=== PATIENT | male | born 1960 | race Caucasian/White ===

== ENCOUNTER 2017-02-10 18:23 | Emergency (ER) | payer MEDICAID ==
[~2017-02-10] VITALS: Ht 180.3 cm; Wt 56.8 kg
[~2017-02-10 18:23] MED LIST: ALBU0.08 NEB; ALBU6.7H INH; ALEV220C PO; BACL10TA PO; LOVA40TA PO; NEBUKIT5; TAMS5CAP PO; ULTR50TA5 PO
[2017-02-10 18:26] VITALS: BP 113/76; PULSE 89; RESP 18; TEMP 97.9; O2SAT 96
[2017-02-10 19:09] VITALS: BP 117/70; PULSE 102; RESP 20; TEMP 98; O2SAT 96
[2017-02-10] MEDS ORDERED: SODIUM CHLOR 0.9% 1000 ML INJ 1,000 ML IV SCH (19:34)
[2017-02-10] MEDS ORDERED: ONDANSETRON HCL 4 MG/2 ML VIAL IVP ONE (19:45)
[2017-02-10] MEDS ORDERED: PANTOPRAZOLE SODIUM 40 MG VIAL IVP ONE (19:45)
[2017-02-10 20:18] VITALS: BP 117/70; PULSE 78; RESP 20; O2SAT 96
[2017-02-10 20:20] LABS: AUTOMATED NEUTROPHIL # 8.3 TH/MM3 (1.8-7.7); BASOPHIL # 0.1 TH/MM3 (0-0.2); BASOPHIL % 0.7 % (0.0-2.0); EOSINOPHIL # 0.3 TH/MM3 (0-0.4); EOSINOPHIL % 2.5 % (0.0-4.0); HEMATOCRIT 49.6 % (39.0-51.0); HEMO FLAGS DIFF FINAL; LYMPH % 15.9 % (9.0-44.0); LYMPHOCYTE # 1.9 TH/MM3 (1.0-4.8); MEAN CORPUSCULAR HEMOGLOBIN 30.3 PG (27.0-34.0); MONO % 9.1 % (0.0-8.0); NEUT % 71.8 % (16.0-70.0); PLATELET COUNT 201 TH/MM3 (150-450); RED BLOOD COUNT 5.39 MIL/MM3 (4.50-5.90); RED CELL DISTRIBUTION WIDTH 14.5 % (11.6-17.2); WHITE BLOOD COUNT 11.7 TH/MM3 (4.0-11.0)
--- NOTE | 2017-02-10 20:26 | RADHPO ---
EXAM DATE/TIME: 02/10/2017 20:05 [facility] COMPARISON: CHEST PA & LAT, April 07, 2013, 19:52. INDICATIONS : Shortness of breath, nausea, and abdominal pain. MEDICAL HISTORY : Chronic obstructive pulmonary disease. Lymphoma. Colitis. SURGICAL HISTORY : None. ENCOUNTER: Initial ACUITY: 1 day PAIN SCORE: 6/10 LOCATION: Bilateral chest FINDINGS: 2 AP erect views of the chest were obtained and demonstrates the lungs to be symmetrically hyperinfla conrad without evidence of mass, infiltrate or effusion. The cardiomediastinal contours are unremarkabl e. Osseous structures are intact. There are multiple overlying electrocardiogram leads. CONCLUSION: 1. Hyperinflation consistent with underlying emphysema. 2. No acute cardiopulmonary disease. Jose Bae MD on February 10, 2017 at 20:24 Board Certified Radiologist. This report was verified electronically.
[2017-02-10 20:31] LABS: CHLORIDE 102 MEQ/L (98-107); POTASSIUM 4.2 MEQ/L (3.5-5.1); SODIUM (NA) 137 MEQ/L (136-145)
[2017-02-10 20:34] LABS: APTT (PATIENT) 28.2 SEC (24.3-30.1); PROTHROMBIN TIME - PATIENT 10.5 SEC (9.8-11.6)
[2017-02-10 20:35] LABS: ANION GAP 8 MEQ/L (5-15); BICARBONATE 27.1 MEQ/L (21.0-32.0); BLOOD UREA NITROGEN 24 MG/DL (7-18); MAGNESIUM 1.9 MG/DL (1.5-2.5)
[2017-02-10 20:38] LABS: ALT (GPT) 26 U/L (12-78); AST (GOT) 19 U/L (15-37); GLOMERULAR FILTRATION RATE 80 ML/MIN (>89)
[2017-02-10 20:40] LABS: TOTAL BILIRUBIN ADULT 0.3 MG/DL (0.2-1.0)
[2017-02-10 20:41] LABS: ALKALINE PHOSPHATASE 88 U/L (45-117)
[2017-02-10 21:00] VITALS: BP 106/65; PULSE 84; RESP 20; O2SAT 97
[2017-02-10] MEDS ORDERED: IOHEXOL 350 MG/ML 10 ML VIAL (for RAD DIAG) IV ONE (21:31)
--- NOTE | 2017-02-10 21:36 | RADHPO ---
EXAM DATE/TIME: 02/10/2017 20:56 [facility] COMPARISON: CT ABDOMEN & PELVIS W CONTRAST, August 06, 2016, 14:22. INDICATIONS : Diffuse abdominal pain with nausea. IV CONTRAST: 96 cc Omnipaque 350 (iohexol) IV ORAL CONTRAST: No oral contrast ingested. RADIATION DOSE: 4.85 CTDIvol (mGy) MEDICAL HISTORY : Gastroesophageal reflux disease. Lymphoma. Hepatitis C.Colitis. SURGICAL HISTORY : None. ENCOUNTER: Initial ACUITY: 2 days PAIN SCALE: 7/10 LOCATION: Abdomen. TECHNIQUE: Volumetric scanning of the abdomen and pelvis was performed. Using automated exposure control and ad justment of the mA and/or kV according to patient size, radiation dose was kept as low as reasonably achievable to obtain optimal diagnostic quality images. FINDINGS: LOWER LUNGS: The visualized lower lungs are clear. LIVER: Homogeneous density without lesion. There is no dilation of the biliary tree. No calcified gallston es. The gallbladder is unremarkable. SPLEEN: Normal size without lesion. PANCREAS: Within normal limits. KIDNEYS: Normal in size and shape. There is no solid mass, stone or hydronephrosis. There is a simple cyst in the left kidney. ADRENAL GLANDS: Within normal limits. VASCULAR: There is no aortic aneurysm. BOWEL/MESENTERY: The stomach, small bowel, and colon demonstrate no acute abnormality. There is no free intraperitone al air or fluid. ABDOMINAL WALL: Within normal limits. RETROPERITONEUM: There is no lymphadenopathy. BLADDER: No wall thickening or mass. REPRODUCTIVE: Within normal limits. INGUINAL: There is no lymphadenopathy or hernia. MUSCULOSKELETAL: Within normal limits for patient age. CONCLUSION: 1. Unremarkable bowel gas pattern. 2. The gallbladder is unremarkable in appearance. Jose Bae MD on February 10, 2017 at 21:31 Board Certified Radiologist. This report was verified electronically.
--- NOTE | 2017-02-10 21:48 | EKG ---
Date Performed: 02/10/2017 Time Performed: 19:37:46 PTAGE: 56 years EKG: Sinus rhythm rSr'(V1) - probable normal variant Poor R wave progression - probable normal variant Septal T wave c hanges are nonspecific Borderline ECG NO SIGNIFICANT CHANGE FROM PRIOR ELECTROCARDIOGRAM. PREVIOUS TRACING : 11/08/2010 11.07 DOCTOR: Junaid Christie Interpretating Date/Time 02/10/2017 21:47:14
--- NOTE | 2017-02-10 21:57 | PD ---
HPI Chief Complaint: GI Complaint Time Seen by Provider: 19:33 Travel History International Travel<30 days: No Contact w/Intl Traveler<30days: No Traveled to known affect area: No History of Present Illness HPI 56-year-old male presents to the emergency department by private transportation for evaluation of nausea. Patient reports symptoms 2 days. Patient also reports that he said black stool. Patient does take Aleve approximately once a week. Patient has had some epigastric discomfort. No prior history of gastritis peptic ulcer disease or GI bleed. Patient denies tobacco use or alcohol use. Patient with history of COPD. Patient's had no recent febrile illness or respiratory illness. Patient's had loose stool. No other family members with similar symptoms. No report of dietary indiscretion well water ingestion or foreign travel. No dizziness or near syncope or syncope or shortness of breath. Patient is unable to identify exacerbating or alleviating factors. Patient denies chest pain or shortness of breath. Patient denies referred neck jaw back shoulder arm pain. PFSH Past Medical History Narrative Medical Hodgkin's lymphoma 8 years ago status post chemotherapy colitis GERD and BPH eye surgery tobacco use [id number] status post removal; nursing notes reviewed Hx Anticoagulant Therapy: No Blood Disorders: No Cancer: Yes (HODGKIN'S LYMPHOMA) Cardiovascular Problems: No Chemotherapy: Yes (2007) COPD: Yes Diabetes: No Diminished Hearing: Yes Endocrine: No Gastrointestinal Disorders: Yes (COLITIS) Genitourinary: Yes (BPH) Immune Disorder: No Implanted Vascular Access Dvce: No Musculoskeletal: Yes (DJD) Neurologic: No Psychiatric: No Reproductive: No Respiratory: Yes (COPD) Immunizations Current: No Pneumonia: Yes Radiation Therapy: No Tetanus Vaccination: Unknown Influenza Vaccination: Yes Past Surgical History Eye Surgery: Yes (LT EYE [id number] IN [facility].) Other Surgery: Yes (HAD PORT FOR CHEM PUT IN ,NOW REMOVED) Social History Alcohol Use: No Tobacco Use: Yes (1/2 PPD) Substance Use: No Allergies-Medications (Allergen,Severity, Reaction): Coded Allergies: Vancomycin (Verified Allergy, Intermediate, RASH, 02/10/17) Reported Meds & Prescriptions Reported Meds & Active Scripts Active Zofran Odt (Ondansetron Odt) 4 Mg Tab 4 Mg SL Q6HR PRN Nebulizer Kit/Tubing/Mout (N/A) 1 Kit Kit 1 Kit .ROUTE DIRECTED Albuterol Neb (Albuterol Sulfate) 2.5 Mg/3 Ml Neb 2.5 Mg NEB Q4HR NEB PRN Baclofen 10 Mg Tab 10 Mg PO TID Reported Aleve (Naproxen Sodium) 220 Mg Cap 220 Mg PO DAILY PRN Ultram (Tramadol HCl) 50 Mg Tab 50 Mg PO BID PRN Lovastatin 40 Mg Tab 2 Tab PO HS Review of Systems Except as stated in HPI: all other systems reviewed are Neg General / Constitutional: No: Fever, Chills HENT: No: Congestion Cardiovascular: No: Chest Pain or Discomfort Respiratory: No: Shortness of Breath Gastrointestinal: Positive: Nausea, Diarrhea, No: Vomiting, Abdominal Pain, Hematemesis, Hematochezia, Loss of Appetite Genitourinary: No: Dysuria, Flank Pain Musculoskeletal: No: Myalgias, Arthralgias Skin: No Rash Neurologic: No: Weakness, Dizziness, Syncope Psychiatric: No: Anxiety Endocrine: No: Heat Intolerance Hematologic/Lymphatic: No: Easy Bruising Physical Exam Narrative GENERAL: Well-developed well-nourished male in no acute distress no respiratory distress SKIN: Warm and dry. HEAD: Atraumatic. Normocephalic. EYES: Pupils equal and round. Blindness left eye. No scleral icterus. No injection or drainage. ENT: No nasal bleeding or discharge. Mucous membranes pink and moist. NECK: Trachea midline. No JVD. CARDIOVASCULAR: Regular rate and rhythm. RESPIRATORY: No accessory muscle use. Clear to auscultation. Breath sounds equal bilaterally. GASTROINTESTINAL: Abdomen soft, non-tender, nondistended. Hepatic and splenic margins not palpable. Rectal exam: Normal sphincter tone liquid a brown stool on exam glove. MUSCULOSKELETAL: Extremities without clubbing, cyanosis, or edema. No obvious deformities. NEUROLOGICAL: Awake and alert. No obvious cranial nerve deficits. Motor grossly within normal limits. Five out of 5 muscle strength in the arms and legs. Normal speech. PSYCHIATRIC: Appropriate mood and affect; insight and judgment normal. Data Data Last Documented VS Vital Signs Date Time Temp Pulse Resp B/P Pulse Ox O2 Delivery O2 Flow Rate FiO2 02/10/17 23:19 79 18 107/67 97 Room Air 02/10/17 19:09 98.0 Orders Complete Blood Count With Diff (02/10/17 19:34) Comprehensive Metabolic Panel (02/10/17 19:34) Lipase (02/10/17 19:34) Prothrombin Time / Inr (Pt) (02/10/17 19:34) Act Partial Throm Time (Ptt) (02/10/17 19:34) Urinalysis - C+S If Indicated (02/10/17 19:34) Ct Abd/Pel W Iv Contrast(Rout) (02/10/17 19:34) Iv Access Insert/Monitor (02/10/17 19:34) Ecg Monitoring (02/10/17 19:34) Oximetry (02/10/17 19:34) Ondansetron Inj (Zofran Inj) (02/10/17 19:45) Pantoprazole Inj (Protonix Inj) (02/10/17 19:45) Sodium Chlor 0.9% 1000 Ml Inj (Ns 1000 M (02/10/17 19:34) Electrocardiogram (02/10/17 19:34) Chest, Single Ap (02/10/17 19:34) Troponin I (02/10/17 19:34) Magnesium (Mg) (02/10/17 19:34) Iohexol 350 Inj (Omnipaque 350 Inj) (02/10/17 21:31) Sodium Chlor 0.9% 1000 Ml Inj (Ns 1000 M (02/10/17 22:30) Labs Laboratory Tests Test 02/10/17 02/10/17 19:40 22:01 White Blood Count 11.7 TH/MM3 Red Blood Count 5.39 MIL/MM3 Hemoglobin 16.3 GM/DL Hematocrit 49.6 % Mean Corpuscular Volume 92.0 FL Mean Corpuscular Hemoglobin 30.3 PG Mean Corpuscular Hemoglobin 33.0 % Concent Red Cell Distribution Width 14.5 % Platelet Count 201 TH/MM3 Mean Platelet Volume 9.5 FL Neutrophils (%) (Auto) 71.8 % Lymphocytes (%) (Auto) 15.9 % Monocytes (%) (Auto) 9.1 % Eosinophils (%) (Auto) 2.5 % Basophils (%) (Auto) 0.7 % Neutrophils # (Auto) 8.3 TH/MM3 Lymphocytes # (Auto) 1.9 TH/MM3 Monocytes # (Auto) 1.1 TH/MM3 Eosinophils # (Auto) 0.3 TH/MM3 Basophils # (Auto) 0.1 TH/MM3 CBC Comment DIFF FINAL Differential Comment Prothrombin Time 10.5 SEC Prothromb Time International 1.0 RATIO Ratio Activated Partial 28.2 SEC Thromboplast Time Sodium Level 137 MEQ/L Potassium Level 4.2 MEQ/L Chloride Level 102 MEQ/L Carbon Dioxide Level 27.1 MEQ/L Anion Gap 8 MEQ/L Blood Urea Nitrogen 24 MG/DL Creatinine 0.96 MG/DL Estimat Glomerular Filtration 80 ML/MIN Rate Random Glucose 86 MG/DL Calcium Level 8.8 MG/DL Magnesium Level 1.9 MG/DL Total Bilirubin 0.3 MG/DL Aspartate Amino Transf 19 U/L (AST/SGOT) Alanine Aminotransferase 26 U/L (ALT/SGPT) Alkaline Phosphatase 88 U/L Troponin I LESS THAN 0.02 NG/ML Total Protein 7.9 GM/DL Albumin 3.8 GM/DL Lipase 196 U/L Urine Color YELLOW Urine Turbidity CLEAR Urine pH 5.5 Urine Specific [place] GREATER THAN 1.035 Urine Protein TRACE mg/dL Urine Glucose (UA) NEG mg/dL Urine Ketones 15 mg/dL Urine Occult Blood MOD Urine Nitrite NEG Urine Bilirubin NEG Urine Leukocyte Esterase NEG Urine RBC 0-3 /hpf Urine WBC 0-2 /hpf Urine Squamous Epithelial 0-5 /hpf Cells Urine Hyaline Casts 0-2 /lpf Microscopic Urinalysis Comment CULT NOT INDICATED MDM Medical Decision Making Medical Screen Exam Complete: Yes Emergency Medical Condition: Yes Medical Record Reviewed: Yes Interpretation(s) EKG: Normal sinus rhythm rate [address] elevation or injury pattern change noted Last Impressions Chest X-Ray 02/10/171933 Signed Impressions: Service Date/Time: Friday, February 10, 2017 20:05 - CONCLUSION: 1. Hyperinflation consistent with underlying emphysema. 2. No acute cardiopulmonary disease. Jose Bae MD Abdomen/Pelvis CT 02/10/171933 Signed Impressions: Service Date/Time: Friday, February 10, 2017 20:56 - CONCLUSION: 1. Unremarkable bowel gas pattern. 2. The gallbladder is unremarkable in appearance. Jose Bae MD CBC & BMP Diagram 02/10/17 19:40 Vital Signs Date Time Temp Pulse Resp B/P Pulse Ox O2 Delivery O2 Flow Rate FiO2 02/10/17 20:18 78 20 117/70 96 02/10/17 19:09 20 02/10/17 19:09 98.0 102 20 117/70 96 Room Air 02/10/17 18:45 16 02/10/17 18:26 97.9 89 18 113/76 96 Troponin I: Less than 0.02, not elevated Urinalysis: noted for elevated specific gravity greater than 1.035 LFTs as part of metabolic panel: Values in normal range Differential Diagnosis Nausea, gastroenteritis, gastritis, peptic ulcer disease, pancreatitis, cholecystitis, colitis, atypical chest pain, ACS, gi bleed, viral syndrome Narrative Course IV access obtained specimens collected and sent for resulting; rectal exam performed and is negative for gross or occult blood; patient administered Zofran 4 mg IV along with Protonix 40 mg IV Imaging studies ordered CBC is automated differential found to be grossly within normal range; EKG shows no acute injury pattern change or ectopy Cardiac enzymes are found to be in normal range Toradol less than 0.02 No further nausea or dry heaving no vomiting noted; no episodes of vomiting while being evaluated in the emergency department or while in triage and she denies any vomiting at home @ 9: 45 PM patient reports feels clinically improved after episode of diarrhea; no further nausea no upper abdominal discomfort and no urge to have a bowel movement. Patient has had no further episodes of dry heaves no episodes of vomiting; and over further complaint of nausea. [facility] Point of Care Internal Pos. & Neg. Controls: Passed Fecal Specimen Occult Blood: Negative Diagnosis Primary Impression: Gastroenteritis Referrals: Primary Care Physician call for appointment Patient Instructions: General Instructions Additional Instructions: Follow clear liquid diet for next 12-24 hours advance as tolerated to bland/ Jeff diet and regular diet avoiding fried and fatty foods Monitor temperature every 4 hours with thermometer May use acetaminophen/Tylenol as often as every 4 hours as needed for fever 100.4F or greater Take medication as prescribed as needed for nausea and/or vomiting Take Prilosec OTC per package directions daily 2 weeks Follow-up with primary care provider call office on Monday to schedule follow- up appointment Return to the emergency department for pain fever vomiting or any concerns Do not use Aleve/Naprosyn and/or ibuprofen/Motrin/Advil for the next 7 days Med/Other Pt SpecificInfo: Prescription(s) given Scripts Ondansetron Odt (Zofran Odt)4 Mg Tab4 Mg SL Q6HR PRN (Nausea/Vomiting) #10 TAB Ref 0 Prov:Viviana Lynn MD 02/10/17 Disposition: 01 DISCHARGE HOME Condition: Stable Viviana Lynn MD Feb 10, 2017 21:57
[2017-02-10 22:09] LABS: GLUCOSE,URINE NEG (NEG); KETONE, URINE 15 mg/dL (NEG); NITRITE,URINE NEG (NEG); PH, URINE 5.5 (5.0-8.5)
[2017-02-10 22:15] LABS: BLOOD, URINE MOD (NEG)
[2017-02-10 22:22] LABS: URINE COLOR YELLOW (YELLW/STRAW)
[2017-02-10 22:23] LABS: HYALINE CAST, URINE 0-2 /lpf (RARE)
[2017-02-10 22:24] LABS: RBC, URINE 0-3 /hpf (0-3); SQUAMOUS EPITHELIAL CELL URINE 0-5 /hpf (0-5); WBC, URINE 0-2 /hpf (0-5)
[2017-02-10 22:25] LABS: COMMENT (UR) CULT NOT INDICATED; CULTURE IF INDICATED CULT NOT INDICATED
[2017-02-10] MEDS ORDERED: SODIUM CHLOR 0.9% 1000 ML INJ 1,000 ML IV ONE (22:30)
[2017-02-10] MEDS ORDERED: ZOFR4TAB3 SL (22:31)
[2017-02-10 23:19] VITALS: BP 107/67; PULSE 79; RESP 18; O2SAT 97
[2017-05-03] MEDS ORDERED: TEMA15CA PO (14:26)
[2017-05-03] MEDS ORDERED: CETI10 PO (14:32)
[2017-05-03] MEDS ORDERED: LOVA40TA PO (14:35)
== END 2017-02-10 23:45 | disposition home or self-care (01) ==
LOC: PHED 18:23
DX: K52.9 Noninfective gastroenteritis and colitis, unspecified (principal); J44.9 Chronic obstructive pulmonary disease, unspecified; R94.31 Abnormal electrocardiogram [ECG] [EKG]
CPT/HCPCS: 71010; 74177; 80053; 81001; 83690; 83735; 84484; 85025; 85610; 85730; 93005; 96361; 96374; 96375; 99284; C9113; J2405; J7030; Q9967

== ENCOUNTER 2017-06-20 22:59 | Emergency (ER) | payer MEDICAID ==
[~2017-06-20 22:59] MED LIST changes: -ALBU6.7H INH; -ALEV220C PO; +CETI10 PO; -TAMS5CAP PO; +TEMA15CA PO; +ZOFR4TAB3 SL
[2017-06-20 23:06] VITALS: BP 113/65; PULSE 106; RESP 16; TEMP 98.6; O2SAT 95
[2017-06-21] MEDS ORDERED: ULTR50TA5 PO (00:19)
--- NOTE | 2017-06-21 00:20 | PD ---
HPI Chief Complaint: Back/ Neck Pain or Injury Time Seen by Provider: 00:02 Travel History International Travel<30 days: No Contact w/Intl Traveler<30days: No Traveled to known affect area: No History of Present Illness HPI 56-year-old male complains of low back pain. Patient has history of chronic low back pain and has been taking baclofen and tramadol for pain. Patient states that he ran out of pain medication. Patient is awaiting referral to pain management for his chronic back pain. Patient denies any new problem. Patient denies any focal weakness or numbness of extremity. PFSH Past Medical History Hx Anticoagulant Therapy: No Blood Disorders: No Cancer: Yes (HODGKIN'S LYMPHOMA) Cardiovascular Problems: No Chemotherapy: Yes (2007) COPD: Yes Diabetes: No Diminished Hearing: Yes ([place]ATAK BOTH EARS) Endocrine: No Gastrointestinal Disorders: Yes (COLITIS) Genitourinary: Yes (BPH) Immune Disorder: No Implanted Vascular Access Dvce: No Musculoskeletal: Yes (DJD) Neurologic: No Psychiatric: No Reproductive: No Respiratory: Yes (COPD) Immunizations Current: No Pneumonia: Yes Radiation Therapy: No Tetanus Vaccination: Unknown Past Surgical History Eye Surgery: Yes (LT EYE [id number] IN [facility].) Other Surgery: Yes (HAD PORT FOR CHEM PUT IN ,NOW REMOVED) Social History Alcohol Use: No Tobacco Use: Yes (1 PPD) Substance Use: No Allergies-Medications (Allergen,Severity, Reaction): Coded Allergies: Vancomycin (Verified Allergy, Intermediate, RASH, 05/03/17) Reported Meds & Prescriptions Reported Meds & Active Scripts Active Ultram (Tramadol HCl) 50 Mg Tab 50 Mg PO Q6H PRN Lovastatin 40 Mg Tab 2 Tab PO HS Cetirizine (Cetirizine HCl) 10 Mg Tab 10 Mg PO DAILY Zofran Odt (Ondansetron Odt) 4 Mg Tab 4 Mg SL Q6HR PRN Nebulizer Kit/Tubing/Mout (N/A) 1 Kit Kit 1 Kit .ROUTE DIRECTED Albuterol Neb (Albuterol Sulfate) 2.5 Mg/3 Ml Neb 2.5 Mg NEB Q4HR NEB PRN Baclofen 10 Mg Tab 10 Mg PO TID Reported Temazepam 15 Mg Cap 15 Mg PO HS PRN Ultram (Tramadol HCl) 50 Mg Tab 50 Mg PO BID PRN Review of Systems General / Constitutional: No: Fever Eyes: No: Visual changes HENT: No: Headaches Cardiovascular: No: Chest Pain or Discomfort Respiratory: No: Shortness of Breath Gastrointestinal: No: Abdominal Pain Genitourinary: No: Dysuria Musculoskeletal: No: Pain Skin: No Rash Neurologic: No: Weakness Psychiatric: No: Depression Endocrine: No: Polydipsia Hematologic/Lymphatic: No: Easy Bruising Physical Exam Narrative GENERAL: Well-nourished, well-developed patient. SKIN: Focused skin assessment warm/dry. HEAD: Normocephalic. EYES: No scleral icterus. No injection or drainage. NECK: Supple, trachea midline. No JVD or lymphadenopathy. CARDIOVASCULAR: Regular rate and rhythm without murmurs, gallops, or rubs. RESPIRATORY: Breath sounds equal bilaterally. No accessory muscle use. GASTROINTESTINAL: Abdomen soft, non-tender, nondistended. MUSCULOSKELETAL: No cyanosis, or edema. BACK: Mild tenderness on palpation on palpation left low lumbar area. Negative straight leg raising. Neurologic exam normal. Data Data Last Documented VS Vital Signs Date Time Temp Pulse Resp B/P Pulse Ox O2 Delivery O2 Flow Rate FiO2 06/21/17 00:45 78 16 97/72 97 06/20/17 23:06 98.6 MDM Medical Decision Making Medical Screen Exam Complete: Yes Emergency Medical Condition: Yes Differential Diagnosis Differential diagnosis including acute exacerbation chronic low back pain, fracture, HNP Narrative Course 56-year-old male with acute exacerbation of chronic low back pain. Diagnosis Primary Impression: Acute exacerbation of chronic low back pain Patient Instructions: General Instructions Additional Instructions: I advised patient that night will give him a prescription for small amount of tramadol. Advised patient to follow-up local physician for further pain management of his back pain. Med/Other Pt SpecificInfo: Prescription(s) given Scripts Tramadol (Ultram)50 Mg Tab50 Mg PO Q6H PRN (PAIN) #10 TAB Prov:Jean Pierre Redmond MD 06/21/17 Disposition: 01 DISCHARGE HOME Condition: Stable Jean Pierre Redmond MD Jun 21, 2017 00:19
[2017-06-21 00:45] VITALS: BP 97/72
== END 2017-06-21 00:45 | disposition home or self-care (01) ==
LOC: PHED 22:59
DX: M54.5 Low back pain (principal); G89.29 Other chronic pain; H91.93 Unspecified hearing loss, bilateral; F17.200 Nicotine dependence, unspecified, uncomplicated; Z85.71 Personal history of Hodgkin lymphoma; Z87.19 Personal history of other diseases of the digestive system; Z87.09 Personal history of other diseases of the respiratory system; Z87.438 Personal history of other diseases of male genital organs; Z87.39 Personal history of other diseases of the musculoskeletal system and connective tissue
CPT/HCPCS: 99283

== ENCOUNTER 2017-07-31 22:55 | Observation (INO) | payer MEDICAID ==
[~2017-07-31] VITALS: Ht 182.9 cm; Wt 56.0 kg
[~2017-07-31 22:55] MED LIST changes: -ZOFR4TAB3 SL
[2017-07-31 23:07] VITALS: BP 113/61; PULSE 68; RESP 20; TEMP 97.4
[2017-07-31] MEDS ORDERED: LEVA750T9 PO (23:26)
[2017-07-31] MEDS ORDERED: VENTAER INH (23:26)
[2017-07-31] MEDS ORDERED: MEDR4PAK PO (23:27)
--- NOTE | 2017-07-31 23:43 | PD ---
HPI Chief Complaint: GI Complaint Time Seen by Provider: 23:27 Travel History International Travel<30 days: No Contact w/Intl Traveler<30days: No Traveled to known affect area: No History of Present Illness HPI 56-year-old male complains of chest pain and abdominal pain and nausea vomiting. Patient states that he started having substernal chest pressure since 4:00 in the morning. Patient states that the chest pain persistent stent. Patient denies any pain radiation. Patient denies palpitation nausea diaphoresis. Patient states that he also has epigastric abdominal pain since last night also. Patient states that he was seen at local urgent care this evening and was diagnosis with bronchopneumonia and given prescription for Medrol Dosepak, Levaquin. Patient states that he is not having nausea vomiting after taking the Levaquin. Patient has history of COPD, hyperlipidemia. Patient has history of borderline diabetes. Patient denies history hypertension. Patient is a smoker. Patient has family history of heart disease. On a scale of 1-10 the pain is a 2 now. PFSH Past Medical History Hx Anticoagulant Therapy: No Blood Disorders: No Cancer: Yes (HODGKIN'S LYMPHOMA) Cardiovascular Problems: Yes (COPD) Chemotherapy: Yes (2006) COPD: Yes Diabetes: Yes Patient Takes Glucophage: No Diminished Hearing: Yes ([place] BOTH EARS) Endocrine: No Gastrointestinal Disorders: Yes (COLITIS) Genitourinary: Yes (BPH) Immune Disorder: No Implanted Vascular Access Dvce: No Musculoskeletal: Yes (DJD) Neurologic: No Psychiatric: No Reproductive: No Respiratory: Yes (COPD) Immunizations Current: No Pneumonia: Yes Radiation Therapy: No Tetanus Vaccination: Unknown Influenza Vaccination: Yes Past Surgical History Eye Surgery: Yes (LT EYE [id number] IN LT EYE.) Other Surgery: Yes (HAD PORT FOR CHEM PUT IN ,NOW REMOVED) Social History Alcohol Use: No Tobacco Use: No (1 PPD UNTIL 07/29/17) Substance Use: No Allergies-Medications (Allergen,Severity, Reaction): Coded Allergies: vancomycin (Unverified Allergy, Intermediate, RASH, 08/01/17) Reported Meds & Prescriptions Reported Meds & Active Scripts Active Ultram (Tramadol HCl) 50 Mg Tab 50 Mg PO Q6H PRN Lovastatin 40 Mg Tab 2 Tab PO HS Cetirizine (Cetirizine HCl) 10 Mg Tab 10 Mg PO DAILY Nebulizer Kit/Tubing/Mout (N/A) 1 Kit Kit 1 Kit .ROUTE DIRECTED Albuterol Neb (Albuterol Sulfate) 2.5 Mg/3 Ml Neb 2.5 Mg NEB Q4HR NEB PRN Baclofen 10 Mg Tab 10 Mg PO TID Reported Medrol Dosepak (Methylprednisolone) 4 Mg Dspk 4 Mg PO DIRECTED Per Pharmacist direction Levaquin (Levofloxacin) 750 Mg Tablet 750 Mg PO DAILY Ventolin Hfa 18 GM Inh (Albuterol Sulfate) 90 Mcg/Act Aer 2 Puff INH Q4-6H PRN Temazepam 15 Mg Cap 15 Mg PO HS PRN Review of Systems General / Constitutional: No: Fever Eyes: No: Visual changes HENT: No: Headaches Cardiovascular: Positive: Chest Pain or Discomfort Respiratory: No: Shortness of Breath Gastrointestinal: Positive: Nausea, Vomiting, Abdominal Pain Genitourinary: No: Dysuria Musculoskeletal: No: Pain Skin: No Rash Neurologic: No: Weakness Psychiatric: No: Depression Endocrine: No: Polydipsia Hematologic/Lymphatic: No: Easy Bruising Physical Exam Narrative GENERAL: Well-nourished, well-developed patient. SKIN: Focused skin assessment warm/dry. HEAD: Normocephalic. EYES: No scleral icterus. No injection or drainage. NECK: Supple, trachea midline. No JVD or lymphadenopathy. CARDIOVASCULAR: Regular rate and rhythm without murmurs, gallops, or rubs. RESPIRATORY: Breath sounds equal bilaterally. No accessory muscle use. GASTROINTESTINAL: Abdomen soft, nondistended. Patient has moderate tenderness on palpation epigastric area. No rebound tenderness. No mass. MUSCULOSKELETAL: No cyanosis, or edema. BACK: Nontender without obvious deformity. No CVA tenderness. Neurologic exam normal. Data Data Last Documented VS Vital Signs Date Time Temp Pulse Resp B/P (MAP) Pulse Ox O2 Delivery O2 Flow Rate FiO2 08/01/17 01:00 72 18 111/68 (82) 93 Room Air 07/31/17 23:07 97.4 Orders Orders Electrocardiogram (07/31/17 23:35) Complete Blood Count With Diff (07/31/17 23:35) Comprehensive Metabolic Panel (07/31/17 23:35) Creatine Kinase (Cpk) (07/31/17 23:35) Troponin I (07/31/17 23:35) Prothrombin Time / Inr (Pt) (07/31/17 23:35) Act Partial Throm Time (Ptt) (07/31/17 23:35) Lipase (07/31/17 23:35) Urinalysis - C+S If Indicated (07/31/17 23:35) Chest, Single Ap (07/31/17 23:35) Ct Abd/Pel W Iv Contrast(Rout) (07/31/17 23:35) Iv Access Insert/Monitor (07/31/17 23:35) Ecg Monitoring (07/31/17 23:35) Oximetry (07/31/17 23:35) Al-Mag Hy-Si 40-40-4 Mg/Ml Liq (Mag-Al P (07/31/17 23:45) Wnmnn-Qdvimi-Wvemnj-Pb Liq ( Liq (07/31/17 23:45) Pantoprazole (Protonix) (07/31/17 23:45) Ondansetron Inj (Zofran Inj) (07/31/17 23:45) Aspirin (Aspirin) (08/01/17 00:15) Nitroglycerin 2% Oint (Nitroglycerin 2% (08/01/17 00:45) Sodium Chlor 0.9% 1000 Ml Inj (Ns 1000 M (08/01/17 00:45) Admit Order (Ed Use Only) (08/01/17 01:06) Labs Laboratory Tests Test 07/31/17 23:40 White Blood Count 14.9 TH/MM3 Red Blood Count 4.73 MIL/MM3 Hemoglobin 14.2 GM/DL Hematocrit 43.0 % Mean Corpuscular Volume 91.0 FL Mean Corpuscular Hemoglobin 30.0 PG Mean Corpuscular Hemoglobin Concent 33.0 % Red Cell Distribution Width 14.5 % Platelet Count 236 TH/MM3 Mean Platelet Volume 9.2 FL Neutrophils (%) (Auto) 75.8 % Lymphocytes (%) (Auto) 13.6 % Monocytes (%) (Auto) 8.7 % Eosinophils (%) (Auto) 1.4 % Basophils (%) (Auto) 0.5 % Neutrophils # (Auto) 11.3 TH/MM3 Lymphocytes # (Auto) 2.0 TH/MM3 Monocytes # (Auto) 1.3 TH/MM3 Eosinophils # (Auto) 0.2 TH/MM3 Basophils # (Auto) 0.1 TH/MM3 CBC Comment DIFF FINAL Differential Comment Prothrombin Time 11.4 SEC Prothromb Time International Ratio 1.0 RATIO Activated Partial Thromboplast Time 28.0 SEC Blood Urea Nitrogen 12 MG/DL Creatinine 0.86 MG/DL Random Glucose 119 MG/DL Total Protein 7.6 GM/DL Albumin 3.7 GM/DL Calcium Level 9.1 MG/DL Alkaline Phosphatase 105 U/L Aspartate Amino Transf (AST/SGOT) 18 U/L Alanine Aminotransferase (ALT/SGPT) 21 U/L Total Bilirubin 0.7 MG/DL Sodium Level 136 MEQ/L Potassium Level 3.8 MEQ/L Chloride Level 98 MEQ/L Carbon Dioxide Level 28.9 MEQ/L Anion Gap 9 MEQ/L Estimat Glomerular Filtration Rate 91 ML/MIN Total Creatine Kinase 82 U/L Troponin I LESS THAN 0.02 NG/ML Lipase 114 U/L MDM Medical Decision Making Medical Screen Exam Complete: Yes Emergency Medical Condition: Yes Interpretation(s) 12 41 AM. Last Impressions Chest X-Ray 07/31/17 0855 Signed Impressions: Service Date/Time: Monday, July 31, 2017 23:40 - CONCLUSION: 1. Changes suggestive of obstructive primary disease. 2. No acute abnormality or significant interval change. Lucien Sweet MD 12:41 AM. CBC WBC 14.9. 75 neutrophil. CMP within normal limit. Cardiac enzymes are normal. Differential Diagnosis Differential diagnosis including musculoskeletal, angina, UT, PE, pneumothorax, gastritis, PUD, pancreatitis, cholecystitis, colitis, UTI, pyelonephritis, nephrolithiasis. Narrative Course 56-year-old male with chest pain and epigastric pain abdominal pain, nausea vomiting. Aspirin 325 mg by mouth given. Nitro paste 1 inch on chest wall. Protonix 40 mg by mouth given. Maalox 30 cc by mouth. 10 cc by mouth given. Patient vomited the . Normal saline solution 1 L IV bolus. Normal saline solution 1 25 cc an hour. Spoke with Dr. Morris, prize jacker on-call. Advised [facility] admission, serial EKG and cardiac enzymes. Diagnosis Primary Impression: Chest pain Qualified Codes: R07.9 - Chest pain, unspecified Admitting Information Admitting Physician Requests: Admit Jean Pierre Redmond MD Jul 31, 2017 23:43
[2017-07-31] MEDS ORDERED: ONDANSETRON HCL 4 MG/2 ML VIAL IV PUSH ONE (23:45)
[2017-07-31] MEDS ORDERED: ATROPINE/SCOPOLAM/HYOSCYAM/PB ELIXIR 10 ML CUP PO ONE (23:45)
[2017-07-31] MEDS ORDERED: PANTOPRAZOLE SOD 40 MG DELAYED RELEASE TAB PO ONE (23:45)
[2017-07-31] MEDS ORDERED: ALUMINUM/MAGNESIUM/SIMETH 30 ML CUP PO ONE (23:45)
[2017-07-31 23:47] VITALS: RESP 16; O2SAT 98
[2017-08-01] VITALS (19 sets, daily range): BP systolic 90–119; BP diastolic 53–69; PULSE 46–80; RESP 16–24; TEMP 97.6; O2SAT 93–97
[2017-08-01 00:13] LABS: CHLORIDE 98 MEQ/L (98-107); POTASSIUM 3.8 MEQ/L (3.5-5.1); SODIUM (NA) 136 MEQ/L (136-145)
[2017-08-01 00:14] LABS: AUTOMATED NEUTROPHIL # 11.3 TH/MM3 (1.8-7.7); BASOPHIL # 0.1 TH/MM3 (0-0.2); BASOPHIL % 0.5 % (0.0-2.0); EOSINOPHIL # 0.2 TH/MM3 (0-0.4); EOSINOPHIL % 1.4 % (0.0-4.0); HEMO FLAGS DIFF FINAL; LYMPH % 13.6 % (9.0-44.0); MONO % 8.7 % (0.0-8.0); NEUT % 75.8 % (16.0-70.0); PLATELET COUNT 236 TH/MM3 (150-450); RED BLOOD COUNT 4.73 MIL/MM3 (4.50-5.90); RED CELL DISTRIBUTION WIDTH 14.5 % (11.6-17.2); WHITE BLOOD COUNT 14.9 TH/MM3 (4.0-11.0)
[2017-08-01] MEDS ORDERED: ASPIRIN 325 MG TAB PO ONE (00:15)
[2017-08-01 00:17] LABS: ANION GAP 9 MEQ/L (5-15); BICARBONATE 28.9 MEQ/L (21.0-32.0); PROTHROMBIN TIME - PATIENT 11.4 SEC (9.8-11.6)
[2017-08-01 00:18] LABS: BLOOD UREA NITROGEN 12 MG/DL (7-18)
[2017-08-01 00:20] LABS: ALT (GPT) 21 U/L (12-78); AST (GOT) 18 U/L (15-37); GLOMERULAR FILTRATION RATE 91 ML/MIN (>89)
--- NOTE | 2017-08-01 00:20 | RADRPT ---
EXAM DATE/TIME: 07/31/2017 23:40 [facility] COMPARISON: CHEST SINGLE AP, February 10, 2017, 20:05. INDICATIONS : Chest pain. MEDICAL HISTORY : Chronic obstructive pulmonary disease. Lymphoma. SURGICAL HISTORY : None. ENCOUNTER: Initial ACUITY: 1 day PAIN SCORE: 3/10 LOCATION: Bilateral chest FINDINGS: Redemonstration of increased lung volumes with linear vertical opacities in the left upper lobe centr ally consistent with scarring. No new focal pleural or clinical opacities. Cardiomediastinal contours are within normal limits. Bony thorax is intact. CONCLUSION: 1. Changes suggestive of obstructive primary disease. 2. No acute abnormality or significant interval change. Lucien Sweet MD on August 01, 2017 at 0:18 Board Certified Radiologist. This report was verified electronically.
[2017-08-01 00:22] LABS: TOTAL BILIRUBIN ADULT 0.7 MG/DL (0.2-1.0)
[2017-08-01 00:23] LABS: ALKALINE PHOSPHATASE 105 U/L (45-117)
[2017-08-01 00:36] LABS: CREATINE KINASE 82 U/L (39-308)
[2017-08-01] MEDS ORDERED: SODIUM CHLOR 0.9% 1000 ML INJ 1,000 ML IV ONE (00:45)
[2017-08-01] MEDS ORDERED: NITROGLYCERIN 2% OINT 1 GM PACKET TOPICAL ONE (00:45)
[2017-08-01] MEDS ORDERED: ACETAMINOPHEN 325 MG TAB PO PRN (01:15)
[2017-08-01] MEDS ORDERED: ONDANSETRON HCL 4 MG/2 ML VIAL IV PRN (01:15)
[2017-08-01] MEDS ORDERED: SODIUM CHLORIDE 0.9% FLUSH 10 ML FLUSH IVF PRN (01:15)
[2017-08-01] MEDS ORDERED: IOHEXOL 350 MG/ML 10 ML VIAL (for RAD DIAG) IVCONTRAST ONE (01:20)
[2017-08-01] MEDS ORDERED: NALOXONE HCL 0.4 MG/ML AMP IV PRN (01:30)
[2017-08-01] MEDS ORDERED: BISACODYL 10 MG SUPP RECTAL PRN (01:30)
[2017-08-01] MEDS ORDERED: SODIUM CHLORIDE 0.9% FLUSH 10 ML FLUSH IV FLUSH PRN (01:30)
--- NOTE | 2017-08-01 01:38 | RADRPT ---
EXAM DATE/TIME: 08/01/2017 01:05 [facility] COMPARISON: CT ABDOMEN & PELVIS W CONTRAST, February 10, 2017, 20:56. INDICATIONS : Epigastric pain for 1 day. IV CONTRAST: 96 cc Omnipaque 350 (iohexol) IV ORAL CONTRAST: No oral contrast ingested. RADIATION DOSE: 5.16 CTDIvol (mGy) MEDICAL HISTORY : None SURGICAL HISTORY : None. ENCOUNTER: Initial ACUITY: 1 day PAIN SCALE: 8/10 LOCATION: upper quadrant abdomen TECHNIQUE: Volumetric scanning of the abdomen and pelvis was performed. Using automated exposure control and ad justment of the mA and/or kV according to patient size, radiation dose was kept as low as reasonably achievable to obtain optimal diagnostic quality images. DICOM format image data is available electro nically for review and comparison. FINDINGS: LOWER LUNGS: The visualized lower lungs are clear. LIVER: Homogeneous density without lesion. There is no dilation of the biliary tree. No calcified gallston es. SPLEEN: Normal size without lesion. PANCREAS: Within normal limits. KIDNEYS: There is a subcentimeter hypoechoic cystic lesion in the mid anterior left kidney which is stable fro m prior exam but is too small to fully characterize. Kidneys otherwise demonstrate symmetrical enhanc ement without evidence for hydronephrosis or radiopaque renal calculi. ADRENAL GLANDS: Within normal limits. VASCULAR: There is no aortic aneurysm. BOWEL/MESENTERY: Appendix is not directly visualized. There is no significant stranding in the pericecal region. Howev er, there are several subcentimeter pericecal mesenteric nodes. Mild sigmoid diverticulosis without s ignificant inflammatory change in comparison to prior exam in the shantell-sigmoid region. Bowel otherwis e appears grossly unremarkable without evidence for obstruction. Dense material within the stomach li ke reflects ingested material. ABDOMINAL WALL: Within normal limits. RETROPERITONEUM: There is no lymphadenopathy. BLADDER: No wall thickening or mass. REPRODUCTIVE: Nonspecific prostate enlargement with course calcifications. INGUINAL: There is no lymphadenopathy or hernia. MUSCULOSKELETAL: Within normal limits for patient age. CONCLUSION: 1. Appendix is not directly visualized although there is no significant pericecal inflammatory change . Subcentimeter pericecal mesenteric nodes are noted and a nonspecific finding. 2. Stable subcentimeter cystic lesion in the anterior mid left kidney which is too small to fully pavan racterize. 3. Otherwise, no acute abnormality or significant interval change. Lucien Sweet MD on August 01, 2017 at 1:30 Board Certified Radiologist. This report was verified electronically.
[2017-08-01 02:30] LABS: BLOOD, URINE TRACE (NEG); GLUCOSE,URINE NEG (NEG); KETONE, URINE TRACE mg/dL (NEG); NITRITE,URINE NEG (NEG); PH, URINE 8.5 (5.0-8.5)
[2017-08-01 02:35] LABS: URINE COLOR YELLOW (YELLW/STRAW)
[2017-08-01 02:36] LABS: MUCUS URINE RARE /lpf (OCC); RBC, URINE 0-3 /hpf (0-3); SQUAMOUS EPITHELIAL CELL URINE 0-5 /hpf (0-5)
[2017-08-01 02:37] LABS: COMMENT (UR) CULT NOT INDICATED; CULTURE IF INDICATED CULT NOT INDICATED
[2017-08-01 07:32] LABS: CREATINE KINASE 68 U/L (39-308)
[2017-08-01] MEDS ORDERED: SODIUM CHLORIDE 0.9% FLUSH 10 ML FLUSH IV FLUSH SCH ×2 (09:00)
--- NOTE | 2017-08-01 09:11 | HHI.HP ---
[facility]Staff Admission Diagnosis chest pain Diagnoses: Chief Complaint: Nausea, vomiting, chest discomfort Travel History International Travel<30 Days: No Contact w/Intl Traveler <30 Da: No Traveled to Known Affected Are: No History of Present Illness Mr. Garcia is a pleasant 56-year-old male with a history of Hodgkin's lymphoma, COPD who presented to the emergency department on 07/31/2017 due to nausea and vomiting as well as some chest discomfort. He recently went to a local urgent care and was diagnosed with bronchopneumonia and was sent home on Medrol Dosepak as well as Levaquin 750 mg by mouth daily. Patient took his first dose of Levaquin 750 mg at around 6 PM on 07/31/2017 and subsequently developed nausea vomiting as well as chest discomfort. Patient denies having any radiation of the chest discomfort. No diaphoresis. At the time of this interview, patient reports no chest pain. He feels that his back to his baseline. On arrival temperature 97.6F, pulse 65, respiratory rate 16, blood pressure 93/53, O2 sat 94% on room air. Patient had slight bump in WBC count 14.9 K. Chemistry panel unremarkable. Troponin 0.022. Chest x-ray showed COPD but no acute findings. EKG showed sinus rhythm with a heart rate about 61. Review of Systems Except as stated in HPI: all other systems reviewed are Neg Past Family Social History Past Medical History Hodgkin's lymphoma, COPD, colitis, BPH Past Surgical History Port placement for chemotherapy. Reported Medications Ultram (Tramadol HCl) 50 Mg Tab 50 Mg PO Q6H PRN Lovastatin 40 Mg Tab 2 Tab PO HS Cetirizine (Cetirizine HCl) 10 Mg Tab 10 Mg PO DAILY Nebulizer Kit/Tubing/Mout (N/A) 1 Kit Kit 1 Kit .ROUTE DIRECTED Albuterol Neb (Albuterol Sulfate) 2.5 Mg/3 Ml Neb 2.5 Mg NEB Q4HR NEB PRN Baclofen 10 Mg Tab 10 Mg PO TID Reported Medrol Dosepak (Methylprednisolone) 4 Mg Dspk 4 Mg PO DIRECTED Per Pharmacist direction Levaquin (Levofloxacin) 750 Mg Tablet 750 Mg PO DAILY Ventolin Hfa 18 GM Inh (Albuterol Sulfate) 90 Mcg/Act Aer 2 Puff INH Q4-6H PRN Temazepam 15 Mg Cap 15 Mg PO HS PRN Allergies: Coded Allergies: vancomycin (Unverified Allergy, Intermediate, RASH, 08/01/17) Family History Father from heart attack Social History Quit smoking 3 days ago, does not drink alcohol or use illicit drugs. Physical Exam Vital Signs Vital Signs Date Time Temp Pulse Resp B/P (MAP) Pulse Ox O2 Delivery O2 Flow Rate FiO2 08/01/17 07:30 97.6 56 16 90/60 (70) 93 08/01/17 06:00 56 08/01/17 05:00 56 08/01/17 03:00 97.6 80 24 106/62 (77) 93 08/01/17 02:10 08/01/17 01:30 65 16 93/53 (66) 94 Room Air 08/01/17 01:00 72 18 111/68 (82) 93 Room Air 08/01/17 00:30 64 18 119/69 (86) 97 Room Air 08/01/17 00:00 70 18 103/68 (80) 95 Room Air 07/31/17 23:47 16 98 Nasal Cannula 07/31/17 23:28 18 07/31/17 23:07 97.4 68 20 113/61 (78) Physical Exam GENERAL: This is a well-nourished, well-developed patient, in no apparent distress. SKIN: No rashes, ecchymoses or lesions. Warm and dry. HEAD: Atraumatic. Normocephalic. No temporal or scalp tenderness. EYES: Pupils equal round and reactive. No injection or drainage. ENT: Nose without bleeding, purulent drainage or septal hematoma. Airway patent. NECK: Trachea midline. No lymphadenopathy. Supple, nontender, no meningeal signs. CARDIOVASCULAR: Regular rate and rhythm without murmurs, gallops, or rubs. No JVD. RESPIRATORY: Moderate air entry, no wheezing or crackles appreciated. GASTROINTESTINAL: Abdomen soft, non-tender, nondistended. No guarding. MUSCULOSKELETAL: Extremities without clubbing, cyanosis, or edema. NEUROLOGICAL: Awake and alert. Cranial nerves II through XII intact. No focal neurological deficits. Normal speech. Laboratory Laboratory Tests Test 07/31/17 23:40 08/01/17 02:00 08/01/17 04:50 White Blood Count 14.9 Red Blood Count 4.73 Hemoglobin 14.2 Hematocrit 43.0 Mean Corpuscular Volume 91.0 Mean Corpuscular Hemoglobin 30.0 Mean Corpuscular Hemoglobin Concent 33.0 Red Cell Distribution Width 14.5 Platelet Count 236 Mean Platelet Volume 9.2 Neutrophils (%) (Auto) 75.8 Lymphocytes (%) (Auto) 13.6 Monocytes (%) (Auto) 8.7 Eosinophils (%) (Auto) 1.4 Basophils (%) (Auto) 0.5 Neutrophils # (Auto) 11.3 Lymphocytes # (Auto) 2.0 Monocytes # (Auto) 1.3 Eosinophils # (Auto) 0.2 Basophils # (Auto) 0.1 CBC Comment DIFF FINAL Differential Comment Prothrombin Time 11.4 Prothromb Time International Ratio 1.0 Activated Partial Thromboplast Time 28.0 Blood Urea Nitrogen 12 Creatinine 0.86 Random Glucose 119 Total Protein 7.6 Albumin 3.7 Calcium Level 9.1 Alkaline Phosphatase 105 Aspartate Amino Transf (AST/SGOT) 18 Alanine Aminotransferase (ALT/SGPT) 21 Total Bilirubin 0.7 Sodium Level 136 Potassium Level 3.8 Chloride Level 98 Carbon Dioxide Level 28.9 Anion Gap 9 Estimat Glomerular Filtration Rate 91 Total Creatine Kinase 82 68 Troponin I LESS THAN 0.02 LESS THAN 0.02 Lipase 114 Urine Color YELLOW Urine Turbidity CLEAR Urine pH 8.5 Urine Specific [place] GREATER THAN 1.035 Urine Protein NEG Urine Glucose (UA) NEG Urine Ketones TRACE Urine Occult Blood TRACE Urine Nitrite NEG Urine Bilirubin NEG Urine Leukocyte Esterase NEG Urine RBC 0-3 Urine Squamous Epithelial Cells 0-5 Urine Mucus RARE Microscopic Urinalysis Comment CULT NOT INDICATED Result Diagram: 07/31/17233907/31/172339 Imaging Last Impressions Chest X-Ray 07/31/172334 Signed Impressions: Service Date/Time: Monday, July 31, 2017 23:40 - CONCLUSION: 1. Changes suggestive of obstructive primary disease. 2. No acute abnormality or significant interval change. Lucien Sweet MD Abdomen/Pelvis CT 07/31/172334 Signed Impressions: Service Date/Time: Tuesday, August 01, 2017 01:05 - CONCLUSION: 1. Appendix is not directly visualized although there is no significant pericecal inflammatory change. Subcentimeter pericecal mesenteric nodes are noted and a nonspecific finding. 2. Stable subcentimeter cystic lesion in the anterior mid left kidney which is too small to fully characterize. 3. Otherwise, no acute abnormality or significant interval change. MD Oleg Abdi VTE Risk Assessment Caprini VTE Risk Assessment: No/Low Risk (score <= 1) Caprini Risk Assessment Model Point Value = 1 Point Value = 2 Point Value = 3 Point Value = 5 Age 41-60 Minor surgery BMI > 25 kg/m2 Swollen legs Varicose veins or History of unexplained or recurrent spontaneous Oral contraceptives or hormone replacement Sepsis (< 1 month) Serious lung disease, including pneumonia (< 1 month) Abnormal pulmonary function Acute myocardial infarction Congestive heart failure (< 1 month) History of inflammatory bowel disease Medical patient at bed rest Age 61-74 Arthroscopic surgery Major open surgery (> 45 min) Laparoscopic surgery (> 45 min) Malignancy Confined to bed (> 72 hours) Immobilizing plaster cast Central venous access Age >= 75 History of VTE Family history of VTE Factor V Leiden Prothrombin [id number] Lupus anticoagulant Anticardiolipin antibodies Elevated serum homocysteine Heparin-induced thrombocytopenia Other congenital or acquired thrombophilia Stroke (< 1 month) Elective arthroplasty Hip, pelvis, or leg fracture Acute spinal cord injury (< 1 month) Prophylaxis Regimen Total Risk Factor Score Risk Level Prophylaxis Regimen 0-1 Low Early ambulation 2 Moderate Order ONE of the following: *Sequential Compression Device (SCD) *Heparin 5000 units SQ BID 3-4 Higher Order ONE of the following medications: *Heparin 5000 units SQ TID *Enoxaparin/Lovenox 40 mg SQ daily (WT < 150 kg, CrCl > 30 mL/min) *Enoxaparin/Lovenox 30 mg SQ daily (WT < 150 kg, CrCl > 10-29 mL/min) *Enoxaparin/Lovenox 30 mg SQ BID (WT < 150 kg, CrCl > 30 mL/min) AND/OR *Sequential Compression Device (SCD) 5 or more Highest Order ONE of the following medications: *Heparin 5000 units SQ TID (Preferred with Epidurals) *Enoxaparin/Lovenox 40 mg SQ daily (WT < 150 kg, CrCl > 30 mL/min) *Enoxaparin/Lovenox 30 mg SQ daily (WT < 150 kg, CrCl > 10-29 mL/min) *Enoxaparin/Lovenox 30 mg SQ BID (WT < 150 kg, CrCl > 30 mL/min) AND *Sequential Compression Device (SCD) Assessment and Plan Problem List: (1) COPD (chronic obstructive pulmonary disease) ICD Code: J44.9 - Chronic obstructive pulmonary disease, unspecified (2) Chest pain ICD Code: R07.9 - Chest pain, unspecified Status: Acute Assessment and Plan Mr. Garcia is a pleasant 56-year-old male with a history of Hodgkin's lymphoma, COPD who presented to the emergency department on 07/31/2017 due to chest discomfort as well as nausea and vomiting. Patient started having these symptoms after he took his first dose of Levaquin prescribed by a local urgent care clinic for bronchopneumonia. This morning patient feels completely at baseline. No chest pain, nausea or vomiting. - Chest discomfort - Likely due to COPD. No typical features. EKG unremarkable and troponins 3 negative - Patient reports no further chest pain. - Continue lovastatin at home. - No history of major bleeding. Patient would benefit from aspirin 81 mg daily for primary prevention of coronary artery disease. - Patient reports no such chest discomfort prior to the episode that led to this admission. - No clinical evidence of stable or unstable angina. - COPD - Patient is encouraged to continue to abstain from smoking. He quit smoking 3 days ago. - He has nebulizer as well as albuterol at home. - Will give a course of Azithromycin. Full code. Ambulation. Discharge patient to home Condition on discharge: Improved Regular Diet as tolerated Ad Preeti activity Rx written: - Azithromycin - Discussed with patient regarding taking an aspirin 81mg Qday. Follow-up with primary care physician within one week. Problem Qualifiers (1) Chest pain: Qualified Codes: R07.9 - Chest pain, unspecified Khai Martinez DO Aug 01, 2017 09:11
[2017-08-01] MEDS ORDERED: FLUTICASONE PROPIONATE 50 MCG/ACT 16 GM NASAL SPRAY NASAL PRN (09:15)
--- NOTE | 2017-08-01 13:56 | EKG ---
Date Performed: 07/31/2017 Time Performed: 23:46:35 PTAGE: 56 years EKG: Sinus rhythm EARLY REPOLARIZATION ABNORMAL ECG PREVIOUS TRACING : 02/10/2017 19.37 No significant change since prior tracing. DOCTOR: Aadn Sosa Interpretating Date/Time 08/01/2017 13:55:21
[2017-08-01] MEDS ORDERED: AZIT250T3 PO (15:00)
--- NOTE | 2017-08-01 17:33 | MB ---
cc: ALISHA OCRTEZ M.D. DATE OF CONSULTATION: 08/01/2017 REASON FOR CONSULTATION: At a consult on 68 grams in the is very pleasant 48-year-old gentleman history of COPD presents to the emergency room with chief complaint of chest pain, abdominal pain, nausea, vomiting. Chest pain began for a currently he denies chest pain. States he is walking in the hallway with no symptoms is otherwise denies any fevers, chills, cough bleeding, orthopnea super dizziness. Past medical history includes COPD, hyperlipidemia, borderline diabetes and Hodgkin's lymphoma status post chemotherapy history of colitis BPH. Left eye surgery. SOCIAL HISTORY He has smokes a pack of cigarettes a day. Quit on July 29, 2007. The denies alcohol use. ALLERGIES Vancomycin. MEDICATIONS PRIOR TO ADMISSION 1. Ultram. 2. Lovastatin. 3. Cetirizine nebulizer. 4. Albuterol. 5. Baclofen. 6. Medrol. 7. Levaquin. 8. Ventolin. 9. Temazepam medications in the hospital 52 stone. PHYSICAL EXAMINATION VITAL SIGNS: Blood pressure 96/63, pulse 52 to temperature 97.6. IN GENERAL: He is alert and three in no distress NECK: Supple. No JVD or bruit CARDIOVASCULAR SYSTEM: S1, S2, no murmurs rubs or gallops. LUNGS: Decreased air movement bilaterally but clear to auscultation bilaterally ABDOMEN: Soft, nontender, positive bowel sounds. EXTREMITIES: No lower extremity edema. RADIOLOGIC: Chest x-ray Shows changes suggestive of obstructive pulmonary disease. Abdominal pelvis CT Sub centimeter pericecal, nonspecific nodes are noted in nonspecific findings. Stable subcentimeter cystic lesion in the anterior mid left kidney which is too small to fully characterize. EKG shows normal sinus rhythm, at 61 beats per minute with repolarization abnormality. LABORATORY DATA White count 14.9, hemoglobin 14.2, hematocrit 43.0, platelet count 236, troponin less 0.2 x3. Sodium 136, potassium 0.8598 BUN 12 and creatinine 0.86, glucose 119, INR is 1.0. FINAL DIAGNOSIS 1. Unstable angina 2. COPD. 3. Tobacco abuse 4. Diabetes. DISCUSSION 1. Due to the patient's multiple risk factors and new onset cardiac symptom of chest pain occurring at rest. 2. [place] [employer] Class IV angina, unstable angina due to exercise treadmill test is medically necessary. MD HARRISON East/marnie /3:04 PM /4:21 PM
[2017-08-02] MEDS ORDERED: PNEUMOCOCCAL POLYVALENT INJ 25 MCG/0.5 ML SYR IM ONE (09:00)
[2017-08-15] MEDS ORDERED: TRAM50TA PO (14:16)
== END 2017-08-01 16:00 | disposition home or self-care (01) ==
LOC: PHED 22:55 → PHEDA 08-01 01:07 → INTOOBSV 08-01 01:07 → HCIN 08-01 02:39
PROVIDERS: ADMIT Hospitalist; ATTEND Hospitalist
DX: R07.89 Other chest pain (principal); J44.9 Chronic obstructive pulmonary disease, unspecified; R94.31 Abnormal electrocardiogram [ECG] [EKG]; Z23 Encounter for immunization
CPT/HCPCS: 71010; 74177; 80053; 81001; 82550; 82948; 83690; 84484; 85025; 85610; 85730; 90732; 93005; 96360; 96374; 99285; G0378; J2405; J7030; Q9967; 96361; 96372

== ENCOUNTER 2017-11-19 10:31 | Inpatient (IN) | payer MEDICAID ==
[~2017-11-19] VITALS: Ht 180.3 cm; Wt 64.8 kg
[2017-11-19] VITALS (17 sets, daily range): BP systolic 104–154; BP diastolic 68–81; PULSE 45–102; RESP 16–17; TEMP 98.3–99; O2SAT 99–100
[~2017-11-19 10:31] MED LIST changes: +AZIT250T3 PO; +TRAM50TA PO; -ULTR50TA5 PO; +VENTAER INH
[2017-11-19] MEDS ORDERED: SUCCINYLCHOLINE CHLORIDE 200 MG/10 ML VIAL ONE (10:34)
[2017-11-19] MEDS ORDERED: ETOMIDATE 40 MG/20 ML VIAL ONE (10:35)
[2017-11-19] MEDS ORDERED: SODIUM CHLOR 0.9% 1000 ML INJ 1,000 ML IV ONE (10:42)
[2017-11-19] MEDS ORDERED: ETOMIDATE 20 MG/10 ML VIAL IVP ONE (10:45)
[2017-11-19] MEDS ORDERED: VECURONIUM BROMIDE 10 MG VIAL IV PUSH ONE (10:45)
--- NOTE | 2017-11-19 10:50 | PD ---
HPI Chief Complaint: Respiratory Distress Time Seen by Provider: 10:42 Travel History International Travel<30 days: No Contact w/Intl Traveler<30days: No Traveled to known affect area: No History of Present Illness HPI 57-year-old male patient with history of bronchitis, presents to the ER today brought in by EMS after he was found by mother on the ground of his apartment, apparently was unresponsive, was given 4 doses of Narcan by EMS without significant improvement. Patient had 100% oxygen plus was noted to be in some respiratory distress with abdominal breathing. He had coarse wheezing bilaterally and EMS had tried nebulizers without success either. He is bag- valve-masked by them and brought in. He apparently had not been seen for a day. Modifying Factors: None Associated Signs & Symptoms: Unresponsive, respiratory distress Risk Factors: Bronchitis PFSH Past Medical History Hx Anticoagulant Therapy: No Blood Disorders: No Cancer: Yes (HODGEKINS LYMPHOMA 2005) Cardiovascular Problems: Yes (COPD) High Cholesterol: Yes Chemotherapy: Yes COPD: Yes Diabetes: Yes Diminished Hearing: Yes (JAMUL BOTH EARS) Endocrine: No Gastrointestinal Disorders: Yes (COLITIS) Genitourinary: Yes (BPH) Immune Disorder: Yes (HODGEKINS LYMPHOMA 2005) Implanted Vascular Access Dvce: No Musculoskeletal: Yes (DJD) Neurologic: No Psychiatric: No Reproductive: No Respiratory: Yes Immunizations Current: No Pneumonia: Yes Radiation Therapy: No Past Surgical History Eye Surgery: Yes (LT EYE [id number] IN LT EYE.) Other Surgery: Yes (HAD PORT FOR CHEM PUT IN ,NOW REMOVED) Social History Alcohol Use: No Tobacco Use: No (1 PPD UNTIL 07/29/17) Substance Use: Yes (LAST TIME 2004) Allergies-Medications (Allergen,Severity, Reaction): Coded Allergies: vancomycin (Unverified Allergy, Intermediate, RASH, 08/01/17) Reported Meds & Prescriptions Reported Meds & Active Scripts Active Tramadol (Tramadol HCl) 50 Mg Tab 50 Mg PO BID PRN Azithromycin 250 Mg Tab 250 Mg PO DIRECTED Take 2 tabs (500 mg) on day 1 then 1 tab daily x 4 days. Lovastatin 40 Mg Tab 2 Tab PO HS Cetirizine (Cetirizine HCl) 10 Mg Tab 10 Mg PO DAILY Nebulizer Kit/Tubing/Mout (N/A) 1 Kit Kit 1 Kit .ROUTE DIRECTED Albuterol Neb (Albuterol Sulfate) 2.5 Mg/3 Ml Neb 2.5 Mg NEB Q4HR NEB PRN Baclofen 10 Mg Tab 10 Mg PO TID Reported Ventolin Hfa 18 GM Inh (Albuterol Sulfate) 90 Mcg/Act Aer 2 Puff INH Q4-6H PRN Temazepam 15 Mg Cap 15 Mg PO HS PRN Review of Systems ROS Limitations: Clinical Condition, Unresponsive Physical Exam Narrative GENERAL: Thin middle age white male patient currently is obtunded, unresponsive to painful stimuli. [id number] in progress by EMS. SKIN: Focused skin assessment warm/dry. HEAD: Atraumatic. Normocephalic. EYES: Left eye blind. Right pupil is round, poorly responsive to light, no significant icterus or discharge. ENT: No nasal bleeding or discharge. Mucous membranes pink and moist. NECK: Trachea midline. No JVD. CARDIOVASCULAR: Regular rate and rhythm. No murmur appreciated. RESPIRATORY: Moderate accessory muscle use, abdominal breathing. Coarse wheezing throughout. Breath sounds equal bilaterally. GASTROINTESTINAL: Abdomen soft, non-tender, nondistended. Hepatic and splenic margins not palpable. MUSCULOSKELETAL: No obvious deformities. No clubbing. No cyanosis. No edema. NEUROLOGICAL: Obtunded. Unresponsive to painful stimuli. PSYCHIATRIC: Unresponsive Data Data Last Documented VS Vital Signs Date Time Temp Pulse Resp B/P (MAP) Pulse Ox O2 Delivery O2 Flow Rate FiO2 11/19/17 12:14 52 16 117/74 (88) 100 Ventilator 100 11/19/17 10:34 99.0 Orders Orders Succinylcholine Inj (Quelicin Inj) (11/19/17 10:34) Etomidate Inj (Amidate Inj) (11/19/17 10:35) Sepsis Workup Initiated (11/19/17 ) Complete Blood Count With Diff (11/19/17 10:42) Comprehensive Metabolic Panel (11/19/17 10:42) Prothrombin Time / Inr (Pt) (11/19/17 10:42) Act Partial Throm Time (Ptt) (11/19/17 10:42) Lactic Acid Sepsis Protocol (11/19/17 10:42) Magnesium (Mg) (11/19/17 10:42) Ckmb (Isoenzyme) Profile (11/19/17 10:42) Troponin I (11/19/17 10:42) Urinalysis - C+S If Indicated (11/19/17 10:42) Influenzae A/B Antigen (11/19/17 10:42) Blood Culture (11/19/17 10:42) Chest, Single Ap (11/19/17 10:42) Arterial Blood Gas (Abg) (11/19/17 10:42) Blood Glucose (11/19/17 10:42) Ecg Monitoring (11/19/17 10:42) Iv Access Insert/Monitor (11/19/17 10:42) Oximetry (11/19/17 10:42) Oxygen Administration (11/19/17 10:42) Urinary Catheter Insert/Apply (11/19/17 10:42) Ct Brain W/O Iv Contrast(Rout) (11/19/17 10:42) Sodium Chlor 0.9% 1000 Ml Inj (Ns 1000 M (11/19/17 10:42) Etomidate Inj (Amidate Inj) (11/19/17 10:45) Vecuronium 10 Mg Inj (Norcuron 10 Mg Inj (11/19/17 10:45) Propofol 1000 Mg/100 Ml Inj (Diprivan 10 (11/19/17 11:00) Neurological Rass Scale Q30MX2,Q2HX4,Q4H (11/19/17 10:46) Propofol 200 Mg/20 Ml Inj (Diprivan 200 (11/19/17 11:00) Resp Ventilation- Volume (11/19/17 11:14) CKMB (11/19/17 10:50) CKMB% (11/19/17 10:50) Piperacil-Tazo 4.5 Gm Premix (Zosyn 4.5 (11/19/17 12:00) Electrocardiogram (11/19/17 10:39) Admit Order (Ed Use Only) (11/19/17 12:33) Drug Screen, Random Urine (11/19/17 12:33) Alcohol (Ethanol) (11/19/17 12:33) Salicylates (Aspirin) (11/19/17 12:33) Tylenol (Acetaminophen) (11/19/17 12:33) Ct Pulmonary Angiogram (11/19/17 12:33) Labs Laboratory Tests Test 11/19/17 10:50 11/19/17 11:04 White Blood Count 19.0 TH/MM3 Red Blood Count 6.00 MIL/MM3 Hemoglobin 18.5 GM/DL Hematocrit 55.8 % Mean Corpuscular Volume 93.0 FL Mean Corpuscular Hemoglobin 30.9 PG Mean Corpuscular Hemoglobin Concent 33.2 % Red Cell Distribution Width 15.1 % Platelet Count 227 TH/MM3 Mean Platelet Volume 9.0 FL Neutrophils (%) (Auto) 81.6 % Lymphocytes (%) (Auto) 9.7 % Monocytes (%) (Auto) 8.4 % Eosinophils (%) (Auto) 0.1 % Basophils (%) (Auto) 0.2 % Neutrophils # (Auto) 15.5 TH/MM3 Lymphocytes # (Auto) 1.8 TH/MM3 Monocytes # (Auto) 1.6 TH/MM3 Eosinophils # (Auto) 0.0 TH/MM3 Basophils # (Auto) 0.0 TH/MM3 CBC Comment AUTO DIFF Differential Comment AUTO DIFF CONFIRMED Prothrombin Time 9.9 SEC Prothromb Time International Ratio 1.0 RATIO Activated Partial Thromboplast Time 25.1 SEC Urine Color LIGHT-YELLOW Urine Turbidity CLEAR Urine pH 5.0 Urine Specific [employer] 1.009 Urine Protein NEG mg/dL Urine Glucose (UA) NEG mg/dL Urine Ketones NEG mg/dL Urine Occult Blood MOD Urine Nitrite NEG Urine Bilirubin NEG Urine Urobilinogen LESS THAN 2.0 MG/DL Urine Leukocyte Esterase NEG Urine RBC 2 /hpf Urine WBC LESS THAN 1 /hpf Urine Squamous Epithelial Cells <1 /hpf Urine Hyaline Casts 1 /lpf Urine Mucus FEW /lpf Microscopic Urinalysis Comment CATH-CULT NOT IND Blood Urea Nitrogen 15 MG/DL Creatinine 1.26 MG/DL Random Glucose 118 MG/DL Total Protein 8.2 GM/DL Albumin 3.7 GM/DL Calcium Level 9.2 MG/DL Magnesium Level 2.0 MG/DL Alkaline Phosphatase 118 U/L Aspartate Amino Transf (AST/SGOT) 43 U/L Alanine Aminotransferase (ALT/SGPT) 39 U/L Total Bilirubin 1.0 MG/DL Sodium Level 139 MEQ/L Potassium Level 4.7 MEQ/L Chloride Level 101 MEQ/L Carbon Dioxide Level 30.5 MEQ/L Anion Gap 8 MEQ/L Estimat Glomerular Filtration Rate 59 ML/MIN Lactic Acid Level 1.9 mmol/L Total Creatine Kinase 933 U/L Creatine Kinase MB 10.3 NG/ML Creatine Kinase MB % 1.1 % Troponin I 0.04 NG/ML Blood Gas Puncture Site LT BRACHIAL Blood Gas Patient Temperature 99.0 Blood Gas HCO3 25 mmol/L Blood Gas Base Excess 0.6 mmol/L Blood Gas Oxygen Saturation 98 % Arterial Blood pH 7.39 Arterial Blood Partial Pressure CO2 43 mmHg Arterial Blood Partial Pressure O2 465 mmHG Arterial Blood Oxygen Content 20.4 Vol % Arterial Blood Carboxyhemoglobin 1.3 % Arterial Blood Methemoglobin 0.8 % Blood Gas Hemoglobin 14.0 G/DL Oxygen Delivery Device VENT Blood Gas Ventilator Setting AC500/16/PEEP5 Blood Gas Inspired Oxygen 100 % MDM Medical Decision Making Medical Screen Exam Complete: Yes Emergency Medical Condition: Yes Medical Record Reviewed: Yes Interpretation(s) EKG shows sinus bradycardia rate of 40 bpm. No signs of acute ST-T changes. Laboratory Tests Test 11/19/17 10:50 11/19/17 11:04 White Blood Count 19.0 TH/MM3 (4.0-11.0) Red Blood Count 6.00 MIL/MM3 (4.50-5.90) Hemoglobin 18.5 GM/DL (13.0-17.0) Hematocrit 55.8 % (39.0-51.0) Neutrophils (%) (Auto) 81.6 % (16.0-70.0) Monocytes (%) (Auto) 8.4 % (0.0-8.0) Neutrophils # (Auto) 15.5 TH/MM3 (1.8-7.7) Monocytes # (Auto) 1.6 TH/MM3 (0-0.9) Urine Occult Blood MOD (NEG) Urine Mucus FEW /lpf (OCC) Random Glucose 118 MG/DL (74-106) Alkaline Phosphatase 118 U/L (45-117) Aspartate Amino Transf (AST/SGOT) 43 U/L (15-37) Estimat Glomerular Filtration Rate 59 ML/MIN (>89) Total Creatine Kinase 933 U/L (39-308) Creatine Kinase MB 10.3 NG/ML (0.5-3.6) Arterial Blood Partial Pressure CO2 43 mmHg (38-42) Arterial Blood Partial Pressure O2 465 mmHG (61-120) Arterial Blood Oxygen Content 20.4 Vol % (12.0-20.0) Last [address] 11/19/17 1042 Signed Impressions: Service Date/Time: Sunday, November 19, 2017 11:53 - CONCLUSION: Negative for acute process. Fidel Butler MD FACR Chest X-Ray 11/19/17 1042 Signed Impressions: Service Date/Time: Sunday, November 19, 2017 10:52 - CONCLUSION: Support apparatus in good position. Fidel Butler MD FACR Differential Diagnosis Unresponsive, respiratory distress: Bilateral pneumonia versus worsening COPD versus sepsis versus dehydration versus metabolic issues versus ICH Narrative Course Chest x-ray did not show any signs of acute pneumonia. His saturations were normal but he did have an increased work of breathing and is not protecting his airway on evaluation. He is intubated for airway protection at this point. He had been given multiple doses of Narcan by EMS without significant improvement. Lab work shows signs that he is having rhabdomyolysis, CPK is fairly elevated. His liver enzymes are mildly elevated of uncertain etiology. I have discussed the findings with mother who states that she last spoke to him at 3 PM. He apparently has history of chronic back pain and has been taking lots of pain medications as well. CT of the brain did not show any signs of acute intracranial processes. At this point, case is discussed with railway traction line worker, Dr. Frost who accepts the case. He would also like me to do a PE study and urine toxicology screen as well as Tylenol salicylates for further evaluation. Patient has significant leukocytosis and IV antibiotics were initiated after cultures were drawn as precaution. His lactate is elevated as well. Aggregate critical care time was 45 minutes. Time to perform other separately billable procedures was not included in the critical care time. My time did not include minutes spent treating any other patients simultaneously or on activities that did not directly contribute to the patient's treatment. The services I provided to this patient were to treat and/or prevent clinically significant deterioration that could result in: Aspiration, worsening respiratory distress, I provided critical care services requiring my management, as noted below: Chart data review, documentation time, medication orders and management, vital sign assessments/reviewing monitor data, ordering and reviewing lab tests, ordering and interpreting/reviewing x-rays and diagnostic studies, care of the patient and discussion of the patient with the admitting physicians. Diagnosis Primary Impression: Endotracheally intubated Additional Impressions: Respiratory distress Altered mental status Admitting Information Admitting Physician Requests: Admit Ronak Morris MD Nov 19, 2017 10:50
[2017-11-19] MEDS ORDERED: PROPOFOL 200 MG/20 ML AMP IV ONE (11:00)
[2017-11-19 11:17] LABS: BILIRUBIN, URINE NEG (NEG); BLOOD, URINE MOD (NEG); GLUCOSE,URINE NEG (NEG); HYALINE CAST, URINE 1 /lpf (RARE); KETONE, URINE NEG (NEG); MUCUS URINE FEW /lpf (OCC); NITRITE,URINE NEG (NEG); SQUAMOUS EPITHELIAL CELL URINE <1 /hpf (0-5); URINE COLOR LIGHT-YELLOW (YELLW/STRAW); URINE LEUKOCYTE ESTERASE NEG (NEG)
[2017-11-19 11:22] LABS: PROTHROMBIN TIME - PATIENT 9.9 SEC (9.8-11.6)
[2017-11-19] MEDS: PROPOFOL 1000 MG/100 ML INJ 100 ML IV PRN (11:22)
[2017-11-19 11:25] LABS: AUTOMATED NEUTROPHIL # 15.5 TH/MM3 (1.8-7.7); BASOPHIL % 0.2 % (0.0-2.0); EOSINOPHIL % 0.1 % (0.0-4.0); HEMATOCRIT 55.8 % (39.0-51.0); HEMOGLOBIN 18.5 GM/DL (13.0-17.0); LYMPH % 9.7 % (9.0-44.0); LYMPHOCYTE # 1.8 TH/MM3 (1.0-4.8); MEAN CORPUSCULAR HEMOGLOBIN 30.9 PG (27.0-34.0); MEAN CORPUSCULAR HGB CONC 33.2 % (32.0-36.0); MONO % 8.4 % (0.0-8.0); MONOCYTE # 1.6 TH/MM3 (0-0.9); NEUT % 81.6 % (16.0-70.0); PLATELET COUNT 227 TH/MM3 (150-450); RED CELL DISTRIBUTION WIDTH 15.1 % (11.6-17.2)
--- NOTE | 2017-11-19 11:28 | RADRPT ---
EXAM DATE/TIME: 11/19/2017 10:52 [facility] COMPARISON: CHEST SINGLE AP, July 31, 2017, 23:40. INDICATIONS : Post procedure-Intubation and NG tube. MEDICAL HISTORY : Hypercholesterolemia. Pneumonia, Hodgekins lymphoma, Hep C, COPD, GERD, Colitis. SURGICAL HISTORY : Port for chemo. ENCOUNTER: Initial ACUITY: 1 day PAIN SCORE: Non-responsive. LOCATION: Bilateral chest FINDINGS: A single view of the chest demonstrates the lungs to be symmetrically aerated without evidence of mas s, infiltrate or effusion. ET tube and nasogastric tube in good position. The cardiomediastinal con tours are unremarkable. Osseous structures are intact. CONCLUSION: Support apparatus in good position. Fidel Butler MD FACR on November 19, 2017 at 11:20 Board Certified Radiologist. This report was verified electronically.
[2017-11-19 11:30] LABS: ALBUMIN 3.7 GM/DL (3.4-5.0); AST (GOT) 43 U/L (15-37); BICARBONATE 30.5 MEQ/L (21.0-32.0); BLOOD UREA NITROGEN 15 MG/DL (7-18); CALCIUM 9.2 MG/DL (8.5-10.1); CHLORIDE 101 MEQ/L (98-107); CREATININE 1.26 MG/DL (0.60-1.30); GLOMERULAR FILTRATION RATE 59 ML/MIN (>89); GLUCOSE,RANDOM 118 MG/DL (74-106); SODIUM (NA) 139 MEQ/L (136-145)
[2017-11-19 11:31] LABS: ALT (GPT) 39 U/L (12-78)
[2017-11-19 11:34] LABS: ALKALINE PHOSPHATASE 118 U/L (45-117); TOTAL PROTEIN 8.2 GM/DL (6.4-8.2); TROPONIN I 0.04 NG/ML (0.02-0.05)
[2017-11-19] MEDS ORDERED: PIPERACIL-TAZO 4.5 GM PREMIX 100 ML IV STA (12:00)
--- NOTE | 2017-11-19 12:34 | RADRPT ---
EXAM DATE/TIME: 11/19/2017 11:53 [facility] COMPARISON: No previous studies available for comparison. INDICATIONS : Altered mental status. RADIATION DOSE: 56.35 CTDIvol (mGy) MEDICAL HISTORY : Cardiovascular disease. Diabetes mellitus type 2. Lymphoma. SURGICAL HISTORY : None. ENCOUNTER: Initial ACUITY: 1 day PAIN SCALE: Non-responsive LOCATION: cranial TECHNIQUE: Multiple contiguous axial images were obtained of the head. Using automated exposure control and adj ustment of the mA and/or kV according to patient size, radiation dose was kept as low as reasonably a chievable to obtain optimal diagnostic quality images. DICOM format image data is available electro nically for review and comparison. FINDINGS: CEREBRUM: The ventricles are normal for age. No evidence of midline shift, mass lesion, hemorrhage or acute in farction. No extra-axial fluid collections are seen. POSTERIOR FOSSA: The cerebellum and brainstem are intact. The 4th ventricle is midline. The cerebellopontine angle i s unremarkable. EXTRACRANIAL: The visualized portion of the orbits is intact. SKULL: The calvaria is intact. No evidence of skull fracture. CONCLUSION: Negative for acute process. Fidel Butler MD FACR on November 19, 2017 at 12:32 Board Certified Radiologist. This report was verified electronically.
[2017-11-19] MEDS ORDERED: LACTULOSE SYRUP 20 GM/30 ML CUP PO PRN (12:45)
[2017-11-19] MEDS ORDERED: MISCELLANEOUS NURSING INFORMATION XX SCH (12:45)
[2017-11-19] MEDS ORDERED: MAGNESIUM HYDROXIDE SUSP 30 ML CUP PO PRN (12:45)
[2017-11-19] MEDS ORDERED: DEXTROSE 50% IN WATER 50 ML VIAL(D50) IV PUSH PRN (12:45)
[2017-11-19] MEDS ORDERED: CHLORHEXIDINE GLUCONATE 2 % 1 PACK (2 CLOTHS) TOP PRN (12:45)
[2017-11-19] MEDS ORDERED: SENNOSIDES 8.6 MG TAB PO PRN (12:45)
[2017-11-19] MEDS ORDERED: GLUCAGON 1 MG/ML VIAL OTHER PRN (12:45)
[2017-11-19] MEDS ORDERED: BISACODYL 10 MG SUPP RECTAL PRN (12:45)
[2017-11-19] MEDS: INSULIN NovoLIN REGULAR SUPPLEMENTAL SCALE SQ SCH ×3 (13:00→21:00)
[2017-11-19] MEDS: DOCUSATE SODIUM 50 MG/SENNA 8.6 MG TAB PO SCH ×2 (13:00→21:42)
[2017-11-19] MEDS: RESP: ALBUTEROL 2.5 MG/IPRATROPIUM 0.5 MG NEB (SCH) INH ×3 (13:07→22:00)
[2017-11-19 13:13] LABS: ACETAMINOPHEN LESS THAN 2.0 MCG/ML (10.0-30.0)
[2017-11-19] MEDS: SODIUM CHLOR 0.9% 1000 ML INJ 1,000 ML IV SCH ×2 (14:08→21:44)
[2017-11-19] MEDS: methylPREDNISolone SOD SUCC 125 MG/2 ML VIAL IV SCH ×2 (14:09→21:44)
[2017-11-19] MEDS: FAMOTIDINE 20 MG/2 ML VIAL IV PUSH SCH (14:09)
[2017-11-19] MEDS: HEPARIN SODIUM - SQ 10,000 UNITS/ML VIAL SQ SCH (14:09)
--- NOTE | 2017-11-19 14:24 | MH ---
cc: TIERRA LAW M.D. DATE OF ADMISSION: 11/19/2017 HISTORY OF PRESENT ILLNESS: The patient is a 57-year-old male with past medical history of Hodgkin's lymphoma, benign prostate hypertrophy, COPD who presented to the [facility] Emergency Department via EMS after he was found by his mother on the ground at his apartment unresponsive. He given Narcan times four doses by EMS without any significant improvement. On arrival to the emergency department, the patient noted to be in some respiratory distress associated with coarse wheezing. The patient apparently had not been seen for a day. In the emergency department, he was intubated with a etomidate and vecuronium and placed on full mechanical ventilation. ABG post-intubation showed a pH of 7.39, CO2 43, pAO2 465, bicarb 25, sats 98% on assist control ventilation with respiratory rate 16, tidal volume 500, PEEP of 5 and FIO2 of 100%. There is no evidence of any fever; however, the patient was noted to have leukocytosis with WBC of 19.0. Lactic acid measured at 1.9. A CT scan of the brain in the emergency department was negative for acute process and chest x-ray post-intubation showed no obvious infiltrates or effusions. He was placed on Diprivan for sedation and given one dose of Zosyn along with one liter of normal saline. His current blood pressure is 109/73 with a pulse of 59, saturation 99%. Most of the history was obtained from reviewing medical records as there are no family members present at the bedside. PAST MEDICAL HISTORY: The past medical history is significant for: 1. Hodgkin's lymphoma. 2. COPD. 3. Diabetes mellitus. 4. Degenerative joint disease. 5. Benign prostate hypertrophy. PAST SURGICAL HISTORY: 1. Previous surgery on the let eye secondary to trauma. 2. Previous port placement for chemotherapy/ removed. ALLERGIES: 1. Vancomycin. SOCIAL HISTORY: The patient quit smoking in July. No history of alcohol use. MEDICATIONS: His reported medications include: 1. Tramadol. 2. Azithromycin. 3. Lovastatin. 4. Albuterol. 5. Baclofen. REVIEW OF SYSTEMS: The review of systems is as per the history of present illness, and the rest of the review of systems is limited as the patient is intubated. PHYSICAL EXAMINATION: GENERAL: A 57-year-old male intubated and placed on full mechanical ventilation. VITAL SIGNS: Afebrile with temperature of 99.0, pulse of 59, blood pressure 109/73,sats 99%. VENT SETTINGS: Assist control rate of 16, tidal volume 500, PEEP of 5, FIO2 of 100%. HEAD, EYES, EARS, NOSE, THROAT: Normocephalic and atraumatic. Pupils equal, round and reactive to light and accommodation. Extraocular muscles intact. Conjunctivae are pink. Nonicteric sclerae. Oral mucosa within normal limits. NECK: The neck is supple. No jugular venous distention, adenopathy or thyromegaly. Trachea in the midline. Orally intubated. CARDIOVASCULAR: Regular rate and rhythm. Normal S1-S2. No murmurs, rubs or gallops noted. PULMONARY: Bilateral equal air entry with a few occasional wheezing. ABDOMEN: The abdomen is soft, nontender and no distention. Positive bowel sounds. EXTREMITIES: No cyanosis, clubbing or edema. NEUROLOGIC: Intubated and sedated with Diprivan. LABORATORY DATA: Sodium 139, potassium 4.7, chloride 101, carbon dioxide 30, BUN 15, creatinine 1.26, glucose of 118, lactic acid 1.9, AST 43, ALT 39, total bilirubin 1.0, alkaline phosphatase 118. Total CK 933. CK-MB 10.3. Troponin 0.04. Urine drug screen positive for benzodiazepines. Aspirin level less than 1.7. Tylenol less than 2.0. RADIOGRAPHIC STUDIES: CT scan of the brain negative for acute process. Chest x-ray showed no obvious infiltrates or effusions. EKGS: EKG showed sinus bradycardia with heart rate of 48 beats per minute. IMPRESSION: 1. Vent dependent respiratory failure. 2. Encephalopathy. 3. Sinus bradycardia. 4. Elevated CKs. 5. COPD. 6. History of Hodgkin's lymphoma. 7. History of benign prostate hypertrophy. 8. Leukocytosis. RECOMMENDATIONS: 1. The patient is on Diprivan infusion for sedation. Daily sedation vacation. 2. CT scan of the brain in the emergency department negative for acute process and his urine drug screen is positive for benzodiazepines. 3. Will check ammonia level. 4. Check EEG r/o subclinical seizures. 5. Continue with oxygen and maintain saturations above 92%. 6. Bronchodilators in the form of DuoNeb q.6 and will initiate intensive care unit vent bundle. 7. Place on Solu-Medrol 60 milligrams IV q.8. 8. The patient is scheduled to undergo CT angiogram of the chest to rule out PE per the emergency department physician. 9. Monitor heart rate and blood pressure closely and maintain MAP greater than 65 mmHg. Lactic acid level measured 1.9 in the emergency department. Monitor cardiac enzymes with troponins and we will check a 2-D echocardiogram to evaluate left ventricular function and check baseline TSH level. 10. Monitor renal function, intakes and outputs and electrolyte replacement as needed. Place on IV fluids normal saline at 100 mL/hour. 11. Monitor CKs. 12. Continue with empiric antibiotics for now. The patient was given Zosyn in the emergency department. Monitor for signs of infection which include fever and WBCs. 13. Follow up on blood cultures which were performed in the emergency department. Nasal washing is negative for influenza. 14. Keep NPO. 15. Continue with Pepcid 30 milligrams q. 12h for GI prophylaxis. 16. Start tube feeds within 24 hours if he remains intubated. 17. Monitor CBC. 18. Place on sliding scale insulin with Accu-Chek for glycemic control. 19. GI prophylaxis with Pepcid and DVT prophylaxis with SCDs and heparin subcutaneous. Further recommendations will be based on the hospital course. MD CARLOS Briscoe/DREW /1:20 PM /1:53 PM KYLEE
[2017-11-19] MEDS: MIDAZOLAM 100 MG/100 ML INJ 100 ML IV PRN (16:09)
[2017-11-19] MEDS: LORazepam 2 MG/ML VIAL IV PUSH PRN (16:09)
[2017-11-19] MEDS: PIPERACIL-TAZO 4.5 GM PREMIX 100 ML IV SCH ×2 (18:01→23:50)
--- NOTE | 2017-11-19 18:11 | EKG ---
Date Performed: 11/19/2017 Time Performed: 10:39:17 PTAGE: 57 years EKG: SINUS BRADYCARDIA BORDERLINE ECG PREVIOUS TRACING : 07/31/2017 23.46 Compared to the previous tracing rate slower DOCTOR: Yokasta Collins Interpretating Date/Time 11/19/2017 18:11:18
[2017-11-19 20:57] LABS: TROPONIN I LESS THAN 0.02 NG/ML (0.02-0.05)
[2017-11-19] MEDS: levETIRAcetam INJ 500 MG in SODIUM CHLORIDE 0.9% INJ 100 ML IV SCH (21:43)
--- NOTE | 2017-11-19 22:08 | MG ---
cc: JACKY MARTIN MD Lab No: Date: 11/19/2017 Age: Sex: M Race: ELECTROENCEPHALOGRAM RECORD NUMBER [id number] DATE OF 1960 HISTORY A 57-year-old with mental status changes. Intubated. On Diprivan turned off 30 minutes prior to EEG. 2 milligrams of versed started during EEG and 1 milligram of Ativan apparently given thereafter. DESCRIPTION BIPLEDs type of appearance occurring at about 1 Hz. Very sharp wave noted on epoch 96 occurring in a generalized fashion. Reduction in voltage and frequency of discharges after initiation of versed drip. Strong sharp wave right frontotemporal epoch 137. No driving with photic stimulation. Single lead EKG showing sinus rhythm. INTERPRETATION BIPLEDs type of appearance which can also been seen with nonconvulsive seizure activity. Some improvement with Versed drip. Clinical correlation. MD DESMOND Lee/KK /9:36 PM /9:46 PM
[2017-11-19] MEDS ORDERED: PHENobarbital INJ 90 MG in SODIUM CHLORIDE 0.9% INJ 50 ML IV SCH (22:15)
[2017-11-19] MEDS ORDERED: FOSPHENYTOIN INJ 1,000 MGPE in SODIUM CHLORIDE 0.9% INJ 50 ML IV ONE (22:15)
[2017-11-19 22:33] LABS: PHENYTOIN (DILANTIN) 0.7 MCG/ML (10.0-20.0)
[2017-11-19] MEDS ORDERED: IOHEXOL 350 MG/ML 10 ML VIAL (for RAD DIAG) IVCONTRAST ONE (22:47)
--- NOTE | 2017-11-19 23:01 | RADRPT ---
EXAM DATE/TIME: 11/19/2017 22:45 [facility] COMPARISON: No previous studies available for comparison. INDICATIONS : Found unresponsive; rule out pulmonary embolus. IV CONTRAST: 76 cc Omnipaque 350 (iohexol) IV RADIATION DOSE: CTDIvol (mGy) MEDICAL HISTORY : Gastroesophageal reflux disease. Diabetes mellitus type 2. Hepatitis C.Hodgkins lymphoma SURGICAL HISTORY : None. ENCOUNTER: Initial ACUITY: 1 day PAIN SCALE: Non-responsive LOCATION: chest TECHNIQUE: Volumetric scanning of the chest was performed using a pulmonary embolism protocol MIP images were re constructed. Using automated exposure control and adjustment of the mA and/or kV according to patien t size, radiation dose was kept as low as reasonably achievable to obtain optimal diagnostic quality images. DICOM format image data is available electronically for review and comparison. Follow-up recommendations for detected pulmonary nodules are based at a minimum on nodule size and pa tient risk factors according to Fleischner Society Guidelines. FINDINGS: PULMONARY ARTERIES: Multiple filling defects are seen within the proximal segmental and subsegmental branches. As involve the posterior lower lobe branch on the right and multiple lower lobe branches on the left. LUNGS: Mild bilateral pulmonary parenchymal emphysema. Scarring along apices. Linear atelectasis or scarring in the left upper lung and midlung. PLEURAE: There is no pleural thickening or pleural effusion. MEDIASTINUM: There is good visualization of the great vessels of the middle mediastinum. No evidence of mediastin al or hilar adenopathy/mass. Endotracheal tube is in place. Nasogastric tube in place. MUSCULOSKELETAL: Within normal limits for patient age. MISCELLANEOUS: The visualized upper abdominal organs demonstrate no acute abnormality. CONCLUSION: 1. Pulmonary emboli identified bilaterally in segmental and subsegmental branches. 2. Mild pulmonary parenchymal emphysema. Benjamin Doyle MD on November 19, 2017 at 22:53 Board Certified Radiologist. This report was verified electronically.
[2017-11-20] VITALS (20 sets, daily range): BP systolic 104–137; BP diastolic 60–80; PULSE 64–119; RESP 16–27; TEMP 96.7–99.2; O2SAT 100
[2017-11-20] MEDS: HEPARIN SODIUM - SQ 10,000 UNITS/ML VIAL SQ SCH (01:00)
[2017-11-20] MEDS: FAMOTIDINE 20 MG/2 ML VIAL IV PUSH SCH ×2 (01:00→13:53)
[2017-11-20] MEDS: INSULIN NovoLIN REGULAR SUPPLEMENTAL SCALE SQ SCH ×6 (01:00→20:21)
[2017-11-20 03:58] LABS: AUTOMATED NEUTROPHIL # 17.1 TH/MM3 (1.8-7.7); BASOPHIL % 0.1 % (0.0-2.0); HEMATOCRIT 46.1 % (39.0-51.0); HEMOGLOBIN 15.2 GM/DL (13.0-17.0); LYMPH % 6.4 % (9.0-44.0); LYMPHOCYTE # 1.2 TH/MM3 (1.0-4.8); MEAN CELL VOLUME 93.2 FL (80.0-100.0); MEAN CORPUSCULAR HEMOGLOBIN 30.6 PG (27.0-34.0); MEAN CORPUSCULAR HGB CONC 32.9 % (32.0-36.0); MONO % 2.9 % (0.0-8.0); MONOCYTE # 0.5 TH/MM3 (0-0.9); NEUT % 90.6 % (16.0-70.0); PLATELET COUNT 166 TH/MM3 (150-450); RED BLOOD COUNT 4.95 MIL/MM3 (4.50-5.90); RED CELL DISTRIBUTION WIDTH 14.8 % (11.6-17.2); WHITE BLOOD COUNT 18.9 TH/MM3 (4.0-11.0)
[2017-11-20] MEDS: RESP: ALBUTEROL 2.5 MG/IPRATROPIUM 0.5 MG NEB (SCH) INH ×4 (04:00→20:35)
[2017-11-20] MEDS: CHLORHEXIDINE GLUCONATE 2 % 1 PACK (2 CLOTHS) TOP SCH (04:00)
[2017-11-20 04:34] LABS: ALKALINE PHOSPHATASE 87 U/L (45-117); ALT (GPT) 28 U/L (12-78); AST (GOT) 38 U/L (15-37); BICARBONATE 28.6 MEQ/L (21.0-32.0); BLOOD UREA NITROGEN 17 MG/DL (7-18); CALCIUM 8.5 MG/DL (8.5-10.1); CHLORIDE 107 MEQ/L (98-107); CREATININE 1.01 MG/DL (0.60-1.30); GLOMERULAR FILTRATION RATE 76 ML/MIN (>89); GLUCOSE,RANDOM 173 MG/DL (74-106); PHENYTOIN (DILANTIN) 16.7 MCG/ML (10.0-20.0); PHOSPHORUS 2.9 MG/DL (2.5-4.9); SODIUM (NA) 143 MEQ/L (136-145); TOTAL PROTEIN 6.6 GM/DL (6.4-8.2)
[2017-11-20] MEDS: SODIUM CHLOR 0.9% 1000 ML INJ 1,000 ML IV SCH ×2 (05:57→13:02)
[2017-11-20] MEDS: RESP: ALBUTEROL 2.5 MG/IPRATROPIUM 0.5 MG NEB (PRN) INH (06:03)
[2017-11-20] MEDS: PIPERACIL-TAZO 4.5 GM PREMIX 100 ML IV SCH ×3 (06:48→18:07)
[2017-11-20] MEDS: methylPREDNISolone SOD SUCC 125 MG/2 ML VIAL IV SCH ×3 (06:48→20:22)
[2017-11-20] MEDS ORDERED: PHENobarbital SOD 130 MG/ML VIAL IV SCH (09:00)
[2017-11-20] MEDS: FOSPHENYTOIN SODIUM 100 MG PE/2 ML VIAL IV SCH ×2 (09:07→20:21)
[2017-11-20] MEDS: levETIRAcetam INJ 500 MG in SODIUM CHLORIDE 0.9% INJ 100 ML IV SCH ×2 (09:07→20:22)
[2017-11-20] MEDS: DOCUSATE SODIUM 50 MG/SENNA 8.6 MG TAB PO SCH ×2 (09:15→20:21)
--- NOTE | 2017-11-20 10:24 | HHI.CCPN ---
Subjective Remarks/Hospital Course 11/19: The patient is a 57-year-old male with past medical history of Hodgkin's lymphoma, benign prostate hypertrophy, COPD who presented to the [facility] Emergency Department via EMS after he was found by his mother on the ground at his apartment unresponsive. He given Narcan times four doses by EMS without any significant improvement. On arrival to the emergency department, the patient noted to be in some respiratory distress associated with coarse wheezing. The patient apparently had not been seen for a day. In the emergency department, he was intubated with a etomidate and vecuronium and placed on full mechanical ventilation. ABG post-intubation showed a pH of 7.39, CO2 43, pAO2 465, bicarb 25, sats 98% on assist control ventilation with respiratory rate 16, tidal volume 500, PEEP of 5 and FIO2 of 100%. There is no evidence of any fever; however, the patient was noted to have leukocytosis with WBC of 19.0. Lactic acid measured at 1.9. A CT scan of the brain in the emergency department was negative for acute process and chest x-ray post-intubation showed no obvious infiltrates or effusions. He was placed on Diprivan for sedation and given one dose of Zosyn along with one liter of normal saline. His current blood pressure is 109/73 with a pulse of 59, saturation 99%. Most of the history was obtained from reviewing medical records. 11/20: Sedated with Versed, orally intubated on mechanical ventilation. CTA chest done last night revealed bilateral pulmonary emboli. Being started on Lovenox for full anticoagulation. Objective Vital Signs Date Time Temp Pulse Resp B/P (MAP) Pulse Ox O2 Delivery O2 Flow Rate FiO2 11/20/17 08:23 100 35 11/20/17 06:00 73 11/20/17 04:00 98.2 20 137/60 (85) 11/19/17 14:27 Ventilator Intake and Output 11/20/17 11/20/17 11/21/17 08:00 16:00 00:00 Intake Total 1356 ml Output Total 150 ml Balance 1206 ml Result Diagram: 11/20/17 0348 11/20/17 0348 Other Results Microbiology Date/Time Source Procedure Growth Status 11/19/17 11:05 Nasal Washing Influenza Types A,B Antigen (TANESHA) - Final NEGATIVE FOR FLU A AND B ANTIGEN.... Complete Laboratory Tests Test 11/19/17 11:04 Blood Gas Puncture Site LT BRACHIAL Blood Gas Patient Temperature 99.0 Blood Gas HCO3 25 mmol/L (22-26) Blood Gas Base Excess 0.6 mmol/L (-2-2) Blood Gas Oxygen Saturation 98 % (90-100) Arterial Blood pH 7.39 (7.380-7.420) Arterial Blood Partial Pressure CO2 43 mmHg (38-42) Arterial Blood Partial Pressure O2 465 mmHG (61-120) Arterial Blood Oxygen Content 20.4 Vol % (12.0-20.0) Arterial Blood Carboxyhemoglobin 1.3 % (0-4) Arterial Blood Methemoglobin 0.8 % (0-2) Blood Gas Hemoglobin 14.0 G/DL (12.0-16.0) Oxygen Delivery Device VENT Blood Gas Ventilator Setting AC500/16/PEEP5 Blood Gas Inspired Oxygen 100 % Imaging Last Impressions CT Angiography 11/19/17 1233 Signed Impressions: Service Date/Time: Sunday, November 19, 2017 22:45 - CONCLUSION: 1. Pulmonary emboli identified bilaterally in segmental and subsegmental branches. 2. Mild pulmonary parenchymal emphysema. Benjamin Doyle MD Head CT 11/19/17 1042 Signed Impressions: Service Date/Time: Sunday, November 19, 2017 11:53 - CONCLUSION: Negative for acute process. Fidel Butler MD FACR Chest X-Ray 11/19/17 104 Signed Impressions: Service Date/Time: Sunday, November 19, 2017 10:52 - CONCLUSION: Support apparatus in good position. Fidel Butler MD FACR Objective Remarks HEAD, EYES, EARS, NOSE, THROAT: Normocephalic and atraumatic. Pupils equal, round and reactive to light and accommodation. Conjunctivae are pink. Nonicteric sclerae. Oral mucosa within normal limits. NECK: The neck is supple. No jugular venous distention, adenopathy or thyromegaly. Trachea in the midline. Orally intubated. CARDIOVASCULAR: Regular rate and rhythm. Normal S1-S2. No murmurs, rubs or gallops noted. PULMONARY: Orally intubated on mechanical ventilation, Bilateral equal air entry with a few occasional wheezing. ABDOMEN: The abdomen is soft, nontender and no distention. Positive bowel sounds. EXTREMITIES: No cyanosis, clubbing or edema. NEUROLOGIC: Intubated and sedated with Diprivan A/P Assessment and Plan IMPRESSION: 1. Acute respiratory failure on mechanical ventilation. 2. Encephalopathy. 3. Bilateral pulmonary embolism 4. Elevated CKs. 5. COPD. 6. History of Hodgkin's lymphoma. 7. History of benign prostate hypertrophy. 8. Leukocytosis. 9. Nonconvulsive seizures on EEG RECOMMENDATIONS: 1. Continue Versed gtt, no sedation vacation till cleared by neurology in view of seizure activity noted on EEG 2. CT scan of the brain in the emergency department negative for acute process and his urine drug screen is positive for benzodiazepines. Awaiting MRI brain 3. Continue mechanical ventilation. 4. Vent bundle, bronchodilators as needed, Solu-Medrol 5. Anticonvulsants per neurology 6. CT chest positive for bilateral PE 7. Starting Lovenox 60 mg per KG every 12 hourly for full anticoagulation on 8. The patient is scheduled to undergo CT angiogram of the chest to rule out PE per the emergency department physician. 9. Monitor heart rate and blood pressure closely and maintain MAP greater than 65 mmHg. Lactic acid level measured 1.9 in the emergency department. Monitor cardiac enzymes with troponins and we will check a 2-D echocardiogram to evaluate left ventricular function and check baseline TSH level. 10. Monitor renal function, intakes and outputs and electrolyte replacement as needed. Place on IV fluids normal saline at 100 mL/hour. 11. Monitor CKs. 12. Continue with empiric antibiotics for now. The patient was given Zosyn in the emergency department. Monitor for signs of infection which include fever and WBCs. 13. Follow up on blood cultures which were performed in the emergency department. Nasal washing is negative for influenza. 14. .Monitor CBC 15. Continue with Pepcid 30 milligrams q. 12h for GI prophylaxis. 16. Start tube feeds within 24 hours if he remains intubated. 17. Place on sliding scale insulin with Accu-Chek for glycemic control. 18. GI prophylaxis with Pepcid and DVT prophylaxis with SCDs and heparin subcutaneous. Condition remains critical and patient with nonconvulsive seizures, encephalopathy, bilateral PEs, respiratory failure requiring mechanical ventilation Time spent on critical care excluding procedures 40 minutes Mauricio Wells MD Nov 20, 2017 10:24
[2017-11-20] MEDS: ENOXAPARIN SODIUM 60 MG/0.6 ML SYRINGE SQ SCH ×2 (10:45→20:21)
--- NOTE | 2017-11-20 11:46 | PD.CONS ---
History of Present Illness Service Neurology Consult Requested By [facility] Reason for Consult abnormal eeg Primary Care Physician Unknown History of Present Illness 56-year-old male with a history of Hodgkin's lymphoma, COPD admitted to icu for resp distress, intubated. foudn to have pulmonary emboli. eeg abnormal, started on versed gtt and iv sz meds added. apparently, takes tramadol for pain Review of Systems unresponsive medical chart reviewed Past Family Social History Past Medical History Hodgkin's lymphoma, COPD, colitis, BPH Past Surgical History Port placement for chemotherapy. Allergies: Coded Allergies: vancomycin (Unverified Allergy, Intermediate, RASH, 08/01/17) Family History Father from heart attack Social History Quit smoking ? Review of Systems All other ROS: Unable to obtain Past Family Social History Allergies: Coded Allergies: vancomycin (Unverified Allergy, Intermediate, RASH, 08/01/17) Active Ordered Medications Current Medications Medications (Trade) Dose Ordered Sig/Osbaldo Route Start Time Stop Time Status Last Admin Propofol 100 ml @ 1.95 mls/hr TITRATE PRN IV 11/19/17 11:00 11/19/17 11:22 (Pepcid Inj) 20 mg Q12H IV PUSH 11/19/17 13:00 11/20/17 01:00 (Duoneb Neb) 1 ampule Q6HR NEB INH 11/19/17 13:00 11/20/17 10:12 (Duoneb Neb) 1 ampule Q2HR NEB PRN INH 11/19/17 12:45 11/20/17 06:03 Miscellaneous Information 1 Q361D XX 11/19/17 12:45 (Chlorhexidine 2% Cloth) 3 pack Taper DAILY@04 TOP 11/20/17 04:00 11/16/18 03:59 11/20/17 04:00 (Chlorhexidine 2% Cloth) 3 pack UNSCH PRN TOP 11/19/17 12:45 (Cassandra-Colace) 1 tab BID PO 11/19/17 13:00 11/20/17 09:15 (Milk Of Magnesia Liq) 30 ml Q12H PRN PO 11/19/17 12:45 (Senokot) 17.2 mg Q12H PRN PO 11/19/17 12:45 (Dulcolax Supp) 10 mg DAILY PRN RECTAL 11/19/17 12:45 (Lactulose Liq) 30 ml DAILY PRN PO 11/19/17 12:45 Sodium Chloride 1,000 ml @ 125 mls/hr Q8H IV 11/19/17 12:45 11/20/17 05:57 (D50w (Vial) Inj) 50 ml UNSCH PRN IV PUSH 11/19/17 12:45 (Glucagon Inj) 1 mg UNSCH PRN OTHER 11/19/17 12:45 (NovoLIN R SUPPLEMENTAL SCALE) 1 Q4H SQ 11/19/17 13:00 11/20/17 09:15 (SoluMEDROL INJ) 60 mg Q8HR IV 11/19/17 14:00 11/20/17 06:48 Piperacillin Sod/ Tazobactam Sod 100 ml @ 200 mls/hr Q6H IV 11/19/17 18:00 11/20/17 10:45 Midazolam HCl 100 ml @ 2 mls/hr TITRATE PRN IV 11/19/17 16:00 11/19/17 16:09 Levetriacetam 500 mg/Sodium Chloride 105 ml @ 420 mls/hr Q12HR IV 11/19/17 21:00 11/20/17 09:07 (Ativan Inj) 1 mg Q4H PRN IV PUSH 11/19/17 16:00 11/19/17 16:09 (Cerebyx Inj) 200 mgpe Q12HR IV 11/20/17 09:00 11/20/17 09:07 (Luminal Inj) 90 mg BID IV 11/20/17 09:00 11/20/17 09:08 (Lovenox Inj) 60 mg Q12H SQ 11/20/17 10:00 11/20/17 10:45 Exam I&O / VS Vital Signs Date Time Temp Pulse Resp B/P (MAP) Pulse Ox O2 Delivery O2 Flow Rate FiO2 11/20/17 11:24 100 35 11/20/17 08:23 100 35 11/20/17 06:04 100 35 11/20/17 06:00 73 11/20/17 04:00 98.2 119 20 137/60 (85) 100 11/20/17 04:00 83 11/20/17 04:00 35 11/20/17 02:07 100 35 11/20/17 02:00 72 11/20/17 00:00 35 11/20/17 00:00 87 11/20/17 00:00 98.1 87 16 111/80 (90) 100 11/19/17 22:30 100 100 11/19/17 22:28 100 35 11/19/17 22:00 102 11/19/17 20:00 99 11/19/17 20:00 98.5 99 17 108/72 (84) 99 11/19/17 20:00 35 11/19/17 18:00 94 11/19/17 16:00 61 11/19/17 16:00 35 11/19/17 16:00 98.3 61 16 109/68 (82) 100 11/19/17 15:29 100 35 11/19/17 15:00 35 11/19/17 14:27 60 16 114/71 (85) 100 Ventilator 100 11/19/17 14:10 56 16 104/75 (85) 100 Ventilator 100 11/19/17 13:14 61 16 111/71 (84) 100 Ventilator 100 11/19/17 13:13 100 35 11/19/17 12:14 52 16 117/74 (88) 100 Ventilator 100 11/19/17 12:00 100 Exam Comments intubated, coma state, not following, non-verbal. no gaze deviation os-no pupil ? previous trauma, face sym, minimal foot movement with tactile Review/Management Diagnosis/Plan: (1) Non-convulsive status epilepticus ICD Codes: G40.901 - Epilepsy, unspecified, not intractable, with status epilepticus Status: Acute Plan: on versed iv cerebryx,keppra and phb added recs f/u eeg follow levels increase phb to tid pt is critically ill (2) Acute encephalopathy ICD Codes: G93.40 - Encephalopathy, unspecified Status: Acute Plan: 2/2 sz's, pulm emboli resp distress (3) Encephalopathy, metabolic ICD Codes: G93.41 - Metabolic encephalopathy Status: Acute (4) Pulmonary emboli ICD Codes: I26.99 - Other pulmonary embolism without acute cor pulmonale Status: Acute Plan: on lovenox (5) Respiratory distress ICD Codes: R06.03 - Acute respiratory distress Status: Acute Plan: intubated, ccm following Adal Harrell MD Nov 20, 2017 11:46
[2017-11-20] MEDS: PHENobarbital SOD 130 MG/ML VIAL IV SCH ×2 (13:52→18:07)
[2017-11-20] MEDS: MIDAZOLAM 100 MG/100 ML INJ 100 ML IV PRN (16:31)
--- NOTE | 2017-11-20 16:56 | RADRPT ---
EXAM DATE/TIME: 11/20/2017 16:24 [facility] COMPARISON: No previous studies available for comparison. INDICATIONS : Pulmonary embolism, evaluate for DVT. MEDICAL HISTORY : Hypercholesterolemia. Hypertension. TIA. Migraine. Left sided paralysis. Arthritis. SURGICAL HISTORY : section.Tubal ligation. Brain surgery at . Left AKA. ENCOUNTER: Initial ACUITY: 1 day PAIN SCORE: Non-responsive LOCATION: Bilateral legs. TECHNIQUE: Venous ultrasound of the left and right leg was performed from the inguinal ligament to the proximal calf. Real-time, color Doppler and spectral tracing, compression and augmentation techniques were us ed. FINDINGS: RIGHT LEG: There is normal compressibility of the deep venous system from the inguinal region to the proximal ca lf. No echogenic clot is seen in the lumen of the common femoral, femoral, popliteal, and posterior tibial veins. There is a normal response of the venous system to proximal and distal augmentation an d respiration. LEFT LEG: Occlusive deep vein thrombosis in left lower extremity is seen extending from the proximal superficia l vein through the popliteal vein involving the proximal posterior tibial and peroneal veins. Common femoral vein is widely patent. CONCLUSION: 1. Extensive deep vein thrombosis of the left lower extremity involving the superficial femoral vein popliteal vein and proximal calf veins. 2. No evidence of lower extremity DVT on the right. Benjamin Doyle MD on November 20, 2017 at 16:51 Board Certified Radiologist. This report was verified electronically.
[2017-11-21] VITALS (20 sets, daily range): BP systolic 108–127; BP diastolic 70–85; PULSE 74–115; RESP 20–30; TEMP 97.6–98.2; O2SAT 100
[2017-11-21] MEDS: INSULIN NovoLIN REGULAR SUPPLEMENTAL SCALE SQ SCH ×6 (01:00→21:00)
[2017-11-21] MEDS: PIPERACIL-TAZO 4.5 GM PREMIX 100 ML IV SCH ×4 (01:27→17:30)
[2017-11-21] MEDS: FAMOTIDINE 20 MG/2 ML VIAL IV PUSH SCH ×2 (01:28→11:36)
[2017-11-21] MEDS: RESP: ALBUTEROL 2.5 MG/IPRATROPIUM 0.5 MG NEB (SCH) INH ×4 (03:16→21:17)
[2017-11-21] MEDS: CHLORHEXIDINE GLUCONATE 2 % 1 PACK (2 CLOTHS) TOP SCH (04:00)
[2017-11-21] MEDS: methylPREDNISolone SOD SUCC 125 MG/2 ML VIAL IV SCH ×3 (04:53→21:03)
[2017-11-21] MEDS: SODIUM CHLOR 0.9% 1000 ML INJ 1,000 ML IV SCH ×3 (04:54→21:02)
[2017-11-21 06:40] LABS: PHENYTOIN (DILANTIN) 17.7 MCG/ML (10.0-20.0)
[2017-11-21] MEDS: FOSPHENYTOIN SODIUM 100 MG PE/2 ML VIAL IV SCH ×2 (07:53→21:04)
[2017-11-21] MEDS: levETIRAcetam INJ 500 MG in SODIUM CHLORIDE 0.9% INJ 100 ML IV SCH ×2 (07:53→21:03)
[2017-11-21] MEDS: PHENobarbital SOD 130 MG/ML VIAL IV SCH ×3 (07:53→17:30)
[2017-11-21] MEDS: DOCUSATE SODIUM 50 MG/SENNA 8.6 MG TAB PO SCH ×2 (07:54→21:03)
--- NOTE | 2017-11-21 09:36 | RADRPT ---
EXAM DATE/TIME: 11/21/2017 08:59 [facility] COMPARISON: No previous studies available for comparison. INDICATIONS : Altered mental status. Found unresponsive. CONTRAST: 12 cc Omniscan (gadodiamide) IV MEDICAL HISTORY : Lymphoma. Deep venous thrombosis. SURGICAL HISTORY : Left eye. ENCOUNTER: Subsequent ACUITY: 2 day PAIN SCORE: Nonresponsive. LOCATION: head TECHNIQUE: Multiplanar, multisequence MRI of the brain was performed both prior to and following the administrat ion of paramagnetic contrast. FINDINGS: CEREBRUM: The ventricles are normal for age. No evidence of midline shift, mass lesion, hemorrhage or acute in farction. No extraaxial fluid collections are seen. The pituitary gland and suprasellar cistern are normal in configuration. WHITE MATTER: No significant signal abnormalities are seen in the white matter. POSTERIOR FOSSA: The cerebellum and brainstem are intact. The 4th ventricle is midline. The cerebellopontine angle is unremarkable. The cerebellar tonsils are normal in position. DIFFUSION IMAGING: No focal areas of restricted diffusion are seen. No evidence of acute infarction. EXTRACRANIAL: The visualized portions of the orbits and paranasal sinuses are unremarkable. POST-CONTRAST: No abnormal areas of parenchymal or dural enhancement. No evidence of blood-brain barrier breakdown. CONCLUSION: Normal examination. Marlon Call MD on November 21, 2017 at 9:32 Board Certified Radiologist. This report was verified electronically.
[2017-11-21] MEDS ORDERED: GADODIAMIDE PF 287 MG/ML 5 ML VIAL (for RAD MRI) IVCONTRAST ONE (09:51)
[2017-11-21] MEDS: ENOXAPARIN SODIUM 60 MG/0.6 ML SYRINGE SQ SCH ×2 (11:35→21:03)
[2017-11-21 14:29] LABS: HEMATOCRIT 39.3 % (39.0-51.0); HEMOGLOBIN 12.7 GM/DL (13.0-17.0); MEAN CELL VOLUME 94.4 FL (80.0-100.0); MEAN CORPUSCULAR HEMOGLOBIN 30.6 PG (27.0-34.0); MEAN CORPUSCULAR HGB CONC 32.4 % (32.0-36.0); MEAN PLATELET VOLUME 9.6 FL (7.0-11.0); PLATELET COUNT 146 TH/MM3 (150-450); RED BLOOD COUNT 4.16 MIL/MM3 (4.50-5.90); RED CELL DISTRIBUTION WIDTH 15.1 % (11.6-17.2); WHITE BLOOD COUNT 25.2 TH/MM3 (4.0-11.0)
[2017-11-21] MEDS: MIDAZOLAM 100 MG/100 ML INJ 100 ML IV PRN (14:43)
[2017-11-21 14:59] LABS: ALBUMIN 2.4 GM/DL (3.4-5.0); BICARBONATE 27.1 MEQ/L (21.0-32.0); BLOOD UREA NITROGEN 18 MG/DL (7-18); CALCIUM 7.9 MG/DL (8.5-10.1); CHLORIDE 107 MEQ/L (98-107); CREATININE 0.87 MG/DL (0.60-1.30); GLOMERULAR FILTRATION RATE 90 ML/MIN (>89); GLUCOSE,RANDOM 153 MG/DL (74-106); SODIUM (NA) 144 MEQ/L (136-145)
[2017-11-21 15:01] LABS: ALT (GPT) 21 U/L (12-78); AST (GOT) 20 U/L (15-37)
[2017-11-21 15:02] LABS: ALKALINE PHOSPHATASE 59 U/L (45-117); TOTAL BILIRUBIN ADULT 0.4 MG/DL (0.2-1.0); TOTAL PROTEIN 5.7 GM/DL (6.4-8.2)
--- NOTE | 2017-11-21 16:46 | HHI.CCPN ---
Subjective Remarks/Hospital Course 11/19: The patient is a 57-year-old male with past medical history of Hodgkin's lymphoma, benign prostate hypertrophy, COPD who presented to the [facility] Emergency Department via EMS after he was found by his mother on the ground at his apartment unresponsive. He given Narcan times four doses by EMS without any significant improvement. On arrival to the emergency department, the patient noted to be in some respiratory distress associated with coarse wheezing. The patient apparently had not been seen for a day. In the emergency department, he was intubated with a etomidate and vecuronium and placed on full mechanical ventilation. ABG post-intubation showed a pH of 7.39, CO2 43, pAO2 465, bicarb 25, sats 98% on assist control ventilation with respiratory rate 16, tidal volume 500, PEEP of 5 and FIO2 of 100%. There is no evidence of any fever; however, the patient was noted to have leukocytosis with WBC of 19.0. Lactic acid measured at 1.9. A CT scan of the brain in the emergency department was negative for acute process and chest x-ray post-intubation showed no obvious infiltrates or effusions. He was placed on Diprivan for sedation and given one dose of Zosyn along with one liter of normal saline. His current blood pressure is 109/73 with a pulse of 59, saturation 99%. Most of the history was obtained from reviewing medical records. 11/20: Sedated with Versed, orally intubated on mechanical ventilation. CTA chest done last night revealed bilateral pulmonary emboli. Being started on Lovenox for full anticoagulation. 11/21: Remains sedated, orally intubated on mechanical ventilation. On anticoagulation with Lovenox. Objective Vital Signs Date Time Temp Pulse Resp B/P (MAP) Pulse Ox O2 Delivery O2 Flow Rate FiO2 11/21/17 16:21 100 35 11/21/17 16:00 114 11/21/17 12:00 97.9 20 108/76 (87) 11/19/17 14:27 Ventilator Intake and Output 11/21/17 11/21/17 11/22/17 08:00 16:00 00:00 Intake Total 1623 ml Output Total 325 ml Balance 1298 ml Result Diagram: 11/21/17 1355 11/21/17 1355 Other Results Microbiology Date/Time Source Procedure Growth Status 11/19/17 11:05 Nasal Washing Influenza Types A,B Antigen (TANESHA) - Final NEGATIVE FOR FLU A AND B ANTIGEN.... Complete Imaging Last Impressions CT Angiography 11/19/17 1233 Signed Impressions: Service Date/Time: Sunday, November 19, 2017 22:45 - CONCLUSION: 1. Pulmonary emboli identified bilaterally in segmental and subsegmental branches. 2. Mild pulmonary parenchymal emphysema. Benjamin Doyle MD Head CT 11/19/17 1042 Signed Impressions: Service Date/Time: Sunday, November 19, 2017 11:53 - CONCLUSION: Negative for acute process. Fidel Butler MD FACR Chest X-Ray 11/19/17 1042 Signed Impressions: Service Date/Time: Sunday, November 19, 2017 10:52 - CONCLUSION: Support apparatus in good position. Fidel Butler MD FACR Objective Remarks HEAD, EYES, EARS, NOSE, THROAT: Normocephalic and atraumatic. Pupils equal, round and reactive to light and accommodation. Conjunctivae are pink. Nonicteric sclerae. Oral mucosa within normal limits. NECK: The neck is supple. No jugular venous distention, adenopathy or thyromegaly. Trachea in the midline. Orally intubated. CARDIOVASCULAR: Regular rate and rhythm. Normal S1-S2. No murmurs, rubs or gallops noted. PULMONARY: Orally intubated on mechanical ventilation, Bilateral equal air entry with a few occasional wheezing. ABDOMEN: The abdomen is soft, nontender and no distention. Positive bowel sounds. EXTREMITIES: No cyanosis, clubbing or edema. NEUROLOGIC: Intubated and sedated with Diprivan A/P Assessment and Plan IMPRESSION: 1. Acute respiratory failure on mechanical ventilation. 2. Encephalopathy. 3. Bilateral pulmonary embolism 4. DVT 5. COPD. 6. History of Hodgkin's lymphoma. 7. History of benign prostate hypertrophy. 8. Leukocytosis. 9. Nonconvulsive seizures on EEG RECOMMENDATIONS: 1. Continue Versed gtt, no sedation vacation till cleared by neurology in view of seizure activity noted on EEG 2. CT scan of the brain in the emergency department negative for acute process and his urine drug screen is positive for benzodiazepines. Awaiting MRI brain 3. Continue mechanical ventilation. 4. Vent bundle, bronchodilators as needed, Solu-Medrol 5. Anticonvulsants per neurology 6. CT chest positive for bilateral PE 7. Starting Lovenox 60 mg per KG every 12 hourly for full anticoagulation on 8. The patient is scheduled to undergo CT angiogram of the chest to rule out PE per the emergency department physician. 9. Monitor heart rate and blood pressure closely and maintain MAP greater than 65 mmHg. Lactic acid level measured 1.9 in the emergency department. Monitor cardiac enzymes with troponins and we will check a 2-D echocardiogram to evaluate left ventricular function and check baseline TSH level. 10. Monitor renal function, intakes and outputs and electrolyte replacement as needed. Place on IV fluids normal saline at 100 mL/hour. 11. Monitor CKs. 12. Continue with empiric antibiotics for now. The patient was given Zosyn in the emergency department. Monitor for signs of infection which include fever and WBCs. 13. Follow up on blood cultures which were performed in the emergency department. Nasal washing is negative for influenza. 14. .Monitor CBC 15. Continue with Pepcid 30 milligrams q. 12h for GI prophylaxis. 16. Start tube feeds within 24 hours if he remains intubated. 17. Place on sliding scale insulin with Accu-Chek for glycemic control. 18. GI prophylaxis with Pepcid and DVT prophylaxis with SCDs and heparin subcutaneous. Condition remains critical and patient with nonconvulsive seizures, encephalopathy, bilateral PEs, respiratory failure requiring mechanical ventilation Time spent on critical care excluding procedures 40 minutes Mauricio Wells MD Nov 21, 2017 16:46
--- NOTE | 2017-11-21 20:21 | ECHRPT ---
Indication: lv function CONCLUSIONS Normal left ventricular size. The left ventricular systolic function is mildly reduced with an estimated ejection fraction in the range of 45- 50%. The right ventricle is mildly dilated. Mild mitral valve regurgitation. There is mild tricuspid valve regurgitation. The estimated pulmonary arterial pressure is 25 mmHg. BP: / HR: Rhythm: MEASUREMENTS (Male / Female) Normal Values Technical Quality:Very technically difficult study 2D ECHO LV Diastolic Diameter PLAX 3.6 cm 4.2 - 5.9 / 3.9 - 5.3 cm LV Systolic Diameter PLAX 2.8 cm IVS Diastolic Thickness 1.2 cm 0.6 - 1.0 / 0.6 - 0.9 cm LVPW Diastolic Thickness 0.9 cm 0.6 - 1.0 / 0.6 - 0.9 cm LV Relative Wall Thickness 0.6 RV Internal Dim ED PLAX 2.3 cm DOPPLER TR Peak Velocity 195.0 cm/s TR Peak Gradient 15.2 mmHg Right Atrial Pressure 10.0 mmHg Pulmonary Artery Systolic Pressu 25.2 mmHg Right Ventricular Systolic Press 25.2 mmHg FINDINGS LEFT VENTRICLE Normal left ventricular size. The left ventricular systolic function is mildly reduced with an estimated ejection fraction in the range of 45- 50%. RIGHT VENTRICLE The right ventricle is mildly dilated. LEFT ATRIUM The left atrial size is normal. RIGHT ATRIUM The right atrial size is normal. ATRIAL SEPTUM Normal atrial septal thickness without atrial level shunting by limited color doppler interrogation. AORTA The aortic root and proximal ascending aorta are normal in size on limited imaging. MITRAL VALVE Structurally normal mitral valve. Mild mitral valve regurgitation. AORTIC VALVE Trileaflet aortic valve. No aortic valve regurgitation. No aortic valve stenosis. TRICUSPID VALVE Structurally normal tricuspid valve. There is mild tricuspid valve regurgitation. The estimated pulmonary arterial pressure is 25.2 mmHg. PULMONARY VALVE No pulmonary valve regurgitation or stenosis. VESSELS The inferior vena cava is normal in size. PERICARDIUM No pericardial effusion. Yokasta Collins MD, FACC (Electronically Signed) Final Date:21 November 2017 20:21
--- NOTE | 2017-11-21 20:25 | MG ---
cc: MINDI MCRAE MD Lab No: [id number] Date: 11/21/17 Age: 57 Sex: M Race: DATE OF [address] Harrell With photic only, 5 mg per hour of Versed. This is a repeat study. Intubated. CT negative. EEG on 11/19 showed BiPLED [place] by his [place], unresponsive. He was given Narcan four doses without improvement. History of diabetes, substance use. Hodgkin's lymphoma, Lovenox Keppra Zosyn Solu-Medrol Albuterol DESCRIPTION OF RECORD There still are some mild PLED like findings seen bilaterally. Some movement artifact is noted as well. Slowing in between the biplane consistent with what looks like delta frequency. Photic stimulation without any significant driving response. IMPRESSION Abnormal EEG due to moderately severe slowing as well as BiPLED activity. Clinical correlation. Mindi Mcrae MD DF/ /6:58 PM /7:57 PM
[2017-11-22] VITALS (29 sets, daily range): BP systolic 95–117; BP diastolic 60–78; PULSE 70–97; RESP 17–25; TEMP 97.3–98.6; O2SAT 100
[2017-11-22] MEDS: INSULIN NovoLIN REGULAR SUPPLEMENTAL SCALE SQ SCH ×6 (00:27→20:24)
[2017-11-22] MEDS: PIPERACIL-TAZO 4.5 GM PREMIX 100 ML IV SCH ×4 (00:28→17:25)
[2017-11-22] MEDS: FAMOTIDINE 20 MG/2 ML VIAL IV PUSH SCH ×2 (00:28→12:38)
[2017-11-22] MEDS: SODIUM CHLOR 0.9% 1000 ML INJ 1,000 ML IV SCH ×3 (01:35→19:09)
[2017-11-22] MEDS: CHLORHEXIDINE GLUCONATE 2 % 1 PACK (2 CLOTHS) TOP SCH (03:40)
[2017-11-22] MEDS: RESP: ALBUTEROL 2.5 MG/IPRATROPIUM 0.5 MG NEB (SCH) INH ×4 (04:00→20:39)
[2017-11-22] MEDS: methylPREDNISolone SOD SUCC 125 MG/2 ML VIAL IV SCH (05:02)
[2017-11-22] MEDS: MIDAZOLAM 100 MG/100 ML INJ 100 ML IV PRN ×3 (05:58→22:41)
--- NOTE | 2017-11-22 06:46 | HHI.PR ---
Review/Management Diagnosis/Plan: (1) Non-convulsive status epilepticus ICD Codes: G40.901 - Epilepsy, unspecified, not intractable, with status epilepticus Status: Acute Plan: etiology: hypoxemia on versed iv cerebryx,keppra and phb added mri brain- nml +dvt in left le; hypercoag panel ordered, heme eval recs versed increased to 10mg/hr iv keppra increased repeat eeg once bipleds subsides reduce versed gtt and wean off d/w ccm (2) Acute encephalopathy ICD Codes: G93.40 - Encephalopathy, unspecified Status: Acute Plan: 2/2 sz's, pulm emboli resp distress (3) Encephalopathy, metabolic ICD Codes: G93.41 - Metabolic encephalopathy Status: Acute (4) Pulmonary emboli ICD Codes: I26.99 - Other pulmonary embolism without acute cor pulmonale Status: Acute Plan: on lovenox (5) Respiratory distress ICD Codes: R06.03 - Acute respiratory distress Status: Acute Plan: intubated, ccm following Subjective Subjective Comments No acute events reported Active Medications Current Medications Medications (Trade) Dose Ordered Sig/Osbaldo Route Start Time Stop Time Status Last Admin Propofol 100 ml @ 1.95 mls/hr TITRATE PRN IV 11/19/17 11:00 11/19/17 11:22 (Pepcid Inj) 20 mg Q12H IV PUSH 11/19/17 13:00 11/22/17 00:28 (Duoneb Neb) 1 ampule Q6HR NEB INH 11/19/17 13:00 11/22/17 04:00 (Duoneb Neb) 1 ampule Q2HR NEB PRN INH 11/19/17 12:45 11/20/17 06:03 Miscellaneous Information 1 Q361D XX 11/19/17 12:45 (Chlorhexidine 2% Cloth) 3 pack Taper DAILY@04 TOP 11/20/17 04:00 11/16/18 03:59 11/22/17 03:40 (Chlorhexidine 2% Cloth) 3 pack UNSCH PRN TOP 11/19/17 12:45 (Cassandra-Colace) 1 tab BID PO 11/19/17 13:00 11/21/17 21:03 (Milk Of Magnesia Liq) 30 ml Q12H PRN PO 11/19/17 12:45 (Senokot) 17.2 mg Q12H PRN PO 11/19/17 12:45 (Dulcolax Supp) 10 mg DAILY PRN RECTAL 11/19/17 12:45 (Lactulose Liq) 30 ml DAILY PRN PO 11/19/17 12:45 Sodium Chloride 1,000 ml @ 125 mls/hr Q8H IV 11/19/17 12:45 11/22/17 01:35 (D50w (Vial) Inj) 50 ml UNSCH PRN IV PUSH 11/19/17 12:45 (Glucagon Inj) 1 mg UNSCH PRN OTHER 11/19/17 12:45 (NovoLIN R SUPPLEMENTAL SCALE) 1 Q4H SQ 11/19/17 13:00 11/21/17 17:31 (SoluMEDROL INJ) 60 mg Q8HR IV 11/19/17 14:00 11/22/17 05:02 Piperacillin Sod/ Tazobactam Sod 100 ml @ 200 mls/hr Q6H IV 11/19/17 18:00 11/22/17 05:02 Midazolam HCl 100 ml @ 2 mls/hr TITRATE PRN IV 11/19/17 16:00 11/22/17 05:58 (Ativan Inj) 1 mg Q4H PRN IV PUSH 11/19/17 16:00 11/19/17 16:09 (Cerebyx Inj) 200 mgpe Q12HR IV 11/20/17 09:00 11/21/17 21:04 (Lovenox Inj) 60 mg Q12H SQ 11/20/17 10:00 11/21/17 21:03 (Luminal Inj) 90 mg TID IV 11/20/17 13:00 11/21/17 17:30 Levetriacetam 100 ml @ 420 mls/hr Q12HR IV 11/22/17 09:00 Allergies Allergies Coded Allergies vancomycin (Unverified Allergy, Intermediate, RASH, 08/01/17) Review of Systems All other ROS: Unable to obtain Exam I&O / VS Vital Signs Date Time Temp Pulse Resp B/P (MAP) Pulse Ox O2 Delivery O2 Flow Rate FiO2 11/22/17 06:00 97 11/22/17 04:15 100 35 11/22/17 04:00 89 11/22/17 04:00 35 11/22/17 04:00 97.3 89 24 117/76 (90) 100 11/22/17 02:00 80 11/22/17 01:03 100 35 11/22/17 00:00 98.6 91 25 111/78 (89) 100 11/22/17 00:00 35 11/22/17 00:00 91 11/21/17 22:06 100 35 11/21/17 22:00 85 11/21/17 20:00 101 11/21/17 20:00 98.2 101 26 114/79 (91) 100 11/21/17 20:00 35 11/21/17 19:45 100 35 11/21/17 18:00 96 11/21/17 16:21 100 35 11/21/17 16:00 97.8 114 29 114/73 (87) 100 11/21/17 16:00 35 11/21/17 16:00 114 11/21/17 14:00 95 11/21/17 12:47 100 35 11/21/17 12:00 88 11/21/17 12:00 35 11/21/17 12:00 97.9 88 20 108/76 (87) 100 11/21/17 10:00 93 11/21/17 08:50 100 11/21/17 08:17 100 35 11/21/17 08:00 115 11/21/17 08:00 97.7 115 30 127/85 (99) 100 11/21/17 08:00 35 Exam Comments intubated, coma state, not following, non-verbal. no gaze deviation, od 4-3mm, os-no pupil? previous trauma, face sym, minimal foot movement with tactile Objective Micro and Labs Laboratory Tests Test 11/21/17 13:55 White Blood Count 25.2 Red Blood Count 4.16 Hemoglobin 12.7 Hematocrit 39.3 Mean Corpuscular Volume 94.4 Mean Corpuscular Hemoglobin 30.6 Mean Corpuscular Hemoglobin Concent 32.4 Red Cell Distribution Width 15.1 Platelet Count 146 Mean Platelet Volume 9.6 Blood Urea Nitrogen 18 Creatinine 0.87 Random Glucose 153 Total Protein 5.7 Albumin 2.4 Calcium Level 7.9 Alkaline Phosphatase 59 Aspartate Amino Transf (AST/SGOT) 20 Alanine Aminotransferase (ALT/SGPT) 21 Total Bilirubin 0.4 Sodium Level 144 Potassium Level 4.1 Chloride Level 107 Carbon Dioxide Level 27.1 Anion Gap 10 Estimat Glomerular Filtration Rate 90 Date/Time Source Procedure Growth Status 11/19/17 10:55 Blood Peripheral Aerobic Blood Culture - Preliminary NO GROWTH IN 2 DAYS Resulted 11/19/17 10:55 Blood Peripheral Anaerobic Blood Culture - Preliminary NO GROWTH IN 2 DAYS Resulted 11/19/17 11:05 Nasal Washing Influenza Types A,B Antigen (TANESHA) - Final NEGATIVE FOR FLU A AND B ANTIGEN.... Complete Adal Harrell MD Nov 22, 2017 06:46
[2017-11-22 08:41] LABS: PHENYTOIN (DILANTIN) 17.8 MCG/ML (10.0-20.0)
[2017-11-22] MEDS: levETIRAcetam INJ 100 ML IV SCH ×2 (09:00→20:24)
[2017-11-22] MEDS: PHENobarbital SOD 130 MG/ML VIAL IV SCH ×3 (09:00→17:25)
[2017-11-22] MEDS: DOCUSATE SODIUM 50 MG/SENNA 8.6 MG TAB PO SCH ×2 (09:00→20:24)
[2017-11-22] MEDS: FOSPHENYTOIN SODIUM 100 MG PE/2 ML VIAL IV SCH ×2 (09:01→20:24)
[2017-11-22] MEDS: ENOXAPARIN SODIUM 60 MG/0.6 ML SYRINGE SQ SCH ×2 (09:02→20:25)
--- NOTE | 2017-11-22 10:49 | HHI.CCPN ---
Subjective Remarks/Hospital Course 11/19: The patient is a 57-year-old male with past medical history of Hodgkin's lymphoma, benign prostate hypertrophy, COPD who presented to the [facility] Emergency Department via EMS after he was found by his mother on the ground at his apartment unresponsive. He given Narcan times four doses by EMS without any significant improvement. On arrival to the emergency department, the patient noted to be in some respiratory distress associated with coarse wheezing. The patient apparently had not been seen for a day. In the emergency department, he was intubated with a etomidate and vecuronium and placed on full mechanical ventilation. ABG post-intubation showed a pH of 7.39, CO2 43, pAO2 465, bicarb 25, sats 98% on assist control ventilation with respiratory rate 16, tidal volume 500, PEEP of 5 and FIO2 of 100%. There is no evidence of any fever; however, the patient was noted to have leukocytosis with WBC of 19.0. Lactic acid measured at 1.9. A CT scan of the brain in the emergency department was negative for acute process and chest x-ray post-intubation showed no obvious infiltrates or effusions. He was placed on Diprivan for sedation and given one dose of Zosyn along with one liter of normal saline. His current blood pressure is 109/73 with a pulse of 59, saturation 99%. Most of the history was obtained from reviewing medical records. 11/20: Sedated with Versed, orally intubated on mechanical ventilation. CTA chest done last night revealed bilateral pulmonary emboli. Being started on Lovenox for full anticoagulation. 11/21: Remains sedated, orally intubated on mechanical ventilation. On anticoagulation with Lovenox. 11/22: Remains sedated with Versed, orally intubated on mechanical ventilation. On anticoagulation with Lovenox for bilateral PE. Objective Vital Signs Date Time Temp Pulse Resp B/P (MAP) Pulse Ox O2 Delivery O2 Flow Rate FiO2 11/22/17 07:50 100 35 11/22/17 06:00 97 11/22/17 04:00 97.3 24 117/76 (90) 11/19/17 14:27 Ventilator Intake and Output 11/22/17 11/22/17 11/23/17 08:00 16:00 00:00 Intake Total 1287 ml Output Total 520 ml Balance 767 ml Result Diagram: 11/21/17 1355 11/21/17 1355 Other Results Microbiology Date/Time Source Procedure Growth Status 11/19/17 11:05 Nasal Washing Influenza Types A,B Antigen (TANESHA) - Final NEGATIVE FOR FLU A AND B ANTIGEN.... Complete Imaging Last Impressions CT Angiography 11/19/17 1233 Signed Impressions: Service Date/Time: Sunday, November 19, 2017 22:45 - CONCLUSION: 1. Pulmonary emboli identified bilaterally in segmental and subsegmental branches. 2. Mild pulmonary parenchymal emphysema. Benjamin Doyle MD Head CT 11/19/17 1042 Signed Impressions: Service Date/Time: Sunday, November 19, 2017 11:53 - CONCLUSION: Negative for acute process. Fidel Butler MD FACR Chest X-Ray 11/19/171041 Signed Impressions: Service Date/Time: Sunday, November 19, 2017 10:52 - CONCLUSION: Support apparatus in good position. Fidel Butler MD FACR Objective Remarks HEAD, EYES, EARS, NOSE, THROAT: Normocephalic and atraumatic. Pupils equal, round and reactive to light and accommodation. Conjunctivae are pink. Nonicteric sclerae. Oral mucosa within normal limits. NECK: The neck is supple. No jugular venous distention, adenopathy or thyromegaly. Trachea in the midline. Orally intubated. CARDIOVASCULAR: Regular rate and rhythm. Normal S1-S2. No murmurs, rubs or gallops noted. PULMONARY: Orally intubated on mechanical ventilation, Bilateral equal air entry , no wheezing or crackles ABDOMEN: The abdomen is soft, nontender and no distention. Positive bowel sounds. EXTREMITIES: No cyanosis, clubbing or edema. NEUROLOGIC: Intubated and sedated, pupils bilaterally constricted reacting actively to light. A/P Assessment and Plan IMPRESSION: 1. Acute respiratory failure on mechanical ventilation. 2. Encephalopathy. 3. Bilateral pulmonary embolism 4. DVT 5. COPD. 6. History of Hodgkin's lymphoma. 7. History of benign prostate hypertrophy. 8. Leukocytosis. 9. Nonconvulsive seizures on EEG RECOMMENDATIONS: 1. Continue Versed gtt, no sedation vacation till cleared by neurology in view of seizure activity noted on EEG 2. CT scan of the brain in the emergency department negative for acute process and his urine drug screen is positive for benzodiazepines. MRI brain unremarkable 3. Continue mechanical ventilation. 4. Vent bundle, bronchodilators as needed, Solu-Medrol 5. Anticonvulsants per neurology. On Cerebyx/Keppra/phenobarbital. 6. CT chest positive for bilateral PE 7. Starting Lovenox 60 mg per KG every 12 hourly for full anticoagulation on 8. The patient is scheduled to undergo CT angiogram of the chest to rule out PE per the emergency department physician. 9. Monitor heart rate and blood pressure closely and maintain MAP greater than 65 mmHg. 10. Monitor renal function, intakes and outputs and electrolyte replacement as needed. Continue IV fluids 11. Monitor CKs. 12. Continue with empiric antibiotics for now. The patient was given Zosyn in the emergency department. Leukocytosis noted 13. Follow up on blood cultures which were performed in the emergency department. Nasal washing is negative for influenza. 14. .Monitor CBC 15. Continue with Pepcid 30 milligrams q. 12h for GI prophylaxis. 16. Tolerating tube feeds 17. Place on sliding scale insulin with Accu-Chek for glycemic control. 18. GI prophylaxis with Pepcid and DVT prophylaxis with SCDs and heparin subcutaneous. Condition remains critical and patient with nonconvulsive seizures, encephalopathy, bilateral PEs, respiratory failure requiring mechanical ventilation Time spent on critical care excluding procedures 40 minutes Mauricio Wells MD Nov 22, 2017 10:49
--- NOTE | 2017-11-22 13:53 | MG ---
cc: ROLAND KEENAN M.D. Lab No: [id number] Date: 11/21/2017 Age: 57 Sex: M Race: __ DATE OF [address] Harrell TECHNIQUE Intubated, Versed at 10 mg with only photic stimulation. STUDIES CT normal, MRI normal. INDICATIONS EEG on 11/21 shows abnormalities with a moderate severe slowing and Bi-PLED activity. He was found by his mother on the ground unresponsive for an unknown length of time, given Narcan four times without any improvement. MEDICATIONS 1. Keppra 2. Versed 3. Phenobarbital 4. Cerebyx DESCRIPTION OF RECORD Overall diffuse slowing predominately of 1-2 Hz. Some improvement in the Bi-PLED activity, but there is still seems to be some occurring bilaterally. Photic stimulation has no change in the background. Some artifact noted in the frontal eye alex. IMPRESSION Abnormal EEG due to moderate slowing with some occasional Bi-PLED activity still notable. There is some increased activity noted in the background with stimulation with 2 Hz and 3-4 Hz. Some withdrawal was noted as well in his feet, however, still moderate to severe slowing seen. Clinical correlation. MD KYLIE Mejia/COLTON /1:13 PM /1:25 PM
[2017-11-22 14:50] LABS: CARDIOLIPIN IGG AB <9.4 GPL; CARDIOLIPIN IGM AB <9.4 MPL
--- NOTE | 2017-11-22 22:07 | MB ---
cc: HENRY SALAZAR DATE OF CONSULTATION 11/22/2017 DATE OF 1960 HISTORY OF THE PRESENT ILLNESS This is a 57-year-old male who has a history of Hodgkin's lymphoma and benign prostatic hypertrophy, COPD who was brought to the emergency room with altered mental status. He was unresponsive. He was given Narcan with improvement in his mental status. On arrival he was in respiratory distress. He was intubated. He was found to have a leukocytosis of 19. He had a CT scan of the brain which was negative for any acute processes. The patient was started on IV antibiotics. He was borderline hypotensive. The patient remains on the ventilator. Upon review of records it appears that the patient was diagnosed with Hodgkin's lymphoma in 2007. He had presented with night sweats and weight loss. Further workup including a PET scan was obtained in January of 2007 which demonstrated focal hypermetabolic activity in multiple bones as well as in the mediastinum. He had enlarged lymph nodes in the periaortic area. There was also retroperitoneal lymphadenopathy and there was a large pelvic mass in the right side measuring 8.4 x 5.0 cm. He had biopsy of the right groin mass which confirmed classical Hodgkin lymphoma favoring mixed cellularity, EBV positive. The patient was treated with ABVD chemotherapy. He received approximately eight cycles of ABVD. His disease status is currently unclear. It appears that he is following with an oncologist outside of our institution. The patient recently had a CT angiogram which showed pulmonary emboli in bilateral lungs involving the segmental and subsegmental branches. He also had bilateral lower extremity Doppler ultrasound which revealed extensive DVT of the left lower extremity involving the superficial femoral vein, popliteal vein and proximal calf veins. The patient is currently on Lovenox 60 mg subcu twice a day. The patient currently remains in respiratory failure and is intubated. I have reviewed his CT scan of the abdomen and pelvis from July 2017 which did not show any recurrence of lymphoma. There were subcentimeter mesenteric nodes, these were nonspecific. REVIEW OF SYSTEMS Unable to be obtained due to his mental status. PAST MEDICAL HISTORY 1. Hodgkin lymphoma. 2. COPD. 3. Diabetes type 2. 4. Degenerative joint disease. 5. BPH. PAST SURGICAL HISTORY 1. Trauma to the left eye. 2. Port placement. ALLERGIES HE IS ALLERGIC TO VANCOMYCIN. MEDICATIONS 1. Keppra. 2. Phenobarbital. 3. Fosphenytoin. 4. Zosyn. 5. Lorazepam. 6. Famotidine. 7. DuoNebs. 8. Senna p.r.n. 9. Lactulose p.r.n. 10. He is on propofol drip. All medications were reviewed in the EMR. FAMILY HISTORY Unable to be obtained due to his mental status. SOCIAL HISTORY Unable to obtain due to the patient's mental status and he is currently intubated. PHYSICAL EXAMINATION VITAL SIGNS: Blood pressure is 106/67, pulse in the 80s, temperature is 97.9, O2 sats are 100% with FIO2 of 35 and intubated. GENERAL: Acutely ill patient. HEENT: Pupils are equal, round and reactive to light. EOMI. No thrush or lesions. NECK: Supple. No JVD, no bruits. No lymphadenopathy. CHEST: Has bilateral coarse sounds. ABDOMEN: Without any distension. No organomegaly. EXTREMITIES: Without any edema, erythema or cyanosis. SKIN: Without any petechiae, lesion or bruises. NEUROLOGIC: No focal deficits. PSYCHIATRIC: Unable to be assessed. LABORATORY DATA WBC 25.2, hemoglobin is 12.7, MCV 94.4, platelet count 146. Serum chemistries sodium of 144, potassium 4.1, chloride 107, CO2 27.1, BUN is 18, creatinine ___, total bilirubin is 0.4, AST is 20, ALT 21, alk phos 59, total protein is 5.7, albumin is 2.4. IMAGING STUDIES Reviewed in the EMR and discussed above in HPI. ASSESSMENT/PLAN This is a 57-year-old male who has a history of Hodgkin's lymphoma, COPD, BPH who was brought to the emergency department with encephalopathy and altered mental status. He is currently in respiratory failure. He was found to have bilateral pulmonary emboli. 1. Acute respiratory failure and bilateral pulmonary emboli. I agree with anticoagulation with Lovenox. Continue management per primary team. Hypercoagulable w/u should be deferred in acute illness/embolism. will need to obtain w/u o/p will need [employer] anti-coagulation. Once stable, can be switched to eliquis. 2. History of Hodgkin's lymphoma. I have reviewed his CT scans of the chest as well as abdomen and pelvis. There is no evidence of recurrent disease. We will try to obtain records from his oncologist to determine whether the patient is in remission. 3. Leukocytosis likely due to sepsis and acute illness. 4. Mild thrombocytopenia due to acute illness. Check daily fibrinogen and coags. Thank you for allowing me to participate in the care of this patient. I will continue to follow this patient along. MD MAYDA Alonzo/BENEDICTO /5:52 PM /9:28 PM MTDD
[2017-11-22 23:51] LABS: HOMOCYSTEINE 6.6 umol/L (<11.4)
[2017-11-23] VITALS (29 sets, daily range): BP systolic 111–144; BP diastolic 67–90; PULSE 85–111; RESP 20–32; TEMP 97.7–99.2; O2SAT 97–100
[2017-11-23] MEDS: FAMOTIDINE 20 MG/2 ML VIAL IV PUSH SCH ×2 (00:15→13:47)
[2017-11-23] MEDS: PIPERACIL-TAZO 4.5 GM PREMIX 100 ML IV SCH ×5 (00:15→23:09)
[2017-11-23] MEDS: INSULIN NovoLIN REGULAR SUPPLEMENTAL SCALE SQ SCH ×6 (00:16→20:19)
[2017-11-23] MEDS: CHLORHEXIDINE GLUCONATE 2 % 1 PACK (2 CLOTHS) TOP SCH (02:14)
[2017-11-23] MEDS: RESP: ALBUTEROL 2.5 MG/IPRATROPIUM 0.5 MG NEB (SCH) INH ×4 (03:01→21:14)
[2017-11-23 03:51] LABS: ACTIVATED PROTEIN C RESISTANCE 4.3 ratio (> OR = 2.1); ANTI-THROMBIN III ACT 122 (80-120); DRVVT 1:1 MIX ND (CORRECTED); DRVVT CONFIRM ND (NEGATIVE); HEXAGONAL PHASE CONFIRM ND (NEGATIVE)
[2017-11-23] MEDS: SODIUM CHLOR 0.9% 1000 ML INJ 1,000 ML IV SCH (05:12)
[2017-11-23 08:08] LABS: BASOPHIL % 0.2 % (0.0-2.0); EOSINOPHIL # 0.1 TH/MM3 (0-0.4); EOSINOPHIL % 0.5 % (0.0-4.0); HEMATOCRIT 34.1 % (39.0-51.0); HEMOGLOBIN 11.4 GM/DL (13.0-17.0); LYMPH % 14.4 % (9.0-44.0); LYMPHOCYTE # 2.2 TH/MM3 (1.0-4.8); MEAN CELL VOLUME 94.3 FL (80.0-100.0); MEAN CORPUSCULAR HEMOGLOBIN 31.4 PG (27.0-34.0); MEAN CORPUSCULAR HGB CONC 33.3 % (32.0-36.0); MEAN PLATELET VOLUME 10.1 FL (7.0-11.0); MONO % 7.3 % (0.0-8.0); MONOCYTE # 1.1 TH/MM3 (0-0.9); NEUT % 77.6 % (16.0-70.0); PLATELET COUNT 140 TH/MM3 (150-450); RED BLOOD COUNT 3.62 MIL/MM3 (4.50-5.90); WHITE BLOOD COUNT 15.4 TH/MM3 (4.0-11.0)
[2017-11-23 08:17] LABS: ALBUMIN 2.1 GM/DL (3.4-5.0); ALT (GPT) 23 U/L (12-78); AST (GOT) 30 U/L (15-37); BLOOD UREA NITROGEN 20 MG/DL (7-18); CALCIUM 7.6 MG/DL (8.5-10.1); CHLORIDE 105 MEQ/L (98-107); CREATININE 0.64 MG/DL (0.60-1.30); GLOMERULAR FILTRATION RATE 128 ML/MIN (>89); GLUCOSE,RANDOM 107 MG/DL (74-106); SODIUM (NA) 140 MEQ/L (136-145)
[2017-11-23 08:22] LABS: ALKALINE PHOSPHATASE 60 U/L (45-117); TOTAL BILIRUBIN ADULT 0.2 MG/DL (0.2-1.0); TOTAL PROTEIN 5.5 GM/DL (6.4-8.2)
[2017-11-23] MEDS: levETIRAcetam INJ 100 ML IV SCH ×2 (08:29→20:21)
[2017-11-23] MEDS: ENOXAPARIN SODIUM 60 MG/0.6 ML SYRINGE SQ SCH ×2 (08:29→22:01)
[2017-11-23] MEDS: DOCUSATE SODIUM 50 MG/SENNA 8.6 MG TAB PO SCH ×2 (08:29→20:19)
[2017-11-23] MEDS: FOSPHENYTOIN SODIUM 100 MG PE/2 ML VIAL IV SCH ×2 (08:30→20:21)
[2017-11-23] MEDS: PHENobarbital SOD 130 MG/ML VIAL IV SCH ×3 (08:30→17:46)
--- NOTE | 2017-11-23 10:39 | HHI.CCPN ---
Subjective Remarks/Hospital Course 11/19: The patient is a 57-year-old male with past medical history of Hodgkin's lymphoma, benign prostate hypertrophy, COPD who presented to the [facility] Emergency Department via EMS after he was found by his mother on the ground at his apartment unresponsive. He given Narcan times four doses by EMS without any significant improvement. On arrival to the emergency department, the patient noted to be in some respiratory distress associated with coarse wheezing. The patient apparently had not been seen for a day. In the emergency department, he was intubated with a etomidate and vecuronium and placed on full mechanical ventilation. ABG post-intubation showed a pH of 7.39, CO2 43, pAO2 465, bicarb 25, sats 98% on assist control ventilation with respiratory rate 16, tidal volume 500, PEEP of 5 and FIO2 of 100%. There is no evidence of any fever; however, the patient was noted to have leukocytosis with WBC of 19.0. Lactic acid measured at 1.9. A CT scan of the brain in the emergency department was negative for acute process and chest x-ray post-intubation showed no obvious infiltrates or effusions. He was placed on Diprivan for sedation and given one dose of Zosyn along with one liter of normal saline. His current blood pressure is 109/73 with a pulse of 59, saturation 99%. Most of the history was obtained from reviewing medical records. 11/20: Sedated with Versed, orally intubated on mechanical ventilation. CTA chest done last night revealed bilateral pulmonary emboli. Being started on Lovenox for full anticoagulation. 11/21: Remains sedated, orally intubated on mechanical ventilation. On anticoagulation with Lovenox. 11/22: Remains sedated with Versed, orally intubated on mechanical ventilation. On anticoagulation with Lovenox for bilateral PE. 11/23: EEG yesterday with persistent evidence of BiPLEDS. still on versed, keppra, phenobarb, fosphenytoin. Objective Vital Signs Date Time Temp Pulse Resp B/P (MAP) Pulse Ox O2 Delivery O2 Flow Rate FiO2 11/23/17 09:00 100 11/23/17 09:00 28 118/72 (87) 99 11/23/17 08:00 98.4 11/23/17 08:00 30 11/19/17 14:27 Ventilator Intake and Output 11/23/17 11/23/17 11/24/17 08:00 16:00 00:00 Intake Total 1697 ml 100 ml Output Total 1200 ml Balance 497 ml 100 ml Result Diagram: 11/23/17 0655 11/23/17 [address] Angiography 11/19/17 1233 Signed Impressions: Service Date/Time: Sunday, November 19, 2017 22:45 - CONCLUSION: 1. Pulmonary emboli identified bilaterally in segmental and subsegmental branches. 2. Mild pulmonary parenchymal emphysema. Benjamin Doyle MD Head CT 11/19/17 1042 Signed Impressions: Service Date/Time: Sunday, November 19, 2017 11:53 - CONCLUSION: Negative for acute process. Fidel Butler MD FACR Chest X-Ray 11/19/171041 Signed Impressions: Service Date/Time: Sunday, November 19, 2017 10:52 - CONCLUSION: Support apparatus in good position. Fidel Butler MD FACR Objective Remarks HEAD, EYES, EARS, NOSE, THROAT: Normocephalic and atraumatic. Pupils equal, round and reactive to light and accommodation. Conjunctivae are pink. Nonicteric sclerae. Oral mucosa within normal limits. NECK: The neck is supple. No jugular venous distention. Trachea in the midline. Orally intubated. CARDIOVASCULAR: Regular rate and rhythm. PULMONARY: Orally intubated on mechanical ventilation. full mechanical support. ABDOMEN: The abdomen is soft, nontender and no distention. EXTREMITIES: No cyanosis, clubbing or edema. NEUROLOGIC: Intubated and sedated, pupils bilaterally constricted reacting actively to light. A/P Assessment and Plan [id number] remains encephalopathic and likely in intermittent nonconvulsive status epilepticus with bilateral PEs. Off pathway. remains critically ill with uncontrolled seizures. unable to wean from deep sedation. appreciate neuro involvement. continue deep sedation and mechanical ventilation until seizures better controlled. IMPRESSION: 1. Acute hypoxic respiratory failure on mechanical ventilation. 2. Encephalopathy. 3. Bilateral pulmonary embolism 4. DVT 5. COPD. 6. History of Hodgkin's lymphoma. 7. History of benign prostate hypertrophy. 8. Leukocytosis. 9. Nonconvulsive seizures on EEG RECOMMENDATIONS: 1. Continue Versed gtt, no sedation vacation till cleared by neurology in view of seizure activity noted on EEG 2. CT scan of the brain in the emergency department negative for acute process and his urine drug screen is positive for benzodiazepines. MRI brain unremarkable 3. Continue mechanical ventilation. no weaning until cleared by neurology 4. Vent bundle, bronchodilators as needed, Solu-Medrol 5. Anticonvulsants per neurology. On Cerebyx/Keppra/phenobarbital. 6. CT chest positive for bilateral PE 7. Lovenox 60 mg per KG every 12 hourly for full anticoagulation on 11/20 8. Monitor heart rate and blood pressure closely and maintain MAP greater than 65 mmHg. 9. Monitor renal function, intakes and outputs and electrolyte replacement as needed. Continue IV fluids 10. Continue with empiric antibiotics for now. The patient was given Zosyn in the emergency department. full course of empiric zosyn to complete 11/25 ( cultures NGTD). 11. BCx NGTD. Nasal washing is negative for influenza. 12. .Monitor CBC 13. Continue with Pepcid 30 milligrams q. 12h for GI prophylaxis. 14. Tolerating tube feeds 15. Place on sliding scale insulin with Accu-Chek for glycemic control. 16. GI prophylaxis with Pepcid and DVT prophylaxis with SCDs and heparin subcutaneous. Condition remains critical and patient with nonconvulsive seizures, encephalopathy, bilateral PEs, respiratory failure requiring mechanical ventilation Time spent on critical care excluding procedures 33 minutes Semaj Claudio MD Nov 23, 2017 10:39
[2017-11-23] MEDS: LORazepam 2 MG/ML VIAL IV PUSH PRN (15:04)
[2017-11-24] VITALS (30 sets, daily range): BP systolic 113–140; BP diastolic 72–91; PULSE 97–117; RESP 20–44; TEMP 97.5–99.2; O2SAT 96–100
[2017-11-24] MEDS: INSULIN NovoLIN REGULAR SUPPLEMENTAL SCALE SQ SCH ×6 (00:07→21:00)
[2017-11-24] MEDS: FAMOTIDINE 20 MG/2 ML VIAL IV PUSH SCH ×2 (01:16→12:24)
[2017-11-24 03:49] LABS: PHOSPHATIDYLSERINE AB IGA LESS THAN 20.0 U/mL (< 20.0); PHOSPHATIDYLSERINE AB IGG LESS THAN 10.0 U/mL (< 11.0); PHOSPHATIDYLSERINE AB IGM LESS THAN 25.0 U/mL (< 25.0)
[2017-11-24] MEDS: CHLORHEXIDINE GLUCONATE 2 % 1 PACK (2 CLOTHS) TOP SCH (03:56)
[2017-11-24] MEDS: RESP: ALBUTEROL 2.5 MG/IPRATROPIUM 0.5 MG NEB (SCH) INH ×4 (04:00→20:26)
[2017-11-24] MEDS: PIPERACIL-TAZO 4.5 GM PREMIX 100 ML IV SCH ×3 (05:01→17:42)
[2017-11-24] MEDS ORDERED: MIDAZOLAM HCL 5 MG/ML VIAL (1 ML) ONE (07:10)
[2017-11-24 07:12] LABS: INTERNATIONAL NORMALIZED RATIO 0.9 RATIO; PROTHROMBIN TIME - PATIENT 9.5 SEC (9.8-11.6)
[2017-11-24 07:21] LABS: PHENYTOIN (DILANTIN) 13.4 MCG/ML (10.0-20.0)
--- NOTE | 2017-11-24 07:33 | MG ---
cc: ROLAND KEENAN M.D. Lab No: [id number] Date: 11/24/2017 Age: 57 Sex: M Race: __ DATE OF [address] Harrell TECHNIQUE In room 523 with photic stimulation with 5 mcg Versed, intubated. MRI normal. INDICATIONS Found by his mother on the ground unresponsive, given Narcan without improvement. MEDICATIONS 1. Keppra 2. Phenobarbital 3. Cerebyx 4. Lovenox DESCRIPTION OF RECORD There is overall background slowing predominately of delta frequency. 1-2 Hz with some eye movement artifact noted and documented. Photic stimulation performed with no appreciable driving response, however, ongoing eye movement artifact seen, body movement. Overall still 1-2 Hz background. At times it is not clear if there is a higher frequency. However, there is some body movement at times maybe 3-4 Hz. IMPRESSION Moderately severe slowing still seen consistent with an encephalopathic process. Clinical correlation. MD KYLIE Mejia/COLTON /6:33 AM /6:54 AM
[2017-11-24] MEDS ORDERED: MIDAZOLAM HCL 5 MG/ML VIAL (1 ML) IV PUSH ONE (07:45)
[2017-11-24] MEDS: DOCUSATE SODIUM 50 MG/SENNA 8.6 MG TAB PO SCH ×2 (08:10→21:00)
[2017-11-24] MEDS: FOSPHENYTOIN SODIUM 100 MG PE/2 ML VIAL IV SCH ×2 (08:11→21:00)
[2017-11-24] MEDS: levETIRAcetam INJ 100 ML IV SCH ×2 (08:12→21:00)
[2017-11-24] MEDS: PHENobarbital SOD 130 MG/ML VIAL IV SCH ×3 (08:12→17:42)
[2017-11-24] MEDS: MIDAZOLAM 100 MG/100 ML INJ 100 ML IV PRN (08:15)
[2017-11-24] MEDS: ENOXAPARIN SODIUM 60 MG/0.6 ML SYRINGE SQ SCH ×2 (08:15→21:52)
--- NOTE | 2017-11-24 08:30 | HHI.PR ---
Review/Management Diagnosis/Plan: (1) Non-convulsive status epilepticus ICD Codes: G40.901 - Epilepsy, unspecified, not intractable, with status epilepticus Status: Acute Plan: etiology: hypoxemia on versed iv cerebryx,keppra and phb mri brain- nml +dvt in left le; hypercoag panel ordered, heme eval phb, dilantin in range 11/24 eeg- improved- no pleds seen recs versed reduced to 2.5mg/hr. can further titrate off later today, pending vent synchrony. d/w rn repeat eeg for tomorrow follow exam (2) Acute encephalopathy ICD Codes: G93.40 - Encephalopathy, unspecified Status: Acute Plan: 2/2 sz's, pulm emboli resp distress (3) Encephalopathy, metabolic ICD Codes: G93.41 - Metabolic encephalopathy Status: Acute (4) Pulmonary emboli ICD Codes: I26.99 - Other pulmonary embolism without acute cor pulmonale Status: Acute Plan: on lovenox (5) Respiratory distress ICD Codes: R06.03 - Acute respiratory distress Status: Acute Plan: intubated, ccm following Subjective Subjective Comments No acute events reported Active Medications Current Medications Medications (Trade) Dose Ordered Sig/Osbaldo Route Start Time Stop Time Status Last Admin Propofol 100 ml @ 1.95 mls/hr TITRATE PRN IV 11/19/17 11:00 11/19/17 11:22 (Pepcid Inj) 20 mg Q12H IV PUSH 11/19/17 13:00 11/24/17 01:16 (Duoneb Neb) 1 ampule Q2HR NEB PRN INH 11/19/17 12:45 11/20/17 06:03 Miscellaneous Information 1 Q361D XX 11/19/17 12:45 (Chlorhexidine 2% Cloth) 3 pack Taper DAILY@04 TOP 11/20/17 04:00 11/16/18 03:59 11/24/17 03:56 (Chlorhexidine 2% Cloth) 3 pack UNSCH PRN TOP 11/19/17 12:45 (Cassandra-Colace) 1 tab BID PO 11/19/17 13:00 11/24/17 08:10 (Milk Of Magnesia Liq) 30 ml Q12H PRN PO 11/19/17 12:45 (Senokot) 17.2 mg Q12H PRN PO 11/19/17 12:45 (Dulcolax Supp) 10 mg DAILY PRN RECTAL 11/19/17 12:45 (Lactulose Liq) 30 ml DAILY PRN PO 11/19/17 12:45 (D50w (Vial) Inj) 50 ml UNSCH PRN IV PUSH 11/19/17 12:45 (Glucagon Inj) 1 mg UNSCH PRN OTHER 11/19/17 12:45 (NovoLIN R SUPPLEMENTAL SCALE) 1 Q4H SQ 11/19/17 13:00 11/21/17 17:31 Piperacillin Sod/ Tazobactam Sod 100 ml @ 200 mls/hr Q6H IV 11/19/17 18:00 11/25/17 19:00 11/24/17 05:01 Midazolam HCl 100 ml @ 2 mls/hr TITRATE PRN IV 11/19/17 16:00 11/24/17 08:15 (Ativan Inj) 1 mg Q4H PRN IV PUSH 11/19/17 16:00 11/23/17 15:04 (Cerebyx Inj) 200 mgpe Q12HR IV 11/20/17 09:00 11/24/17 08:11 (Lovenox Inj) 60 mg Q12H SQ 11/20/17 10:00 11/24/17 08:15 (Luminal Inj) 90 mg TID IV 11/20/17 13:00 11/24/17 08:12 Levetriacetam 100 ml @ 420 mls/hr Q12HR IV 11/22/17 09:00 11/24/17 08:12 (Duoneb Neb) 1 ampule Q6HR NEB INH 11/23/17 16:00 11/24/17 07:57 Allergies Allergies Coded Allergies vancomycin (Unverified Allergy, Intermediate, RASH, 08/01/17) Review of Systems All other ROS: Unable to obtain Exam I&O / VS Vital Signs Date Time Temp Pulse Resp B/P (MAP) Pulse Ox O2 Delivery O2 Flow Rate FiO2 11/24/17 07:55 99 30 11/24/17 06:00 104 11/24/17 04:01 100 30 11/24/17 04:00 99.2 104 20 120/91 (101) 100 11/24/17 04:00 30 11/24/17 04:00 105 11/24/17 02:00 102 11/24/17 01:09 100 30 11/24/17 00:00 105 11/24/17 00:00 98.0 102 20 114/77 (89) 100 11/24/17 00:00 30 11/23/17 22:31 100 30 11/23/17 22:00 103 11/23/17 22:00 104 20 120/79 (93) 100 11/23/17 21:14 100 30 11/23/17 21:00 102 22 144/83 (103) 100 11/23/17 20:00 99 21 120/82 (95) 100 11/23/17 20:00 30 11/23/17 20:00 101 11/23/17 19:00 98.1 100 20 130/90 (103) 100 11/23/17 18:30 98 11/23/17 18:00 97 11/23/17 17:01 98 30 11/23/17 16:30 103 11/23/17 16:30 103 25 121/77 (92) 98 11/23/17 16:00 97 11/23/17 16:00 30 11/23/17 16:00 98.9 97 23 113/79 (90) 100 11/23/17 14:00 111 26 124/76 (92) 98 11/23/17 14:00 111 11/23/17 13:30 108 11/23/17 13:30 108 32 127/76 (93) 99 11/23/17 13:28 99 30 11/23/17 13:10 97 30 11/23/17 13:10 30 11/23/17 13:00 97 20 115/71 (86) 99 11/23/17 13:00 97 11/23/17 12:30 101 11/23/17 12:30 101 24 118/70 (86) 98 11/23/17 12:00 30 11/23/17 12:00 104 11/23/17 12:00 97.9 104 28 120/67 (84) 98 11/23/17 10:00 100 11/23/17 09:00 100 11/23/17 09:00 100 28 118/72 (87) 99 11/23/17 08:30 104 30 115/70 (85) 97 11/23/17 08:30 104 Exam Comments intubated, coma state, not following, non-verbal. no gaze deviation, od 4-3mm, os-no pupil previous trauma, face sym, minimal foot movement with tactile Objective Micro and Labs Laboratory Tests Test 11/24/17 06:01 Haptoglobin 258 Prothrombin Time 9.5 Prothromb Time International Ratio 0.9 Fibrinogen 708 Lactate Dehydrogenase 262 Phenytoin (Dilantin) Level 13.4 Phenobarbital Level 16.5 Date/Time Source Procedure Growth Status 11/19/17 10:55 Blood Peripheral Aerobic Blood Culture - Preliminary NO GROWTH IN 4 DAYS Resulted 11/19/17 10:55 Blood Peripheral Anaerobic Blood Culture - Preliminary NO GROWTH IN 4 DAYS Resulted 11/19/17 11:05 Nasal Washing Influenza Types A,B Antigen (TANESHA) - Final NEGATIVE FOR FLU A AND B ANTIGEN.... Complete Adal Harrell MD Nov 24, 2017 08:30
--- NOTE | 2017-11-24 09:38 | HHI.CCPN ---
Subjective Remarks/Hospital Course 11/19: The patient is a 57-year-old male with past medical history of Hodgkin's lymphoma, benign prostate hypertrophy, COPD who presented to the [facility] via EMS after he was found by his mother on the ground at his apartment unresponsive. He given Narcan times four doses by EMS without any significant improvement. On arrival to the emergency department, the patient noted to be in some respiratory distress associated with coarse wheezing. The patient apparently had not been seen for a day. In the emergency department, he was intubated with a etomidate and vecuronium and placed on full mechanical ventilation. ABG post-intubation showed a pH of 7.39, CO2 43, pAO2 465, bicarb 25, sats 98% on assist control ventilation with respiratory rate 16, tidal volume 500, PEEP of 5 and FIO2 of 100%. There is no evidence of any fever; however, the patient was noted to have leukocytosis with WBC of 19.0. Lactic acid measured at 1.9. A CT scan of the brain in the emergency department was negative for acute process and chest x-ray post-intubation showed no obvious infiltrates or effusions. He was placed on Diprivan for sedation and given one dose of Zosyn along with one liter of normal saline. His current blood pressure is 109/73 with a pulse of 59, saturation 99%. Most of the history was obtained from reviewing medical records. 11/20: Sedated with Versed, orally intubated on mechanical ventilation. CTA chest done last night revealed bilateral pulmonary emboli. Being started on Lovenox for full anticoagulation. 11/21: Remains sedated, orally intubated on mechanical ventilation. On anticoagulation with Lovenox. 11/22: Remains sedated with Versed, orally intubated on mechanical ventilation. On anticoagulation with Lovenox for bilateral PE. 11/23: EEG yesterday with persistent evidence of BiPLEDS. still on versed, keppra, phenobarb, fosphenytoin. 11/24: EEG much improved without ictal activity. per neurology, ok to wean to extubate and lighten deep sedation. Objective Vital Signs Date Time Temp Pulse Resp B/P (MAP) Pulse Ox O2 Delivery O2 Flow Rate FiO2 11/24/17 07:55 99 30 11/24/17 06:00 104 11/24/17 04:00 99.2 20 120/91 (101) Intake and Output 11/24/17 11/24/17 11/25/17 08:00 16:00 00:00 Intake Total 753 ml Output Total 1700 ml Balance -947 ml Result Diagram: 11/23/17 0655 11/23/17 [address] Angiography 11/19/17 1233 Signed Impressions: Service Date/Time: Sunday, November 19, 2017 22:45 - CONCLUSION: 1. Pulmonary emboli identified bilaterally in segmental and subsegmental branches. 2. Mild pulmonary parenchymal emphysema. Benjamin Doyle MD Head CT 11/19/17 1042 Signed Impressions: Service Date/Time: Sunday, November 19, 2017 11:53 - CONCLUSION: Negative for acute process. Fidel Butler MD FACR Chest X-Ray 11/19/171041 Signed Impressions: Service Date/Time: Sunday, November 19, 2017 10:52 - CONCLUSION: Support apparatus in good position. Fidel Butler MD FACR Objective Remarks HEAD, EYES, EARS, NOSE, THROAT: Normocephalic and atraumatic. Pupils equal, round and reactive to light and accommodation. Conjunctivae are pink. Nonicteric sclerae. Oral mucosa within normal limits. NECK: The neck is supple. No jugular venous distention. Trachea in the midline. Orally intubated. CARDIOVASCULAR: Regular rate and rhythm. PULMONARY: Orally intubated on mechanical ventilation. full mechanical support. ABDOMEN: The abdomen is soft, nontender and no distention. EXTREMITIES: No cyanosis, clubbing or edema. NEUROLOGIC: Intubated and sedated, pupils bilaterally constricted reacting actively to light. A/P Assessment and Plan 57yM remains encephalopathic with nonconvulsive status and bilateral PEs. now clinically starting to improve from a seizure standpoint. will attempt to wean deep sedation. start SBTs. IMPRESSION: 1. Acute hypoxic respiratory failure on mechanical ventilation. 2. Encephalopathy. 3. Bilateral pulmonary embolism 4. DVT 5. COPD. 6. History of Hodgkin's lymphoma. 7. History of benign prostate hypertrophy. 8. Leukocytosis. 9. Nonconvulsive seizures on EEG- improving. RECOMMENDATIONS: 1. wean versed drip. use propofol. goal RASS -2. start daily sedation vacations. 2. CT scan of the brain in the emergency department negative for acute process and his urine drug screen is positive for benzodiazepines. MRI brain unremarkable 3. start SBTs today and daily. 4. Vent bundle, bronchodilators as needed 5. Anticonvulsants per neurology. On Cerebyx/Keppra/phenobarbital. 6. CT chest positive for bilateral PE 7. Lovenox 60 mg per KG every 12 hourly for full anticoagulation on 11/20 8. Monitor heart rate and blood pressure closely and maintain MAP greater than 65 mmHg. 9. Monitor renal function, intakes and outputs and electrolyte replacement as needed. 10. Continue with empiric antibiotics for now. The patient was given Zosyn in the emergency department. full course of empiric zosyn to complete 11/25 ( cultures NGTD). 11. BCx NGTD. Nasal washing is negative for influenza. 12. .Monitor CBC 13. Continue with Pepcid 30 milligrams q. 12h for GI prophylaxis. 14. Tolerating tube feeds 15. Place on sliding scale insulin with Accu-Chek for glycemic control. 16. GI prophylaxis with Pepcid and DVT prophylaxis with SCDs and heparin subcutaneous. Semaj Claudio MD Nov 24, 2017 09:38
[2017-11-24] MEDS: PROPOFOL 1000 MG/100 ML INJ 100 ML IV PRN ×2 (09:49→17:43)
--- NOTE | 2017-11-24 12:06 | PD.ONC.PN ---
Subjective Subjective Remarks Afebrile overnight. Patient intubated, sedated. Mother at bedside. Objective Data Date Time Temp Pulse Resp B/P (MAP) Pulse Ox O2 Delivery O2 Flow Rate FiO2 11/24/17 10:30 103 39 113/77 (89) 99 11/24/17 10:30 103 11/24/17 10:00 112 11/24/17 10:00 112 33 121/77 (92) 98 11/24/17 09:30 117 11/24/17 09:30 117 44 140/85 (103) 96 11/24/17 09:00 104 32 117/78 (91) 100 11/24/17 09:00 104 11/24/17 08:30 102 25 125/81 (96) 100 11/24/17 08:30 102 11/24/17 08:00 100 11/24/17 08:00 99.0 100 24 123/73 (90) 96 11/24/17 08:00 30 11/24/17 07:55 99 30 11/24/17 06:00 104 11/24/17 04:01 100 30 11/24/17 04:00 99.2 104 20 120/91 (101) 100 11/24/17 04:00 30 11/24/17 04:00 105 11/24/17 02:00 102 11/24/17 01:09 100 30 11/24/17 00:00 105 11/24/17 00:00 98.0 102 20 114/77 (89) 100 11/24/17 00:00 30 11/23/17 22:31 100 30 11/23/17 22:00 103 11/23/17 22:00 104 20 120/79 (93) 100 11/23/17 21:14 100 30 11/23/17 21:00 102 22 144/83 (103) 100 11/23/17 20:00 99 21 120/82 (95) 100 11/23/17 20:00 30 11/23/17 20:00 101 11/23/17 19:00 98.1 100 20 130/90 (103) 100 11/23/17 18:30 98 11/23/17 18:00 97 11/23/17 17:01 98 30 11/23/17 16:30 103 11/23/17 16:30 103 25 121/77 (92) 98 11/23/17 16:00 97 11/23/17 16:00 30 11/23/17 16:00 98.9 97 23 113/79 (90) 100 11/23/17 14:00 111 26 124/76 (92) 98 11/23/17 14:00 111 11/23/17 13:30 108 11/23/17 13:30 108 32 127/76 (93) 99 11/23/17 13:28 99 30 11/23/17 13:10 97 30 11/23/17 13:10 30 11/23/17 13:00 97 20 115/71 (86) 99 11/23/17 13:00 97 11/23/17 12:30 101 11/23/17 12:30 101 24 118/70 (86) 98 11/23/17 12:00 30 11/23/17 12:00 104 11/23/17 12:00 97.9 104 28 120/67 (84) 98 11/24/17 11/24/17 11/24/17 07:00 15:00 23:00 Intake Total 853 ml 150 ml Output Total 1700 ml Balance -847 ml 150 ml Result Diagram: 11/23/17 0655 11/23/17 0655 Laboratory Results Laboratory Tests Test 11/24/17 06:01 Haptoglobin 258 MG/DL Prothrombin Time 9.5 SEC Prothromb Time International Ratio 0.9 RATIO Fibrinogen 708 mg/dL Lactate Dehydrogenase 262 U/L Phenytoin (Dilantin) Level 13.4 MCG/ML Phenobarbital Level 16.5 MCG/ML Administered Medications Medications (Trade) Dose Ordered Sig/Osbaldo Route PRN Reason Start Time Stop Time Status Last Admin Dose Admin Propofol 100 ml @ 1.95 mls/hr TITRATE PRN IV SEDATION 11/19/17 11:00 11/24/17 09:49 Famotidine (Pepcid Inj) 20 mg Q12H IV PUSH 11/19/17 13:00 11/24/17 01:16 Albuterol/ Ipratropium (Duoneb Neb) 1 ampule Q2HR NEB PRN INH WHEEZING 11/19/17 12:45 11/20/17 06:03 Chlorhexidine Gluconate (Chlorhexidine 2% Cloth) 3 pack Taper DAILY@04 TOP 11/20/17 04:00 11/16/18 03:59 11/24/17 03:56 Senna/Docusate Sodium (Cassandra-Colace) 1 tab BID PO 11/19/17 13:00 11/24/17 08:10 Insulin Human Regular (NovoLIN R SUPPLEMENTAL SCALE) 1 Q4H SQ 11/19/17 13:00 11/21/17 17:31 Piperacillin Sod/ Tazobactam Sod 100 ml @ 200 mls/hr Q6H IV 11/19/17 18:00 11/25/17 19:00 11/24/17 05:01 Lorazepam (Ativan Inj) 1 mg Q4H PRN IV PUSH seizures 11/19/17 16:00 11/23/17 15:04 Fosphenytoin Sodium (Cerebyx Inj) 200 mgpe Q12HR IV 11/20/17 09:00 11/24/17 08:11 Enoxaparin Sodium (Lovenox Inj) 60 mg Q12H SQ 11/20/17 10:00 11/24/17 08:15 Phenobarbital Sodium (Luminal Inj) 90 mg TID IV 11/20/17 13:00 11/24/17 08:12 Levetriacetam 100 ml @ 420 mls/hr Q12HR IV 11/22/17 09:00 11/24/17 08:12 Albuterol/ Ipratropium (Duoneb Neb) 1 ampule Q6HR NEB INH 11/23/17 16:00 11/24/17 07:57 Objective Remarks GENERAL: Intubated, sedated male supine in bed. SKIN: Warm and dry. HEAD: Normocephalic. EYES: no injection or drainage. NECK: Supple, trachea midline. CARDIOVASCULAR: Regular rate and rhythm RESPIRATORY: anterior alex clear. on mechanical ventilation. GASTROINTESTINAL: Abdomen nondistended. EXTREMITIES: No cyanosis NEUROLOGICAL: intubated, sedated Assessment/Plan Problem List: (1) History of Hodgkin's lymphoma ICD Codes: Z85.71 - Personal history of Hodgkin lymphoma Plan: --patient was treated with ABVD chemotherapy. received approximately eight cycles of ABVD. His disease status is currently unclear. --per mother at the bedside the patient followed with his oncologist, Dr. Jorgensen for five years after completing therapy and has only followed with his primary care physician since that time. --will attempt to obtain records from Dr. Jorgensen --CT scan of the abdomen and pelvis from July 2017 did not show any recurrence of lymphoma. (2) Pulmonary emboli ICD Codes: I26.99 - Other pulmonary embolism without acute cor pulmonale Status: Acute Plan: --on Lovenox 60mg SQ BID, Once stable, can be switched to eliquis. --CT angiogram showed pulmonary emboli in bilateral lungs involving the segmental and subsegmental branches. --bilateral lower extremity Doppler ultrasound revealed extensive DVT of the left lower extremity involving the superficial femoral vein, popliteal vein and proximal calf veins. The patient is currently on Lovenox 60 mg subcu twice a day. -- Hypercoagulable w/u should be deferred in acute illness/embolism. will need to obtain w/u o/p --will need jail anti-coagulation. (3) Leukocytosis ICD Codes: D72.829 - Elevated white blood cell count, unspecified Plan: -- likely due to sepsis and acute illness. (4) Thrombocytopenia ICD Codes: D69.6 - Thrombocytopenia, unspecified Plan: --due to acute illness. --Check daily fibrinogen and coags. Assessment 57y/o male admitted with AMS. Hematology consulted for PE and h/o lymphoma. history of Hodgkin's lymphoma and benign prostatic hypertrophy, COPD Plan 1. monitor CBC, coags 2. will ask nurse to obtain records from Dr. Jorgensen's office 3. continue Lovenox Attending Statement The exam, history, and the medical decision-making described in the above note were completed with the assistance of the mid-level provider. I reviewed and agree with the findings presented. I attest that I had a [id number] encounter with the patient on the same day, and personally performed and documented my assessment and findings in the medical record. Maisha Ballesteros Nov 24, 2017 12:05 Nile Florentino MD Nov 25, 2017 01:45
[2017-11-24 13:09] LABS: HEMATOCRIT 35.2 % (39.0-51.0); HEMOGLOBIN 11.7 GM/DL (13.0-17.0); MEAN CELL VOLUME 92.7 FL (80.0-100.0); MEAN CORPUSCULAR HEMOGLOBIN 30.7 PG (27.0-34.0); MEAN CORPUSCULAR HGB CONC 33.2 % (32.0-36.0); MEAN PLATELET VOLUME 9.8 FL (7.0-11.0); PLATELET COUNT 154 TH/MM3 (150-450); RED CELL DISTRIBUTION WIDTH 14.9 % (11.6-17.2); WHITE BLOOD COUNT 16.9 TH/MM3 (4.0-11.0)
[2017-11-24 13:29] LABS: BICARBONATE 29.9 MEQ/L (21.0-32.0); CALCIUM 8.7 MG/DL (8.5-10.1); CREATININE 0.58 MG/DL (0.60-1.30)
[2017-11-24] MEDS: oxyCODONE HCL ORAL CONC 5 MG/0.25 ML SYRINGE PO SCH ×2 (17:40→19:00)
[2017-11-25] VITALS (30 sets, daily range): BP systolic 94–114; BP diastolic 62–76; PULSE 78–116; RESP 18–35; TEMP 97.2–99; O2SAT 95–100
[2017-11-25] MEDS: INSULIN NovoLIN REGULAR SUPPLEMENTAL SCALE SQ SCH ×6 (01:00→21:00)
[2017-11-25] MEDS: FAMOTIDINE 20 MG/2 ML VIAL IV PUSH SCH ×2 (02:02→12:35)
[2017-11-25] MEDS: PIPERACIL-TAZO 4.5 GM PREMIX 100 ML IV SCH ×4 (02:02→17:44)
[2017-11-25] MEDS: oxyCODONE HCL ORAL CONC 5 MG/0.25 ML SYRINGE PO SCH ×7 (02:03→23:17)
[2017-11-25] MEDS: RESP: ALBUTEROL 2.5 MG/IPRATROPIUM 0.5 MG NEB (SCH) INH ×4 (03:05→21:48)
[2017-11-25 03:51] LABS: BETA2-GLYCOPROTEIN IGA <9 SAU (< OR = 20); BETA2-GLYCOPROTEIN IGG <9 SGU (< OR = 20); BETA2-GLYCOPROTEIN IGM <9 SMU (< OR = 20)
[2017-11-25] MEDS: CHLORHEXIDINE GLUCONATE 2 % 1 PACK (2 CLOTHS) TOP SCH (04:00)
[2017-11-25] MEDS: PROPOFOL 1000 MG/100 ML INJ 100 ML IV PRN ×2 (04:00→14:50)
[2017-11-25 05:31] LABS: HEMATOCRIT 36.3 % (39.0-51.0); MEAN CELL VOLUME 94.1 FL (80.0-100.0); MEAN PLATELET VOLUME 10.4 FL (7.0-11.0); PLATELET COUNT 149 TH/MM3 (150-450); RED BLOOD COUNT 3.86 MIL/MM3 (4.50-5.90); RED CELL DISTRIBUTION WIDTH 15.2 % (11.6-17.2); WHITE BLOOD COUNT 16.1 TH/MM3 (4.0-11.0)
[2017-11-25 06:02] LABS: BICARBONATE 29.6 MEQ/L (21.0-32.0); CALCIUM 8.3 MG/DL (8.5-10.1); CREATININE 0.65 MG/DL (0.60-1.30)
[2017-11-25 06:04] LABS: PHENYTOIN (DILANTIN) 12.4 MCG/ML (10.0-20.0)
[2017-11-25] MEDS: levETIRAcetam INJ 100 ML IV SCH ×2 (11:16→21:16)
[2017-11-25] MEDS: PHENobarbital SOD 130 MG/ML VIAL IV SCH ×3 (11:17→17:44)
[2017-11-25] MEDS: ENOXAPARIN SODIUM 60 MG/0.6 ML SYRINGE SQ SCH ×2 (11:17→22:35)
[2017-11-25] MEDS: FOSPHENYTOIN SODIUM 100 MG PE/2 ML VIAL IV SCH ×2 (11:19→21:16)
--- NOTE | 2017-11-25 14:08 | HHI.CCPN ---
Subjective Remarks/Hospital Course 11/19: The patient is a 57-year-old male with past medical history of Hodgkin's lymphoma, benign prostate hypertrophy, COPD who presented to the [facility] Emergency Department via EMS after he was found by his mother on the ground at his apartment unresponsive. He given Narcan times four doses by EMS without any significant improvement. On arrival to the emergency department, the patient noted to be in some respiratory distress associated with coarse wheezing. The patient apparently had not been seen for a day. In the emergency department, he was intubated with a etomidate and vecuronium and placed on full mechanical ventilation. ABG post-intubation showed a pH of 7.39, CO2 43, pAO2 465, bicarb 25, sats 98% on assist control ventilation with respiratory rate 16, tidal volume 500, PEEP of 5 and FIO2 of 100%. There is no evidence of any fever; however, the patient was noted to have leukocytosis with WBC of 19.0. Lactic acid measured at 1.9. A CT scan of the brain in the emergency department was negative for acute process and chest x-ray post-intubation showed no obvious infiltrates or effusions. He was placed on Diprivan for sedation and given one dose of Zosyn along with one liter of normal saline. His current blood pressure is 109/73 with a pulse of 59, saturation 99%. Most of the history was obtained from reviewing medical records. 11/20: Sedated with Versed, orally intubated on mechanical ventilation. CTA chest done last night revealed bilateral pulmonary emboli. Being started on Lovenox for full anticoagulation. 11/21: Remains sedated, orally intubated on mechanical ventilation. On anticoagulation with Lovenox. 11/22: Remains sedated with Versed, orally intubated on mechanical ventilation. On anticoagulation with Lovenox for bilateral PE. 11/23: EEG yesterday with persistent evidence of BiPLEDS. still on versed, keppra, phenobarb, fosphenytoin. 11/24: EEG much improved without ictal activity. per neurology, ok to wean to extubate and lighten deep sedation. 11/25: Remains sedated, orally intubated on mechanical ventilation. Tolerating tube feeds. Objective Vital Signs Date Time Temp Pulse Resp B/P (MAP) Pulse Ox O2 Delivery O2 Flow Rate FiO2 11/25/17 12:02 97 30 11/25/17 06:00 98 11/25/17 04:00 97.2 20 114/69 (84) Intake and Output 11/25/17 11/25/17 11/26/17 08:00 16:00 00:00 Intake Total 719.7 ml Output Total 400 ml Balance 319.7 ml Result Diagram: 11/25/17 0438 11/25/17 [address] Angiography 11/19/17 1233 Signed Impressions: Service Date/Time: Sunday, November 19, 2017 22:45 - CONCLUSION: 1. Pulmonary emboli identified bilaterally in segmental and subsegmental branches. 2. Mild pulmonary parenchymal emphysema. Benjamin Doyle MD Head CT 11/19/17 1042 Signed Impressions: Service Date/Time: Sunday, November 19, 2017 11:53 - CONCLUSION: Negative for acute process. Fidel Butler MD FACR Chest X-Ray 11/19/17 1042 Signed Impressions: Service Date/Time: Sunday, November 19, 2017 10:52 - CONCLUSION: Support apparatus in good position. Fidel Butler MD FACR Objective Remarks HEAD, EYES, EARS, NOSE, THROAT: Normocephalic and atraumatic. Pupils equal, round and reactive to light and accommodation. Conjunctivae are pink. Nonicteric sclerae. Oral mucosa within normal limits. NECK: The neck is supple. No jugular venous distention. Trachea in the midline. Orally intubated. CARDIOVASCULAR: Regular rate and rhythm. PULMONARY: Orally intubated on mechanical ventilation. full mechanical support. ABDOMEN: The abdomen is soft, nontender and no distention. EXTREMITIES: No cyanosis, clubbing or edema. NEUROLOGIC: Intubated and sedated, pupils bilaterally constricted reacting actively to light. A/P Assessment and Plan 57yM remains encephalopathic with nonconvulsive status and bilateral PEs. now clinically starting to improve from a seizure standpoint. will attempt to wean deep sedation. start SBTs. IMPRESSION: 1. Acute hypoxic respiratory failure on mechanical ventilation. 2. Encephalopathy. 3. Bilateral pulmonary embolism 4. DVT 5. COPD. 6. History of Hodgkin's lymphoma. 7. History of benign prostate hypertrophy. 8. Leukocytosis. 9. Nonconvulsive seizures on EEG- improving. RECOMMENDATIONS: 1. wean versed drip. use propofol. goal RASS -2. Daily sedation vacations. 2. CT scan of the brain in the emergency department negative for acute process and urine drug screen positive for benzodiazepines. MRI brain unremarkable 3. start SBTs today and daily. 4. Vent bundle, bronchodilators as needed 5. Anticonvulsants per neurology. On Cerebyx/Keppra/phenobarbital. 6. CT chest positive for bilateral PE 7. Lovenox 60 mg per KG every 12 hourly for full anticoagulation on 11/20 8. Monitor heart rate and blood pressure closely and maintain MAP greater than 65 mmHg. 9. Monitor renal function, intakes and outputs and electrolyte replacement as needed. 10. Continue with empiric antibiotics for now. The patient was given Zosyn in the emergency department. full course of empiric zosyn to complete 11/25 ( cultures NGTD). 11. BCx NGTD. Nasal washing is negative for influenza. 12. .Monitor CBC 13. Continue with Pepcid 30 milligrams q. 12h for GI prophylaxis. 14. Tolerating tube feeds 15. Place on sliding scale insulin with Accu-Chek for glycemic control. 16. GI prophylaxis with Pepcid and DVT prophylaxis with SCDs and heparin subcutaneous. Mauricio Wells MD Nov 25, 2017 14:08
--- NOTE | 2017-11-25 15:25 | HHI.PR ---
Subjective Remarks intubated sedated Objective Vital Signs Date Time Temp Pulse Resp B/P (MAP) Pulse Ox O2 Delivery O2 Flow Rate FiO2 11/25/17 12:02 97 30 11/25/17 08:05 97 30 11/25/17 06:00 98 11/25/17 04:00 97.2 102 20 114/69 (84) 99 11/25/17 04:00 30 11/25/17 04:00 108 11/25/17 03:50 95 30 11/25/17 02:00 109 11/25/17 01:32 96 30 11/25/17 00:00 101 11/25/17 00:00 98.4 113 35 109/74 (86) 96 11/25/17 00:00 30 11/24/17 22:36 100 30 11/24/17 22:00 104 11/24/17 20:24 99 30 11/24/17 20:00 109 11/24/17 20:00 97.5 104 38 120/72 (88) 100 11/24/17 20:00 30 11/24/17 18:39 105 11/24/17 18:00 102 11/24/17 17:00 100 11/24/17 17:00 100 25 122/80 (94) 100 11/24/17 16:30 104 30 125/85 (98) 99 11/24/17 16:30 104 11/24/17 16:08 100 30 11/24/17 16:00 99.1 109 31 125/88 (100) 99 11/24/17 16:00 30 11/24/17 16:00 109 I/O 11/24/17 11/24/17 11/24/17 11/25/17 11/25/17 11/25/17 07:00 15:00 23:00 07:00 15:00 23:00 Intake Total 853 ml 350 ml 1085 ml 708 ml 11.7 ml Output Total 1700 ml 1525 ml 400 ml Balance -847 ml 350 ml -440 ml 308 ml 11.7 ml Intake IV Total 200 ml 350 ml 295 ml 100 ml 11.7 ml Tube Feeding 553 ml 550 ml 488 ml Other 100 ml 240 ml 120 ml Output Urine Total 1700 ml 1525 ml 400 ml # Bowel Movements 1 1 0 Result Diagram: 11/25/1743711/25/17437 Other Results pht 12.4 pb 20.1 Objective Remarks intubated sedated limited exam by sedation Assessment and Plan Assessment and Plan encephalopathy/sz -cont pht and pb with levels at therapeutic range f/u eeg hypercoag labs due to dvt lle -wean as able off sedation. Mindi Mcrae MD Nov 25, 2017 15:25
[2017-11-25] MEDS: DOCUSATE SODIUM 50 MG/SENNA 8.6 MG TAB PO SCH ×2 (17:43→21:16)
--- NOTE | 2017-11-25 19:52 | MG ---
cc: ROLAND KEENAN M.D. Lab No: [id number] Date: Age: 57 Sex: M Race: DATE OF : 1960. REFERRING: Sharri. ROOM: 523. HISTORY: Repeat study. Intubated on Diprivan at 30 micrograms turned off at 9:32. The EEG started at 9:47. Sedation back on at 10:03 because is moving his head. Only photic done. He does not follow commands. MRI is unremarkable. The last EEG showed moderately severe slowing. Found by his mother on the ground unresponsive. Given Narcan without improvement. MEDICATIONS: Keppra and others, please refer to chart. DESCRIPTION OF RECORD: There are some faster frequency waves consistent with frequency. Some sharp waves seen at epoch 8. Quite a bit of artifact is noted as well. Diprivan was turned back on at 30 micrograms due to the amount of artifact or movement. Background slightly attenuated to the theta range. At times it almost seems as if he has a normal alpha. No more theta. Photic stimulation with minimal driving response seen. IMPRESSION: Some mild slowing when the Diprivan was turned back on in the theta range but without Diprivan there was some faster frequency with some normal inter burst alpha with an occasional sharp wave but no active seizures. Clinical correlation. MD KYLIE Mejia/DREW /7:10 PM /7:31 PM
[2017-11-26] VITALS (18 sets, daily range): BP systolic 87–126; BP diastolic 65–89; PULSE 82–104; RESP 10–24; TEMP 98.2–100.4; O2SAT 97–100
[2017-11-26] MEDS: PROPOFOL 1000 MG/100 ML INJ 100 ML IV PRN ×4 (00:11→22:44)
[2017-11-26] MEDS: INSULIN NovoLIN REGULAR SUPPLEMENTAL SCALE SQ SCH ×6 (01:00→21:00)
[2017-11-26] MEDS: FAMOTIDINE 20 MG/2 ML VIAL IV PUSH SCH ×2 (01:03→12:44)
[2017-11-26] MEDS: CHLORHEXIDINE GLUCONATE 2 % 1 PACK (2 CLOTHS) TOP SCH (02:27)
[2017-11-26] MEDS: oxyCODONE HCL ORAL CONC 5 MG/0.25 ML SYRINGE PO SCH ×6 (02:45→22:52)
[2017-11-26] MEDS: RESP: ALBUTEROL 2.5 MG/IPRATROPIUM 0.5 MG NEB (SCH) INH ×4 (03:48→20:08)
[2017-11-26 05:22] LABS: HEMATOCRIT 34.5 % (39.0-51.0); HEMOGLOBIN 11.5 GM/DL (13.0-17.0); MEAN CELL VOLUME 94.1 FL (80.0-100.0); MEAN CORPUSCULAR HEMOGLOBIN 31.5 PG (27.0-34.0); MEAN CORPUSCULAR HGB CONC 33.5 % (32.0-36.0); MEAN PLATELET VOLUME 9.8 FL (7.0-11.0); PLATELET COUNT 185 TH/MM3 (150-450); RED BLOOD COUNT 3.66 MIL/MM3 (4.50-5.90); RED CELL DISTRIBUTION WIDTH 14.9 % (11.6-17.2); WHITE BLOOD COUNT 13.6 TH/MM3 (4.0-11.0)
[2017-11-26 05:54] LABS: PHENYTOIN (DILANTIN) 9.8 MCG/ML (10.0-20.0)
[2017-11-26 05:57] LABS: CALCIUM 8.2 MG/DL (8.5-10.1); CREATININE 0.63 MG/DL (0.60-1.30)
[2017-11-26] MEDS: PHENobarbital SOD 130 MG/ML VIAL IV SCH ×3 (08:19→18:34)
[2017-11-26] MEDS: levETIRAcetam INJ 100 ML IV SCH ×2 (08:22→21:20)
[2017-11-26] MEDS: FOSPHENYTOIN SODIUM 100 MG PE/2 ML VIAL IV SCH ×2 (08:23→21:20)
[2017-11-26] MEDS: DOCUSATE SODIUM 50 MG/SENNA 8.6 MG TAB PO SCH ×2 (08:29→21:21)
--- NOTE | 2017-11-26 10:22 | HHI.CCPN ---
Subjective Remarks/Hospital Course 11/19: The patient is a 57-year-old male with past medical history of Hodgkin's lymphoma, benign prostate hypertrophy, COPD who presented to the [facility] Emergency Department via EMS after he was found by his mother on the ground at his apartment unresponsive. He given Narcan times four doses by EMS without any significant improvement. On arrival to the emergency department, the patient noted to be in some respiratory distress associated with coarse wheezing. The patient apparently had not been seen for a day. In the emergency department, he was intubated with a etomidate and vecuronium and placed on full mechanical ventilation. ABG post-intubation showed a pH of 7.39, CO2 43, pAO2 465, bicarb 25, sats 98% on assist control ventilation with respiratory rate 16, tidal volume 500, PEEP of 5 and FIO2 of 100%. There is no evidence of any fever; however, the patient was noted to have leukocytosis with WBC of 19.0. Lactic acid measured at 1.9. A CT scan of the brain in the emergency department was negative for acute process and chest x-ray post-intubation showed no obvious infiltrates or effusions. He was placed on Diprivan for sedation and given one dose of Zosyn along with one liter of normal saline. His current blood pressure is 109/73 with a pulse of 59, saturation 99%. Most of the history was obtained from reviewing medical records. 11/20: Sedated with Versed, orally intubated on mechanical ventilation. CTA chest done last night revealed bilateral pulmonary emboli. Being started on Lovenox for full anticoagulation. 11/21: Remains sedated, orally intubated on mechanical ventilation. On anticoagulation with Lovenox. 11/22: Remains sedated with Versed, orally intubated on mechanical ventilation. On anticoagulation with Lovenox for bilateral PE. 11/23: EEG yesterday with persistent evidence of BiPLEDS. still on versed, keppra, phenobarb, fosphenytoin. 11/24: EEG much improved without ictal activity. per neurology, ok to wean to extubate and lighten deep sedation. 11/25: Remains sedated, orally intubated on mechanical ventilation. Tolerating tube feeds. 11/26: Remains encephalopathic, sedated, orally intubated on mechanical ventilation. Tolerating tube feeds. Objective Vital Signs Date Time Temp Pulse Resp B/P (MAP) Pulse Ox O2 Delivery O2 Flow Rate FiO2 11/26/17 08:59 99 30 11/26/17 08:00 86 11/26/17 08:00 99.3 16 97/65 (76) Intake and Output 11/26/17 11/26/17 11/27/17 08:00 16:00 00:00 Intake Total 1249.4 ml Output Total 800 ml Balance 449.4 ml Result Diagram: 11/26/1741211/26/[address] Angiography 11/19/17 1233 Signed Impressions: Service Date/Time: Sunday, November 19, 2017 22:45 - CONCLUSION: 1. Pulmonary emboli identified bilaterally in segmental and subsegmental branches. 2. Mild pulmonary parenchymal emphysema. Benjamin Doyle MD Head CT 11/19/171041 Signed Impressions: Service Date/Time: Sunday, November 19, 2017 11:53 - CONCLUSION: Negative for acute process. Fidel Butler MD FACR Chest X-Ray 11/19/171041 Signed Impressions: Service Date/Time: Sunday, November 19, 2017 10:52 - CONCLUSION: Support apparatus in good position. Fidel Butler MD FACR Objective Remarks HEAD, EYES, EARS, NOSE, THROAT: Normocephalic and atraumatic. Pupils equal, round and reactive to light and accommodation. Conjunctivae are pink. Nonicteric sclerae. Oral mucosa within normal limits. NECK: The neck is supple. No jugular venous distention. Trachea in the midline. Orally intubated. CARDIOVASCULAR: Regular rate and rhythm. PULMONARY: Orally intubated on mechanical ventilation. full mechanical support. ABDOMEN: The abdomen is soft, nontender and no distention. EXTREMITIES: No cyanosis, clubbing or edema. NEUROLOGIC: Intubated and sedated, pupils bilaterally constricted reacting actively to light. A/P Assessment and Plan 57yM remains encephalopathic with nonconvulsive status and bilateral PEs. now clinically starting to improve from a seizure standpoint. will attempt to wean deep sedation. start SBTs. IMPRESSION: 1. Acute hypoxic respiratory failure on mechanical ventilation. 2. Encephalopathy. 3. Bilateral pulmonary embolism 4. DVT 5. COPD. 6. History of Hodgkin's lymphoma. 7. History of benign prostate hypertrophy. 8. Leukocytosis. 9. Nonconvulsive seizures on EEG- improving. RECOMMENDATIONS: 1. wean versed drip. use propofol. goal RASS -2. Daily sedation vacations. 2. CT scan of the brain in the emergency department negative for acute process and urine drug screen positive for benzodiazepines. MRI brain unremarkable 3. start SBTs today and daily. 4. Vent bundle, bronchodilators as needed 5. Anticonvulsants per neurology. On Cerebyx/Keppra/phenobarbital. 6. CT chest positive for bilateral PE 7. Lovenox 60 mg per KG every 12 hourly for full anticoagulation on 11/20 8. Monitor heart rate and blood pressure closely and maintain MAP greater than 65 mmHg. 9. Monitor renal function, intakes and outputs and electrolyte replacement as needed. 10. Continue with empiric antibiotics for now. The patient was given Zosyn in the emergency department. full course of empiric zosyn to complete 11/25 ( cultures NGTD). 11. BCx NGTD. Nasal washing is negative for influenza. 12. .Monitor CBC 13. Continue with Pepcid 30 milligrams q. 12h for GI prophylaxis. 14. Tolerating tube feeds 15. Place on sliding scale insulin with Accu-Chek for glycemic control. 16. GI prophylaxis with Pepcid and DVT prophylaxis with SCDs and heparin subcutaneous. Mauricio Wells MD Nov 26, 2017 10:22
[2017-11-26] MEDS: ENOXAPARIN SODIUM 60 MG/0.6 ML SYRINGE SQ SCH ×2 (11:11→21:21)
[2017-11-27] VITALS (24 sets, daily range): BP systolic 102–128; BP diastolic 67–84; PULSE 88–111; RESP 9–19; TEMP 100.1–101.1; O2SAT 37–100
[2017-11-27] MEDS: FAMOTIDINE 20 MG/2 ML VIAL IV PUSH SCH ×2 (00:39→12:04)
[2017-11-27] MEDS: INSULIN NovoLIN REGULAR SUPPLEMENTAL SCALE SQ SCH ×6 (00:45→20:14)
[2017-11-27] MEDS: CHLORHEXIDINE GLUCONATE 2 % 1 PACK (2 CLOTHS) TOP SCH (02:46)
[2017-11-27] MEDS: RESP: ALBUTEROL 2.5 MG/IPRATROPIUM 0.5 MG NEB (SCH) INH ×3 (03:04→15:26)
[2017-11-27] MEDS: oxyCODONE HCL ORAL CONC 5 MG/0.25 ML SYRINGE PO SCH ×6 (03:15→21:48)
[2017-11-27] MEDS: PROPOFOL 1000 MG/100 ML INJ 100 ML IV PRN ×3 (05:13→23:30)
[2017-11-27 06:37] LABS: HEMOGLOBIN 12.2 GM/DL (13.0-17.0); MEAN CELL VOLUME 93.7 FL (80.0-100.0); MEAN CORPUSCULAR HGB CONC 33.1 % (32.0-36.0); MEAN PLATELET VOLUME 9.6 FL (7.0-11.0); PLATELET COUNT 260 TH/MM3 (150-450); RED BLOOD COUNT 3.95 MIL/MM3 (4.50-5.90); RED CELL DISTRIBUTION WIDTH 15.2 % (11.6-17.2); WHITE BLOOD COUNT 19.6 TH/MM3 (4.0-11.0)
[2017-11-27 06:49] LABS: BICARBONATE 28.5 MEQ/L (21.0-32.0); CALCIUM 8.5 MG/DL (8.5-10.1); CREATININE 0.54 MG/DL (0.60-1.30)
[2017-11-27 06:51] LABS: PHENYTOIN (DILANTIN) 6.3 MCG/ML (10.0-20.0)
[2017-11-27] MEDS: FOSPHENYTOIN SODIUM 100 MG PE/2 ML VIAL IV SCH ×2 (09:54→20:11)
[2017-11-27] MEDS: levETIRAcetam INJ 100 ML IV SCH ×2 (09:54→20:11)
[2017-11-27] MEDS: PHENobarbital SOD 130 MG/ML VIAL IV SCH ×3 (09:55→18:23)
[2017-11-27] MEDS: DOCUSATE SODIUM 50 MG/SENNA 8.6 MG TAB PO SCH ×2 (09:55→20:11)
[2017-11-27] MEDS: ENOXAPARIN SODIUM 60 MG/0.6 ML SYRINGE SQ SCH ×2 (09:56→20:11)
--- NOTE | 2017-11-27 12:16 | HHI.CCPN ---
Subjective Remarks/Hospital Course 11/19: The patient is a 57-year-old male with past medical history of Hodgkin's lymphoma, benign prostate hypertrophy, COPD who presented to the [facility] Emergency Department via EMS after he was found by his mother on the ground at his apartment unresponsive. He given Narcan times four doses by EMS without any significant improvement. On arrival to the emergency department, the patient noted to be in some respiratory distress associated with coarse wheezing. The patient apparently had not been seen for a day. In the emergency department, he was intubated with a etomidate and vecuronium and placed on full mechanical ventilation. ABG post-intubation showed a pH of 7.39, CO2 43, pAO2 465, bicarb 25, sats 98% on assist control ventilation with respiratory rate 16, tidal volume 500, PEEP of 5 and FIO2 of 100%. There is no evidence of any fever; however, the patient was noted to have leukocytosis with WBC of 19.0. Lactic acid measured at 1.9. A CT scan of the brain in the emergency department was negative for acute process and chest x-ray post-intubation showed no obvious infiltrates or effusions. He was placed on Diprivan for sedation and given one dose of Zosyn along with one liter of normal saline. His current blood pressure is 109/73 with a pulse of 59, saturation 99%. Most of the history was obtained from reviewing medical records. 11/20: Sedated with Versed, orally intubated on mechanical ventilation. CTA chest done last night revealed bilateral pulmonary emboli. Being started on Lovenox for full anticoagulation. 11/21: Remains sedated, orally intubated on mechanical ventilation. On anticoagulation with Lovenox. 11/22: Remains sedated with Versed, orally intubated on mechanical ventilation. On anticoagulation with Lovenox for bilateral PE. 11/23: EEG yesterday with persistent evidence of BiPLEDS. still on versed, keppra, phenobarb, fosphenytoin. 11/24: EEG much improved without ictal activity. per neurology, ok to wean to extubate and lighten deep sedation. 11/25: Remains sedated, orally intubated on mechanical ventilation. Tolerating tube feeds. 11/26: Remains encephalopathic, sedated, orally intubated on mechanical ventilation. Tolerating tube feeds. 1/1: More awake, not following commands. Spontaneously opens eyes. Remains orally intubated on mechanical ventilation. Tolerating tube feeds. Febrile since yesterday. Wat[place] cultures ordered. Will resume Zosyn IV. Objective Vital Signs Date Time Temp Pulse Resp B/P (MAP) Pulse Ox O2 Delivery O2 Flow Rate FiO2 11/27/17 11:17 99 30 11/27/17 11:00 111 9 128/76 (93) 11/27/17 08:00 100.8 Intake and Output 11/27/17 11/27/17 11/28/17 08:00 16:00 00:00 Intake Total 1262.4 ml Output Total 1100 ml Balance 162.4 ml Result Diagram: 11/27/17 0547 11/27/17 [address] Angiography 11/19/17 1233 Signed Impressions: Service Date/Time: Sunday, November 19, 2017 22:45 - CONCLUSION: 1. Pulmonary emboli identified bilaterally in segmental and subsegmental branches. 2. Mild pulmonary parenchymal emphysema. Benjamin Doyle MD Head CT 11/19/17 1042 Signed Impressions: Service Date/Time: Sunday, November 19, 2017 11:53 - CONCLUSION: Negative for acute process. Fidel Butler MD FACR Chest X-Ray 11/19/17 1042 Signed Impressions: Service Date/Time: Sunday, November 19, 2017 10:52 - CONCLUSION: Support apparatus in good position. Fidel Butler MD FACR Objective Remarks HEAD, EYES, EARS, NOSE, THROAT: Normocephalic and atraumatic. Pupils equal, round and reactive to light and accommodation. Conjunctivae are pink. Nonicteric sclerae. Oral mucosa within normal limits. NECK: The neck is supple. No jugular venous distention. Trachea in the midline. Orally intubated. CARDIOVASCULAR: Regular rate and rhythm. PULMONARY: Orally intubated on mechanical ventilation. full mechanical support. ABDOMEN: The abdomen is soft, nontender and no distention. EXTREMITIES: No cyanosis, clubbing or edema. NEUROLOGIC: Drowsy, arousable, not following commands, has spontaneous eye opening, moves both upper extremities, Intubated and sedated, pupils bilaterally constricted reacting actively to light. A/P Assessment and Plan 57yM remains encephalopathic with nonconvulsive status and bilateral PEs. now clinically starting to improve from a seizure standpoint. will attempt to wean sedation. start SBTs. IMPRESSION: 1. Acute hypoxic respiratory failure on mechanical ventilation. 2. Encephalopathy. 3. Bilateral pulmonary embolism 4. DVT 5. COPD. 6. History of Hodgkin's lymphoma. 7. History of benign prostate hypertrophy. 8. Sepsis, suspected pneumonia 9. Nonconvulsive seizures on EEG- improving. RECOMMENDATIONS: 1. wean versed drip. use propofol. goal RASS -2. Daily sedation vacations. 2. CT scan of the brain in the emergency department negative for acute process and urine drug screen positive for benzodiazepines. MRI brain unremarkable 3. Daily spontaneous breathing trials 4. Vent bundle, bronchodilators as needed 5. Anticonvulsants per neurology. On Cerebyx/Keppra/phenobarbital. 6. CT chest positive for bilateral PE 7. Lovenox 60 mg per KG every 12 hourly for full anticoagulation on 11/20 8. Monitor heart rate and blood pressure closely and maintain MAP greater than 65 mmHg. 9. Monitor renal function, intakes and outputs and electrolyte replacement as needed. 10. Continue with empiric antibiotics for now. Patient had completed Zosyn on 11/25 however now has fevers again. Pancultures ordered on 11/27. Resume Zosyn 11. BCx NGTD. Nasal washing is negative for influenza. 12. .Monitor CBC 13. Continue with Pepcid q. 12h for GI prophylaxis. 14. Tolerating tube feeds 15. Place on sliding scale insulin with Accu-Chek for glycemic control. 16. GI prophylaxis with Pepcid and DVT prophylaxis with SCDs. On full anticoagulation with Lovenox Mauricio Wells MD Nov 27, 2017 12:16
--- NOTE | 2017-11-27 13:05 | RADRPT ---
EXAM DATE/TIME: 11/27/2017 12:24 [facility] COMPARISON: CHEST SINGLE AP, November 19, 2017, 10:52. INDICATIONS : Difficulty breathing. Evaluate for infiltrate per order. MEDICAL HISTORY : Lymphoma. Deep venous thrombosis. SURGICAL HISTORY : None. ENCOUNTER: Subsequent ACUITY: 3 days PAIN SCORE: Non-responsive. LOCATION: Bilateral chest FINDINGS: The ET tube and NG tube are well placed. The heart size is normal. The lungs are grossly clear. No ef fusion is seen. CONCLUSION: No acute abnormality seen. Phill Girard MD on November 27, 2017 at 13:02 Board Certified Radiologist. This report was verified electronically.
[2017-11-27 13:34] LABS: AMORPHOUS SEDIMENT, URINE MANY; BILIRUBIN, URINE NEG (NEG); BLOOD, URINE NEG (NEG); GLUCOSE,URINE TRACE mg/dL (NEG); KETONE, URINE NEG (NEG); NITRITE,URINE NEG (NEG); RENAL EPITHELIAL CELLS <1 /hpf; URINE COLOR YELLOW (YELLW/STRAW); URINE LEUKOCYTE ESTERASE NEG (NEG)
[2017-11-27] MEDS: PIPERACIL-TAZO 4.5 GM PREMIX 100 ML IV SCH ×2 (13:49→18:23)
[2017-11-27] MEDS: ACETAMINOPHEN 650 MG/20.3 ML UDC PO PRN (21:47)
[2017-11-28] VITALS (24 sets, daily range): BP systolic 88–133; BP diastolic 58–82; PULSE 85–115; RESP 10–26; TEMP 99.1–100.6; O2SAT 96–100
[2017-11-28] MEDS: PIPERACIL-TAZO 4.5 GM PREMIX 100 ML IV SCH ×4 (00:44→18:15)
[2017-11-28] MEDS: INSULIN NovoLIN REGULAR SUPPLEMENTAL SCALE SQ SCH ×6 (00:44→20:28)
[2017-11-28] MEDS: FAMOTIDINE 20 MG/2 ML VIAL IV PUSH SCH ×2 (00:44→12:49)
[2017-11-28] MEDS: CHLORHEXIDINE GLUCONATE 2 % 1 PACK (2 CLOTHS) TOP SCH (00:44)
[2017-11-28] MEDS: oxyCODONE HCL ORAL CONC 5 MG/0.25 ML SYRINGE PO SCH ×6 (03:27→22:48)
[2017-11-28] MEDS: PROPOFOL 1000 MG/100 ML INJ 100 ML IV PRN (05:16)
[2017-11-28 05:19] LABS: HEMATOCRIT 34.4 % (39.0-51.0); HEMOGLOBIN 11.4 GM/DL (13.0-17.0); MEAN CELL VOLUME 94.4 FL (80.0-100.0); MEAN CORPUSCULAR HEMOGLOBIN 31.4 PG (27.0-34.0); MEAN CORPUSCULAR HGB CONC 33.2 % (32.0-36.0); MEAN PLATELET VOLUME 9.5 FL (7.0-11.0); PLATELET COUNT 245 TH/MM3 (150-450); RED BLOOD COUNT 3.64 MIL/MM3 (4.50-5.90); RED CELL DISTRIBUTION WIDTH 15.4 % (11.6-17.2); WHITE BLOOD COUNT 21.3 TH/MM3 (4.0-11.0)
[2017-11-28 05:43] LABS: BICARBONATE 27.3 MEQ/L (21.0-32.0); CALCIUM 8.4 MG/DL (8.5-10.1); CREATININE 0.6 MG/DL (0.60-1.30)
[2017-11-28 05:44] LABS: PHENYTOIN (DILANTIN) 7.3 MCG/ML (10.0-20.0)
[2017-11-28] MEDS: FOSPHENYTOIN SODIUM 100 MG PE/2 ML VIAL IV SCH ×2 (07:45→20:28)
[2017-11-28] MEDS: levETIRAcetam INJ 100 ML IV SCH ×2 (07:45→20:27)
[2017-11-28] MEDS: PHENobarbital SOD 130 MG/ML VIAL IV SCH ×3 (07:46→18:15)
[2017-11-28] MEDS: DOCUSATE SODIUM 50 MG/SENNA 8.6 MG TAB PO SCH ×2 (07:46→20:28)
[2017-11-28] MEDS: ENOXAPARIN SODIUM 60 MG/0.6 ML SYRINGE SQ SCH ×2 (09:44→20:28)
[2017-11-28 10:45] LABS: PROTEIN C ACTIVITY 146 % (70 - 150); PROTEIN S ACTIVITY 156 % (65 - 160)
--- NOTE | 2017-11-28 14:47 | PD.ONC.PN ---
Subjective Subjective Remarks Tmax 100.4 this AM. Patient intubated. no family members at bedside. Objective Data Date Time Temp Pulse Resp B/P (MAP) Pulse Ox O2 Delivery O2 Flow Rate FiO2 11/28/17 14:00 98 11/28/17 12:15 96 30 11/28/17 12:00 99 11/28/17 12:00 99.1 99 12 133/82 (99) 99 11/28/17 12:00 30 11/28/17 11:05 106 26 132/81 (98) 100 11/28/17 10:00 95 11/28/17 10:00 95 14 112/69 (83) 100 11/28/17 09:00 102 18 116/66 (83) 100 11/28/17 08:00 30 11/28/17 08:00 100.4 102 12 112/62 (79) 100 11/28/17 08:00 102 11/28/17 07:57 100 30 11/28/17 07:55 30 11/28/17 07:00 96 16 106/61 (76) 100 11/28/17 06:00 101 11/28/17 04:37 99 30 11/28/17 04:00 30 11/28/17 04:00 94 11/28/17 04:00 100.1 94 18 107/62 (77) 98 11/28/17 02:00 91 11/28/17 00:36 100 30 11/28/17 00:00 85 11/28/17 00:00 99.6 85 24 88/58 (68) 99 11/28/17 00:00 30 11/27/17 22:00 93 11/27/17 20:00 106 11/27/17 20:00 30 11/27/17 20:00 101.1 106 19 115/71 (86) 98 11/27/17 19:49 100 30 11/27/17 18:00 105 11/27/17 18:00 105 17 119/79 (92) 100 11/27/17 17:00 104 15 113/74 (87) 100 11/27/17 16:00 101.1 99 16 116/78 (91) 100 11/27/17 16:00 99 11/27/17 16:00 30 11/27/17 15:26 98 30 11/27/17 15:00 103 18 113/84 (94) 98 11/28/17 11/28/17 11/28/17 06:59 14:59 22:59 Intake Total 666 ml 200 ml Output Total 625 ml Balance 41 ml 200 ml Result Diagram: 11/28/17 0500 11/28/17 0500 Laboratory Results Laboratory Tests Test 11/28/17 05:00 White Blood Count 21.3 TH/MM3 Red Blood Count 3.64 MIL/MM3 Hemoglobin 11.4 GM/DL Hematocrit 34.4 % Mean Corpuscular Volume 94.4 FL Mean Corpuscular Hemoglobin 31.4 PG Mean Corpuscular Hemoglobin Concent 33.2 % Red Cell Distribution Width 15.4 % Platelet Count 245 TH/MM3 Mean Platelet Volume 9.5 FL Blood Urea Nitrogen 18 MG/DL Creatinine 0.60 MG/DL Random Glucose 118 MG/DL Calcium Level 8.4 MG/DL Sodium Level 135 MEQ/L Potassium Level 4.0 MEQ/L Chloride Level 100 MEQ/L Carbon Dioxide Level 27.3 MEQ/L Anion Gap 8 MEQ/L Estimat Glomerular Filtration Rate 138 ML/MIN Phenytoin (Dilantin) Level 7.3 MCG/ML Phenobarbital Level 24.1 MCG/ML Culture Results Microbiology Date/Time Source Procedure Growth Status 11/27/17 19:17 Blood Peripheral Aerobic Blood Culture - Preliminary NO GROWTH IN 1 DAY Resulted 11/27/17 19:17 Blood Peripheral Anaerobic Blood Culture - Preliminary NO GROWTH IN 1 DAY Resulted 11/27/17 19:12 Blood Peripheral Aerobic Blood Culture - Preliminary NO GROWTH IN 1 DAY Resulted 11/27/17 19:12 Blood Peripheral Anaerobic Blood Culture - Preliminary NO GROWTH IN 1 DAY Resulted 11/27/17 13:00 Sputum Endotracheal Gram Stain - Final Resulted 11/27/17 13:00 Sputum Endotracheal Sputum Culture Pending Resulted Administered Medications Medications (Trade) Dose Ordered Sig/Osbaldo Route PRN Reason Start Time Stop Time Status Last Admin Dose Admin Propofol 100 ml @ 1.95 mls/hr TITRATE PRN IV SEDATION 11/19/17 11:00 11/28/17 05:16 Famotidine (Pepcid Inj) 20 mg Q12H IV PUSH 11/19/17 13:00 11/28/17 12:49 Albuterol/ Ipratropium (Duoneb Neb) 1 ampule Q2HR NEB PRN INH WHEEZING 11/19/17 12:45 11/20/17 06:03 Chlorhexidine Gluconate (Chlorhexidine 2% Cloth) Taper DAILY@04 TOP 11/20/17 04:00 11/16/18 03:59 11/28/17 00:44 Senna/Docusate Sodium (Cassandra-Colace) 1 tab BID PO 11/19/17 13:00 11/28/17 07:46 Magnesium Hydroxide (Milk Of Magnesia Liq) 30 ml Q12H PRN PO Mild constipation 11/19/17 12:45 11/28/17 10:53 Sennosides (Senokot) 17.2 mg Q12H PRN PO Moderate constipation 11/19/17 12:45 11/28/17 10:54 Lactulose (Lactulose Liq) 30 ml DAILY PRN PO SEVERE CONSITIPATION 11/19/17 12:45 11/28/17 07:46 Insulin Human Regular (NovoLIN R SUPPLEMENTAL SCALE) 1 Q4H SQ 11/19/17 13:00 11/28/17 09:44 Lorazepam (Ativan Inj) 1 mg Q4H PRN IV PUSH seizures 11/19/17 16:00 11/23/17 15:04 Fosphenytoin Sodium (Cerebyx Inj) 200 mgpe Q12HR IV 11/20/17 09:00 11/28/17 07:45 Enoxaparin Sodium (Lovenox Inj) 60 mg Q12H SQ 11/20/17 10:00 11/28/17 09:44 Phenobarbital Sodium (Luminal Inj) 90 mg TID IV 11/20/17 13:00 11/28/17 12:49 Levetriacetam 100 ml @ 420 mls/hr Q12HR IV 11/22/17 09:00 11/28/17 07:45 Oxycodone HCl (Roxicodone Intensol Liq) 10 mg Q4H PO 11/24/17 15:00 11/28/17 10:53 Piperacillin Sod/ Tazobactam Sod 100 ml @ 200 mls/hr Q6H IV 11/27/17 13:00 11/28/17 12:49 Acetaminophen (Tylenol 650 Mg/ 20 ml Liq) 650 mg Q4H PRN PO TEMP >101 11/27/17 20:45 11/27/17 21:47 Objective Remarks GENERAL: Intubated, restrained male supine in bed. SKIN: Warm and dry. HEAD: Normocephalic. EYES: no injection or drainage. NECK: Supple, trachea midline. CARDIOVASCULAR: Regular rate and rhythm RESPIRATORY: anterior alex with occasional rhonchi. on mechanical ventilation. GASTROINTESTINAL: Abdomen nondistended. EXTREMITIES: No cyanosis NEUROLOGICAL: intubated. tracks with eyes. Assessment/Plan Problem List: (1) History of Hodgkin's lymphoma ICD Codes: Z85.71 - Personal history of Hodgkin lymphoma Plan: --patient was treated with ABVD chemotherapy. received approximately eight cycles of ABVD. His disease status is currently unclear. --per mother at the bedside the patient followed with his oncologist, Dr. Jorgensen for five years after completing therapy and has only followed with his primary care physician since that time. --attempted to obtain records from Dr. Jose office--faxed records request on and 11/28/17 --CT scan of the abdomen and pelvis from July 2017 did not show any recurrence of lymphoma. (2) Pulmonary emboli ICD Codes: I26.99 - Other pulmonary embolism without acute cor pulmonale Status: Acute Plan: --on Lovenox 60mg SQ BID, Once stable, can be switched to eliquis. --CT angiogram showed pulmonary emboli in bilateral lungs involving the segmental and subsegmental branches. --bilateral lower extremity Doppler ultrasound revealed extensive DVT of the left lower extremity involving the superficial femoral vein, popliteal vein and proximal calf veins. The patient is currently on Lovenox 60 mg subcu twice a day. -- Hypercoagulable w/u should be deferred in acute illness/embolism. will need to obtain w/u o/p --will need correction anti-coagulation. (3) Leukocytosis ICD Codes: D72.829 - Elevated white blood cell count, unspecified Plan: -- likely due to sepsis and acute illness. Assessment 57y/o male admitted with AMS. Hematology consulted for PE and h/o lymphoma. history of Hodgkin's lymphoma and benign prostatic hypertrophy, COPD Plan 1. monitor CBC 2. continue Lovenox 3. I called Dr. Jorgensen's office, the patient was seen prior to 2009, and therefore his records are in storage and will take some time to obtain. They will fax them over when they are available, likely in about a week. 4. check repeat coags today Attending Statement The exam, history, and the medical decision-making described in the above note were completed with the assistance of the mid-level provider. I reviewed and agree with the findings presented. I attest that I had a [id number] encounter with the patient on the same day, and personally performed and documented my assessment and findings in the medical record. Maisha Ballseteros Nov 28, 2017 14:46 Nile Florentino MD Nov 30, 2017 00:57
[2017-11-28 16:35] LABS: PROTHROMBIN TIME - PATIENT 9.7 SEC (9.8-11.6)
[2017-11-28 17:00] LABS: FIBRINOGEN GREATER THAN 860 mg/dL (227-377)
--- NOTE | 2017-11-28 17:36 | HHI.CCPN ---
Subjective Remarks/Hospital Course 11/19: The patient is a 57-year-old male with past medical history of Hodgkin's lymphoma, benign prostate hypertrophy, COPD who presented to the [facility] Emergency Department via EMS after he was found by his mother on the ground at his apartment unresponsive. He given Narcan times four doses by EMS without any significant improvement. On arrival to the emergency department, the patient noted to be in some respiratory distress associated with coarse wheezing. The patient apparently had not been seen for a day. In the emergency department, he was intubated with a etomidate and vecuronium and placed on full mechanical ventilation. ABG post-intubation showed a pH of 7.39, CO2 43, pAO2 465, bicarb 25, sats 98% on assist control ventilation with respiratory rate 16, tidal volume 500, PEEP of 5 and FIO2 of 100%. There is no evidence of any fever; however, the patient was noted to have leukocytosis with WBC of 19.0. Lactic acid measured at 1.9. A CT scan of the brain in the emergency department was negative for acute process and chest x-ray post-intubation showed no obvious infiltrates or effusions. He was placed on Diprivan for sedation and given one dose of Zosyn along with one liter of normal saline. His current blood pressure is 109/73 with a pulse of 59, saturation 99%. Most of the history was obtained from reviewing medical records. 11/20: Sedated with Versed, orally intubated on mechanical ventilation. CTA chest done last night revealed bilateral pulmonary emboli. Being started on Lovenox for full anticoagulation. 11/21: Remains sedated, orally intubated on mechanical ventilation. On anticoagulation with Lovenox. 11/22: Remains sedated with Versed, orally intubated on mechanical ventilation. On anticoagulation with Lovenox for bilateral PE. 11/23: EEG yesterday with persistent evidence of BiPLEDS. still on versed, keppra, phenobarb, fosphenytoin. 11/24: EEG much improved without ictal activity. per neurology, ok to wean to extubate and lighten deep sedation. 11/25: Remains sedated, orally intubated on mechanical ventilation. Tolerating tube feeds. 11/26: Remains encephalopathic, sedated, orally intubated on mechanical ventilation. Tolerating tube feeds. 1/1: More awake, not following commands. Spontaneously opens eyes. Remains orally intubated on mechanical ventilation. Tolerating tube feeds. Febrile since yesterday. Waterman cultures ordered. Will resume Zosyn IV. 11/28: Patient remain on CPAP throughout most of the day greater than 8 hours. Cultures revealed MRSA in the sputum and gram-negative rods. ID has been consulted. Patient more awake and responsive Objective Vital Signs Date Time Temp Pulse Resp B/P (MAP) Pulse Ox O2 Delivery O2 Flow Rate FiO2 11/28/17 16:00 30 11/28/17 16:00 103 11/28/17 16:00 99.7 10 121/69 (86) 100 Intake and Output 11/28/17 11/28/17 11/28/17 07:59 15:59 23:59 Intake Total 766 ml 100 ml Output Total 625 ml Balance 141 ml 100 ml Result Diagram: 11/28/17 0500 11/28/17 [address] Angiography 11/19/17 1233 Signed Impressions: Service Date/Time: Sunday, November 19, 2017 22:45 - CONCLUSION: 1. Pulmonary emboli identified bilaterally in segmental and subsegmental branches. 2. Mild pulmonary parenchymal emphysema. Benjamin Doyle MD Head CT 11/19/17 1042 Signed Impressions: Service Date/Time: Sunday, November 19, 2017 11:53 - CONCLUSION: Negative for acute process. Fidel Butler MD FACR Chest X-Ray 11/19/17 1042 Signed Impressions: Service Date/Time: Sunday, November 19, 2017 10:52 - CONCLUSION: Support apparatus in good position. Fidel Butler MD FACR Objective Remarks GEN: Chronically ill appearing male patient, responding by nodding head to questions HEAD, EYES, EARS, NOSE, THROAT: Normocephalic and atraumatic. Pupils equal, round and reactive to light and accommodation. Conjunctivae are pink. Nonicteric sclerae. Oral mucosa within normal limits. NECK: The neck is supple. No jugular venous distention. Trachea in the midline. Orally intubated. CARDIOVASCULAR: Regular rate and rhythm. PULMONARY: Orally intubated on mechanical ventilation. full mechanical support. ABDOMEN: The abdomen is soft, nontender and no distention. EXTREMITIES: No cyanosis, clubbing or edema. NEUROLOGIC: Drowsy, arousable, not following commands, has spontaneous eye opening, moves both upper extremities, Intubated and sedated, pupils bilaterally constricted reacting actively to light. A/P Assessment and Plan 57yM remains encephalopathic with nonconvulsive status and bilateral PEs. now clinically starting to improve from a seizure standpoint. will attempt to wean sedation. Continue CPAP trials IMPRESSION: 1. Acute hypoxic respiratory failure on mechanical ventilation. 2. Encephalopathy. 3. Bilateral pulmonary embolism 4. DVT 5. COPD. 6. History of Hodgkin's lymphoma. 7. History of benign prostate hypertrophy. 8. Sepsis, suspected pneumonia 9. Nonconvulsive seizures on EEG- improving. RECOMMENDATIONS: 1. wean versed drip. use propofol. goal RASS -2. Daily sedation vacations. 2. CT scan of the brain in the emergency department negative for acute process and urine drug screen positive for benzodiazepines. MRI brain unremarkable 3. Daily spontaneous breathing trials 4. Vent bundle, bronchodilators as needed 5. Anticonvulsants per neurology. On Cerebyx/Keppra/phenobarbital. 6. CT chest positive for bilateral PE 7. Lovenox 60 mg per KG every 12 hourly for full anticoagulation on 11/20 8. Monitor heart rate and blood pressure closely and maintain MAP greater than 65 mmHg. 9. Monitor renal function, intakes and outputs and electrolyte replacement as needed. 10. Continue with empiric antibiotics for now. Patient had completed Zosyn on 11/25 however now has fevers again. Pancultures ordered on 11/27, positive for MRSA, and gram-negative rods. Resume Zosyn. ID consulted 11. BCx NGTD. Nasal washing is negative for influenza. 12. .Monitor CBC 13. Continue with Pepcid q. 12h for GI prophylaxis. 14. Tolerating tube feeds 15. Place on sliding scale insulin with Accu-Chek for glycemic control. 16. GI prophylaxis with Pepcid and DVT prophylaxis with SCDs. Continue therapuetic anticoagulation with Lovenox Dispo: Level 3 follow up Physician Leila Corral MD Nov 28, 2017 17:36
[2017-11-28] MEDS ORDERED: Vancomycin Consult Pharmacy 1 EA OTHER SCH (17:45)
[2017-11-28] MEDS ORDERED: VANCOMYCIN INJ 1,700 MG in SODIUM CHLORID 0.9% 500 ML INJ 500 ML IV ONE (18:00)
[2017-11-28] MEDS: ACETAMINOPHEN 650 MG/20.3 ML UDC PO PRN (20:28)
[2017-11-29] VITALS (18 sets, daily range): BP systolic 115–132; BP diastolic 65–74; PULSE 98–124; RESP 14–46; TEMP 98.3–100.8; O2SAT 88–100
[2017-11-29] MEDS: PIPERACIL-TAZO 4.5 GM PREMIX 100 ML IV SCH ×4 (00:41→19:32)
[2017-11-29] MEDS: INSULIN NovoLIN REGULAR SUPPLEMENTAL SCALE SQ SCH ×6 (00:41→20:37)
[2017-11-29] MEDS: FAMOTIDINE 20 MG/2 ML VIAL IV PUSH SCH ×2 (00:41→16:50)
[2017-11-29] MEDS: CHLORHEXIDINE GLUCONATE 2 % 1 PACK (2 CLOTHS) TOP SCH (00:41)
[2017-11-29] MEDS: PROPOFOL 1000 MG/100 ML INJ 100 ML IV PRN (02:28)
[2017-11-29] MEDS: oxyCODONE HCL ORAL CONC 5 MG/0.25 ML SYRINGE PO SCH ×6 (02:29→22:20)
[2017-11-29] MEDS: VANCOMYCIN 1,500 MG/NS 500 ML IV SCH ×4 (04:59→19:41)
[2017-11-29 05:25] LABS: AUTOMATED NEUTROPHIL # 19.8 TH/MM3 (1.8-7.7); BASOPHIL # 0.1 TH/MM3 (0-0.2); BASOPHIL % 0.3 % (0.0-2.0); EOSINOPHIL # 0.5 TH/MM3 (0-0.4); EOSINOPHIL % 1.9 % (0.0-4.0); HEMATOCRIT 32.4 % (39.0-51.0); HEMOGLOBIN 10.9 GM/DL (13.0-17.0); LYMPH % 4.7 % (9.0-44.0); LYMPHOCYTE # 1.1 TH/MM3 (1.0-4.8); MEAN CELL VOLUME 91.7 FL (80.0-100.0); MEAN CORPUSCULAR HEMOGLOBIN 30.8 PG (27.0-34.0); MEAN CORPUSCULAR HGB CONC 33.6 % (32.0-36.0); MEAN PLATELET VOLUME 9.2 FL (7.0-11.0); MONO % 9.1 % (0.0-8.0); MONOCYTE # 2.1 TH/MM3 (0-0.9); PLATELET COUNT 309 TH/MM3 (150-450); RED BLOOD COUNT 3.53 MIL/MM3 (4.50-5.90); RED CELL DISTRIBUTION WIDTH 14.3 % (11.6-17.2); WHITE BLOOD COUNT 23.5 TH/MM3 (4.0-11.0)
[2017-11-29 05:39] LABS: BICARBONATE 30.4 MEQ/L (21.0-32.0); CALCIUM 8.5 MG/DL (8.5-10.1); CREATININE 0.58 MG/DL (0.60-1.30)
[2017-11-29 05:40] LABS: PHENYTOIN (DILANTIN) 8.1 MCG/ML (10.0-20.0)
[2017-11-29] MEDS: DOCUSATE SODIUM 50 MG/SENNA 8.6 MG TAB PO SCH ×2 (08:51→20:07)
[2017-11-29] MEDS: FOSPHENYTOIN SODIUM 100 MG PE/2 ML VIAL IV SCH ×2 (08:52→20:36)
[2017-11-29] MEDS: levETIRAcetam INJ 100 ML IV SCH ×2 (08:52→20:36)
[2017-11-29] MEDS: PHENobarbital SOD 130 MG/ML VIAL IV SCH ×3 (08:53→18:00)
[2017-11-29] MEDS: ENOXAPARIN SODIUM 60 MG/0.6 ML SYRINGE SQ SCH ×2 (10:40→20:37)
[2017-11-29] MEDS ORDERED: Vancomycin Consult Pharmacy 1 EA OTHER SCH (11:45)
--- NOTE | 2017-11-29 12:25 | MB ---
cc: AUSTIN MURRY MD DATE OF CONSULTATION 11/29/[address] Hodgse REASON FOR CONSULTATION Positive sputum culture with MRSA and gram-negative rods. HISTORY OF PRESENT ILLNESS This is a 57-year-old white male who was brought to the emergency department in respiratory distress. The patient's mother is at bedside. The mom reports that the patient was doing well on November 19. He went to bed after he was doing activities such as using his computer. The mom found him the next day in bed unresponsive and called 9-1-1. The patient was brought to emergency department and he was subsequently intubated and admitted to the intensive care unit. The patient's mom states that he was incontinent of urine. She states that through the night she heard him making noises which appeared to be snoring loudly. The patient had an elevated white count of 19.0 in the emergency department and he was bradycardiac. Chest x-ray on admission did not show any signs of pneumonia. Cultures were taken of the sputum and it came back showing MRSA and gram-negative javier. Blood cultures on admission had no growth. The white blood cell count has increased steadily and is higher today than previous. The patient remains on the ventilator and intubated. He opens his eyes and tries to respond but he is receiving pain medications and I am unable to get him to respond meaningfully to me, but he does appear to be trying to communicate. He is on C-PAP. He is noted to have copious amounts of benedict secretions from the endotracheal tube. CT angiogram showed bilateral pulmonary embolus. Ultrasound of the lower extremity showed deep venous thrombosis of the left lower extremity. MEDICATIONS 1. The patient is also on medications for seizure. 2. He has been given vancomycin. 3. He is also receiving piperacillin/Tazobactam. ALLERGIES Medical records report an allergy to VANCOMYCIN. The patient has not had any reaction from the Vancomycin given. PAST MEDICAL HISTORY 1. COPD 2. Hodgkin's Lymphoma 3. Benign prostatic hypertrophy 4. Diabetes mellitus 5. Left eye surgery secondary to trauma ALLERGIES VANCOMYCIN REPORTED ALLERGIC. I am unable to verify his reaction. MEDICATIONS 1. Vancomycin 2. Piperacillin/Tazobactam 3. Levetiracetam 4. Phenobarbital 5. Lovenox 6. Cerebyx 7. Pepcid 8. Oxycodone SOCIAL HISTORY The patient's mom reports that he smoked cigarettes up until four months ago. No alcohol. No illicit drugs. FAMILY HISTORY Noncontributory REVIEW OF SYSTEMS Unable to obtain. PHYSICAL EXAM This is a well-developed male who is somewhat irritable. VITAL SIGNS: Temperature of 99.8, BP 130/70, heart rate 103, respirations per ventilator. HEENT: The head is atraumatic. Extraocular movements cannot be fully assess, but the patient is moving his eyes in all quadrants. No icterus. Oropharynx, moist mucosa. NECK: Supple. No adenopathy. LUNGS: Basilar rhonchi. HEART: Regular normal S1S2. No murmurs, rubs or gallops. ABDOMEN: Distended, bowel sounds diminished, no masses palpable. Unable to appreciate tenderness. RECTAL: Not performed. EXTREMITIES: No clubbing or cyanosis or edema. SKIN: No rash. NEUROLOGIC: Unable to fully assess. PSYCH: Unable to fully assess. LABORATORY DATA WBC 23.5, 84% neutrophils, platelets 309, hemoglobin 10.9. Creatinine 0.58, BUN 13, sodium 135. Chest x-ray from 11/27/2017 showed no acute abnormality. IMPRESSION 1. Pneumonia due to MRSA and gram-negative bacteria. This is likely secondary to aspiration in a patient who was found unresponsive. 2. Acute respiratory failure due to hypoxemia. 3. The patient with noted vancomycin allergy, however, is tolerating vancomycin which has been given so far. RECOMMENDATIONS 1. Continue piperacillin/Tazobactam. 2. Continue vancomycin and monitor the patient while receiving that medication. 3. Follow the gram-negative bacteria identity and sensitivity. 4. Follow clinical response. Thank you this consultation. I will monitor the patient's progress and make further recommendations on followup if necessary. Austin Murry MD FD/COLTON /11:16 AM 11:36 AM KYLEE
--- NOTE | 2017-11-29 18:53 | HHI.CCPN ---
Subjective Remarks/Hospital Course 11/19: The patient is a 57-year-old male with past medical history of Hodgkin's lymphoma, benign prostate hypertrophy, COPD who presented to the [facility] Emergency Department via EMS after he was found by his mother on the ground at his apartment unresponsive. He given Narcan times four doses by EMS without any significant improvement. On arrival to the emergency department, the patient noted to be in some respiratory distress associated with coarse wheezing. The patient apparently had not been seen for a day. In the emergency department, he was intubated with a etomidate and vecuronium and placed on full mechanical ventilation. ABG post-intubation showed a pH of 7.39, CO2 43, pAO2 465, bicarb 25, sats 98% on assist control ventilation with respiratory rate 16, tidal volume 500, PEEP of 5 and FIO2 of 100%. There is no evidence of any fever; however, the patient was noted to have leukocytosis with WBC of 19.0. Lactic acid measured at 1.9. A CT scan of the brain in the emergency department was negative for acute process and chest x-ray post-intubation showed no obvious infiltrates or effusions. He was placed on Diprivan for sedation and given one dose of Zosyn along with one liter of normal saline. His current blood pressure is 109/73 with a pulse of 59, saturation 99%. Most of the history was obtained from reviewing medical records. 11/20: Sedated with Versed, orally intubated on mechanical ventilation. CTA chest done last night revealed bilateral pulmonary emboli. Being started on Lovenox for full anticoagulation. 11/21: Remains sedated, orally intubated on mechanical ventilation. On anticoagulation with Lovenox. 11/22: Remains sedated with Versed, orally intubated on mechanical ventilation. On anticoagulation with Lovenox for bilateral PE. 11/23: EEG yesterday with persistent evidence of BiPLEDS. still on versed, keppra, phenobarb, fosphenytoin. 11/24: EEG much improved without ictal activity. per neurology, ok to wean to extubate and lighten deep sedation. 11/25: Remains sedated, orally intubated on mechanical ventilation. Tolerating tube feeds. 11/26: Remains encephalopathic, sedated, orally intubated on mechanical ventilation. Tolerating tube feeds. 1/1: More awake, not following commands. Spontaneously opens eyes. Remains orally intubated on mechanical ventilation. Tolerating tube feeds. Febrile since yesterday. Waterman cultures ordered. Will resume Zosyn IV. 11/28: Patient remain on CPAP throughout most of the day greater than 8 hours. Cultures revealed MRSA in the sputum and gram-negative rods. ID has been consulted. Patient more awake and responsive. 11/29: Patient following commands, tolerated CPAP trials for approximately 2 hours. Objective Vital Signs Date Time Temp Pulse Resp B/P (MAP) Pulse Ox O2 Delivery O2 Flow Rate FiO2 11/29/17 14:58 100 30 11/29/17 14:00 120 11/29/17 12:00 98.7 14 115/65 (82) Intake and Output 11/29/17 11/29/17 11/30/17 08:00 16:00 00:00 Intake Total 1090 ml Output Total 700 ml Balance 390 ml Result Diagram: 11/29/17 0452 11/29/17 [address] Angiography 11/19/17 1233 Signed Impressions: Service Date/Time: Sunday, November 19, 2017 22:45 - CONCLUSION: 1. Pulmonary emboli identified bilaterally in segmental and subsegmental branches. 2. Mild pulmonary parenchymal emphysema. Benjamin Doyle MD Head CT 11/19/17 1042 Signed Impressions: Service Date/Time: Sunday, November 19, 2017 11:53 - CONCLUSION: Negative for acute process. Fidel Butler MD FACR Chest X-Ray 11/19/17 1042 Signed Impressions: Service Date/Time: Sunday, November 19, 2017 10:52 - CONCLUSION: Support apparatus in good position. Fidel Butler MD FACR Objective Remarks GEN: Chronically ill appearing male patient, responding by nodding head to questions HEAD, EYES, EARS, NOSE, THROAT: Normocephalic and atraumatic. Pupils equal, round and reactive to light and accommodation. Conjunctivae are pink. Nonicteric sclerae. Oral mucosa within normal limits. NECK: The neck is supple. No jugular venous distention. Trachea in the midline. Orally intubated. CARDIOVASCULAR: Regular rate and rhythm. PULMONARY: Orally intubated on mechanical ventilation. full mechanical support. ABDOMEN: The abdomen is soft, nontender and no distention. EXTREMITIES: No cyanosis, clubbing or edema. NEUROLOGIC: Drowsy, arousable, not following commands, has spontaneous eye opening, moves both upper extremities, Intubated and sedated, pupils bilaterally constricted reacting actively to light. A/P Assessment and Plan 57yM remains encephalopathic with nonconvulsive status and bilateral PEs. now clinically starting to improve from a seizure standpoint. will attempt to wean sedation. Continue CPAP trials IMPRESSION: 1. Acute hypoxic respiratory failure on mechanical ventilation. 2. Encephalopathy. 3. Bilateral pulmonary embolism 4. DVT 5. COPD. 6. History of Hodgkin's lymphoma. 7. History of benign prostate hypertrophy. 8. Sepsis, suspected pneumonia 9. Nonconvulsive seizures on EEG- improving. RECOMMENDATIONS: 1. wean versed infusion dc'd. Propofol. goal RASS -2. Daily sedation vacations. 2. CT scan of the brain in the emergency department negative for acute process and urine drug screen positive for benzodiazepines. MRI brain unremarkable 3. Daily spontaneous breathing trials 4. Vent bundle, bronchodilators as needed 5. Anticonvulsants per neurology. On Cerebyx/Keppra/phenobarbital. 6. CT chest positive for bilateral PE 7. Lovenox 60 mg per KG every 12 hourly for full therapeutic anticoagulation on 11/20 8. Monitor heart rate and blood pressure closely and maintain MAP greater than 65 mmHg. 9. Monitor renal function, intakes and outputs and electrolyte replacement as needed. 10. Continue with empiric antibiotics for now. Patient had completed Zosyn on 11/25 however now has fevers again. Pancultures ordered on 11/27, positive for MRSA, and gram-negative rods. 11/29 ID following-antibiotic management per ID, will continue to monitor CBC 11. BCx NGTD. Nasal washing is negative for influenza. 12. .Monitor CBC 13. Continue with Pepcid q. 12h for GI prophylaxis. 14. Tolerating tube feeds 15. Place on sliding scale insulin with Accu-Chek for glycemic control. 16. GI prophylaxis with Pepcid and DVT prophylaxis with SCDs. Continue therapuetic anticoagulation with Lovenox Dispo: Level 3 follow up Physician Leila Corral MD Nov 29, 2017 18:53
[2017-11-30] VITALS (33 sets, daily range): BP systolic 98–141; BP diastolic 60–93; PULSE 91–111; RESP 18–31; TEMP 98.4–100.1; O2SAT 92–100
[2017-11-30] MEDS: INSULIN NovoLIN REGULAR SUPPLEMENTAL SCALE SQ SCH ×6 (00:19→21:00)
[2017-11-30] MEDS: PIPERACIL-TAZO 4.5 GM PREMIX 100 ML IV SCH ×4 (00:19→18:12)
[2017-11-30] MEDS: FAMOTIDINE 20 MG/2 ML VIAL IV PUSH SCH ×2 (00:19→13:06)
[2017-11-30] MEDS: CHLORHEXIDINE GLUCONATE 2 % 1 PACK (2 CLOTHS) TOP SCH (00:20)
[2017-11-30] MEDS: PROPOFOL 1000 MG/100 ML INJ 100 ML IV PRN ×3 (00:21→19:24)
[2017-11-30] MEDS: oxyCODONE HCL ORAL CONC 5 MG/0.25 ML SYRINGE PO SCH ×6 (02:11→23:59)
[2017-11-30] MEDS ORDERED: PHARMACY ORDERED LAB ONE (05:45)
[2017-11-30] MEDS: VANCOMYCIN 1,500 MG/NS 500 ML IV SCH ×2 (05:59)
[2017-11-30 07:31] LABS: HEMATOCRIT 31.3 % (39.0-51.0); HEMOGLOBIN 10.6 GM/DL (13.0-17.0); MEAN CELL VOLUME 92.4 FL (80.0-100.0); MEAN CORPUSCULAR HEMOGLOBIN 31.3 PG (27.0-34.0); MEAN CORPUSCULAR HGB CONC 33.9 % (32.0-36.0); MEAN PLATELET VOLUME 9.7 FL (7.0-11.0); PLATELET COUNT 308 TH/MM3 (150-450); RED BLOOD COUNT 3.38 MIL/MM3 (4.50-5.90); RED CELL DISTRIBUTION WIDTH 14.5 % (11.6-17.2); WHITE BLOOD COUNT 26.6 TH/MM3 (4.0-11.0)
[2017-11-30 07:41] LABS: BICARBONATE 30.6 MEQ/L (21.0-32.0); CALCIUM 8.5 MG/DL (8.5-10.1); CREATININE 0.84 MG/DL (0.60-1.30)
[2017-11-30 07:42] LABS: PHENYTOIN (DILANTIN) 7.2 MCG/ML (10.0-20.0)
[2017-11-30] MEDS: levETIRAcetam INJ 100 ML IV SCH ×2 (08:34→21:37)
[2017-11-30] MEDS: DOCUSATE SODIUM 50 MG/SENNA 8.6 MG TAB PO SCH ×2 (08:35→21:00)
[2017-11-30] MEDS: FOSPHENYTOIN SODIUM 100 MG PE/2 ML VIAL IV SCH ×2 (08:35→21:37)
[2017-11-30] MEDS: PHENobarbital SOD 130 MG/ML VIAL IV SCH ×3 (08:35→17:04)
[2017-11-30] MEDS: ENOXAPARIN SODIUM 60 MG/0.6 ML SYRINGE SQ SCH ×2 (08:42→21:37)
--- NOTE | 2017-11-30 10:47 | HHI.IDPN ---
Note Infectious Disease Note Patient on the vent. CPAP. Has low grade fever. No distress. WBC higher. 57-year-old white male who was brought to the emergency department in respiratory distress. The patient's mother is at bedside. The mom reports that the patient was doing well on November 19. He went to bed after he was doing activities such as using his computer. The mom found him the next day in bed unresponsive and called 9-1-1. The patient was brought to emergency department and he was subsequently intubated. MEDICATIONS 1. The patient is also on medications for seizure. 2. He has been given vancomycin. 3. He is also receiving piperacillin/Tazobactam. ALLERGIES Medical records report an allergy to VANCOMYCIN. The patient has not had any reaction from the Vancomycin given. PAST MEDICAL HISTORY 1. COPD 2. Hodgkin's Lymphoma 3. Benign prostatic hypertrophy 4. Diabetes mellitus 5. Left eye surgery secondary to trauma ALLERGIES VANCOMYCIN REPORTED ALLERGIC. I am unable to verify his reaction. ANTIBIOTICS 1. Vancomycin 2. Piperacillin/Tazobactam OBJECTIVE: Vital Signs Date Time Temp Pulse Resp B/P (MAP) Pulse Ox O2 Delivery O2 Flow Rate FiO2 11/30/17 09:30 98 11/30/17 09:00 99 11/30/17 09:00 99 25 120/93 (102) 96 11/30/17 08:30 30 11/30/17 08:30 104 23 128/77 (94) 97 11/30/17 08:30 104 11/30/17 08:12 30 11/30/17 08:12 100 30 11/30/17 08:00 99.9 103 20 124/73 (90) 97 11/30/17 08:00 103 11/30/17 07:30 108 11/30/17 07:30 108 18 130/77 (94) 97 11/30/17 07:00 110 11/30/17 07:00 110 27 141/83 (102) 99 11/30/17 06:00 97 11/30/17 04:34 97 30 11/30/17 04:00 111 11/30/17 04:00 99.7 111 24 119/71 (87) 97 11/30/17 04:00 30 11/30/17 02:00 105 11/30/17 00:24 95 30 11/30/17 00:00 100.1 109 18 114/60 (78) 96 11/30/17 00:00 30 11/30/17 00:00 109 11/29/17 22:00 114 11/29/17 20:30 94 30 11/29/17 20:00 112 11/29/17 20:00 30 11/29/17 20:00 100.8 112 18 120/69 (86) 94 11/29/17 18:00 98 11/29/17 16:00 30 11/29/17 16:00 117 11/29/17 16:00 98.5 117 11/29/17 14:58 100 30 11/29/17 14:00 120 11/29/17 12:23 94 30 11/29/17 12:00 30 11/29/17 12:00 98.7 110 14 115/65 (82) 94 11/29/17 12:00 110 Laboratory Tests Test 11/29/17 04:52 11/30/17 06:50 White Blood Count 23.5 TH/MM3 26.6 TH/MM3 Red Blood Count 3.53 MIL/MM3 3.38 MIL/MM3 Hemoglobin 10.9 GM/DL 10.6 GM/DL Hematocrit 32.4 % 31.3 % Mean Corpuscular Volume 91.7 FL 92.4 FL Mean Corpuscular Hemoglobin 30.8 PG 31.3 PG Mean Corpuscular Hemoglobin Concent 33.6 % 33.9 % Red Cell Distribution Width 14.3 % 14.5 % Platelet Count 309 TH/MM3 308 TH/MM3 Mean Platelet Volume 9.2 FL 9.7 FL Neutrophils (%) (Auto) 84.0 % Lymphocytes (%) (Auto) 4.7 % Monocytes (%) (Auto) 9.1 % Eosinophils (%) (Auto) 1.9 % Basophils (%) (Auto) 0.3 % Neutrophils # (Auto) 19.8 TH/MM3 Lymphocytes # (Auto) 1.1 TH/MM3 Monocytes # (Auto) 2.1 TH/MM3 Eosinophils # (Auto) 0.5 TH/MM3 Basophils # (Auto) 0.1 TH/MM3 CBC Comment DIFF FINAL Differential Comment Laboratory Tests Test 11/29/17 04:52 11/30/17 05:45 Blood Urea Nitrogen 13 MG/DL 20 MG/DL Creatinine 0.58 MG/DL 0.84 MG/DL Random Glucose 132 MG/DL 134 MG/DL Calcium Level 8.5 MG/DL 8.5 MG/DL Sodium Level 135 MEQ/L 140 MEQ/L Potassium Level 3.7 MEQ/L 3.4 MEQ/L Chloride Level 99 MEQ/L 102 MEQ/L Carbon Dioxide Level 30.4 MEQ/L 30.6 MEQ/L Anion Gap 6 MEQ/L 7 MEQ/L Estimat Glomerular Filtration Rate 143 ML/MIN 94 ML/MIN Microbiology Date/Time Source Procedure Growth Status 11/27/17 19:17 Blood Peripheral Aerobic Blood Culture - Preliminary NO GROWTH IN 2 DAYS Resulted 11/27/17 19:17 Blood Peripheral Anaerobic Blood Culture - Preliminary NO GROWTH IN 2 DAYS Resulted 11/27/17 19:12 Blood Peripheral Aerobic Blood Culture - Preliminary NO GROWTH IN 2 DAYS Resulted 11/27/17 19:12 Blood Peripheral Anaerobic Blood Culture - Preliminary NO GROWTH IN 2 DAYS Resulted 11/27/17 13:00 Sputum Endotracheal Gram Stain - Final Resulted 11/27/17 13:00 Sputum Culture - Preliminary S. Aureus Mrsa Acinetobacter Baumannii/Haemol Resulted PHYSICAL EXAM GENERAL: Easily awakened on the vent. HEENT: No icterus. Oropharynx: moist mucosa. NECK: Supple. No adenopathy. LUNGS: Basilar rhonchi. HEART: Regular S1S2. No murmurs, rubs or gallops. ABDOMEN: Distended, bowel sounds diminished, no tenderness. EXTREMITIES: No clubbing or cyanosis or edema. SKIN: No rash. NEUROLOGIC: Unable to fully assess. PSYCH: Unable to fully assess. IMPRESSION 1. Pneumonia due to MRSA and Acinetobacter. This is likely secondary to aspiration in a patient who was found unresponsive. 2. Acute respiratory failure due to hypoxemia. 3. Pulmonary embolism. 4. The patient with noted to have vancomycin allergy, however he is tolerating vancomycin. RECOMMENDATIONS 1. Discontinue piperacillin/Tazobactam. 2. Add Cefepime. 3. Continue vancomycin. 4. Follow clinical response. 5. Monitor temp and WBC. Shaggy Murry MD Nov 30, 2017 10:47
[2017-11-30] MEDS: RESP: ALBUTEROL 2.5 MG/IPRATROPIUM 0.5 MG NEB (PRN) INH (15:59)
--- NOTE | 2017-11-30 16:53 | HHI.CCPN ---
Subjective Remarks/Hospital Course 11/19: The patient is a 57-year-old male with past medical history of Hodgkin's lymphoma, benign prostate hypertrophy, COPD who presented to the [facility] Emergency Department via EMS after he was found by his mother on the ground at his apartment unresponsive. He given Narcan times four doses by EMS without any significant improvement. On arrival to the emergency department, the patient noted to be in some respiratory distress associated with coarse wheezing. The patient apparently had not been seen for a day. In the emergency department, he was intubated with a etomidate and vecuronium and placed on full mechanical ventilation. ABG post-intubation showed a pH of 7.39, CO2 43, pAO2 465, bicarb 25, sats 98% on assist control ventilation with respiratory rate 16, tidal volume 500, PEEP of 5 and FIO2 of 100%. There is no evidence of any fever; however, the patient was noted to have leukocytosis with WBC of 19.0. Lactic acid measured at 1.9. A CT scan of the brain in the emergency department was negative for acute process and chest x-ray post-intubation showed no obvious infiltrates or effusions. He was placed on Diprivan for sedation and given one dose of Zosyn along with one liter of normal saline. His current blood pressure is 109/73 with a pulse of 59, saturation 99%. Most of the history was obtained from reviewing medical records. 11/20: Sedated with Versed, orally intubated on mechanical ventilation. CTA chest done last night revealed bilateral pulmonary emboli. Being started on Lovenox for full anticoagulation. 11/21: Remains sedated, orally intubated on mechanical ventilation. On anticoagulation with Lovenox. 11/22: Remains sedated with Versed, orally intubated on mechanical ventilation. On anticoagulation with Lovenox for bilateral PE. 11/23: EEG yesterday with persistent evidence of BiPLEDS. still on versed, keppra, phenobarb, fosphenytoin. 11/24: EEG much improved without ictal activity. per neurology, ok to wean to extubate and lighten deep sedation. 11/25: Remains sedated, orally intubated on mechanical ventilation. Tolerating tube feeds. 11/26: Remains encephalopathic, sedated, orally intubated on mechanical ventilation. Tolerating tube feeds. 1/1: More awake, not following commands. Spontaneously opens eyes. Remains orally intubated on mechanical ventilation. Tolerating tube feeds. Febrile since yesterday. Waterman cultures ordered. Will resume Zosyn IV. 11/28: Patient remain on CPAP throughout most of the day greater than 8 hours. Cultures revealed MRSA in the sputum and gram-negative rods. ID has been consulted. Patient more awake and responsive. 11/29: Patient following commands, tolerated CPAP trials for approximately 2 hours. 11/30: Patient tolerating CPAP trials greater than 8 hours, plan to continue CPAP trials throughout the evening. Objective Vital Signs Date Time Temp Pulse Resp B/P (MAP) Pulse Ox O2 Delivery O2 Flow Rate FiO2 11/30/17 15:32 95 30 11/30/17 14:00 98 24 121/73 (89) 11/30/17 12:00 99.0 Intake and Output 11/30/17 11/30/17 12/01/17 08:00 16:00 00:00 Intake Total 1334 ml 715 ml Output Total 1000 ml Balance 334 ml 715 ml Result Diagram: 11/30/17 0650 11/30/17 [address] Angiography 11/19/17 1233 Signed Impressions: Service Date/Time: Sunday, November 19, 2017 22:45 - CONCLUSION: 1. Pulmonary emboli identified bilaterally in segmental and subsegmental branches. 2. Mild pulmonary parenchymal emphysema. Benjamin Doyle MD Head CT 11/19/17 1042 Signed Impressions: Service Date/Time: Sunday, November 19, 2017 11:53 - CONCLUSION: Negative for acute process. Fidel Butler MD FACR Chest X-Ray 11/19/17 1042 Signed Impressions: Service Date/Time: Sunday, November 19, 2017 10:52 - CONCLUSION: Support apparatus in good position. Fidel Butler MD FACR Objective Remarks GEN: Chronically ill appearing male patient, currently intubated and sedated HEAD, EYES, EARS, NOSE, THROAT: Normocephalic and atraumatic. Pupils equal, round and reactive to light and accommodation. Conjunctivae are pink. Nonicteric sclerae. Oral mucosa within normal limits. NECK: The neck is supple. No jugular venous distention. Trachea in the midline. Orally intubated. CARDIOVASCULAR: Regular rate and rhythm. PULMONARY: Orally intubated on mechanical ventilation. full mechanical support. ABDOMEN: The abdomen is soft, nontender and no distention. EXTREMITIES: No cyanosis, clubbing or edema. NEUROLOGIC: Drowsy, arousable, not following commands, has spontaneous eye opening, moves both upper extremities, Intubated and sedated, pupils bilaterally constricted reacting actively to light. A/P Assessment and Plan 57yM remains encephalopathic with nonconvulsive status and bilateral PEs. now clinically starting to improve from a seizure standpoint. will attempt to wean sedation. Continue CPAP trials IMPRESSION: 1. Acute hypoxic respiratory failure on mechanical ventilation. 2. Encephalopathy. 3. Bilateral pulmonary embolism 4. DVT 5. COPD. 6. History of Hodgkin's lymphoma. 7. History of benign prostate hypertrophy. 8. Sepsis, suspected pneumonia 9. Nonconvulsive seizures on EEG- improving. RECOMMENDATIONS: 1. wean versed infusion dc'd. Propofol. goal RASS -2. Daily sedation vacations. 2. CT scan of the brain in the emergency department negative for acute process and urine drug screen positive for benzodiazepines. MRI brain unremarkable 3. Daily spontaneous breathing trials 4. Vent bundle, bronchodilators as needed 5. Anticonvulsants per neurology. On Cerebyx/Keppra/phenobarbital. 6. CT chest positive for bilateral PE 7. Lovenox 60 mg per KG every 12 hourly for full anticoagulation on 11/20 8. Monitor heart rate and blood pressure closely and maintain MAP greater than 65 mmHg. 9. Monitor renal function, intakes and outputs and electrolyte replacement as needed. 10. Continue with empiric antibiotics for now. Patient had completed Zosyn on 11/25 however now has fevers again. Pancultures ordered on 11/27, positive for MRSA, and gram-negative rods. / ID following-antibiotic management per ID 11. BCx NGTD. Nasal washing is negative for influenza. 12. .Monitor CBC 13. Continue with Pepcid q. 12h for GI prophylaxis. 14. Tolerating tube feeds 15. Place on sliding scale insulin with Accu-Chek for glycemic control. 16. GI prophylaxis with Pepcid and DVT prophylaxis with SCDs. Continue therapuetic anticoagulation with Lovenox Dispo: Level 3 follow up Physician Leila Corral MD Nov 30, 2017 16:53
[2017-11-30] MEDS: VANCOMYCIN 1,000 MG/NS 250 ML IV SCH ×2 (23:59)
[2017-12-01] VITALS (38 sets, daily range): BP systolic 88–124; BP diastolic 52–80; PULSE 86–117; RESP 24–42; TEMP 98.5–101.7; O2SAT 90–100
[2017-12-01] MEDS: INSULIN NovoLIN REGULAR SUPPLEMENTAL SCALE SQ SCH ×6 (01:00→19:44)
[2017-12-01] MEDS: PIPERACIL-TAZO 4.5 GM PREMIX 100 ML IV SCH ×2 (01:54→07:24)
[2017-12-01] MEDS: FAMOTIDINE 20 MG/2 ML VIAL IV PUSH SCH ×2 (01:54→14:41)
[2017-12-01] MEDS: PROPOFOL 1000 MG/100 ML INJ 100 ML IV PRN ×3 (03:19→12:04)
[2017-12-01] MEDS: CHLORHEXIDINE GLUCONATE 2 % 1 PACK (2 CLOTHS) TOP SCH (04:00)
[2017-12-01] MEDS: oxyCODONE HCL ORAL CONC 5 MG/0.25 ML SYRINGE PO SCH ×4 (04:22→15:00)
[2017-12-01 05:35] LABS: HEMATOCRIT 31.2 % (39.0-51.0); HEMOGLOBIN 10.5 GM/DL (13.0-17.0); MEAN CELL VOLUME 93.4 FL (80.0-100.0); MEAN CORPUSCULAR HEMOGLOBIN 31.3 PG (27.0-34.0); MEAN CORPUSCULAR HGB CONC 33.5 % (32.0-36.0); MEAN PLATELET VOLUME 9.3 FL (7.0-11.0); PLATELET COUNT 322 TH/MM3 (150-450); RED BLOOD COUNT 3.34 MIL/MM3 (4.50-5.90); RED CELL DISTRIBUTION WIDTH 14.6 % (11.6-17.2); WHITE BLOOD COUNT 21.4 TH/MM3 (4.0-11.0)
[2017-12-01 05:50] LABS: BICARBONATE 31.6 MEQ/L (21.0-32.0); CALCIUM 8.5 MG/DL (8.5-10.1); CREATININE 1.25 MG/DL (0.60-1.30)
--- NOTE | 2017-12-01 06:12 | RADRPT ---
EXAM DATE/TIME: 12/01/2017 05:16 [place] COMPARISON: CHEST SINGLE AP, November 27, 2017, 12:24. INDICATIONS : Evaluate for pneumonia, Respiratory distress MEDICAL HISTORY : Lymphoma. Deep venous thrombosis. SURGICAL HISTORY : None. ENCOUNTER: Subsequent ACUITY: 3 days PAIN SCORE: Non-responsive. LOCATION: Bilateral chest FINDINGS: 2 AP views of the chest. Endotracheal tube and nasogastric tube remain in place. Lungs are clear. No evidence of pleural effusion or pneumothorax. Cardiomediastinal silhouette within normal limits. CONCLUSION: No acute cardiopulmonary disease identified. Benjamin Doyle MD on December 01, 2017 at 6:09 Board Certified Radiologist. This report was verified electronically.
[2017-12-01] MEDS: RESP: ALBUTEROL 2.5 MG/IPRATROPIUM 0.5 MG NEB (PRN) INH ×2 (07:55→15:43)
[2017-12-01] MEDS: DOCUSATE SODIUM 50 MG/SENNA 8.6 MG TAB PO SCH ×2 (08:51→19:37)
[2017-12-01] MEDS: PHENobarbital SOD 130 MG/ML VIAL IV SCH ×3 (08:51→18:09)
[2017-12-01] MEDS: FOSPHENYTOIN SODIUM 100 MG PE/2 ML VIAL IV SCH ×2 (08:51→19:37)
[2017-12-01] MEDS: levETIRAcetam INJ 100 ML IV SCH ×2 (08:51→19:37)
[2017-12-01] MEDS: ENOXAPARIN SODIUM 60 MG/0.6 ML SYRINGE SQ SCH ×2 (08:52→21:17)
[2017-12-01] MEDS: ACETAMINOPHEN 650 MG/20.3 ML UDC PO PRN (10:27)
[2017-12-01] MEDS: VANCOMYCIN 1,000 MG/NS 250 ML IV SCH ×4 (12:05→23:44)
--- NOTE | 2017-12-01 14:02 | HHI.IDPN ---
Note Infectious Disease Note Patient on the vent. CPAP. Awakens easily. No distress. temp spike this am. WBC higher. 57-year-old white male who was brought to the emergency department in respiratory distress. The patient's mother is at bedside. The mom reports that the patient was doing well on November 19. He went to bed after he was doing activities such as using his computer. The mom found him the next day in bed unresponsive and called [id number]. The patient was brought to emergency department and he was subsequently intubated. ALLERGIES Medical records report an allergy to VANCOMYCIN. The patient has not had any reaction from the Vancomycin given. PAST MEDICAL HISTORY 1. COPD 2. Hodgkin's Lymphoma 3. Benign prostatic hypertrophy 4. Diabetes mellitus 5. Left eye surgery secondary to trauma ANTIBIOTICS 1. Vancomycin 2. Piperacillin/Tazobactam Current Medications Medications (Trade) Dose Ordered Sig/Osbaldo Route PRN Reason Start Time Stop Time Status Last Admin Dose Admin Propofol 100 ml @ 1.95 mls/hr TITRATE PRN IV SEDATION 11/19/17 11:00 12/01/17 12:04 Famotidine (Pepcid Inj) 20 mg Q12H IV PUSH 11/19/17 13:00 12/01/17 01:54 Albuterol/ Ipratropium (Duoneb Neb) 1 ampule Q2HR NEB PRN INH WHEEZING 11/19/17 12:45 12/01/17 07:55 Miscellaneous Information 1 Q361D XX 11/19/17 12:45 Chlorhexidine Gluconate (Chlorhexidine 2% Cloth) Taper DAILY@04 TOP 11/20/17 04:00 11/16/18 03:59 12/01/17 04:00 Chlorhexidine Gluconate (Chlorhexidine 2% Cloth) 3 pack UNSCH PRN TOP HYGIENIC CARE 11/19/17 12:45 Senna/Docusate Sodium (Cassandra-Colace) 1 tab BID PO 11/19/17 13:00 11/29/17 08:51 Magnesium Hydroxide (Milk Of Magnesia Liq) 30 ml Q12H PRN PO Mild constipation 11/19/17 12:45 11/28/17 10:53 Sennosides (Senokot) 17.2 mg Q12H PRN PO Moderate constipation 11/19/17 12:45 11/28/17 10:54 Bisacodyl (Dulcolax Supp) 10 mg DAILY PRN RECTAL SEVERE CONSITIPATION 11/19/17 12:45 Lactulose (Lactulose Liq) 30 ml DAILY PRN PO SEVERE CONSITIPATION 11/19/17 12:45 11/28/17 07:46 Dextrose (D50w (Vial) Inj) 50 ml UNSCH PRN IV PUSH HYPOGLYCEMIA-SEE COMMENTS 11/19/17 12:45 Glucagon (Glucagon Inj) 1 mg UNSCH PRN OTHER HYPOGLYCEMIA-SEE COMMENTS 11/19/17 12:45 Insulin Human Regular (NovoLIN R SUPPLEMENTAL SCALE) 1 Q4H SQ 11/19/17 13:00 12/01/17 10:32 Lorazepam (Ativan Inj) 1 mg Q4H PRN IV PUSH seizures 11/19/17 16:00 11/23/17 15:04 Fosphenytoin Sodium (Cerebyx Inj) 200 mgpe Q12HR IV 11/20/17 09:00 12/01/17 08:51 Enoxaparin Sodium (Lovenox Inj) 60 mg Q12H SQ 11/20/17 10:00 12/01/17 08:52 Phenobarbital Sodium (Luminal Inj) 90 mg TID IV 11/20/17 13:00 12/01/17 08:51 Levetriacetam 100 ml @ 420 mls/hr Q12HR IV 11/22/17 09:00 12/01/17 08:51 Oxycodone HCl (Roxicodone Intensol Liq) 10 mg Q4H PO 11/24/17 15:00 12/01/17 10:32 Piperacillin Sod/ Tazobactam Sod 100 ml @ 200 mls/hr Q6H IV 11/27/17 13:00 12/01/17 07:24 Acetaminophen (Tylenol 650 Mg/ 20 ml Liq) 650 mg Q4H PRN PO TEMP >101 11/27/17 20:45 12/01/17 10:27 Pharmacy Profile Note 0 ml @ 0 mls/hr UNSCH OTHER 11/29/17 11:45 Vancomycin HCl 1000 mg/Sodium Chloride 250 ml @ 250 mls/hr Q12H IV 12/01/17 00:00 12/01/17 12:05 Miscellaneous Information SPECIFIC LAB TO BE DRAWN:VANCOMYCIN TROUGH DATE TO... ONCE ONCE .XX 12/02/17 11:45 12/02/17 11:46 OBJECTIVE: Vital Signs Date Time Temp Pulse Resp B/P (MAP) Pulse Ox O2 Delivery O2 Flow Rate FiO2 12/01/17 11:39 93 40 12/01/17 07:58 100 30 12/01/17 06:00 89 12/01/17 04:03 97 30 12/01/17 04:00 97 12/01/17 04:00 30 12/01/17 04:00 98.5 97 24 106/61 (76) 95 12/01/17 02:00 104 12/01/17 00:57 96 30 12/01/17 00:00 88 12/01/17 00:00 99.1 88 24 98/61 (73) 99 12/01/17 00:00 30 11/30/17 22:00 108 11/30/17 20:00 101 11/30/17 20:00 99.1 101 22 111/72 (85) 96 11/30/17 20:00 30 11/30/17 19:42 96 30 11/30/17 18:00 100 11/30/17 17:00 96 11/30/17 17:00 96 25 113/65 (81) 93 11/30/17 16:30 96 11/30/17 16:30 96 31 103/63 (76) 92 11/30/17 16:00 98.4 92 26 98/61 (73) 94 11/30/17 16:00 30 11/30/17 16:00 92 11/30/17 15:32 95 30 11/30/17 15:30 97 30 98/61 (73) 95 11/30/17 15:30 97 11/30/17 15:00 97 24 113/73 (86) 99 11/30/17 15:00 97 11/30/17 14:00 98 24 121/73 (89) 98 11/30/17 14:00 98 Laboratory Tests Test 11/30/17 06:50 12/01/17 04:41 White Blood Count 26.6 TH/MM3 21.4 TH/MM3 Red Blood Count 3.38 MIL/MM3 3.34 MIL/MM3 Hemoglobin 10.6 GM/DL 10.5 GM/DL Hematocrit 31.3 % 31.2 % Mean Corpuscular Volume 92.4 FL 93.4 FL Mean Corpuscular Hemoglobin 31.3 PG 31.3 PG Mean Corpuscular Hemoglobin Concent 33.9 % 33.5 % Red Cell Distribution Width 14.5 % 14.6 % Platelet Count 308 TH/MM3 322 TH/MM3 Mean Platelet Volume 9.7 FL 9.3 FL Laboratory Tests Test 11/30/17 05:45 12/01/17 04:41 Blood Urea Nitrogen 20 MG/DL 26 MG/DL Creatinine 0.84 MG/DL 1.25 MG/DL Random Glucose 134 MG/DL 136 MG/DL Calcium Level 8.5 MG/DL 8.5 MG/DL Sodium Level 140 MEQ/L 144 MEQ/L Potassium Level 3.4 MEQ/L 3.6 MEQ/L Chloride Level 102 MEQ/L 105 MEQ/L Carbon Dioxide Level 30.6 MEQ/L 31.6 MEQ/L Anion Gap 7 MEQ/L 7 MEQ/L Estimat Glomerular Filtration Rate 94 ML/MIN 59 ML/MIN Microbiology Date/Time Source Procedure Growth Status 11/27/17 19:17 Blood Peripheral Aerobic Blood Culture - Preliminary NO GROWTH IN 2 DAYS Resulted 11/27/17 19:17 Blood Peripheral Anaerobic Blood Culture - Preliminary NO GROWTH IN 2 DAYS Resulted 11/27/17 19:12 Blood Peripheral Aerobic Blood Culture - Preliminary NO GROWTH IN 2 DAYS Resulted 11/27/17 19:12 Blood Peripheral Anaerobic Blood Culture - Preliminary NO GROWTH IN 2 DAYS Resulted 11/27/17 13:00 Sputum Endotracheal Gram Stain - Final Resulted 11/27/17 13:00 Sputum Culture - Preliminary S. Aureus Mrsa Acinetobacter Baumannii/Haemol Resulted PHYSICAL EXAM GENERAL: Easily awakened on the vent. HEENT: No icterus. Oropharynx: moist mucosa. NECK: Supple. No adenopathy. LUNGS: Basilar rhonchi. HEART: Regular S1S2. No murmurs, rubs or gallops. ABDOMEN: Distended, bowel sounds diminished, no tenderness. EXTREMITIES: No clubbing or cyanosis or edema. SKIN: No rash. NEUROLOGIC: Unable to fully assess. PSYCH: Unable to fully assess. IMPRESSION 1. Pneumonia due to MRSA and Acinetobacter. This is likely secondary to aspiration in a patient who was found unresponsive. 2. Acute respiratory failure due to hypoxemia. 3. Pulmonary embolism. 4. Fever. 5. Leukocytosis, WBC still elevated. RECOMMENDATIONS 1. Cefepime 2 gms IV Q 12H. 2. Continue Vancomycin. 3. Follow clinical response. 4. Monitor temp and WBC. 5. Consider repeating cultures if temp spike again. Shaggy Murry MD Dec 01, 2017 14:02
[2017-12-01] MEDS: CEFEPIME INJ 2,000 MG in SODIUM CHLORIDE 0.9% INJ 100 ML IV SCH (14:42)
--- NOTE | 2017-12-01 18:07 | HHI.CCPN ---
Subjective Remarks/Hospital Course 11/19: The patient is a 57-year-old male with past medical history of Hodgkin's lymphoma, benign prostate hypertrophy, COPD who presented to the [facility] Emergency Department via EMS after he was found by his mother on the ground at his apartment unresponsive. He given Narcan times four doses by EMS without any significant improvement. On arrival to the emergency department, the patient noted to be in some respiratory distress associated with coarse wheezing. The patient apparently had not been seen for a day. In the emergency department, he was intubated with a etomidate and vecuronium and placed on full mechanical ventilation. ABG post-intubation showed a pH of 7.39, CO2 43, pAO2 465, bicarb 25, sats 98% on assist control ventilation with respiratory rate 16, tidal volume 500, PEEP of 5 and FIO2 of 100%. There is no evidence of any fever; however, the patient was noted to have leukocytosis with WBC of 19.0. Lactic acid measured at 1.9. A CT scan of the brain in the emergency department was negative for acute process and chest x-ray post-intubation showed no obvious infiltrates or effusions. He was placed on Diprivan for sedation and given one dose of Zosyn along with one liter of normal saline. His current blood pressure is 109/73 with a pulse of 59, saturation 99%. Most of the history was obtained from reviewing medical records. 11/20: Sedated with Versed, orally intubated on mechanical ventilation. CTA chest done last night revealed bilateral pulmonary emboli. Being started on Lovenox for full anticoagulation. 11/21: Remains sedated, orally intubated on mechanical ventilation. On anticoagulation with Lovenox. 11/22: Remains sedated with Versed, orally intubated on mechanical ventilation. On anticoagulation with Lovenox for bilateral PE. 11/23: EEG yesterday with persistent evidence of BiPLEDS. still on versed, keppra, phenobarb, fosphenytoin. 11/24: EEG much improved without ictal activity. per neurology, ok to wean to extubate and lighten deep sedation. 11/25: Remains sedated, orally intubated on mechanical ventilation. Tolerating tube feeds. 11/26: Remains encephalopathic, sedated, orally intubated on mechanical ventilation. Tolerating tube feeds. 1/1: More awake, not following commands. Spontaneously opens eyes. Remains orally intubated on mechanical ventilation. Tolerating tube feeds. Febrile since yesterday. Waterman cultures ordered. Will resume Zosyn IV. 11/28: Patient remain on CPAP throughout most of the day greater than 8 hours. Cultures revealed MRSA in the sputum and gram-negative rods. ID has been consulted. Patient more awake and responsive. 11/29: Patient following commands, tolerated CPAP trials for approximately 2 hours. 11/30: Patient tolerating CPAP trials greater than 8 hours, plan to continue CPAP trials throughout the evening. 12/01: The patient continue CPAP trials throughout the night, SBT parameters performed. Patient was extubated this afternoon continues on BiPAP 15/5 35%, O2 sat duration 98-99% Objective Vital Signs Date Time Temp Pulse Resp B/P (MAP) Pulse Ox O2 Delivery O2 Flow Rate FiO2 12/01/17 16:30 105 12/01/17 16:00 98.8 35 120/76 (91) 98 12/01/17 15:41 35 12/01/17 15:41 Mask 6 Intake and Output 12/01/17 12/01/17 12/02/17 08:00 16:00 00:00 Intake Total 931 ml 450 ml Output Total 1250 ml Balance -319 ml 450 ml Result Diagram: 12/01/17 0441 12/01/17 0441 Other Results Laboratory Tests Test 12/01/17 04:35 Blood Gas Puncture Site RT RADIAL Blood Gas Patient Temperature 98.6 Blood Gas HCO3 31 mmol/L (22-26) Blood Gas Base Excess 6.7 mmol/L (-2-2) Blood Gas Oxygen Saturation 89 % (90-100) Arterial Blood pH 7.42 (7.380-7.420) Arterial Blood Partial Pressure CO2 49 mmHg (38-42) Arterial Blood Partial Pressure O2 60 mmHg (61-120) Arterial Blood Oxygen Content 12.8 Vol % (12.0-20.0) Arterial Blood Carboxyhemoglobin 1.5 % (0-4) Arterial Blood Methemoglobin 1.1 % (0-2) Blood Gas Hemoglobin 10.2 G/DL (12.0-16.0) Oxygen Delivery Device VENTILATOR Blood Gas Ventilator Setting CPAP EPAP 5/ PS 10 Blood Gas Inspired Oxygen 30 % Imaging Last Impressions CT Angiography 11/19/17 7803 Signed Impressions: Service Date/Time: Sunday, November 19, 2017 22:45 - CONCLUSION: 1. Pulmonary emboli identified bilaterally in segmental and subsegmental branches. 2. Mild pulmonary parenchymal emphysema. Benjamin Doyle MD Head CT 11/19/17 1042 Signed Impressions: Service Date/Time: Sunday, November 19, 2017 11:53 - CONCLUSION: Negative for acute process. Fidel Butler MD FACR Chest X-Ray 11/19/17 1042 Signed Impressions: Service Date/Time: Sunday, November 19, 2017 10:52 - CONCLUSION: Support apparatus in good position. Fidel Butler MD FACR Objective Remarks GEN: Chronically ill appearing male patient, currently intubated and sedated HEAD, EYES, EARS, NOSE, THROAT: Normocephalic and atraumatic. Pupils equal, round and reactive to light and accommodation. Conjunctivae are pink. Nonicteric sclerae. Oral mucosa within normal limits. NECK: The neck is supple. No jugular venous distention. Trachea in the midline. Orally intubated. CARDIOVASCULAR: Regular rate and rhythm. PULMONARY: Orally intubated on mechanical ventilation. full mechanical support. ABDOMEN: The abdomen is soft, nontender and no distention. EXTREMITIES: No cyanosis, clubbing or edema. NEUROLOGIC: Drowsy, arousable, not following commands, has spontaneous eye opening, moves both upper extremities, Intubated and sedated, pupils bilaterally constricted reacting actively to light. A/P Assessment and Plan 57yM remains encephalopathic with nonconvulsive status and bilateral PEs. now clinically starting to improve from a seizure standpoint. will attempt to wean sedation. Continue CPAP trials IMPRESSION: 1. Acute hypoxic respiratory failure on mechanical ventilation. 2. Encephalopathy. 3. Bilateral pulmonary embolism 4. DVT 5. COPD. 6. History of Hodgkin's lymphoma. 7. History of benign prostate hypertrophy. 8. Sepsis, suspected pneumonia 9. Nonconvulsive seizures on EEG- improving. RECOMMENDATIONS: 1. wean versed infusion dc'd. Propofol. goal RASS -2. Daily sedation vacations. 2. CT scan of the brain in the emergency department negative for acute process and urine drug screen positive for benzodiazepines. MRI brain unremarkable 3. Daily spontaneous breathing trials 4. Vent bundle, bronchodilators as needed 5. Anticonvulsants per neurology. On Cerebyx/Keppra/phenobarbital. 6. CT chest positive for bilateral PE 7. Lovenox 60 mg per KG every 12 hourly for full therapeutic anticoagulation on 11/20 8. Monitor heart rate and blood pressure closely and maintain MAP greater than 65 mmHg. 9. Monitor renal function, intakes and outputs and electrolyte replacement as needed. 10. Continue with empiric antibiotics for now. Patient had completed Zosyn on 11/25 however now has fevers again. Pancultures ordered on 11/27, positive for MRSA, and gram-negative rods. 11/29 ID following-antibiotic management per ID, will continue to monitor CBC 11. BCx NGTD. Nasal washing is negative for influenza. 12. .Monitor CBC 13. Continue with Pepcid q. 12h for GI prophylaxis. 14. Tolerating tube feeds 15. Place on sliding scale insulin with Accu-Chek for glycemic control. 16. GI prophylaxis with Pepcid and DVT prophylaxis with SCDs. Continue therapuetic anticoagulation with Lovenox 17. SBT parameters- RSBI 71, FVC 750, positive cuff leak, NIF -45, RR 28- patient was extubated onto BiPAP 15/5.35%, and to you to closely monitor Dispo: Level 3 follow up 12/01 Extensive discussion with mother and friend at patient's bedside providing update on medical status plan for possible extubation. All questions answered. Physician Leila Corral MD Dec 01, 2017 18:07
[2017-12-01] MEDS ORDERED: RESP: ALBUTEROL 2.5 MG/3 ML NEB (PRN) NEB (20:30)
[2017-12-01] MEDS: RESP: BUDESONIDE 0.5 MG/2 ML NEB NEB SCH (20:44)
[2017-12-01] MEDS: RESP: ALBUTEROL 2.5 MG/IPRATROPIUM 0.5 MG NEB (SCH) NEB (20:45)
[2017-12-02] VITALS (17 sets, daily range): BP systolic 92–136; BP diastolic 57–82; PULSE 81–117; RESP 24–39; TEMP 98.1–99.2; O2SAT 96–100
[2017-12-02] MEDS: FAMOTIDINE 20 MG/2 ML VIAL IV PUSH SCH ×2 (00:28→13:09)
[2017-12-02] MEDS: INSULIN NovoLIN REGULAR SUPPLEMENTAL SCALE SQ SCH ×6 (00:32→21:00)
[2017-12-02] MEDS: CEFEPIME INJ 2,000 MG in SODIUM CHLORIDE 0.9% INJ 100 ML IV SCH ×2 (02:45→14:37)
[2017-12-02] MEDS: CHLORHEXIDINE GLUCONATE 2 % 1 PACK (2 CLOTHS) TOP SCH (02:56)
[2017-12-02] MEDS: RESP: ALBUTEROL 2.5 MG/IPRATROPIUM 0.5 MG NEB (SCH) NEB ×4 (04:12→20:32)
[2017-12-02 07:19] LABS: HEMATOCRIT 32.1 % (39.0-51.0); HEMOGLOBIN 10.6 GM/DL (13.0-17.0); MEAN CELL VOLUME 93.5 FL (80.0-100.0); MEAN CORPUSCULAR HEMOGLOBIN 30.8 PG (27.0-34.0); PLATELET COUNT 340 TH/MM3 (150-450); RED BLOOD COUNT 3.43 MIL/MM3 (4.50-5.90); RED CELL DISTRIBUTION WIDTH 14.7 % (11.6-17.2); WHITE BLOOD COUNT 21.5 TH/MM3 (4.0-11.0)
[2017-12-02 07:57] LABS: BICARBONATE 29.6 MEQ/L (21.0-32.0); CALCIUM 8.9 MG/DL (8.5-10.1); CREATININE 1.18 MG/DL (0.60-1.30); MAGNESIUM 2.6 MG/DL (1.5-2.5)
[2017-12-02] MEDS: RESP: BUDESONIDE 0.5 MG/2 ML NEB NEB SCH ×2 (08:27→20:32)
[2017-12-02] MEDS: DOCUSATE SODIUM 50 MG/SENNA 8.6 MG TAB PO SCH ×2 (09:00→21:00)
[2017-12-02] MEDS: ENOXAPARIN SODIUM 60 MG/0.6 ML SYRINGE SQ SCH ×2 (09:24→21:53)
[2017-12-02] MEDS: PHENobarbital SOD 130 MG/ML VIAL IV SCH ×2 (09:25→13:10)
[2017-12-02] MEDS: levETIRAcetam INJ 100 ML IV SCH (09:26)
[2017-12-02] MEDS: FOSPHENYTOIN SODIUM 100 MG PE/2 ML VIAL IV SCH ×2 (09:45→21:51)
[2017-12-02] MEDS ORDERED: PHARMACY ORDERED LAB ONE (11:45)
--- NOTE | 2017-12-02 12:03 | HHI.IDPN ---
Note Infectious Disease Note Patient is post extubation. On nasal canula. Alert and responding. Want's ice tea. "feel okay" No distress. Afebrile. 57-year-old white male who was brought to the emergency department in respiratory distress. The patient's mother is at bedside. The mom reports that the patient was doing well on November 19. He went to bed after he was doing activities such as using his computer. The mom found him the next day in bed unresponsive and called [id number]. The patient was brought to emergency department and he was subsequently intubated. ALLERGIES Medical records report an allergy to VANCOMYCIN. The patient has not had any reaction from the Vancomycin given. PAST MEDICAL HISTORY 1. COPD 2. Hodgkin's Lymphoma 3. Benign prostatic hypertrophy 4. Diabetes mellitus 5. Left eye surgery secondary to trauma ANTIBIOTICS 1. Vancomycin 2. Cefepime. OBJECTIVE: Vital Signs Date Time Temp Pulse Resp B/P (MAP) Pulse Ox O2 Delivery O2 Flow Rate FiO2 12/02/17 08:30 99 High Flow Nasal Cannula 35.00 35 12/02/17 06:00 117 12/02/17 04:00 112 12/02/17 04:00 98.6 112 39 136/82 (100) 100 12/02/17 02:00 109 12/02/17 02:00 109 12/02/17 01:30 112 12/02/17 01:00 111 12/02/17 00:30 109 12/02/17 00:00 108 12/02/17 00:00 108 12/02/17 00:00 99.2 108 32 121/74 (90) 96 12/01/17 22:00 117 12/01/17 21:02 97 High Flow Nasal Cannula 30.00 28 12/01/17 20:00 110 12/01/17 20:00 99.5 12/01/17 20:00 99.5 110 33 124/76 (92) 100 12/01/17 19:00 106 12/01/17 18:30 108 12/01/17 18:00 107 12/01/17 17:30 111 12/01/17 17:00 97 12/01/17 16:30 105 12/01/17 16:00 112 12/01/17 16:00 98.8 112 35 120/76 (91) 98 12/01/17 15:41 100 35 12/01/17 15:41 99 Mask 6 12/01/17 15:30 107 12/01/17 15:30 107 32 114/69 (84) 98 12/01/17 15:00 95 28 109/67 (81) 100 12/01/17 15:00 95 12/01/17 14:30 105 12/01/17 14:30 105 39 110/65 (80) 92 12/01/17 14:00 101 12/01/17 14:00 101 42 112/80 (91) 97 12/01/17 13:30 89 12/01/17 13:30 89 25 108/71 (83) 100 12/01/17 13:21 86 12/01/17 13:00 86 28 103/66 (78) 100 12/01/17 13:00 90 12/01/17 12:30 91 12/01/17 12:30 91 27 99/64 (76) 96 Laboratory Tests Test 12/01/17 04:41 12/02/17 06:50 White Blood Count 21.4 TH/MM3 21.5 TH/MM3 Red Blood Count 3.34 MIL/MM3 3.43 MIL/MM3 Hemoglobin 10.5 GM/DL 10.6 GM/DL Hematocrit 31.2 % 32.1 % Mean Corpuscular Volume 93.4 FL 93.5 FL Mean Corpuscular Hemoglobin 31.3 PG 30.8 PG Mean Corpuscular Hemoglobin Concent 33.5 % 33.0 % Red Cell Distribution Width 14.6 % 14.7 % Platelet Count 322 TH/MM3 340 TH/MM3 Mean Platelet Volume 9.3 FL 9.0 FL Laboratory Tests Test 12/01/17 04:41 12/02/17 06:50 Blood Urea Nitrogen 26 MG/DL 32 MG/DL Creatinine 1.25 MG/DL 1.18 MG/DL Random Glucose 136 MG/DL 114 MG/DL Calcium Level 8.5 MG/DL 8.9 MG/DL Sodium Level 144 MEQ/L 148 MEQ/L Potassium Level 3.6 MEQ/L 4.1 MEQ/L Chloride Level 105 MEQ/L 109 MEQ/L Carbon Dioxide Level 31.6 MEQ/L 29.6 MEQ/L Anion Gap 7 MEQ/L 9 MEQ/L Estimat Glomerular Filtration Rate 59 ML/MIN 63 ML/MIN Phosphorus Level 4.0 MG/DL Magnesium Level 2.6 MG/DL Microbiology Date/Time Source Procedure Growth Status 11/27/17 19:17 Blood Peripheral Aerobic Blood Culture - Preliminary NO GROWTH IN 2 DAYS Resulted 11/27/17 19:17 Blood Peripheral Anaerobic Blood Culture - Preliminary NO GROWTH IN 2 DAYS Resulted 11/27/17 19:12 Blood Peripheral Aerobic Blood Culture - Preliminary NO GROWTH IN 2 DAYS Resulted 11/27/17 19:12 Blood Peripheral Anaerobic Blood Culture - Preliminary NO GROWTH IN 2 DAYS Resulted 11/27/17 13:00 Sputum Endotracheal Gram Stain - Final Resulted 11/27/17 13:00 Sputum Culture - Preliminary S. Aureus Mrsa Acinetobacter Baumannii/Haemol Resulted IMAGING: Chest X-Ray 12/01/17 0600 Signed Impressions: Service Date/Time: Friday, December 01, 2017 05:16 - CONCLUSION: No acute cardiopulmonary disease identified. Benjamin Doyle MD Brain MRI 11/21/17 0000 Signed Impressions: Service Date/Time: Tuesday, November 21, 2017 08:59 - CONCLUSION: Normal examination. Marlon Call MD Lower Extremity Ultrasound 11/20/17 0000 Signed Impressions: Service Date/Time: Monday, November 20, 2017 16:24 - CONCLUSION: 1. Extensive deep vein thrombosis of the left lower extremity involving the superficial femoral vein popliteal vein and proximal calf veins. 2. No evidence of lower extremity DVT on the right. Benjamin Doyle MD CT Angiography 11/19/17 1233 Signed Impressions: Service Date/Time: Sunday, November 19, 2017 22:45 - CONCLUSION: 1. Pulmonary emboli identified bilaterally in segmental and subsegmental branches. 2. Mild pulmonary parenchymal emphysema. Benjamin Doyle MD Head CT 11/19/17 1042 Signed Impressions: Service Date/Time: Sunday, November 19, 2017 11:53 - CONCLUSION: Negative for acute process. Fidel Butler MD FACR PHYSICAL EXAM GENERAL: Easily awakened on the vent. HEENT: No icterus. Oropharynx: moist mucosa. NECK: Supple. No adenopathy. LUNGS: Basilar rhonchi. HEART: Regular S1S2. No murmurs, rubs or gallops. ABDOMEN: Distended, bowel sounds diminished, no tenderness. EXTREMITIES: No clubbing or cyanosis or edema. SKIN: No rash. NEUROLOGIC: Non focal. PSYCH: Calm, cooperative. IMPRESSION 1. Pneumonia due to MRSA and Acinetobacter. This is likely secondary to aspiration in a patient who was found unresponsive. 2. Acute respiratory failure due to hypoxemia. 3. Pulmonary embolism. 4. Fever. Temp lower. 5. Leukocytosis, WBC still elevated. RECOMMENDATIONS 1. Continue Cefepime. 2. Continue Vancomycin. 3. Follow clinical response. 4. Monitor temp and WBC. 5. Consider repeating cultures if temp spike again. Shaggy Murry MD Dec 02, 2017 12:03
[2017-12-02] MEDS: VANCOMYCIN 1,000 MG/NS 250 ML IV SCH ×2 (13:11)
--- NOTE | 2017-12-02 17:34 | HHI.CCPN ---
Subjective Remarks/Hospital Course 11/19: The patient is a 57-year-old male with past medical history of Hodgkin's lymphoma, benign prostate hypertrophy, COPD who presented to the [facility] Emergency Department via EMS after he was found by his mother on the ground at his apartment unresponsive. He given Narcan times four doses by EMS without any significant improvement. On arrival to the emergency department, the patient noted to be in some respiratory distress associated with coarse wheezing. The patient apparently had not been seen for a day. In the emergency department, he was intubated with a etomidate and vecuronium and placed on full mechanical ventilation. ABG post-intubation showed a pH of 7.39, CO2 43, pAO2 465, bicarb 25, sats 98% on assist control ventilation with respiratory rate 16, tidal volume 500, PEEP of 5 and FIO2 of 100%. There is no evidence of any fever; however, the patient was noted to have leukocytosis with WBC of 19.0. Lactic acid measured at 1.9. A CT scan of the brain in the emergency department was negative for acute process and chest x-ray post-intubation showed no obvious infiltrates or effusions. He was placed on Diprivan for sedation and given one dose of Zosyn along with one liter of normal saline. His current blood pressure is 109/73 with a pulse of 59, saturation 99%. Most of the history was obtained from reviewing medical records. 11/20: Sedated with Versed, orally intubated on mechanical ventilation. CTA chest done last night revealed bilateral pulmonary emboli. Being started on Lovenox for full anticoagulation. 11/21: Remains sedated, orally intubated on mechanical ventilation. On anticoagulation with Lovenox. 11/22: Remains sedated with Versed, orally intubated on mechanical ventilation. On anticoagulation with Lovenox for bilateral PE. 11/23: EEG yesterday with persistent evidence of BiPLEDS. still on versed, keppra, phenobarb, fosphenytoin. 11/24: EEG much improved without ictal activity. per neurology, ok to wean to extubate and lighten deep sedation. 11/25: Remains sedated, orally intubated on mechanical ventilation. Tolerating tube feeds. 11/26: Remains encephalopathic, sedated, orally intubated on mechanical ventilation. Tolerating tube feeds. 1/1: More awake, not following commands. Spontaneously opens eyes. Remains orally intubated on mechanical ventilation. Tolerating tube feeds. Febrile since yesterday. Waterman cultures ordered. Will resume Zosyn IV. 11/28: Patient remain on CPAP throughout most of the day greater than 8 hours. Cultures revealed MRSA in the sputum and gram-negative rods. ID has been consulted. Patient more awake and responsive. 11/29: Patient following commands, tolerated CPAP trials for approximately 2 hours. 11/30: Patient tolerating CPAP trials greater than 8 hours, plan to continue CPAP trials throughout the evening. 12/01: The patient continue CPAP trials throughout the night, SBT parameters performed. Patient was extubated this afternoon continues on BiPAP 15/5 35%, O2 sat duration 98-99% 12/02: The patient was extubated yesterday, on to BiPAP. Patient continues on high flow nasal cannula at 40% at this time. The formal speech eval was performed ,has been advanced to pured diet. And phenobarbital and Keppra has been converted to by mouth dosing. Objective Vital Signs Date Time Temp Pulse Resp B/P (MAP) Pulse Ox O2 Delivery O2 Flow Rate FiO2 12/02/17 16:00 99.0 95 34 126/75 (92) 98 12/02/17 08:30 High Flow Nasal Cannula 35.00 35 Intake and Output 12/02/17 12/02/17 12/03/17 08:00 16:00 00:00 Intake Total 350 ml Output Total 1350 ml Balance -1000 ml Result Diagram: 12/02/17 0650 12/02/17 0650 Other Results Laboratory Tests Test 12/02/17 01:34 Blood Gas Puncture Site RT RADIAL Blood Gas Patient Temperature 98.6 Blood Gas HCO3 29 mmol/L (22-26) Blood Gas Base Excess 4.3 mmol/L (-2-2) Blood Gas Oxygen Saturation 89 % (90-100) Arterial Blood pH 7.40 (7.380-7.420) Arterial Blood Partial Pressure CO2 48 mmHg (38-42) Arterial Blood Partial Pressure O2 66 mmHg (61-120) Arterial Blood Oxygen Content 13.3 Vol % (12.0-20.0) Arterial Blood Carboxyhemoglobin 1.5 % (0-4) Arterial Blood Methemoglobin 1.0 % (0-2) Blood Gas Hemoglobin 10.6 G/DL (12.0-16.0) Oxygen Delivery Device NASAL CANNULA Blood Gas Liter Flow 10 L/M Imaging Last Impressions CT Angiography 11/19/17 1233 Signed Impressions: Service Date/Time: Sunday, November 19, 2017 22:45 - CONCLUSION: 1. Pulmonary emboli identified bilaterally in segmental and subsegmental branches. 2. Mild pulmonary parenchymal emphysema. Benjamin Doyle MD Head CT 11/19/17 1042 Signed Impressions: Service Date/Time: Sunday, November 19, 2017 11:53 - CONCLUSION: Negative for acute process. Fidel Butler MD FACR Chest X-Ray 11/19/17 1042 Signed Impressions: Service Date/Time: Sunday, November 19, 2017 10:52 - CONCLUSION: Support apparatus in good position. Fidel Butler MD FACR Objective Remarks GEN: Chronically ill appearing male patient, on high flow nasal cannula, still restrained for patient safety, answering questions appropriately HEAD, EYES, EARS, NOSE, THROAT: Normocephalic and atraumatic. Pupils equal, round and reactive to light and accommodation. Conjunctivae are pink. Nonicteric sclerae. Oral mucosa within normal limits. NECK: The neck is supple. No jugular venous distention. Trachea in the midline. CARDIOVASCULAR: Regular rate and rhythm. PULMONARY: Hi Flow nasal cannula at 40% ABDOMEN: The abdomen is soft, nontender and no distention. EXTREMITIES: No cyanosis, clubbing or edema. NEUROLOGIC: GCS 14. Patient pulling at at IV sites , restraints continued for patient safety. Moves extremities 4 A/P Assessment and Plan 57yM remains encephalopathic with nonconvulsive status and bilateral PEs. now clinically starting to improve from a seizure standpoint. will attempt to wean sedation. Continue CPAP trials IMPRESSION: 1. Acute hypoxic respiratory failure on mechanical ventilation. 2. Encephalopathy. 3. Bilateral pulmonary embolism 4. DVT 5. COPD. 6. History of Hodgkin's lymphoma. 7. History of benign prostate hypertrophy. 8. Sepsis, suspected pneumonia 9. Nonconvulsive seizures on EEG- improving. RECOMMENDATIONS: 1. wean versed infusion dc'd. Propofol. goal RASS -2. Daily sedation vacations. 2. CT scan of the brain in the emergency department negative for acute process and urine drug screen positive for benzodiazepines. MRI brain unremarkable 3. Daily spontaneous breathing trials 4. Vent bundle, bronchodilators as needed 5. Anticonvulsants per neurology. On Cerebyx/Keppra/phenobarbital. Heparin phenobarbital have been changed to by mouth dosing 6. CT chest positive for bilateral PE 7. Lovenox 60 mg per KG every 12 hourly for full therapeutic anticoagulation on 11/20 8. Monitor heart rate and blood pressure closely and maintain MAP greater than 65 mmHg. 9. Monitor renal function, intakes and outputs and electrolyte replacement as needed. 10. Continue with empiric antibiotics for now. Patient had completed Zosyn on 11/25 however now has fevers again. Pancultures ordered on 11/27, positive for MRSA, and gram-negative rods. 11/29 ID following-antibiotic management per ID, will continue to monitor CBC 11. BCx NGTD. Nasal washing is negative for influenza. 12. .Monitor CBC 13. Continue with Pepcid q. 12h for GI prophylaxis. Converted to by mouth dosing 14. Regular basic diet-pured with honey thickened liquids 15. Place on sliding scale insulin with Accu-Chek for glycemic control. 16. GI prophylaxis with Pepcid and DVT prophylaxis with SCDs. Continue therapuetic anticoagulation with Lovenox 17. extubated 12/01 onto BiPAP 10/04.35%,12/02 currently on high flow nasal cannula continue to wean Dispo: Level 3 follow up 12/01 Extensive discussion with mother and friend at patient's bedside providing update on medical status plan for possible extubation. All questions answered. Physician Leila Corral MD Dec 02, 2017 17:34
[2017-12-02] MEDS ORDERED: PILL SPLITTER OTHER PRN (18:15)
[2017-12-02] MEDS: FAMOTIDINE 20 MG TAB PO SCH (21:51)
[2017-12-02] MEDS: levETIRAcetam 500 MG TAB PO SCH (21:52)
[2017-12-03] VITALS (22 sets, daily range): BP systolic 112–144; BP diastolic 64–85; PULSE 81–102; RESP 18–40; TEMP 97.6–98.9; O2SAT 94–100
[2017-12-03] MEDS: INSULIN NovoLIN REGULAR SUPPLEMENTAL SCALE SQ SCH ×5 (01:00→20:44)
[2017-12-03] MEDS: CEFEPIME INJ 2,000 MG in SODIUM CHLORIDE 0.9% INJ 100 ML IV SCH ×2 (03:00→13:33)
[2017-12-03] MEDS: RESP: ALBUTEROL 2.5 MG/IPRATROPIUM 0.5 MG NEB (SCH) NEB ×4 (03:44→20:19)
[2017-12-03] MEDS: CHLORHEXIDINE GLUCONATE 2 % 1 PACK (2 CLOTHS) TOP SCH (04:00)
[2017-12-03] MEDS: RESP: BUDESONIDE 0.5 MG/2 ML NEB NEB SCH ×2 (08:08→20:19)
[2017-12-03] MEDS: FOSPHENYTOIN SODIUM 100 MG PE/2 ML VIAL IV SCH ×2 (08:58→20:51)
[2017-12-03] MEDS: levETIRAcetam 500 MG TAB PO SCH ×2 (08:58→20:43)
[2017-12-03] MEDS: ENOXAPARIN SODIUM 60 MG/0.6 ML SYRINGE SQ SCH ×2 (08:58→20:52)
[2017-12-03] MEDS: FAMOTIDINE 20 MG TAB PO SCH ×2 (08:58→20:43)
[2017-12-03] MEDS: DOCUSATE SODIUM 50 MG/SENNA 8.6 MG TAB PO SCH ×2 (08:58→20:44)
[2017-12-03] MEDS: VANCOMYCIN 1,000 MG/NS 250 ML IV SCH ×2 (13:36)
--- NOTE | 2017-12-03 19:32 | HHI.CCPN ---
Subjective Remarks/Hospital Course 11/19: The patient is a 57-year-old male with past medical history of Hodgkin's lymphoma, benign prostate hypertrophy, COPD who presented to the [facility] Emergency Department via EMS after he was found by his mother on the ground at his apartment unresponsive. He given Narcan times four doses by EMS without any significant improvement. On arrival to the emergency department, the patient noted to be in some respiratory distress associated with coarse wheezing. The patient apparently had not been seen for a day. In the emergency department, he was intubated with a etomidate and vecuronium and placed on full mechanical ventilation. ABG post-intubation showed a pH of 7.39, CO2 43, pAO2 465, bicarb 25, sats 98% on assist control ventilation with respiratory rate 16, tidal volume 500, PEEP of 5 and FIO2 of 100%. There is no evidence of any fever; however, the patient was noted to have leukocytosis with WBC of 19.0. Lactic acid measured at 1.9. A CT scan of the brain in the emergency department was negative for acute process and chest x-ray post-intubation showed no obvious infiltrates or effusions. He was placed on Diprivan for sedation and given one dose of Zosyn along with one liter of normal saline. His current blood pressure is 109/73 with a pulse of 59, saturation 99%. Most of the history was obtained from reviewing medical records. 11/20: Sedated with Versed, orally intubated on mechanical ventilation. CTA chest done last night revealed bilateral pulmonary emboli. Being started on Lovenox for full anticoagulation. 11/21: Remains sedated, orally intubated on mechanical ventilation. On anticoagulation with Lovenox. 11/22: Remains sedated with Versed, orally intubated on mechanical ventilation. On anticoagulation with Lovenox for bilateral PE. 11/23: EEG yesterday with persistent evidence of BiPLEDS. still on versed, keppra, phenobarb, fosphenytoin. 11/24: EEG much improved without ictal activity. per neurology, ok to wean to extubate and lighten deep sedation. 11/25: Remains sedated, orally intubated on mechanical ventilation. Tolerating tube feeds. 11/26: Remains encephalopathic, sedated, orally intubated on mechanical ventilation. Tolerating tube feeds. 1/1: More awake, not following commands. Spontaneously opens eyes. Remains orally intubated on mechanical ventilation. Tolerating tube feeds. Febrile since yesterday. Waterman cultures ordered. Will resume Zosyn IV. 2: Patient remain on CPAP throughout most of the day greater than 8 hours. Cultures revealed MRSA in the sputum and gram-negative rods. ID has been consulted. Patient more awake and responsive. 11/29: Patient following commands, tolerated CPAP trials for approximately 2 hours. 11/30: Patient tolerating CPAP trials greater than 8 hours, plan to continue CPAP trials throughout the evening. 12/01: The patient continue CPAP trials throughout the night, SBT parameters performed. Patient was extubated this afternoon continues on BiPAP 15/5 35%, O2 sat duration 98-99% 12/02: The patient was extubated yesterday, on to BiPAP. Patient continues on high flow nasal cannula at 40% at this time. The formal speech eval was performed ,has been advanced to pured diet. And phenobarbital and Keppra has been converted to by mouth dosing. 12/03: The patient remains on high flow nasal cannula, has been weaned down to 35% . Patient's tolerating diet the patient continues to be confused requiring wrist restraints for patient safety. Objective Vital Signs Date Time Temp Pulse Resp B/P (MAP) Pulse Ox O2 Delivery O2 Flow Rate FiO2 12/03/17 18:28 29 12/03/17 18:00 91 124/70 (88) 100 12/03/17 16:00 98.0 12/03/17 08:09 High Flow Nasal Cannula 30.00 35 Intake and Output 12/03/17 12/03/17 12/04/17 08:00 16:00 00:00 Intake Total 1193 ml 375 ml 500 ml Output Total 450 ml 900 ml Balance 743 ml 375 ml -400 ml Result Diagram: 12/02/17 0650 12/02/17 [address] Angiography 11/19/17 1233 Signed Impressions: Service Date/Time: Sunday, November 19, 2017 22:45 - CONCLUSION: 1. Pulmonary emboli identified bilaterally in segmental and subsegmental branches. 2. Mild pulmonary parenchymal emphysema. Benjamin Doyle MD Head CT 11/19/17 1042 Signed Impressions: Service Date/Time: Sunday, November 19, 2017 11:53 - CONCLUSION: Negative for acute process. Fidel Butler MD FACR Chest X-Ray 11/19/17 1042 Signed Impressions: Service Date/Time: Sunday, November 19, 2017 10:52 - CONCLUSION: Support apparatus in good position. Fidel Butler MD FACR Objective Remarks GEN: Chronically ill appearing male patient, on high flow nasal cannula, still restrained for patient safety, answering questions appropriately intermittently HEAD, EYES, EARS, NOSE, THROAT: Normocephalic and atraumatic. Pupils equal, round and reactive to light and accommodation. Conjunctivae are pink. Nonicteric sclerae. Oral mucosa within normal limits. NECK: The neck is supple. No jugular venous distention. Trachea in the midline. CARDIOVASCULAR: Regular rate and rhythm. PULMONARY: Hi Flow nasal cannula at 40% ABDOMEN: The abdomen is soft, nontender and no distention. EXTREMITIES: No cyanosis, clubbing or edema. NEUROLOGIC: GCS 14. Patient pulling at at IV sites , restraints continued for patient safety. Moves extremities 4 A/P Assessment and Plan 57yM remains encephalopathic with nonconvulsive status and bilateral PEs. now clinically starting to improve from a seizure standpoint. will attempt to wean sedation. Continue CPAP trials IMPRESSION: 1. Acute hypoxic respiratory failure on mechanical ventilation. 2. Encephalopathy. 3. Bilateral pulmonary embolism 4. DVT 5. COPD. 6. History of Hodgkin's lymphoma. 7. History of benign prostate hypertrophy. 8. Sepsis, suspected pneumonia 9. Nonconvulsive seizures on EEG- improving. RECOMMENDATIONS: 1. wean versed infusion dc'd. Propofol. goal RASS -2. Daily sedation vacations. 2. CT scan of the brain in the emergency department negative for acute process and urine drug screen positive for benzodiazepines. MRI brain unremarkable 3. Daily spontaneous breathing trials 4. Vent bundle, bronchodilators as needed 5. Anticonvulsants per neurology. On Cerebyx/Keppra/phenobarbital. Heparin phenobarbital have been changed to by mouth dosing 6. CT chest positive for bilateral PE 7. Lovenox 60 mg per KG every 12 hourly for full therapeutic anticoagulation on 11/20 8. Monitor heart rate and blood pressure closely and maintain MAP greater than 65 mmHg. 9. Monitor renal function, intakes and outputs and electrolyte replacement as needed. 10. Continue with empiric antibiotics for now. Patient had completed Zosyn on 11/25 however now has fevers again. Pancultures ordered on 11/27, positive for MRSA, and gram-negative rods. 1/ ID following-antibiotic management per ID, will continue to monitor CBC 11. BCx NGTD. Nasal washing is negative for influenza. 12. .Monitor CBC 13. Continue with Pepcid q. 12h for GI prophylaxis. Converted to by mouth dosing 14. Regular basic diet-pured with honey thickened liquids 15. Place on sliding scale insulin with Accu-Chek for glycemic control. 16. GI prophylaxis with Pepcid and DVT prophylaxis with SCDs. Continue therapuetic anticoagulation with Lovenox 17. extubated 12/01 onto BiPAP /.35%,12/02 currently on high flow nasal cannula continue to wean Dispo: Level 3 follow up Discussed with TAXICAB STARTER at bedside (Linsey) Physician Leila Corral MD Dec 03, 2017 19:32
[2017-12-04] VITALS (16 sets, daily range): BP systolic 114–146; BP diastolic 69–86; PULSE 83–104; RESP 20–33; TEMP 97.4–100; O2SAT 94–100
[2017-12-04] MEDS: INSULIN NovoLIN REGULAR SUPPLEMENTAL SCALE SQ SCH ×5 (01:00→21:00)
[2017-12-04] MEDS: RESP: ALBUTEROL 2.5 MG/IPRATROPIUM 0.5 MG NEB (SCH) NEB ×4 (03:47→20:31)
[2017-12-04] MEDS: CHLORHEXIDINE GLUCONATE 2 % 1 PACK (2 CLOTHS) TOP SCH (04:00)
--- NOTE | 2017-12-04 04:12 | RADRPT ---
EXAM DATE/TIME: 12/04/2017 03:21 [facility] COMPARISON: CHEST SINGLE AP, December 01, 2017, 5:16. INDICATIONS : Shortness of breath, possible pulmonary disease. MEDICAL HISTORY : Deep venous thrombosis. Lymphoma. SURGICAL HISTORY : None. ENCOUNTER: Subsequent ACUITY: 1 week PAIN SCORE: Non-responsive. LOCATION: Bilateral chest FINDINGS: The cardiac silhouette is normal in transverse diameter. There is clearing pulmonary edema. No pleura l effusions are identified. Support lines have been removed CONCLUSION: 1. Improved pulmonary edema. Nick Connolly MD on December 04, 2017 at 4:10 Board Certified Radiologist. This report was verified electronically.
[2017-12-04] MEDS: CEFEPIME INJ 2,000 MG in SODIUM CHLORIDE 0.9% INJ 100 ML IV SCH ×2 (04:47→15:51)
[2017-12-04 05:53] LABS: HEMATOCRIT 30.4 % (39.0-51.0); MEAN CORPUSCULAR HEMOGLOBIN 30.5 PG (27.0-34.0); MEAN CORPUSCULAR HGB CONC 32.8 % (32.0-36.0); MEAN PLATELET VOLUME 8.4 FL (7.0-11.0); PLATELET COUNT 370 TH/MM3 (150-450); RED BLOOD COUNT 3.28 MIL/MM3 (4.50-5.90); RED CELL DISTRIBUTION WIDTH 14.9 % (11.6-17.2); WHITE BLOOD COUNT 15.2 TH/MM3 (4.0-11.0)
[2017-12-04] MEDS: VANCOMYCIN 1,000 MG/NS 250 ML IV SCH ×4 (06:10→23:55)
[2017-12-04 06:26] LABS: BICARBONATE 31.4 MEQ/L (21.0-32.0); CALCIUM 8.8 MG/DL (8.5-10.1); CREATININE 1.02 MG/DL (0.60-1.30)
--- NOTE | 2017-12-04 07:49 | HHI.CCPN ---
Subjective Remarks/Hospital Course 11/19: The patient is a 57-year-old male with past medical history of Hodgkin's lymphoma, benign prostate hypertrophy, COPD who presented to the [facility] Emergency Department via EMS after he was found by his mother on the ground at his apartment unresponsive. He given Narcan times four doses by EMS without any significant improvement. On arrival to the emergency department, the patient noted to be in some respiratory distress associated with coarse wheezing. The patient apparently had not been seen for a day. In the emergency department, he was intubated with a etomidate and vecuronium and placed on full mechanical ventilation. ABG post-intubation showed a pH of 7.39, CO2 43, pAO2 465, bicarb 25, sats 98% on assist control ventilation with respiratory rate 16, tidal volume 500, PEEP of 5 and FIO2 of 100%. There is no evidence of any fever; however, the patient was noted to have leukocytosis with WBC of 19.0. Lactic acid measured at 1.9. A CT scan of the brain in the emergency department was negative for acute process and chest x-ray post-intubation showed no obvious infiltrates or effusions. He was placed on Diprivan for sedation and given one dose of Zosyn along with one liter of normal saline. His current blood pressure is 109/73 with a pulse of 59, saturation 99%. Most of the history was obtained from reviewing medical records. 11/20: Sedated with Versed, orally intubated on mechanical ventilation. CTA chest done last night revealed bilateral pulmonary emboli. Being started on Lovenox for full anticoagulation. 11/21: Remains sedated, orally intubated on mechanical ventilation. On anticoagulation with Lovenox. 11/22: Remains sedated with Versed, orally intubated on mechanical ventilation. On anticoagulation with Lovenox for bilateral PE. 11/23: EEG yesterday with persistent evidence of BiPLEDS. still on versed, keppra, phenobarb, fosphenytoin. 11/24: EEG much improved without ictal activity. per neurology, ok to wean to extubate and lighten deep sedation. 11/25: Remains sedated, orally intubated on mechanical ventilation. Tolerating tube feeds. 11/26: Remains encephalopathic, sedated, orally intubated on mechanical ventilation. Tolerating tube feeds. 1/1: More awake, not following commands. Spontaneously opens eyes. Remains orally intubated on mechanical ventilation. Tolerating tube feeds. Febrile since yesterday. Waterman cultures ordered. Will resume Zosyn IV. 12: Patient remain on CPAP throughout most of the day greater than 8 hours. Cultures revealed MRSA in the sputum and gram-negative rods. ID has been consulted. Patient more awake and responsive. 11/29: Patient following commands, tolerated CPAP trials for approximately 2 hours. 11/30: Patient tolerating CPAP trials greater than 8 hours, plan to continue CPAP trials throughout the evening. 12/01: The patient continue CPAP trials throughout the night, SBT parameters performed. Patient was extubated this afternoon continues on BiPAP 15/5 35%, O2 sat duration 98-99% 12/02: The patient was extubated yesterday, on to BiPAP. Patient continues on high flow nasal cannula at 40% at this time. The formal speech eval was performed ,has been advanced to pured diet. And phenobarbital and Keppra has been converted to by mouth dosing. 12/03: The patient remains on high flow nasal cannula, has been weaned down to 35% . Patient's tolerating diet the patient continues to be confused requiring wrist restraints for patient safety. 12/04: The patient continues to have inappropriate conversation at time. Still patient safety issue remains and 2. wrist restraints. Continued decrease FiO2 requirements and weaning from high flow. When consuming pure diet rapidly patient is noted to cough and sputter, speech eval to reevaluate swallow. Repeat chest x-ray revealed clearing of pulmonary edema. Objective Vital Signs Date Time Temp Pulse Resp B/P (MAP) Pulse Ox O2 Delivery O2 Flow Rate FiO2 12/04/17 06:00 85 12/04/17 04:00 97.4 24 128/76 (93) 96 12/03/17 20:19 High Flow Nasal Cannula 25.00 30 Intake and Output 12/04/17 12/04/17 12/05/17 08:00 16:00 00:00 Intake Total 335 ml Output Total 400 ml Balance -65 ml Result Diagram: 12/04/17 0526 12/04/[address] Angiography 11/19/17 1233 Signed Impressions: Service Date/Time: Sunday, November 19, 2017 22:45 - CONCLUSION: 1. Pulmonary emboli identified bilaterally in segmental and subsegmental branches. 2. Mild pulmonary parenchymal emphysema. Benjamin Doyle MD Head CT 11/19/17 1042 Signed Impressions: Service Date/Time: Sunday, November 19, 2017 11:53 - CONCLUSION: Negative for acute process. Fidel Butler MD FACR Chest X-Ray 11/19/17 1042 Signed Impressions: Service Date/Time: Sunday, November 19, 2017 10:52 - CONCLUSION: Support apparatus in good position. Fidel Butler MD FACR Objective Remarks GEN: Chronically ill appearing male patient, on high flow nasal cannula, still restrained for patient safety HEAD, EYES, EARS, NOSE, THROAT: Normocephalic and atraumatic. Pupils equal, round and reactive to light and accommodation. Conjunctivae are pink. Nonicteric sclerae. Oral mucosa within normal limits. NECK: The neck is supple. No jugular venous distention. Trachea in the midline. CARDIOVASCULAR: Regular rate and rhythm. PULMONARY: Hi Flow nasal cannula at 40% ABDOMEN: The abdomen is soft, nontender and no distention. EXTREMITIES: No cyanosis, clubbing or edema. SKIN: Abrasion noted on left cheek, and left upper lip, in various stages of healing NEUROLOGIC: GCS 14. Patient pulling at at IV sites , restraints continued for patient safety. Moves extremities 4 on command A/P Assessment and Plan IMPRESSION: 1. Acute hypoxic respiratory failure on mechanical ventilation. 2. Encephalopathy. 3. Bilateral pulmonary embolism 4. DVT 5. COPD. 6. History of Hodgkin's lymphoma. 7. History of benign prostate hypertrophy. 8. Sepsis, suspected pneumonia 9. Nonconvulsive seizures on EEG- improving. 10. Pulmonary Edema RECOMMENDATIONS: 1. Wean FiO2 from high flow nasal cannula, incentive spirometry training and use 2. CT scan of the brain in the emergency department negative for acute process and urine drug screen positive for benzodiazepines. MRI brain unremarkable 3. Encourage incentive spirometry 4. Continue bronchodilators as needed 5. Anticonvulsants per neurology. On Cerebyx/Keppra/phenobarbital. Heparin phenobarbital have been changed to by mouth dosing 6. CT chest positive for bilateral PE 7. Lovenox 60 mg per KG every 12 hourly for full therapeutic anticoagulation on 11/20 8. Monitor heart rate and blood pressure closely and maintain MAP greater than 65 mmHg. 9. Monitor renal function, intakes and outputs and electrolyte replacement as needed. 10. Continue with empiric antibiotics for now. Patient had completed Zosyn on 11/25 however now has fevers again. Pancultures ordered on 11/27, positive for MRSA, and gram-negative rods. 1/ ID following-antibiotic management per ID, will continue to monitor CBC-leukocytosis improving 11. BCx NGTD. Nasal washing is negative for influenza. 12. .Monitor CBC 13. Continue with Pepcid q. 12h for GI prophylaxis. Converted to by mouth dosing 14. Regular basic diet-pured with honey thickened liquids, reevaluate swallow by speech therapy 15. Place on sliding scale insulin with Accu-Chek for glycemic control. 16. GI prophylaxis with Pepcid and DVT prophylaxis with SCDs. Continue therapuetic anticoagulation with Lovenox 17. extubated 12/01 onto BiPAP 10/04.35%,12/02 currently on high flow nasal cannula continue to wean. 12/03 pulmonary edema on chest x-ray, clearing after diuresis Dispo: Level 2 follow up Discussed with HANDBAG PARTS CUTTER at bedside (Denise) Physician Leila Corral MD Dec 04, 2017 07:49
[2017-12-04] MEDS ORDERED: PADIMATE (CHAPSTICK) 4.5 GM TUBE TOPICAL PRN (08:15)
[2017-12-04] MEDS: DOCUSATE SODIUM 50 MG/SENNA 8.6 MG TAB PO SCH ×2 (09:00→21:00)
[2017-12-04] MEDS: levETIRAcetam 500 MG TAB PO SCH ×2 (09:08→21:27)
[2017-12-04] MEDS: ENOXAPARIN SODIUM 60 MG/0.6 ML SYRINGE SQ SCH ×2 (09:09→21:31)
[2017-12-04] MEDS: FAMOTIDINE 20 MG TAB PO SCH ×2 (09:09→21:26)
[2017-12-04] MEDS: FOSPHENYTOIN SODIUM 100 MG PE/2 ML VIAL IV SCH ×2 (09:10→21:27)
[2017-12-04] MEDS: RESP: BUDESONIDE 0.5 MG/2 ML NEB NEB SCH ×2 (09:26→20:30)
[2017-12-04] MEDS: BACITRACIN TOP OINT 15 GM TUBE TOPICAL SCH ×3 (14:00→21:31)
[2017-12-04] MEDS ORDERED: POTASSIUM CHLORIDE 25 MEQ EFFERVESCENT TAB PO ONE (15:00)
--- NOTE | 2017-12-04 16:12 | HHI.IDPN ---
Note Infectious Disease Note Patient is post extubation. On nasal canula. Alert and responding. Want's to go home. low grade x 1 last 24 hours. Afebrile. 57-year-old white male who was brought to the emergency department in respiratory distress. The patient's mother is at bedside. The mom reports that the patient was doing well on November 19. He went to bed after he was doing activities such as using his computer. The mom found him the next day in bed unresponsive and called 9-1-1. The patient was brought to emergency department and he was subsequently intubated. ALLERGIES Medical records report an allergy to VANCOMYCIN. The patient has not had any reaction from the Vancomycin given. PAST MEDICAL HISTORY 1. COPD 2. Hodgkin's Lymphoma 3. Benign prostatic hypertrophy 4. Diabetes mellitus 5. Left eye surgery secondary to trauma ANTIBIOTICS 1. Vancomycin 2. Cefepime. OBJECTIVE: Vital Signs Date Time Temp Pulse Resp B/P (MAP) Pulse Ox O2 Delivery O2 Flow Rate FiO2 12/04/17 16:00 98.9 97 33 145/82 (103) 95 12/04/17 16:00 97 12/04/17 14:00 83 12/04/17 13:00 83 12/04/17 13:00 83 20 146/86 (106) 100 12/04/17 12:00 95 12/04/17 12:00 98.5 95 26 131/77 (95) 99 12/04/17 10:39 97 Nasal Cannula 3.00 12/04/17 10:00 102 27 114/69 (84) 98 12/04/17 10:00 102 12/04/17 09:00 95 12/04/17 09:00 95 26 140/82 (101) 98 12/04/17 08:00 98.8 100 23 144/81 (102) 96 12/04/17 08:00 100 12/04/17 06:00 85 12/04/17 04:00 97.4 85 24 128/76 (93) 96 12/04/17 04:00 85 12/04/17 02:00 100 12/04/17 00:00 100 12/04/17 00:00 100.0 100 24 134/72 (92) 94 12/03/17 22:00 95 12/03/17 20:19 98 High Flow Nasal Cannula 25.00 30 12/03/17 20:00 95 12/03/17 20:00 98.9 95 24 143/77 (99) 99 12/03/17 18:28 29 12/03/17 18:00 91 23 124/70 (88) 100 12/03/17 18:00 91 12/03/17 17:00 102 32 135/72 (93) 97 Laboratory Tests Test 12/04/17 05:26 White Blood Count 15.2 TH/MM3 Red Blood Count 3.28 MIL/MM3 Hemoglobin 10.0 GM/DL Hematocrit 30.4 % Mean Corpuscular Volume 93.0 FL Mean Corpuscular Hemoglobin 30.5 PG Mean Corpuscular Hemoglobin Concent 32.8 % Red Cell Distribution Width 14.9 % Platelet Count 370 TH/MM3 Mean Platelet Volume 8.4 FL Laboratory Tests Test 12/04/17 05:26 Blood Urea Nitrogen 21 MG/DL Creatinine 1.02 MG/DL Random Glucose 116 MG/DL Calcium Level 8.8 MG/DL Sodium Level 146 MEQ/L Potassium Level 3.3 MEQ/L Chloride Level 108 MEQ/L Carbon Dioxide Level 31.4 MEQ/L Anion Gap 7 MEQ/L Estimat Glomerular Filtration Rate 75 ML/MIN Microbiology Date/Time Source Procedure Growth Status 11/27/17 19:17 Blood Peripheral Aerobic Blood Culture - Preliminary NO GROWTH IN 2 DAYS Resulted 11/27/17 19:17 Blood Peripheral Anaerobic Blood Culture - Preliminary NO GROWTH IN 2 DAYS Resulted 11/27/17 19:12 Blood Peripheral Aerobic Blood Culture - Preliminary NO GROWTH IN 2 DAYS Resulted 11/27/17 19:12 Blood Peripheral Anaerobic Blood Culture - Preliminary NO GROWTH IN 2 DAYS Resulted 11/27/17 13:00 Sputum Endotracheal Gram Stain - Final Resulted 11/27/17 13:00 Sputum Culture - Preliminary S. Aureus Mrsa Acinetobacter Baumannii/Haemol Resulted IMAGING: Chest X-Ray 12/04/17 0600 Signed Impressions: Service Date/Time: Monday, December 04, 2017 03:21 - CONCLUSION: 1. Improved pulmonary edema. Nick Connolly MD Chest X-Ray 12/01/17 0600 Signed Impressions: Service Date/Time: Friday, December 01, 2017 05:16 - CONCLUSION: No acute cardiopulmonary disease identified. Benjamin Doyle MD Brain MRI 11/21/17 0000 Signed Impressions: Service Date/Time: Tuesday, November 21, 2017 08:59 - CONCLUSION: Normal examination. Marlon Call MD Lower Extremity Ultrasound 11/20/17 0000 Signed Impressions: Service Date/Time: Monday, November 20, 2017 16:24 - CONCLUSION: 1. Extensive deep vein thrombosis of the left lower extremity involving the superficial femoral vein popliteal vein and proximal calf veins. 2. No evidence of lower extremity DVT on the right. Benjamin Doyle MD CT Angiography 11/19/17 1233 Signed Impressions: Service Date/Time: Sunday, November 19, 2017 22:45 - CONCLUSION: 1. Pulmonary emboli identified bilaterally in segmental and subsegmental branches. 2. Mild pulmonary parenchymal emphysema. Benjamin Doyle MD Head CT 11/19/17 1042 Signed Impressions: Service Date/Time: Sunday, November 19, 2017 11:53 - CONCLUSION: Negative for acute process. Fidel Butler MD FACR PHYSICAL EXAM GENERAL: Alert and awake. HEENT: No icterus. Oropharynx: moist mucosa. NECK: Supple. No adenopathy. LUNGS: Basilar rhonchi, good air movement. HEART: Regular S1S2. No murmurs, rubs or gallops. ABDOMEN: Distended, bowel sounds diminished, no tenderness. EXTREMITIES: No clubbing or cyanosis or edema. SKIN: No rash. NEUROLOGIC: Non focal. PSYCH: Calm, cooperative. IMPRESSION 1. Pneumonia due to MRSA and Acinetobacter. This is likely secondary to aspiration in a patient who was found unresponsive. 2. Acute respiratory failure due to hypoxemia. 3. Pulmonary embolism. 4. Fever. Temp lower. 5. Leukocytosis, WBC still elevated. RECOMMENDATIONS 1. Continue Cefepime. 2. Continue Vancomycin. 3. Follow clinical response. 4. Monitor temp and WBC. Shaggy Murry MD Dec 04, 2017 16:12
[2017-12-05] VITALS (20 sets, daily range): BP systolic 111–143; BP diastolic 70–85; PULSE 79–108; RESP 16–28; TEMP 97.8–98.8; O2SAT 93–100
[2017-12-05] MEDS: INSULIN NovoLIN REGULAR SUPPLEMENTAL SCALE SQ SCH ×5 (01:00→20:22)
[2017-12-05] MEDS: CEFEPIME INJ 2,000 MG in SODIUM CHLORIDE 0.9% INJ 100 ML IV SCH ×2 (03:00→14:40)
[2017-12-05] MEDS: CHLORHEXIDINE GLUCONATE 2 % 1 PACK (2 CLOTHS) TOP SCH (04:00)
[2017-12-05] MEDS: RESP: ALBUTEROL 2.5 MG/IPRATROPIUM 0.5 MG NEB (SCH) NEB ×4 (04:18→19:31)
--- NOTE | 2017-12-05 08:21 | HHI.CCPN ---
Subjective Remarks/Hospital Course 11/19: The patient is a 57-year-old male with past medical history of Hodgkin's lymphoma, benign prostate hypertrophy, COPD who presented to the [facility] Emergency Department via EMS after he was found by his mother on the ground at his apartment unresponsive. He given Narcan times four doses by EMS without any significant improvement. On arrival to the emergency department, the patient noted to be in some respiratory distress associated with coarse wheezing. The patient apparently had not been seen for a day. In the emergency department, he was intubated with a etomidate and vecuronium and placed on full mechanical ventilation. ABG post-intubation showed a pH of 7.39, CO2 43, pAO2 465, bicarb 25, sats 98% on assist control ventilation with respiratory rate 16, tidal volume 500, PEEP of 5 and FIO2 of 100%. There is no evidence of any fever; however, the patient was noted to have leukocytosis with WBC of 19.0. Lactic acid measured at 1.9. A CT scan of the brain in the emergency department was negative for acute process and chest x-ray post-intubation showed no obvious infiltrates or effusions. He was placed on Diprivan for sedation and given one dose of Zosyn along with one liter of normal saline. His current blood pressure is 109/73 with a pulse of 59, saturation 99%. Most of the history was obtained from reviewing medical records. 11/20: Sedated with Versed, orally intubated on mechanical ventilation. CTA chest done last night revealed bilateral pulmonary emboli. Being started on Lovenox for full anticoagulation. 11/21: Remains sedated, orally intubated on mechanical ventilation. On anticoagulation with Lovenox. 11/22: Remains sedated with Versed, orally intubated on mechanical ventilation. On anticoagulation with Lovenox for bilateral PE. 11/23: EEG yesterday with persistent evidence of BiPLEDS. still on versed, keppra, phenobarb, fosphenytoin. 11/24: EEG much improved without ictal activity. per neurology, ok to wean to extubate and lighten deep sedation. 11/25: Remains sedated, orally intubated on mechanical ventilation. Tolerating tube feeds. 11/26: Remains encephalopathic, sedated, orally intubated on mechanical ventilation. Tolerating tube feeds. 1/1: More awake, not following commands. Spontaneously opens eyes. Remains orally intubated on mechanical ventilation. Tolerating tube feeds. Febrile since yesterday. Waterman cultures ordered. Will resume Zosyn IV. 2: Patient remain on CPAP throughout most of the day greater than 8 hours. Cultures revealed MRSA in the sputum and gram-negative rods. ID has been consulted. Patient more awake and responsive. 11/29: Patient following commands, tolerated CPAP trials for approximately 2 hours. 11/30: Patient tolerating CPAP trials greater than 8 hours, plan to continue CPAP trials throughout the evening. 12/01: The patient continue CPAP trials throughout the night, SBT parameters performed. Patient was extubated this afternoon continues on BiPAP 15/5 35%, O2 sat duration 98-99% 12/02: The patient was extubated yesterday, on to BiPAP. Patient continues on high flow nasal cannula at 40% at this time. The formal speech eval was performed ,has been advanced to pured diet. And phenobarbital and Keppra has been converted to by mouth dosing. 12/03: The patient remains on high flow nasal cannula, has been weaned down to 35% . Patient's tolerating diet the patient continues to be confused requiring wrist restraints for patient safety. 12/04: The patient continues to have inappropriate conversation at time. Still patient safety issue remains and 2. wrist restraints. Continued decrease FiO2 requirements and weaning from high flow. When consuming pure diet rapidly patient is noted to cough and sputter, speech eval to reevaluate swallow. Repeat chest x-ray revealed clearing of pulmonary edema. 12/05: Afebrile .The patient has been weaned to 3 L nasal cannula O2 saturation 97 %. Patient continues on a pured diet. Plan for PT to evaluate and treat, out of bed. Objective Vital Signs Date Time Temp Pulse Resp B/P (MAP) Pulse Ox O2 Delivery O2 Flow Rate FiO2 12/05/17 06:00 95 12/05/17 04:00 98.8 20 143/73 (96) 96 12/04/17 20:32 Nasal Cannula 3.00 12/03/17 20:19 30 Intake and Output 12/05/17 12/05/17 12/06/17 08:00 16:00 00:00 Intake Total 460 ml Output Total 1800 ml Balance -1340 ml Result Diagram: 12/04/17 0526 12/04/17 [address] Angiography 11/19/17 1233 Signed Impressions: Service Date/Time: Sunday, November 19, 2017 22:45 - CONCLUSION: 1. Pulmonary emboli identified bilaterally in segmental and subsegmental branches. 2. Mild pulmonary parenchymal emphysema. Benjamin Doyle MD Head CT 11/19/17 1042 Signed Impressions: Service Date/Time: Sunday, November 19, 2017 11:53 - CONCLUSION: Negative for acute process. Fidel Butler MD FACR Chest X-Ray 11/19/17 1042 Signed Impressions: Service Date/Time: Sunday, November 19, 2017 10:52 - CONCLUSION: Support apparatus in good position. Fidel Butler MD FACR Objective Remarks GEN: Chronically ill appearing male patient, on 3 L nasal cannula in no acute distress HEAD, EYES, EARS, NOSE, THROAT: Normocephalic and atraumatic. Pupils equal, round and reactive to light and accommodation. Conjunctivae are pink. Nonicteric sclerae. Oral mucosa within normal limits. NECK: The neck is supple. No jugular venous distention. Trachea in the midline. CARDIOVASCULAR: Regular rate and rhythm. PULMONARY: Hi Flow nasal cannula at 40% ABDOMEN: The abdomen is soft, nontender and no distention. EXTREMITIES: No cyanosis, clubbing or edema. SKIN: Abrasion noted on left cheek, improved NEUROLOGIC: GCS 14. Continues to be confused restraints continued for patient safety. Moves extremities 4 on command A/P Assessment and Plan IMPRESSION: 1. Acute hypoxic respiratory failure on mechanical ventilation. 2. Encephalopathy. 3. Bilateral pulmonary embolism 4. DVT 5. COPD. 6. History of Hodgkin's lymphoma. 7. History of benign prostate hypertrophy. 8. Sepsis, suspected pneumonia 9. Nonconvulsive seizures on EEG- improving. 10. Pulmonary Edema RECOMMENDATIONS: 1. Wean FiO2 from high flow nasal cannula, incentive spirometry training and use 2. CT scan of the brain in the emergency department negative for acute process and urine drug screen positive for benzodiazepines. MRI brain unremarkable 3. Encourage incentive spirometry 4. Continue bronchodilators as needed 5. Anticonvulsants per neurology. On Cerebyx/Keppra/phenobarbital. Heparin phenobarbital have been changed to by mouth dosing 6. CT chest positive for bilateral PE 7. Lovenox 60 mg per KG every 12 hourly for full therapeutic anticoagulation on 11/20 8. Monitor heart rate and blood pressure closely and maintain MAP greater than 65 mmHg. 9. Monitor renal function, intakes and outputs and electrolyte replacement as needed. 10. Continue with empiric antibiotics for now. Patient had completed Zosyn on 11/25 however now has fevers again. Pancultures ordered on 11/27, positive for MRSA, and gram-negative rods. 11/29 ID following-antibiotic management per ID, will continue to monitor CBC-leukocytosis improving 11. BCx NGTD. Nasal washing is negative for influenza. 12. .Monitor CBC-pending this a.m.. Gross cytosis appears to be resolving 13. Continue with Pepcid q. 12h for GI prophylaxis. Converted to by mouth dosing 14. Regular basic diet-pured with honey thickened liquids, reevaluate swallow by speech therapy 15. Place on sliding scale insulin with Accu-Chek for glycemic control. 16. GI prophylaxis with Pepcid and DVT prophylaxis with SCDs. Continue therapuetic anticoagulation with Lovenox 17. Continue incentive spirometry Dispo: Level 2 follow up Discussed with BUSINESS ANALYSIS CONSULTANT at bedside . Plan transfer to [facility] in a.m. Plan transfer to [facility] floor. Physician Leila Corral MD Dec 05, 2017 08:21
[2017-12-05] MEDS: RESP: BUDESONIDE 0.5 MG/2 ML NEB NEB SCH ×2 (08:23→19:30)
[2017-12-05] MEDS: FAMOTIDINE 20 MG TAB PO SCH ×2 (08:55→20:21)
[2017-12-05] MEDS: FOSPHENYTOIN SODIUM 100 MG PE/2 ML VIAL IV SCH ×2 (08:55→20:20)
[2017-12-05] MEDS: ENOXAPARIN SODIUM 60 MG/0.6 ML SYRINGE SQ SCH ×2 (08:56→21:44)
[2017-12-05] MEDS: levETIRAcetam 500 MG TAB PO SCH ×2 (08:56→20:19)
[2017-12-05] MEDS: BACITRACIN TOP OINT 15 GM TUBE TOPICAL SCH ×3 (08:59→21:44)
[2017-12-05] MEDS: DOCUSATE SODIUM 50 MG/SENNA 8.6 MG TAB PO SCH ×2 (09:00→20:20)
[2017-12-05 10:44] LABS: HEMATOCRIT 31.5 % (39.0-51.0); HEMOGLOBIN 10.6 GM/DL (13.0-17.0); MEAN CORPUSCULAR HEMOGLOBIN 31.2 PG (27.0-34.0); MEAN CORPUSCULAR HGB CONC 33.6 % (32.0-36.0); MEAN PLATELET VOLUME 8.9 FL (7.0-11.0); PLATELET COUNT 358 TH/MM3 (150-450); RED BLOOD COUNT 3.39 MIL/MM3 (4.50-5.90); RED CELL DISTRIBUTION WIDTH 14.5 % (11.6-17.2); WHITE BLOOD COUNT 14.5 TH/MM3 (4.0-11.0)
[2017-12-05 11:05] LABS: CALCIUM 8.9 MG/DL (8.5-10.1); CREATININE 0.88 MG/DL (0.60-1.30)
--- NOTE | 2017-12-05 16:11 | HHI.IDPN ---
Note Infectious Disease Note Patient is on nasal canula. Awake. Want's to sit up. Afebrile. 57-year-old white male who was brought to the emergency department in respiratory distress. The patient's mother is at bedside. The mom reports that the patient was doing well on November 19. He went to bed after he was doing activities such as using his computer. The mom found him the next day in bed unresponsive and called 9-1-1. The patient was brought to emergency department and he was subsequently intubated. ALLERGIES Medical records report an allergy to VANCOMYCIN. The patient has not had any reaction from the Vancomycin given. PAST MEDICAL HISTORY 1. COPD 2. Hodgkin's Lymphoma 3. Benign prostatic hypertrophy 4. Diabetes mellitus 5. Left eye surgery secondary to trauma ANTIBIOTICS 1. Vancomycin 2. Cefepime. OBJECTIVE: Vital Signs Date Time Temp Pulse Resp B/P (MAP) Pulse Ox O2 Delivery O2 Flow Rate FiO2 12/05/17 14:00 98 26 124/73 (90) 95 12/05/17 13:00 108 22 130/81 (97) 95 12/05/17 12:00 97.8 99 24 139/85 (103) 94 12/05/17 11:00 91 24 111/70 (84) 95 12/05/17 10:00 105 28 118/79 (92) 93 12/05/17 09:00 107 28 143/82 (102) 94 12/05/17 08:23 100 Nasal Cannula 3.00 12/05/17 08:00 79 22 124/71 (88) 99 12/05/17 06:00 95 12/05/17 04:00 106 12/05/17 04:00 98.8 106 20 143/73 (96) 96 12/05/17 02:00 105 12/05/17 00:00 98.7 106 22 141/82 (101) 96 12/05/17 00:00 106 12/04/17 22:00 90 12/04/17 20:32 97 Nasal Cannula 3.00 12/04/17 20:00 103 12/04/17 20:00 98.5 103 24 142/81 (101) 95 12/04/17 18:00 104 Laboratory Tests Test 12/04/17 05:26 12/05/17 10:03 White Blood Count 15.2 TH/MM3 14.5 TH/MM3 Red Blood Count 3.28 MIL/MM3 3.39 MIL/MM3 Hemoglobin 10.0 GM/DL 10.6 GM/DL Hematocrit 30.4 % 31.5 % Mean Corpuscular Volume 93.0 FL 93.0 FL Mean Corpuscular Hemoglobin 30.5 PG 31.2 PG Mean Corpuscular Hemoglobin Concent 32.8 % 33.6 % Red Cell Distribution Width 14.9 % 14.5 % Platelet Count 370 TH/MM3 358 TH/MM3 Mean Platelet Volume 8.4 FL 8.9 FL Laboratory Tests Test 12/04/17 05:26 12/05/17 10:03 Blood Urea Nitrogen 21 MG/DL 18 MG/DL Creatinine 1.02 MG/DL 0.88 MG/DL Random Glucose 116 MG/DL 139 MG/DL Calcium Level 8.8 MG/DL 8.9 MG/DL Sodium Level 146 MEQ/L 144 MEQ/L Potassium Level 3.3 MEQ/L 3.4 MEQ/L Chloride Level 108 MEQ/L 105 MEQ/L Carbon Dioxide Level 31.4 MEQ/L 30.0 MEQ/L Anion Gap 7 MEQ/L 9 MEQ/L Estimat Glomerular Filtration Rate 75 ML/MIN 89 ML/MIN Microbiology Date/Time Source Procedure Growth Status 11/27/17 19:17 Blood Peripheral Aerobic Blood Culture - Preliminary NO GROWTH IN 2 DAYS Resulted 11/27/17 19:17 Blood Peripheral Anaerobic Blood Culture - Preliminary NO GROWTH IN 2 DAYS Resulted 11/27/17 19:12 Blood Peripheral Aerobic Blood Culture - Preliminary NO GROWTH IN 2 DAYS Resulted 11/27/17 19:12 Blood Peripheral Anaerobic Blood Culture - Preliminary NO GROWTH IN 2 DAYS Resulted 11/27/17 13:00 Sputum Endotracheal Gram Stain - Final Resulted 11/27/17 13:00 Sputum Culture - Preliminary S. Aureus Mrsa Acinetobacter Baumannii/Haemol Resulted IMAGING: Chest X-Ray 12/04/17 0600 Signed Impressions: Service Date/Time: Monday, December 04, 2017 03:21 - CONCLUSION: 1. Improved pulmonary edema. Nick Connolly MD Chest X-Ray 12/01/17 0600 Signed Impressions: Service Date/Time: Friday, December 01, 2017 05:16 - CONCLUSION: No acute cardiopulmonary disease identified. Benjamin Doyle MD Brain MRI 11/21/17 0000 Signed Impressions: Service Date/Time: Tuesday, November 21, 2017 08:59 - CONCLUSION: Normal examination. Marlon Call MD Lower Extremity Ultrasound 11/20/17 0000 Signed Impressions: Service Date/Time: Monday, November 20, 2017 16:24 - CONCLUSION: 1. Extensive deep vein thrombosis of the left lower extremity involving the superficial femoral vein popliteal vein and proximal calf veins. 2. No evidence of lower extremity DVT on the right. Benjamin Doyle MD CT Angiography 11/19/17 1233 Signed Impressions: Service Date/Time: Sunday, November 19, 2017 22:45 - CONCLUSION: 1. Pulmonary emboli identified bilaterally in segmental and subsegmental branches. 2. Mild pulmonary parenchymal emphysema. Benjamin Doyle MD Head CT 11/19/17 1042 Signed Impressions: Service Date/Time: Sunday, November 19, 2017 11:53 - CONCLUSION: Negative for acute process. Fidel Butler MD FACR PHYSICAL EXAM GENERAL: Alert and awake. HEENT: No icterus. Oropharynx: moist mucosa. NECK: Supple. No adenopathy. LUNGS: Decreased BS. HEART: Regular S1S2. No murmurs, rubs or gallops. ABDOMEN: Distended, bowel sounds diminished, no tenderness. EXTREMITIES: No clubbing or cyanosis or edema. SKIN: No rash. NEUROLOGIC: Non focal. PSYCH: Calm, cooperative. IMPRESSION 1. Pneumonia due to MRSA and Acinetobacter. This is likely secondary to aspiration in a patient who was found unresponsive. 2. Acute respiratory failure due to hypoxemia. 3. Pulmonary embolism. 4. Fever. Temp lower. 5. Leukocytosis, WBC still elevated but decreasing. RECOMMENDATIONS 1. Change Cefepime to levaquin PO x 5 days. 2. Change Vancomycin to Zyvox PO x 5 days. 3. Monitor temp and WBC. Shaggy Murry MD Dec 05, 2017 16:11
[2017-12-05] MEDS ORDERED: POTASSIUM CHLORIDE 25 MEQ EFFERVESCENT TAB PO ONE (17:15)
[2017-12-05] MEDS ORDERED: PHARMACY ORDERED LAB ONE (17:45)
[2017-12-05] MEDS: LINEZOLID 600 MG TAB PO SCH (20:20)
[2017-12-06] VITALS (9 sets, daily range): BP systolic 133–139; BP diastolic 68–83; PULSE 94–112; RESP 16–19; TEMP 98.4–99.1; O2SAT 90–93
[2017-12-06] MEDS: INSULIN NovoLIN REGULAR SUPPLEMENTAL SCALE SQ SCH ×6 (01:00→21:00)
[2017-12-06] MEDS: CHLORHEXIDINE GLUCONATE 2 % 1 PACK (2 CLOTHS) TOP SCH (04:00)
[2017-12-06] MEDS: BACITRACIN TOP OINT 15 GM TUBE TOPICAL SCH ×3 (05:03→21:19)
[2017-12-06] MEDS: DOCUSATE SODIUM 50 MG/SENNA 8.6 MG TAB PO SCH ×2 (07:25→21:00)
[2017-12-06] MEDS: RESP: BUDESONIDE 0.5 MG/2 ML NEB NEB SCH ×2 (08:00→19:54)
--- NOTE | 2017-12-06 08:15 | HHI.PR ---
Review/Management Diagnosis/Plan: (1) Non-convulsive status epilepticus ICD Codes: G40.901 - Epilepsy, unspecified, not intractable, with status epilepticus Status: Acute Plan: etiology: suspected hypoxemia on cerebryx,keppra and phb mri brain- nml +dvt in left le; hypercoag panel ordered, heme eval phb, dilantin in range 11/24 eeg- improved- no pleds seen recs mental status much improved hold and reduce phb eeg rehab placement when feasible (2) Acute encephalopathy ICD Codes: G93.40 - Encephalopathy, unspecified Status: Acute Plan: 2/2 sz's, pulm emboli resp distress (3) Encephalopathy, metabolic ICD Codes: G93.41 - Metabolic encephalopathy Status: Acute (4) Pulmonary emboli ICD Codes: I26.99 - Other pulmonary embolism without acute cor pulmonale Status: Acute Plan: on lovenox (5) Respiratory distress ICD Codes: R06.03 - Acute respiratory distress Status: Acute Plan: intubated, ccm following Subjective Subjective Comments No acute events reported No headache No chest pain No dyspnea Active Medications Current Medications Medications (Trade) Dose Ordered Sig/Osbaldo Route Start Time Stop Time Status Last Admin (Duoneb Neb) 1 ampule Q2HR NEB PRN INH 11/19/17 12:45 12/01/17 15:43 Miscellaneous Information 1 Q361D XX 11/19/17 12:45 (Chlorhexidine 2% Cloth) Taper DAILY@04 TOP 11/20/17 04:00 11/16/18 03:59 12/06/17 04:00 (Chlorhexidine 2% Cloth) 3 pack UNSCH PRN TOP 11/19/17 12:45 (Cassandra-Colace) 1 tab BID PO 11/19/17 13:00 12/03/17 20:44 (Milk Of Magnesia Liq) 30 ml Q12H PRN PO 11/19/17 12:45 11/28/17 10:53 (Senokot) 17.2 mg Q12H PRN PO 11/19/17 12:45 11/28/17 10:54 (Dulcolax Supp) 10 mg DAILY PRN RECTAL 11/19/17 12:45 (Lactulose Liq) 30 ml DAILY PRN PO 11/19/17 12:45 11/28/17 07:46 (D50w (Vial) Inj) 50 ml UNSCH PRN IV PUSH 11/19/17 12:45 (Glucagon Inj) 1 mg UNSCH PRN OTHER 11/19/17 12:45 (NovoLIN R SUPPLEMENTAL SCALE) 1 Q4H SQ 11/19/17 13:00 12/03/17 13:35 (Ativan Inj) 1 mg Q4H PRN IV PUSH 11/19/17 16:00 Future Hold 11/23/17 15:04 (Cerebyx Inj) 200 mgpe Q12HR IV 11/20/17 09:00 12/05/17 20:20 (Lovenox Inj) 60 mg Q12H SQ 11/20/17 10:00 12/05/17 21:44 (Roxicodone Intensol Liq) 10 mg Q4H PO 11/24/17 15:00 Future Hold 12/01/17 10:32 (Tylenol 650 Mg/ 20 ml Liq) 650 mg Q4H PRN PO 11/27/17 20:45 12/01/17 10:27 (Roxicodone) 5 mg Q6H PRN PO 12/01/17 18:00 12/05/17 01:44 (Albuterol Neb) 2.5 mg Q2HR NEB PRN NEB 12/01/17 20:30 (Pulmicort Respule Neb) 0.5 mg Q12HR NEB NEB 12/01/17 20:30 12/05/17 19:30 (Keppra) 1,000 mg Q12HR PO 12/02/17 21:00 12/05/17 20:19 (Pepcid) 20 mg BID PO 12/02/17 21:00 12/05/17 20:21 (PHENobarbital) 90 mg TID PO 12/02/17 18:00 12/05/17 17:43 (Pill Splitter) 1 ea UNSCH PRN OTHER 12/02/17 18:15 (Chapstick) 1 applic UNSCH PRN TOPICAL 12/04/17 08:15 (Baciguent Oint) 1 applic Q8HR TOPICAL 12/04/17 09:00 12/06/17 05:03 (Zyvox) 600 mg Q12HR PO 12/05/17 21:00 12/10/17 11:00 12/05/17 20:20 (Levaquin) 750 mg DAILY PO 12/06/17 09:00 12/10/17 11:00 Allergies Allergies Coded Allergies vancomycin (Unverified Allergy, Intermediate, RASH, 08/01/17) Review of Systems All other ROS: Unable to obtain Exam I&O / VS Vital Signs Date Time Temp Pulse Resp B/P (MAP) Pulse Ox O2 Delivery O2 Flow Rate FiO2 12/06/17 04:39 Room Air 12/06/17 03:44 112 12/06/17 00:00 Room Air 12/05/17 23:47 108 12/05/17 21:50 100 12/05/17 21:00 98.3 108 16 120/74 (89) 93 12/05/17 20:00 Room Air 12/05/17 19:30 93 21 12/05/17 18:00 108 12/05/17 17:00 102 22 126/81 (96) 93 12/05/17 17:00 102 12/05/17 16:00 97 27 143/79 (100) 95 12/05/17 16:00 97 12/05/17 15:00 89 12/05/17 14:00 98 12/05/17 14:00 98 26 124/73 (90) 95 12/05/17 13:00 108 22 130/81 (97) 95 12/05/17 13:00 108 12/05/17 12:00 99 12/05/17 12:00 97.8 99 24 139/85 (103) 94 12/05/17 11:00 91 24 111/70 (84) 95 12/05/17 11:00 91 12/05/17 10:00 105 28 118/79 (92) 93 12/05/17 10:00 105 12/05/17 09:00 107 12/05/17 09:00 107 28 143/82 (102) 94 12/05/17 08:23 100 Nasal Cannula 3.00 Exam Comments alert, ox 1-2, follows some simple requests, eomi, face sym, varma to gravity Objective Micro and Labs Laboratory Tests Test 12/05/17 10:03 White Blood Count 14.5 Red Blood Count 3.39 Hemoglobin 10.6 Hematocrit 31.5 Mean Corpuscular Volume 93.0 Mean Corpuscular Hemoglobin 31.2 Mean Corpuscular Hemoglobin Concent 33.6 Red Cell Distribution Width 14.5 Platelet Count 358 Mean Platelet Volume 8.9 Blood Urea Nitrogen 18 Creatinine 0.88 Random Glucose 139 Calcium Level 8.9 Sodium Level 144 Potassium Level 3.4 Chloride Level 105 Carbon Dioxide Level 30.0 Anion Gap 9 Estimat Glomerular Filtration Rate 89 Phenobarbital Level 42.1 Date/Time Source Procedure Growth Status 11/27/17 19:17 Blood Peripheral Aerobic Blood Culture - Final NO GROWTH IN 5 DAYS Complete 11/27/17 19:17 Blood Peripheral Anaerobic Blood Culture - Final NO GROWTH IN 5 DAYS Complete 11/27/17 13:00 Sputum Endotracheal Gram Stain - Final Complete 11/27/17 13:00 Sputum Culture - Final S. Aureus Mrsa Acinetobacter Baumannii/Haemol Complete Adal Harrell MD Dec 06, 2017 08:15
[2017-12-06] MEDS: FAMOTIDINE 20 MG TAB PO SCH ×2 (09:46→21:14)
[2017-12-06] MEDS: levETIRAcetam 500 MG TAB PO SCH ×2 (09:46→21:14)
[2017-12-06] MEDS: LEVOFLOXACIN 750 MG TAB PO SCH (09:46)
[2017-12-06] MEDS: ENOXAPARIN SODIUM 60 MG/0.6 ML SYRINGE SQ SCH ×2 (09:46→21:19)
[2017-12-06] MEDS: LINEZOLID 600 MG TAB PO SCH ×2 (09:46→21:15)
[2017-12-06] MEDS: FOSPHENYTOIN SODIUM 100 MG PE/2 ML VIAL IV SCH ×2 (09:47→21:18)
[2017-12-06 10:41] LABS: PHENYTOIN (DILANTIN) 1.6 MCG/ML (10.0-20.0)
[2017-12-06 17:28] LABS: AUTOMATED NEUTROPHIL # 9.3 TH/MM3 (1.8-7.7); BASOPHIL # 0.1 TH/MM3 (0-0.2); BASOPHIL % 0.7 % (0.0-2.0); EOSINOPHIL # 0.5 TH/MM3 (0-0.4); EOSINOPHIL % 3.9 % (0.0-4.0); HEMATOCRIT 31.8 % (39.0-51.0); HEMOGLOBIN 10.4 GM/DL (13.0-17.0); LYMPH % 14.2 % (9.0-44.0); LYMPHOCYTE # 1.8 TH/MM3 (1.0-4.8); MEAN CELL VOLUME 92.5 FL (80.0-100.0); MEAN CORPUSCULAR HEMOGLOBIN 30.4 PG (27.0-34.0); MEAN CORPUSCULAR HGB CONC 32.9 % (32.0-36.0); MEAN PLATELET VOLUME 8.3 FL (7.0-11.0); MONO % 7.1 % (0.0-8.0); MONOCYTE # 0.9 TH/MM3 (0-0.9); NEUT % 74.1 % (16.0-70.0); PLATELET COUNT 379 TH/MM3 (150-450); RED BLOOD COUNT 3.43 MIL/MM3 (4.50-5.90); RED CELL DISTRIBUTION WIDTH 14.8 % (11.6-17.2); WHITE BLOOD COUNT 12.5 TH/MM3 (4.0-11.0)
[2017-12-06 17:50] LABS: ALBUMIN 2.1 GM/DL (3.4-5.0); ALT (GPT) 45 U/L (12-78); AST (GOT) 29 U/L (15-37); BLOOD UREA NITROGEN 14 MG/DL (7-18); CALCIUM 8.5 MG/DL (8.5-10.1); CHLORIDE 104 MEQ/L (98-107); CREATININE 0.97 MG/DL (0.60-1.30); GLOMERULAR FILTRATION RATE 79 ML/MIN (>89); GLUCOSE,RANDOM 103 MG/DL (74-106); MAGNESIUM 2.1 MG/DL (1.5-2.5); PHOSPHORUS 2.5 MG/DL (2.5-4.9); SODIUM (NA) 143 MEQ/L (136-145)
[2017-12-06 17:52] LABS: ALKALINE PHOSPHATASE 144 U/L (45-117); TOTAL BILIRUBIN ADULT 0.2 MG/DL (0.2-1.0); TOTAL PROTEIN 6.8 GM/DL (6.4-8.2)
--- NOTE | 2017-12-06 19:51 | HHI.PR ---
Subjective Remarks noted to have low 02 sats Patient agitated and confused Objective Vitals Vital Signs Date Time Temp Pulse Resp B/P (MAP) Pulse Ox O2 Delivery O2 Flow Rate FiO2 12/06/17 16:46 103 12/06/17 12:07 98.4 100 19 138/80 (99) 91 12/06/17 12:00 105 12/06/17 11:14 Room Air 12/06/17 08:07 98.5 102 19 139/83 (101) 90 12/06/17 08:00 109 12/06/17 04:39 Room Air 12/06/17 03:44 112 12/06/17 00:00 Room Air 12/05/17 23:47 108 12/05/17 21:50 100 12/05/17 21:00 98.3 108 16 120/74 (89) 93 12/05/17 20:00 Room Air I/O 12/05/17 12/05/17 12/05/17 12/06/17 12/06/17 12/06/17 07:00 15:00 23:00 07:00 15:00 23:00 Intake Total 460 ml 1020 ml 360 ml Output Total 1800 ml 1300 ml 1600 ml Balance -1340 ml -280 ml -1240 ml Intake Oral 460 ml 1020 ml 360 ml Output Urine Total 1800 ml 1300 ml 1600 ml # Bowel Movements 2 6 6 Result Diagram: 12/06/17 1703 12/06/17 1703 Imaging Last Impressions Chest X-Ray 12/04/17 0600 Signed Impressions: Service Date/Time: Monday, December 04, 2017 03:21 - CONCLUSION: 1. Improved pulmonary edema. Nick Connolly MD Brain MRI 11/21/17 0000 Signed Impressions: Service Date/Time: Tuesday, November 21, 2017 08:59 - CONCLUSION: Normal examination. Marlon Call MD Lower Extremity Ultrasound 11/20/17 0000 Signed Impressions: Service Date/Time: Monday, November 20, 2017 16:24 - CONCLUSION: 1. Extensive deep vein thrombosis of the left lower extremity involving the superficial femoral vein popliteal vein and proximal calf veins. 2. No evidence of lower extremity DVT on the right. Benjamin Doyle MD CT Angiography 11/19/17 1233 Signed Impressions: Service Date/Time: Sunday, November 19, 2017 22:45 - CONCLUSION: 1. Pulmonary emboli identified bilaterally in segmental and subsegmental branches. 2. Mild pulmonary parenchymal emphysema. Benjamin Doyle MD Head CT 11/19/17 1042 Signed Impressions: Service Date/Time: Sunday, November 19, 2017 11:53 - CONCLUSION: Negative for acute process. Fidel Butler MD FACR Objective Remarks GEN: Chronically ill appearing male patient, on room air HEAD, EYES, EARS, NOSE, THROAT: Normocephalic and atraumatic. Pupils equal, round and reactive to light and accommodation. Conjunctivae are pink. Nonicteric sclerae. Oral mucosa within normal limits. NECK: The neck is supple. No jugular venous distention. Trachea in the midline. CARDIOVASCULAR: Regular rate and rhythm. PULMONARY: Hi Flow nasal cannula at 40% ABDOMEN: The abdomen is soft, nontender and no distention. EXTREMITIES: No cyanosis, clubbing or edema. SKIN: Abrasion noted on left cheek, improved NEUROLOGIC: GCS 14. Continues to be confused restraints continued for patient safety. Moves extremities 4 on command Medications and IVs Current Medications Medications (Trade) Dose Ordered Sig/Osbaldo Route Start Time Stop Time Status Last Admin (Duoneb Neb) 1 ampule Q2HR NEB PRN INH 11/19/17 12:45 12/01/17 15:43 Miscellaneous Information 1 Q361D XX 11/19/17 12:45 (Chlorhexidine 2% Cloth) Taper DAILY@04 TOP 11/20/17 04:00 11/16/18 03:59 12/06/17 04:00 (Chlorhexidine 2% Cloth) 3 pack UNSCH PRN TOP 11/19/17 12:45 (Cassandra-Colace) 1 tab BID PO 11/19/17 13:00 12/03/17 20:44 (Milk Of Magnesia Liq) 30 ml Q12H PRN PO 11/19/17 12:45 11/28/17 10:53 (Senokot) 17.2 mg Q12H PRN PO 11/19/17 12:45 11/28/17 10:54 (Dulcolax Supp) 10 mg DAILY PRN RECTAL 11/19/17 12:45 (Lactulose Liq) 30 ml DAILY PRN PO 11/19/17 12:45 11/28/17 07:46 (D50w (Vial) Inj) 50 ml UNSCH PRN IV PUSH 11/19/17 12:45 (Glucagon Inj) 1 mg UNSCH PRN OTHER 11/19/17 12:45 (NovoLIN R SUPPLEMENTAL SCALE) 1 Q4H SQ 11/19/17 13:00 12/03/17 13:35 (Ativan Inj) 1 mg Q4H PRN IV PUSH 11/19/17 16:00 Future Hold 11/23/17 15:04 (Lovenox Inj) 60 mg Q12H SQ 11/20/17 10:00 12/07/17 09:30 (Roxicodone Intensol Liq) 10 mg Q4H PO 11/24/17 15:00 Future Hold 12/01/17 10:32 (Tylenol 650 Mg/ 20 ml Liq) 650 mg Q4H PRN PO 11/27/17 20:45 12/01/17 10:27 (Roxicodone) 5 mg Q6H PRN PO 12/01/17 18:00 12/05/17 01:44 (Albuterol Neb) 2.5 mg Q2HR NEB PRN NEB 12/01/17 20:30 (Pulmicort Respule Neb) 0.5 mg Q12HR NEB NEB 12/01/17 20:30 12/07/17 08:52 (Keppra) 1,000 mg Q12HR PO 12/02/17 21:00 12/07/17 09:30 (Pepcid) 20 mg BID PO 12/02/17 21:00 12/07/17 09:30 (Pill Splitter) 1 ea UNSCH PRN OTHER 12/02/17 18:15 (Chapstick) 1 applic UNSCH PRN TOPICAL 12/04/17 08:15 (Baciguent Oint) 1 applic Q8HR TOPICAL 12/04/17 09:00 12/07/17 13:42 (Zyvox) 600 mg Q12HR PO 12/05/17 21:00 12/10/17 11:00 12/07/17 09:29 (Levaquin) 750 mg DAILY PO 12/06/17 09:00 12/10/17 11:00 12/07/17 09:30 (PHENobarbital) 60 mg TID PO 12/09/17 18:00 (SEROquel) 25 mg BID PO 12/06/17 21:00 12/07/17 09:30 (Coumadin) 5 mg DAILY@1600 PO 12/07/17 16:00 12/07/17 16:17 Pharmacy Profile Note 0 ml @ 0 mls/hr UNSCH OTHER 12/07/17 16:15 UNV A/P Problem List: (1) Acute hypoxemic respiratory failure ICD Code: J96.01 - Acute respiratory failure with hypoxia Status: Resolved (2) DVT (deep venous thrombosis) ICD Code: I82.409 - Acute embolism and thrombosis of unspecified deep veins of unspecified lower extremity Status: Acute (3) Encephalopathy, metabolic ICD Code: G93.41 - Metabolic encephalopathy Status: Acute (4) Pulmonary emboli ICD Code: I26.99 - Other pulmonary embolism without acute cor pulmonale Status: Acute (5) Leukocytosis ICD Code: D72.829 - Elevated white blood cell count, unspecified Status: Acute (6) History of Hodgkin's lymphoma ICD Code: Z85.71 - Personal history of Hodgkin lymphoma Status: Chronic Assessment and Plan 1. Acute hypoxic respiratory failure on mechanical ventilation. 2. Encephalopathy. 3. Bilateral pulmonary embolism 4. DVT 5. COPD. 6. History of Hodgkin's lymphoma. 7. History of benign prostate hypertrophy. 8. Sepsis, suspected pneumonia 9. Nonconvulsive seizures on EEG- improving. 10. Pulmonary Edema RECOMMENDATIONS:CT scan of the brain in the emergency department negative for acute process and urine drug screen positive for benzodiazepines. MRI brain unremarkable Encourage incentive spirometry Continue bronchodilators as needed Anticonvulsants per neurology. On Cerebyx/Keppra/phenobarbital. Heparin phenobarbital have been changed to by mouth dosing CT chest positive for bilateral PE Continue Lovenox 60 mg per KG every 12 hourly for full therapeutic anticoagulation on 11/20 Monitor renal function, intakes and outputs and electrolyte replacement as needed. Continue with empiric antibiotics for now. Patient had completed Zosyn on however now has fevers again. Pancultures ordered on 11/27, positive for MRSA , and gram-negative rods. 11/29 ID following-antibiotic management per ID, will continue to monitor CBC-leukocytosis improving BCx NGTD. Nasal washing is negative for influenza. Continue with Pepcid q. 12h for GI prophylaxis. Converted to by mouth dosing Regular basic diet-pured with honey thickened liquids, reevaluate swallow by speech therapy Continue on sliding scale insulin with Accu-Chek for glycemic control - cj=heck hemoglobin A1C. GI prophylaxis with Pepcid and DVT prophylaxis with SCDs. Continue therapuetic anticoagulation with Lovenox 12/06 Check hemoglobin A1C to r/o diabetes. Patient still agitated. Will start on low dose Seroquel. EEG today normal. Continue Lovenox SQ - will start Coumadin goal INR 2 to 3. 12/07 Patient cleared by neurology for DC. ID recommends Levaquin and Zyvox by mouth until 12/10. Patient still agitated earlier today and on restraints. Patient taken off restraints today as per RN. Will give one time dose of seroquel 25 mg PO and increase To 50 mg po bid to control patient's agitation Discharge Planning Patient needs PT at rehab, however needs to be off restraints x 24 hours. Possible DC tomorrow. Problem Qualifiers (1) DVT (deep venous thrombosis): (2) Pulmonary emboli: Qualified Codes: I26.99 - Other pulmonary embolism without acute cor pulmonale (3) Leukocytosis: Qualified Codes: D72.829 - Elevated white blood cell count, unspecified Clyde Grimes MD Dec 06, 2017 19:51
[2017-12-06] MEDS: QUEtiapine FUMARATE 25 MG TAB PO SCH (21:14)
--- NOTE | 2017-12-06 22:14 | MG ---
cc: JESUS MANUEL MURRIETA MD Sex: M DATE OF 1960. REFERRING PHYSICIAN Dr. Harrell. MEDICAL HISTORY The patient was found on the ground unresponsive, hyperlipidemia, diabetes, Hodgkin's lymphoma in 2005, Hepatitis C, COPD. MEDICATIONS: N/A. DESCRIPTION The background activity is 8-9 Hz alpha located posterior bilateral and symmetrical with posterior to anterior gradient that attenuates to eye-opening. There were excessive eye blinking and movement artifact during the recording. Hyperventilation was omitted. Photic stimulation did not elicit a driving response. No epileptiform discharges or electrographic seizures were noted during the recording. INTERPRETATION This is a normal awake EEG. There were no electrographic seizures or epileptiform discharges noted during the recording. Clinical correlation is recommended. Jesus Manuel Murrieta MD [facility] /7:36 PM /9:47 PM [facility]
[2017-12-07] VITALS (10 sets, daily range): BP systolic 118–132; BP diastolic 67–78; PULSE 75–97; RESP 16–22; TEMP 97.8–98.8; O2SAT 93–98
[2017-12-07] MEDS: INSULIN NovoLIN REGULAR SUPPLEMENTAL SCALE SQ SCH ×6 (00:22→20:43)
[2017-12-07] MEDS: CHLORHEXIDINE GLUCONATE 2 % 1 PACK (2 CLOTHS) TOP SCH (02:56)
[2017-12-07] MEDS: BACITRACIN TOP OINT 15 GM TUBE TOPICAL SCH ×3 (05:29→20:46)
--- NOTE | 2017-12-07 08:23 | HHI.PR ---
Review/Management Diagnosis/Plan: (1) Non-convulsive status epilepticus ICD Codes: G40.901 - Epilepsy, unspecified, not intractable, with status epilepticus Status: Acute Plan: etiology: suspected hypoxemia on cerebryx,keppra and phb mri brain- nml +dvt in left le; hypercoag panel ordered, heme eval phb, dilantin in range 12/06/17 eeg- improved- no sz phb level declining recs ox 2-3 this am, following d/c cerebryx p.t/s.t hold and reduce phb rehab placement when feasible (2) Acute encephalopathy ICD Codes: G93.40 - Encephalopathy, unspecified Status: Acute Plan: 2/2 sz's, pulm emboli resp distress improved (3) Encephalopathy, metabolic ICD Codes: G93.41 - Metabolic encephalopathy Status: Acute (4) Pulmonary emboli ICD Codes: I26.99 - Other pulmonary embolism without acute cor pulmonale Status: Acute (5) Respiratory distress ICD Codes: R06.03 - Acute respiratory distress Status: Acute Plan: resolved Subjective Subjective Comments No acute events reported No headache No chest pain No dyspnea Active Medications Current Medications Medications (Trade) Dose Ordered Sig/Osbaldo Route Start Time Stop Time Status Last Admin (Duoneb Neb) 1 ampule Q2HR NEB PRN INH 11/19/17 12:45 12/01/17 15:43 Miscellaneous Information 1 Q361D XX 11/19/17 12:45 (Chlorhexidine 2% Cloth) Taper DAILY@04 TOP 11/20/17 04:00 11/16/18 03:59 12/06/17 04:00 (Chlorhexidine 2% Cloth) 3 pack UNSCH PRN TOP 11/19/17 12:45 (Cassandra-Colace) 1 tab BID PO 11/19/17 13:00 12/03/17 20:44 (Milk Of Magnesia Liq) 30 ml Q12H PRN PO 11/19/17 12:45 11/28/17 10:53 (Senokot) 17.2 mg Q12H PRN PO 11/19/17 12:45 11/28/17 10:54 (Dulcolax Supp) 10 mg DAILY PRN RECTAL 11/19/17 12:45 (Lactulose Liq) 30 ml DAILY PRN PO 11/19/17 12:45 11/28/17 07:46 (D50w (Vial) Inj) 50 ml UNSCH PRN IV PUSH 11/19/17 12:45 (Glucagon Inj) 1 mg UNSCH PRN OTHER 11/19/17 12:45 (NovoLIN R SUPPLEMENTAL SCALE) 1 Q4H SQ 11/19/17 13:00 12/03/17 13:35 (Ativan Inj) 1 mg Q4H PRN IV PUSH 11/19/17 16:00 Future Hold 11/23/17 15:04 (Cerebyx Inj) 200 mgpe Q12HR IV 11/20/17 09:00 12/06/17 21:18 (Lovenox Inj) 60 mg Q12H SQ 11/20/17 10:00 12/06/17 21:19 (Roxicodone Intensol Liq) 10 mg Q4H PO 11/24/17 15:00 Future Hold 12/01/17 10:32 (Tylenol 650 Mg/ 20 ml Liq) 650 mg Q4H PRN PO 11/27/17 20:45 12/01/17 10:27 (Roxicodone) 5 mg Q6H PRN PO 12/01/17 18:00 12/05/17 01:44 (Albuterol Neb) 2.5 mg Q2HR NEB PRN NEB 12/01/17 20:30 (Pulmicort Respule Neb) 0.5 mg Q12HR NEB NEB 12/01/17 20:30 12/06/17 19:54 (Keppra) 1,000 mg Q12HR PO 12/02/17 21:00 12/06/17 21:14 (Pepcid) 20 mg BID PO 12/02/17 21:00 12/06/17 21:14 (Pill Splitter) 1 ea UNSCH PRN OTHER 12/02/17 18:15 (Chapstick) 1 applic UNSCH PRN TOPICAL 12/04/17 08:15 (Baciguent Oint) 1 applic Q8HR TOPICAL 12/04/17 09:00 12/07/17 05:29 (Zyvox) 600 mg Q12HR PO 12/05/17 21:00 12/10/17 11:00 12/06/17 21:15 (Levaquin) 750 mg DAILY PO 12/06/17 09:00 12/10/17 11:00 12/06/17 09:46 (PHENobarbital) 60 mg TID PO 12/09/17 18:00 (SEROquel) 25 mg BID PO 12/06/17 21:00 12/06/17 21:14 (Coumadin) 5 mg DAILY@1600 PO 12/07/17 16:00 (Coumadin Booklet) 1 ONCE ONCE .XX 12/07/17 16:00 12/07/17 16:01 Allergies Allergies Coded Allergies vancomycin (Unverified Allergy, Intermediate, RASH, 08/01/17) Review of Systems All other ROS: ROS reviewed as documented in chart Exam I&O / VS Vital Signs Date Time Temp Pulse Resp B/P (MAP) Pulse Ox O2 Delivery O2 Flow Rate FiO2 12/07/17 04:41 75 12/07/17 04:37 Nasal Cannula 2.00 12/07/17 04:00 98.7 82 16 128/70 (89) 94 12/07/17 02:28 Nasal Cannula 2.00 12/07/17 00:00 Room Air 12/07/17 00:00 98.8 92 16 127/76 (93) 93 12/06/17 23:50 94 12/06/17 20:00 99.1 105 16 133/68 (89) 93 12/06/17 20:00 Nasal Cannula 2.00 12/06/17 19:45 106 12/06/17 16:46 103 12/06/17 12:07 98.4 100 19 138/80 (99) 91 12/06/17 12:00 105 12/06/17 11:14 Room Air Exam Comments alert, ox 2-3, not to exact date, pres Trump, follows requests, left traumatic pupil, vision loss, face sym, varma to gravity Objective Micro and Labs Laboratory Tests Test 12/06/17 08:55 12/06/17 17:03 Phenytoin (Dilantin) Level 1.6 Phenobarbital Level 40.1 White Blood Count 12.5 Red Blood Count 3.43 Hemoglobin 10.4 Hematocrit 31.8 Mean Corpuscular Volume 92.5 Mean Corpuscular Hemoglobin 30.4 Mean Corpuscular Hemoglobin Concent 32.9 Red Cell Distribution Width 14.8 Platelet Count 379 Mean Platelet Volume 8.3 Neutrophils (%) (Auto) 74.1 Lymphocytes (%) (Auto) 14.2 Monocytes (%) (Auto) 7.1 Eosinophils (%) (Auto) 3.9 Basophils (%) (Auto) 0.7 Neutrophils # (Auto) 9.3 Lymphocytes # (Auto) 1.8 Monocytes # (Auto) 0.9 Eosinophils # (Auto) 0.5 Basophils # (Auto) 0.1 CBC Comment DIFF FINAL Differential Comment Blood Urea Nitrogen 14 Creatinine 0.97 Random Glucose 103 Total Protein 6.8 Albumin 2.1 Calcium Level 8.5 Phosphorus Level 2.5 Magnesium Level 2.1 Alkaline Phosphatase 144 Aspartate Amino Transf (AST/SGOT) 29 Alanine Aminotransferase (ALT/SGPT) 45 Total Bilirubin 0.2 Sodium Level 143 Potassium Level 3.8 Chloride Level 104 Carbon Dioxide Level 29.0 Anion Gap 10 Estimat Glomerular Filtration Rate 79 Date/Time Source Procedure Growth Status 11/27/17 19:17 Blood Peripheral Aerobic Blood Culture - Final NO GROWTH IN 5 DAYS Complete 11/27/17 19:17 Blood Peripheral Anaerobic Blood Culture - Final NO GROWTH IN 5 DAYS Complete 11/27/17 13:00 Sputum Endotracheal Gram Stain - Final Complete 11/27/17 13:00 Sputum Culture - Final S. Aureus Mrsa Acinetobacter Baumannii/Haemol Complete Problem Qualifiers (1) Pulmonary emboli: Qualified Codes: I26.99 - Other pulmonary embolism without acute cor pulmonale Adal Harrell MD Dec 07, 2017 08:23
[2017-12-07] MEDS: RESP: BUDESONIDE 0.5 MG/2 ML NEB NEB SCH ×2 (08:52→21:04)
[2017-12-07] MEDS: DOCUSATE SODIUM 50 MG/SENNA 8.6 MG TAB PO SCH ×2 (09:00→20:43)
[2017-12-07] MEDS: LINEZOLID 600 MG TAB PO SCH ×2 (09:29→20:43)
[2017-12-07] MEDS: levETIRAcetam 500 MG TAB PO SCH ×2 (09:30→20:43)
[2017-12-07] MEDS: QUEtiapine FUMARATE 25 MG TAB PO SCH ×2 (09:30→20:43)
[2017-12-07] MEDS: ENOXAPARIN SODIUM 60 MG/0.6 ML SYRINGE SQ SCH ×2 (09:30→20:46)
[2017-12-07] MEDS: FAMOTIDINE 20 MG TAB PO SCH ×2 (09:30→20:43)
[2017-12-07] MEDS: LEVOFLOXACIN 750 MG TAB PO SCH (09:30)
--- NOTE | 2017-12-07 13:36 | HHI.IDPN ---
Note Infectious Disease Note Patient is on room air. Somnolent but arousable. Afebrile. 57-year-old white male who was brought to the emergency department in respiratory distress. The patient's mother is at bedside. The mom reports that the patient was doing well on November 19. He went to bed after he was doing activities such as using his computer. The mom found him the next day in bed unresponsive and called 9-1-1. The patient was brought to emergency department and he was subsequently intubated. ALLERGIES Medical records report an allergy to VANCOMYCIN. The patient has not had any reaction from the Vancomycin given. PAST MEDICAL HISTORY 1. COPD 2. Hodgkin's Lymphoma 3. Benign prostatic hypertrophy 4. Diabetes mellitus 5. Left eye surgery secondary to trauma ANTIBIOTICS Zyvox. Levaquin. OBJECTIVE: Vital Signs Date Time Temp Pulse Resp B/P (MAP) Pulse Ox O2 Delivery O2 Flow Rate FiO2 12/07/17 12:00 97.9 80 20 118/78 (91) 95 12/07/17 08:53 98 Nasal Cannula 2.00 12/07/17 08:00 91 12/07/17 08:00 98.0 94 20 131/72 (91) 96 12/07/17 04:41 75 12/07/17 04:37 Nasal Cannula 2.00 12/07/17 04:00 98.7 82 16 128/70 (89) 94 12/07/17 02:28 Nasal Cannula 2.00 12/07/17 00:00 Room Air 12/07/17 00:00 98.8 92 16 127/76 (93) 93 12/06/17 23:50 94 12/06/17 20:00 99.1 105 16 133/68 (89) 93 12/06/17 20:00 Nasal Cannula 2.00 12/06/17 19:45 106 12/06/17 16:46 103 Laboratory Tests Test 12/06/17 17:03 White Blood Count 12.5 TH/MM3 Red Blood Count 3.43 MIL/MM3 Hemoglobin 10.4 GM/DL Hematocrit 31.8 % Mean Corpuscular Volume 92.5 FL Mean Corpuscular Hemoglobin 30.4 PG Mean Corpuscular Hemoglobin Concent 32.9 % Red Cell Distribution Width 14.8 % Platelet Count 379 TH/MM3 Mean Platelet Volume 8.3 FL Neutrophils (%) (Auto) 74.1 % Lymphocytes (%) (Auto) 14.2 % Monocytes (%) (Auto) 7.1 % Eosinophils (%) (Auto) 3.9 % Basophils (%) (Auto) 0.7 % Neutrophils # (Auto) 9.3 TH/MM3 Lymphocytes # (Auto) 1.8 TH/MM3 Monocytes # (Auto) 0.9 TH/MM3 Eosinophils # (Auto) 0.5 TH/MM3 Basophils # (Auto) 0.1 TH/MM3 CBC Comment DIFF FINAL Differential Comment Laboratory Tests Test 12/06/17 17:03 Blood Urea Nitrogen 14 MG/DL Creatinine 0.97 MG/DL Random Glucose 103 MG/DL Total Protein 6.8 GM/DL Albumin 2.1 GM/DL Calcium Level 8.5 MG/DL Phosphorus Level 2.5 MG/DL Magnesium Level 2.1 MG/DL Alkaline Phosphatase 144 U/L Aspartate Amino Transf (AST/SGOT) 29 U/L Alanine Aminotransferase (ALT/SGPT) 45 U/L Total Bilirubin 0.2 MG/DL Sodium Level 143 MEQ/L Potassium Level 3.8 MEQ/L Chloride Level 104 MEQ/L Carbon Dioxide Level 29.0 MEQ/L Anion Gap 10 MEQ/L Estimat Glomerular Filtration Rate 79 ML/MIN Microbiology Date/Time Source Procedure Growth Status 11/27/17 19:17 Blood Peripheral Aerobic Blood Culture - Preliminary NO GROWTH IN 2 DAYS Resulted 11/27/17 19:17 Blood Peripheral Anaerobic Blood Culture - Preliminary NO GROWTH IN 2 DAYS Resulted 11/27/17 19:12 Blood Peripheral Aerobic Blood Culture - Preliminary NO GROWTH IN 2 DAYS Resulted 11/27/17 19:12 Blood Peripheral Anaerobic Blood Culture - Preliminary NO GROWTH IN 2 DAYS Resulted 11/27/17 13:00 Sputum Endotracheal Gram Stain - Final Resulted 11/27/17 13:00 Sputum Culture - Preliminary S. Aureus Mrsa Acinetobacter Baumannii/Haemol Resulted IMAGING: Chest X-Ray 12/04/17 0600 Signed Impressions: Service Date/Time: Monday, December 04, 2017 03:21 - CONCLUSION: 1. Improved pulmonary edema. Nick Connolly MD Chest X-Ray 12/01/17 0600 Signed Impressions: Service Date/Time: Friday, December 01, 2017 05:16 - CONCLUSION: No acute cardiopulmonary disease identified. Benjamin Doyle MD Brain MRI 11/21/17 0000 Signed Impressions: Service Date/Time: Tuesday, November 21, 2017 08:59 - CONCLUSION: Normal examination. Marlon Call MD Lower Extremity Ultrasound 11/20/17 0000 Signed Impressions: Service Date/Time: Monday, November 20, 2017 16:24 - CONCLUSION: 1. Extensive deep vein thrombosis of the left lower extremity involving the superficial femoral vein popliteal vein and proximal calf veins. 2. No evidence of lower extremity DVT on the right. Benjamin Doyle MD CT Angiography 11/19/17 1233 Signed Impressions: Service Date/Time: Sunday, November 19, 2017 22:45 - CONCLUSION: 1. Pulmonary emboli identified bilaterally in segmental and subsegmental branches. 2. Mild pulmonary parenchymal emphysema. Benjamin Doyle MD Head CT 11/19/17 1042 Signed Impressions: Service Date/Time: Sunday, November 19, 2017 11:53 - CONCLUSION: Negative for acute process. Fidel Butler MD FACR PHYSICAL EXAM GENERAL: Alert and awake. HEENT: No icterus. Oropharynx: moist mucosa. NECK: Supple. No adenopathy. LUNGS: Decreased BS bilateral. HEART: Regular S1S2. No murmurs, rubs or gallops. ABDOMEN: Distended, bowel sounds diminished, no tenderness. EXTREMITIES: No clubbing or cyanosis or edema. SKIN: No rash. NEUROLOGIC: Non focal. PSYCH: Calm, cooperative. IMPRESSION 1. Pneumonia due to MRSA and Acinetobacter. This is likely secondary to aspiration in a patient who was found unresponsive. 2. Acute respiratory failure due to hypoxemia. 3. Pulmonary embolism. 4. Fever. Temp lower. 5. Leukocytosis, WBC still elevated but decreasing. RECOMMENDATIONS 1. Continue Levaquin PO until 12/10. 2. Continue Zyvox PO until 12/10. I am signing off now. Please call if further input is noted. Shaggy Murry MD Dec 07, 2017 13:36
[2017-12-07 15:39] LABS: AUTOMATED NEUTROPHIL # 7.3 TH/MM3 (1.8-7.7); BASOPHIL # 0.1 TH/MM3 (0-0.2); BASOPHIL % 1.1 % (0.0-2.0); EOSINOPHIL # 0.6 TH/MM3 (0-0.4); EOSINOPHIL % 5.9 % (0.0-4.0); HEMATOCRIT 33.3 % (39.0-51.0); LYMPH % 17.7 % (9.0-44.0); LYMPHOCYTE # 1.9 TH/MM3 (1.0-4.8); MEAN CELL VOLUME 92.6 FL (80.0-100.0); MEAN CORPUSCULAR HEMOGLOBIN 30.7 PG (27.0-34.0); MEAN CORPUSCULAR HGB CONC 33.1 % (32.0-36.0); MEAN PLATELET VOLUME 8.6 FL (7.0-11.0); MONO % 6.9 % (0.0-8.0); MONOCYTE # 0.7 TH/MM3 (0-0.9); NEUT % 68.4 % (16.0-70.0); PLATELET COUNT 392 TH/MM3 (150-450); RED BLOOD COUNT 3.59 MIL/MM3 (4.50-5.90); RED CELL DISTRIBUTION WIDTH 14.5 % (11.6-17.2); WHITE BLOOD COUNT 10.6 TH/MM3 (4.0-11.0)
[2017-12-07 16:03] LABS: PHENYTOIN (DILANTIN) 1.1 MCG/ML (10.0-20.0)
[2017-12-07] MEDS ORDERED: QUEtiapine FUMARATE 25 MG TAB PO ONE (16:15)
[2017-12-07] MEDS: WARFARIN SOD 5 MG TAB PO SCH (16:17)
[2017-12-08] VITALS: BP 144/76; PULSE 92; RESP 21; TEMP 97.7; O2SAT 95
[2017-12-08 00:08] VITALS: PULSE 101
[2017-12-08] MEDS: INSULIN NovoLIN REGULAR SUPPLEMENTAL SCALE SQ SCH ×4 (01:00→13:09)
[2017-12-08] MEDS: CHLORHEXIDINE GLUCONATE 2 % 1 PACK (2 CLOTHS) TOP SCH (03:35)
[2017-12-08 04:00] VITALS: BP 113/71; PULSE 105; RESP 22; TEMP 98; O2SAT 93
[2017-12-08 04:03] VITALS: PULSE 93
[2017-12-08] MEDS: BACITRACIN TOP OINT 15 GM TUBE TOPICAL SCH ×2 (06:00→13:09)
[2017-12-08 08:00] VITALS: BP 113/77; PULSE 98; RESP 17; TEMP 98; O2SAT 93
[2017-12-08] MEDS: RESP: BUDESONIDE 0.5 MG/2 ML NEB NEB SCH (08:05)
[2017-12-08] MEDS: levETIRAcetam 500 MG TAB PO SCH (08:23)
[2017-12-08] MEDS: DOCUSATE SODIUM 50 MG/SENNA 8.6 MG TAB PO SCH (08:23)
[2017-12-08] MEDS: FAMOTIDINE 20 MG TAB PO SCH (08:23)
[2017-12-08] MEDS: ENOXAPARIN SODIUM 60 MG/0.6 ML SYRINGE SQ SCH (08:23)
[2017-12-08] MEDS: LEVOFLOXACIN 750 MG TAB PO SCH (08:23)
[2017-12-08] MEDS: QUEtiapine FUMARATE 25 MG TAB PO SCH (08:23)
[2017-12-08] MEDS: LINEZOLID 600 MG TAB PO SCH (08:23)
[2017-12-08] MEDS ORDERED: LORazepam 2 MG/ML VIAL IV PUSH ONE (10:00)
[2017-12-08] MEDS ORDERED: LORazepam 2 MG/ML VIAL IV PUSH PRN (10:00)
[2017-12-08 10:36] LABS: INTERNATIONAL NORMALIZED RATIO 1.7 RATIO; PROTHROMBIN TIME - PATIENT 17.3 SEC (9.8-11.6)
[2017-12-08 12:00] VITALS: BP 107/67; PULSE 106; RESP 18; TEMP 98.3; O2SAT 96
[2017-12-08] MEDS ORDERED: LEVE500 PO (12:58)
[2017-12-08] MEDS ORDERED: PHENO60 PO (12:58)
[2017-12-08] MEDS ORDERED: LEVA750T9 PO (12:58)
[2017-12-08] MEDS ORDERED: ZYVO600T PO (12:58)
[2017-12-08] MEDS ORDERED: COUM5TAB PO (12:58)
[2017-12-08] MEDS ORDERED: ENOXAPARIN SODIUM 80 MG/0.8 ML SYRINGE SQ SCH (13:00)
--- NOTE | 2017-12-08 13:08 | HHI.PR ---
Subjective Remarks Deferred entry patient seen on date 12/07/2017 at approximately 1600 hrs. Patient is less agitated off restraints. Patient is asking for help and wants his mom Objective Vitals Vital Signs Date Time Temp Pulse Resp B/P (MAP) Pulse Ox O2 Delivery O2 Flow Rate FiO2 12/08/17 08:00 98.0 98 17 113/77 (89) 93 12/08/17 04:03 93 12/08/17 04:00 98.0 105 22 113/71 (85) 93 12/08/17 00:08 101 12/08/17 00:00 Room Air 12/08/17 00:00 97.7 92 21 144/76 (98) 95 12/07/17 21:06 95 12/07/17 20:50 Room Air 12/07/17 20:27 94 12/07/17 20:00 97.9 87 22 132/76 (94) 93 12/07/17 16:00 97.8 97 20 121/67 (85) 94 I/O 12/07/17 12/07/17 12/07/17 12/08/17 12/08/17 12/08/17 07:00 15:00 23:00 07:00 15:00 23:00 Intake Total 240 ml 240 ml 200 ml Balance 240 ml 240 ml 200 ml Intake Oral 240 ml 240 ml 200 ml # Voids 3 2 5 # Bowel Movements 1 1 1 1 Result Diagram: 12/07/17 1457 12/06/17 1703 Imaging Last Impressions Chest X-Ray 12/04/17 0600 Signed Impressions: Service Date/Time: Monday, December 04, 2017 03:21 - CONCLUSION: 1. Improved pulmonary edema. Nick Connolly MD Brain MRI 11/21/17 0000 Signed Impressions: Service Date/Time: Tuesday, November 21, 2017 08:59 - CONCLUSION: Normal examination. Marlon Call MD Lower Extremity Ultrasound 11/20/17 0000 Signed Impressions: Service Date/Time: Monday, November 20, 2017 16:24 - CONCLUSION: 1. Extensive deep vein thrombosis of the left lower extremity involving the superficial femoral vein popliteal vein and proximal calf veins. 2. No evidence of lower extremity DVT on the right. Benjamin Doyle MD CT Angiography 11/19/17 1233 Signed Impressions: Service Date/Time: Sunday, November 19, 2017 22:45 - CONCLUSION: 1. Pulmonary emboli identified bilaterally in segmental and subsegmental branches. 2. Mild pulmonary parenchymal emphysema. Benjamin Doyle MD Head CT 11/19/17 1042 Signed Impressions: Service Date/Time: Sunday, November 19, 2017 11:53 - CONCLUSION: Negative for acute process. Fidel Butler MD FACR Objective Remarks GEN: Chronically ill appearing male patient, on room air, moderate agitation HEAD, EYES, EARS, NOSE, THROAT: Normocephalic and atraumatic. Pupils equal, round and reactive to light and accommodation. Conjunctivae are pink. Nonicteric sclerae. Oral mucosa within normal limits. NECK: The neck is supple. No jugular venous distention. Trachea in the midline. CARDIOVASCULAR: Regular rate and rhythm. PULMONARY: Clear lungs BL ABDOMEN: The abdomen is soft, nontender and no distention. EXTREMITIES: No cyanosis, clubbing or edema. SKIN: Abrasion noted on left cheek, improved NEUROLOGIC: GCS 14. Off restraints but still showing some agitation. A/P Problem List: (1) Acute hypoxemic respiratory failure ICD Code: J96.01 - Acute respiratory failure with hypoxia Status: Resolved (2) DVT (deep venous thrombosis) ICD Code: I82.409 - Acute embolism and thrombosis of unspecified deep veins of unspecified lower extremity Status: Acute (3) Encephalopathy, metabolic ICD Code: G93.41 - Metabolic encephalopathy Status: Acute (4) Pulmonary emboli ICD Code: I26.99 - Other pulmonary embolism without acute cor pulmonale Status: Acute (5) Leukocytosis ICD Code: D72.829 - Elevated white blood cell count, unspecified Status: Acute (6) History of Hodgkin's lymphoma ICD Code: Z85.71 - Personal history of Hodgkin lymphoma Status: Chronic Assessment and Plan 1. Acute hypoxic respiratory failure on mechanical ventilation. 2. Encephalopathy. 3. Bilateral pulmonary embolism 4. DVT 5. COPD. 6. History of Hodgkin's lymphoma. 7. History of benign prostate hypertrophy. 8. Sepsis, suspected pneumonia 9. Nonconvulsive seizures on EEG- improving. 10. Pulmonary Edema RECOMMENDATIONS:CT scan of the brain in the emergency department negative for acute process and urine drug screen positive for benzodiazepines. MRI brain unremarkable Encourage incentive spirometry Continue bronchodilators as needed Anticonvulsants per neurology. On Cerebyx/Keppra/phenobarbital. Heparin phenobarbital have been changed to by mouth dosing CT chest positive for bilateral PE Continue Lovenox 60 mg per KG every 12 hourly for full therapeutic anticoagulation on 11/20 Monitor renal function, intakes and outputs and electrolyte replacement as needed. Continue with empiric antibiotics for now. Patient had completed Zosyn on however now has fevers again. Pancultures ordered on 11/27, positive for MRSA , and gram-negative rods. 11/29 ID following-antibiotic management per ID, will continue to monitor CBC-leukocytosis improving BCx NGTD. Nasal washing is negative for influenza. Continue with Pepcid q. 12h for GI prophylaxis. Converted to by mouth dosing Regular basic diet-pured with honey thickened liquids, reevaluate swallow by speech therapy Continue on sliding scale insulin with Accu-Chek for glycemic control - cj=heck hemoglobin A1C. GI prophylaxis with Pepcid and DVT prophylaxis with SCDs. Continue therapuetic anticoagulation with Lovenox 12/06 Check hemoglobin A1C to r/o diabetes. Patient still agitated. Will start on low dose Seroquel. EEG today normal. Continue Lovenox SQ - will start Coumadin goal INR 2 to 3. 12/07 Patient cleared by neurology for DC. ID recommends Levaquin and Zyvox by mouth until 12/10. Patient still agitated earlier today and on restraints. Patient taken off restraints today as per RN. Will give one time dose of seroquel 25 mg PO and increase To 50 mg po bid to control patient's agitation will give an extra dose of Seroquel 25 mg po today. Discharge Planning Patient needs PT at rehab, however needs to be off restraints x 24 hours. Possible DC tomorrow. Problem Qualifiers (1) DVT (deep venous thrombosis): (2) Pulmonary emboli: Qualified Codes: I26.99 - Other pulmonary embolism without acute cor pulmonale (3) Leukocytosis: Qualified Codes: D72.829 - Elevated white blood cell count, unspecified Clyde Grimes MD Dec 08, 2017 13:08
[2017-12-08] MEDS: WARFARIN SOD 5 MG TAB PO SCH (15:14)
--- NOTE | 2017-12-08 19:35 | HHI.DS ---
Discharge Summary Admission Date Nov 19, 2017 at 12:36 Discharge Date: Dec 08, 2017 Admitting Diagnosis respiratory distress/unresponsive/intubated (1) Acute hypoxemic respiratory failure ICD Code: J96.01 - Acute respiratory failure with hypoxia Diagnosis: Principal Status: Resolved (2) DVT (deep venous thrombosis) ICD Code: I82.409 - Acute embolism and thrombosis of unspecified deep veins of unspecified lower extremity Diagnosis: Principal Status: Acute (3) Encephalopathy, metabolic ICD Code: G93.41 - Metabolic encephalopathy Diagnosis: Principal Status: Acute (4) Pulmonary emboli ICD Code: I26.99 - Other pulmonary embolism without acute cor pulmonale Diagnosis: Principal Status: Acute (5) Leukocytosis ICD Code: D72.829 - Elevated white blood cell count, unspecified Diagnosis: Principal Status: Resolved (6) History of Hodgkin's lymphoma ICD Code: Z85.71 - Personal history of Hodgkin lymphoma Diagnosis: Principal Status: Chronic (7) Suicide attempt ICD Code: T14.91XA - Suicide attempt, initial encounter Diagnosis: Principal (8) Adjustment disorder with mixed disturbance of emotions and conduct ICD Code: F43.25 - Adjustment disorder with mixed disturbance of emotions and conduct Diagnosis: Principal Procedures Mechanical ventilation Brief History - From Admission he patient is a 57-year-old male with past medical history of Hodgkin's lymphoma, benign prostate hypertrophy, COPD who presented to the [facility] Emergency Department via EMS after he was found by his mother on the ground at his apartment unresponsive. He given Narcan times four doses by EMS without any significant improvement. On arrival to the emergency department, the patient noted to be in some respiratory distress associated with coarse wheezing. The patient apparently had not been seen for a day. In the emergency department, he was intubated with a etomidate and vecuronium and placed on full mechanical ventilation. ABG post-intubation showed a pH of 7.39, CO2 43, pAO2 465, bicarb 25, sats 98% on assist control ventilation with respiratory rate 16, tidal volume 500, PEEP of 5 and FIO2 of 100%. There is no evidence of any fever; however, the patient was noted to have leukocytosis with WBC of 19.0. Lactic acid measured at 1.9. A CT scan of the brain in the emergency department was negative for acute process and chest x-ray post-intubation showed no obvious infiltrates or effusions. He was placed on Diprivan for sedation and given one dose of Zosyn along with one liter of normal saline. His current blood pressure is 109/73 with a pulse of 59, saturation 99%. Most of the history was obtained from reviewing medical records. CBC/BMP: 12/07/17 1457 12/06/17 1703 Significant Findings Laboratory Tests Test 12/06/17 08:55 12/06/17 17:03 12/07/17 14:57 12/08/17 09:12 Phenytoin (Dilantin) Level 1.6 MCG/ML (10.0-20.0) 1.1 MCG/ML (10.0-20.0) Phenobarbital Level 40.1 MCG/ML (15.0-40.0) White Blood Count 12.5 TH/MM3 (4.0-11.0) Red Blood Count 3.43 MIL/MM3 (4.50-5.90) 3.59 MIL/MM3 (4.50-5.90) Hemoglobin 10.4 GM/DL (13.0-17.0) 11.0 GM/DL (13.0-17.0) Hematocrit 31.8 % (39.0-51.0) 33.3 % (39.0-51.0) Neutrophils (%) (Auto) 74.1 % (16.0-70.0) Neutrophils # (Auto) 9.3 TH/MM3 (1.8-7.7) Eosinophils # (Auto) 0.5 TH/MM3 (0-0.4) 0.6 TH/MM3 (0-0.4) Albumin 2.1 GM/DL (3.4-5.0) Alkaline Phosphatase 144 U/L (45-117) Estimat Glomerular Filtration Rate 79 ML/MIN (>89) Eosinophils (%) (Auto) 5.9 % (0.0-4.0) Prothrombin Time 17.3 SEC (9.8-11.6) Imaging Last Impressions Chest X-Ray 12/04/17 0600 Signed Impressions: Service Date/Time: Monday, December 04, 2017 03:21 - CONCLUSION: 1. Improved pulmonary edema. Nick Connolly MD Brain MRI 11/21/17 0000 Signed Impressions: Service Date/Time: Tuesday, November 21, 2017 08:59 - CONCLUSION: Normal examination. Marlon Call MD Lower Extremity Ultrasound 11/20/17 0000 Signed Impressions: Service Date/Time: Monday, November 20, 2017 16:24 - CONCLUSION: 1. Extensive deep vein thrombosis of the left lower extremity involving the superficial femoral vein popliteal vein and proximal calf veins. 2. No evidence of lower extremity DVT on the right. Benjamin Doyle MD CT Angiography 11/19/17 1233 Signed Impressions: Service Date/Time: Sunday, November 19, 2017 22:45 - CONCLUSION: 1. Pulmonary emboli identified bilaterally in segmental and subsegmental branches. 2. Mild pulmonary parenchymal emphysema. Benjamin Doyle MD Head CT 11/19/17 1042 Signed Impressions: Service Date/Time: Sunday, November 19, 2017 11:53 - CONCLUSION: Negative for acute process. Fidel Butler MD FACR PE at Discharge GEN: Chronically ill appearing male patient, on room air, moderate agitation HEAD, EYES, EARS, NOSE, THROAT: Normocephalic and atraumatic. Pupils equal, round and reactive to light and accommodation. Conjunctivae are pink. Nonicteric sclerae. Oral mucosa within normal limits. NECK: The neck is supple. No jugular venous distention. Trachea in the midline. CARDIOVASCULAR: Regular rate and rhythm. PULMONARY: Clear lungs BL ABDOMEN: The abdomen is soft, nontender and no distention. EXTREMITIES: No cyanosis, clubbing or edema. SKIN: Abrasion noted on left cheek, improved NEUROLOGIC: GCS 14. Off restraints but still showing some agitation. Pt update on day of discharge Patient on day of discharge made suicidal comments and with the glass that he could get from a poor trait that he had in his room try to cut his wrist. The patient was seen and not willing to talk at the time of interview. Psychiatry was called stat and a one-to-one sitter was ordered to stain the room with the patient at all times. The case was discussed with the charge nurse of the floor , patient's RN and psychiatrist Dr. Cardoso. The patient was [place] acted immediately and discharge to psychiatry for further psychiatric management of suicidal attempt and ideation. Hospital Course The patient was initially admitted to the intensive care unit under the care of retail field supervisor. He took the brain obtained emergency department was negative for acute process and urine drug screen positive for benzodiazepines. MRI unremarkable. The patient was initially intubated and placed on full mechanical ventilation secondary to acute hypoxemic respiratory failure likely secondary to aspiration pneumonia. The patient eventually got better and was extubated and placed on supplemental oxygen. Incentive spirometry was ordered and the patient was also placed on bronchodilators as needed. The patient also had a CTA of the chest on 03/21 which showed bilateral pulmonary emboli and the patient was started on Lovenox for full anticoagulation. EEG showed evidence of BiPLEDS the patient was started on anticonvulsants. Neurology was consulted. Initially the patient was on Versed, Keppra, phenobarbital and fosphenytoin. EEG eventually improved and left EEG prior to discharge did not show any seizure activity. The patient was encephalopathic after extubation and showing some signs of agitation as well. Patient also was have found to have a DVT that he was treated with anti-correlation as mentioned above. The patient was placed on IV antibiotics on admission empirically. As per notes the patient was started on IV Zosyn, blood cultures ordered on 11/27 were positive for MRSA and gram-negative rods. ID consulted and recommended the IV antibiotics to be changed to oral Levaquin until 12/10 and Zyvox until 12/10 as well. The patient was transferred to the medical floor where he remained agitated and had to be restrained. The patient was started on some Seroquel which did improve the patient's behavior agitation. However on the day of discharge the patient made suicidal comments stating that he wanted to and when ahead and broke one of his port traits and used a glass to cut his left wrist. Upon exam the left wrist showed minor lacerations which did not require any sutures and the arm was banded. I called and discussed the case with Dr. Cardoso from psychiatry who recommended discharging the patient to psychiatry if the patient was medically clear. I placed the patient under [place] act and the patient was discharged to psychiatry for involuntary commitment. The patient was placed on a one-to-one sitter and also IV Ativan was administered. Pt Condition on Discharge: Stable Discharge Disposition: Disc to Psych Care Fac Discharge Time: > 30 minutes Discharge Instructions DIET: Follow Instructions for: As Tolerated, No Restrictions Activities you can perform: See Additionl Instruction Other Activity Instructions: OOB with assistance - needs PPT evaluation Follow up Referrals: Neurology PCP Follow-up New Medications: Levetiracetam (Keppra) 500 Mg Tab 1000 MG PO Q12HR for Seizure Control, #60 TAB Levofloxacin (Levaquin) 750 Mg Tablet 750 MG PO DAILY for Infection, #2 TAB Linezolid (Zyvox) 600 Mg Tab 600 MG PO Q12HR for Infection, #4 TAB Phenobarbital (Phenobarbital) 64.8 Mg Tab 60 MG PO TID for Seizure Control, #93 TAB Warfarin (Coumadin) 5 Mg Tab 5 MG PO DAILY@1600 for Blood Clot Prevention, #6 TAB Continued Medications: Albuterol 18 GM Inh (Ventolin Hfa 18 GM Inh) 90 Mcg/Act Aer 2 PUFF INH Q4-6H PRN for SHORTNESS OF BREATH, #1 INHALER 0 Refills Albuterol Neb (Albuterol Neb) 2.5 Mg/3 Ml Neb 2.5 MG NEB Q4HR NEB PRN for SHORTNESS OF BREATH, #60 NEBULE 2 Refills Lovastatin (Lovastatin) 40 Mg Tab 2 TAB PO HS for Cholesterol Management, #30 TAB 3 Refills Tramadol (Tramadol) 50 Mg Tab 50 MG PO BID PRN for PAIN, #60 TAB 0 Refills Discontinued Medications: Azithromycin (Azithromycin) 250 Mg Tab 250 MG PO DIRECTED for Infection, #6 TAB 0 Refills Take 2 tabs (500 mg) on day 1 then 1 tab daily x 4 days. Baclofen (Baclofen) 10 Mg Tab 10 MG PO TID for Muscle Spasm, #90 TAB 2 Refills Cetirizine (Cetirizine) 10 Mg Tab 10 MG PO DAILY for Allergies, #30 TAB 3 Refills Temazepam (Temazepam) 15 Mg Cap 15 MG PO HS PRN for INSOMNIA, #30 CAP 0 Refills Clyde Grimes MD Dec 08, 2017 19:35
[2017-12-09] MEDS ORDERED: ENOXAPARIN SODIUM 80 MG/0.8 ML SYRINGE SQ SCH (01:00)
== END 2017-12-08 15:38 | DRG 870 ==
LOC: NEPC 10:31 → NEDA 12:36 → HIMN 14:40 → N04B 12-05 19:16
PROVIDERS: ADMIT Hospitalist; ATTEND Hospitalist
PROC: 5A1955Z Respiratory Ventilation, Greater than 96 Consecutive Hours (ICD-10-PCS; principal; 2017-11-19)
PROC: 0BH17EZ Insertion of Endotracheal Airway into Trachea, Via Natural or Artificial Opening (ICD-10-PCS; 2017-11-19)
DX: A41.9 Sepsis, unspecified organism (principal); J96.01 Acute respiratory failure with hypoxia; I26.99 Other pulmonary embolism without acute cor pulmonale; J69.0 Pneumonitis due to inhalation of food and vomit; G93.41 Metabolic encephalopathy; S61.512A Laceration without foreign body of left wrist, initial encounter; S01.81XA Laceration without foreign body of other part of head, initial encounter; J15.212 Pneumonia due to Methicillin resistant Staphylococcus aureus; G40.911 Epilepsy, unspecified, intractable, with status epilepticus; I82.412 Acute embolism and thrombosis of left femoral vein; M62.82 Rhabdomyolysis; J44.0 Chronic obstructive pulmonary disease with (acute) lower respiratory infection; Z99.11 Dependence on respirator [ventilator] status; I82.432 Acute embolism and thrombosis of left popliteal vein; I82.4Z2 Acute embolism and thrombosis of unspecified deep veins of left distal lower extremity; R45.851 Suicidal ideations; Z85.72 Personal history of non-Hodgkin lymphomas; H91.93 Unspecified hearing loss, bilateral; E78.00 Pure hypercholesterolemia, unspecified; E11.9 Type 2 diabetes mellitus without complications; N40.0 Benign prostatic hyperplasia without lower urinary tract symptoms; M19.90 Unspecified osteoarthritis, unspecified site; R00.1 Bradycardia, unspecified; M54.9 Dorsalgia, unspecified; G89.29 Other chronic pain; Z87.891 Personal history of nicotine dependence; R94.01 Abnormal electroencephalogram [EEG]; D69.59 Other secondary thrombocytopenia; R32 Unspecified urinary incontinence; Z78.1 Physical restraint status; F43.25 Adjustment disorder with mixed disturbance of emotions and conduct; X78.0XXA Intentional self-harm by sharp glass, initial encounter; Y93.89 Activity, other specified; Y92.230 Patient room in hospital as the place of occurrence of the external cause
CPT/HCPCS: 36600; 51702; 70450; 70553; 71010; 71045; 71275; 80048; 80053; 80184; 80185; 80202; 80307; 81001; 81240; 81241; 81291; 82140; 82550; 82552; 82607; 82805; 82948; 83010; 83090; 83605; 83615; 83735; 84100; 84443; 84484; 85025; 85027; 85300; 85303; 85306; 85307; 85384; 85610; 85613; 85652; 85730; 86140; 86146; 86147; 86148; 86403; 87040; 87070; 87077; 87147; 87186; 87205; 87641; 87804; 93005; 93306; 93970; 94002; 94003; 94150; 94640; 94664; 94667; 95819; 96365; A9579; J0330; J0692; J1644; J1650; J1953; J2060; J2250; J2543; J2560; J2930; J3010; J3370; J7030; J7040; J7050; J7626; Q2009; Q9967

== ENCOUNTER 2017-12-08 13:14 | Inpatient (IN) | payer OTHER ==
[~2017-12-08 13:14] MED LIST changes: +COUM5TAB PO; +LEVA750T9 PO; +LEVE500 PO; +PHENO60 PO; +ZYVO600T PO
[2017-12-08] MEDS ORDERED: MAGNESIUM HYDROXIDE SUSP 30 ML CUP PO PRN (16:30)
[2017-12-08] MEDS ORDERED: LORazepam 2 MG/ML VIAL IM PRN (16:30)
[2017-12-08] MEDS ORDERED: RESP: ALBUTEROL 2.5 MG/3 ML NEB (PRN) NEB (16:30)
[2017-12-08] MEDS ORDERED: ALBUTEROL SULFATE 90 MCG/ACT HFA 8 GM INHALER INH PRN (16:30)
[2017-12-08] MEDS ORDERED: ALUMINUM/MAGNESIUM/SIMETH 30 ML CUP PO PRN (16:30)
[2017-12-08] MEDS ORDERED: LORazepam 0.5 MG TAB PO PRN (16:30)
--- NOTE | 2017-12-08 16:39 | HHI.HP ---
Provisional Diagnosis Admission Date Dec 08, 2017 at 15:53 [place] I. Adjustment disorder with depressed mood Certification of Person's Competence To Provide Express and Informed Consent I have personally examined Ashley Garcia , a person being served at [facility] on, Dec 08, 2017 16:26. Express and informed consent means consent voluntarily given in writing, by a competent person, after sufficient explanation and disclosure of the subject matter involved to enable the person to make a knowing and willful decision without any element of force, fraud, deceit, duress, or other form of constraint or coercion. This person is 18 years of age or older, is not now known to be incompetent to consent to treatment with a guardian advocate, and does not have a health care surrogate or proxy currently making medical treatment decisions. I have found this person to be one of the following: [] Competent to provide express and informed consent, as defined above, for voluntary admission to this facility and is competent to provide express and informed consent for treatment. He/she has the consistent capacity to make well reasoned, willful, and knowing decisions concerning his or her medical or mental health treatment. The person fully and consistently understands the purpose of the admission for examination/placement and is fully capable of personally exercising all rights assured [place] Incompetent to provide express and informed consent to voluntary admission, and this is incompetent to provide express and informed consent to treatment. The person must be transferred to involuntary status and a petition for a guardian advocate filed with the Circuit Court. [x] Refusing to provide express and informed consent to voluntary admission but is competent to provide express and informed consent for treatment. The person must be discharged or transferred to involuntary status. Form shall be completed within 24 hours of a person's arrival at the receiving facility and filed in the clinical record of each person: 1. Admitted on a voluntary basis 2. Permitted to provide express and informed consent to his/her own treatment 3. Allowed to transfer from involuntary to voluntary status 4. Prior to permitting a person to consent to his or her own treatment after having been previously found incompetent to consent to treatment. History of Present Illness Capacity: Has Capacity HPI The patient is a 57-year-old white man, domiciled with his mother in [place] , unemployed, single, without no previous psychiatric history, no previous suicidal attempts, no previous psychiatric hospitalizations, with past medical history of Hodgkin's lymphoma, benign prostate hypertrophy, COPD who presented to the [facility] Emergency Department via EMS after he was found by his mother on the ground at his apartment unresponsive. Patient was admitted due to Acute hypoxic respiratory failure on mechanical ventilation. He developed he developed Encephalopathy, Bilateral pulmonary embolism, sepsis and bilateral pneumonia. The patient was about to be medically cleared today when all of a sudden he allegedly start asking for his mother, he wanted to use the phone to call her, apparently she did not pick up attendant the phone, he felt rejected and depressed, broke the photograph frame that he has in front of him and to the prism glasses and cut himself multiple times in both arms, in his face and in his forehead. Patient was immediately placed in one-to-one for safety, consulted to psychiatry. On psychiatric evaluation patient is profusely crying, stating that he feels very depressed and very guilty. He says that he doesn't know how this could happen to him. He said that he was feeling very sad and depressed, but he did not want to kill himself. Patient reports that he has been very confused in the last days, with on an of level of consciousness, he feels that he has lost control of himself "something really wrong had happened to her mind". Patient denies suicidal and homicidal ideation at this moment, he denies visual and auditory hallucinations. He is logical, coherent and relevant, but repetitive, perseverative. I do not get any sense of paranoia internal preoccupation, but he seems to be concrete and with limited abstraction and insight overweight childish. He denies the use of alcohol and illicit drugs. Review of Systems Constitutional: DENIES: Diaphoretic episodes, Fatigue, Fever, Weight gain, Weight loss, Chills, Dizziness, Change in appetite, Night Sweats Endocrine: DENIES: Heat/cold intolerance, Polydipsia, Polyuria, Polyphagia Eyes: DENIES: Blurred vision, Diplopia, Eye inflammation, Eye pain, Vision loss , Photosensitivity, Double Vision Ears, nose, mouth, throat: DENIES: Tinnitus, Hearing loss, Vertigo, Nasal discharge, Oral lesions, Throat pain, Hoarseness, Ear Pain, Running Nose, Epistaxis, Sinus Pain, Toothache, Odynophagia Respiratory: DENIES: Apneas, Cough, Snoring, Wheezing, Hemoptysis, Sputum production, Shortness of breath Cardiovascular: DENIES: Chest pain, Palpitations, Syncope, Dyspnea on Exertion , PND, Lower Extremity Edema, Orthopnea, Claudication Gastrointestinal: DENIES: Abdominal pain, Black stools, Bloody stools, Constipation, Diarrhea, Nausea, Vomiting, Difficulty Swallowing, Anorexia Genitourinary: DENIES: Sexual dysfunction, Urinary frequency, Urinary incontinence, Urgency, Hematuria, Dysuria, Nocturia, Penile Discharge, Testicular Pain, Testicular Swelling Musculoskeletal: DENIES: Joint pain, Muscle aches, Stiffness, Joint Swelling, Back pain, Neck pain Integumentary: DENIES: Abnormal pigmentation, Nail changes, Pruritus, Rash Hematologic/lymphatic: DENIES: Bruising, Lymphadenopathy Immunologic/allergic: DENIES: Eczema, Urticaria Neurologic: DENIES: Abnormal gait, Headache, Localized weakness, Paresthesias, Seizures, Speech Problems, Tremor, Poor Balance Psychiatric: COMPLAINS OF: Confusion, Depression, Suicidal Ideation, DENIES: Anxiety, Mood changes, Hallucinations, Agitation, Homicidal Ideation, Delusions Substance Abuse History Drugs/Alcohol past 12 months Patient denies the use of illegal drugs or alcohol Past Family Social History Coded Allergies: vancomycin (Unverified Allergy, Intermediate, RASH, 08/01/17) Active Scripts Phenobarbital (Phenobarbital) 64.8 Mg Tab, 60 MG PO TID for Seizure Control, # 93 TAB Prov:Clyde Grimes MD 12/08/17 Levetiracetam (Keppra) 500 Mg Tab, 1000 MG PO Q12HR for Seizure Control, #60 TAB Prov:Clyde Grimes MD 12/08/17 Warfarin (Coumadin) 5 Mg Tab, 5 MG PO DAILY@1600 for Blood Clot Prevention, #6 TAB Prov:Clyde Grimes MD 12/08/17 Linezolid (Zyvox) 600 Mg Tab, 600 MG PO Q12HR for Infection, #4 TAB Prov:Clyde Grimes MD 12/08/17 Levofloxacin (Levaquin) 750 Mg Tablet, 750 MG PO DAILY for Infection, #2 TAB Prov:Clyde Grimes MD 12/08/17 Tramadol (Tramadol) 50 Mg Tab, 50 MG PO BID Y for PAIN, #60 TAB 0 Refills Prov:Melvin Remy DO 08/15/17 Lovastatin (Lovastatin) 40 Mg Tab, 2 TAB PO HS for Cholesterol Management, #30 TAB 3 Refills Prov:Aidan Wells BRITNEY 05/03/17 Nebulizer Kit/Tubing/Mout (Nebulizer Kit/Tubing/Mout) 1 Kit Kit, 1 KIT .ROUTE DIRECTED for Breathing Treatment, #1 KIT 0 Refills Prov:Aidan Wells BRITNEY 01/31/17 Albuterol Neb (Albuterol Neb) 2.5 Mg/3 Ml Neb, 2.5 MG NEB Q4HR NEB Y for SHORTNESS OF BREATH, #60 NEBULE 2 Refills Prov:Aidan Wells BRITNEY 01/31/17 Reported Medications Albuterol 18 GM Inh (Ventolin Hfa 18 GM Inh) 90 Mcg/Act Aer, 2 PUFF INH Q4-6H Y for SHORTNESS OF BREATH, #1 INHALER 0 Refills 07/31/17 Discontinued Reported Medications Temazepam (Temazepam) 15 Mg Cap, 15 MG PO HS Y for INSOMNIA, #30 CAP 0 Refills 05/03/17 Discontinued Scripts Azithromycin (Azithromycin) 250 Mg Tab, 250 MG PO DIRECTED for Infection, #6 TAB 0 Refills Take 2 tabs (500 mg) on day 1 then 1 tab daily x 4 days. Prov:Saúl Martinezleann DO 08/01/17 Cetirizine (Cetirizine) 10 Mg Tab, 10 MG PO DAILY for Allergies, #30 TAB 3 Refills Prov:RussellSarahkiara TAN 05/03/17 Baclofen (Baclofen) 10 Mg Tab, 10 MG PO TID for Muscle Spasm, #90 TAB 2 Refills Prov:Sarah Wellskiara TAN 01/31/17 Current Medications Medications (Trade) Dose Ordered Sig/Osbaldo Route Start Time Stop Time Status Last Admin (Proair Hfa Inh) 2 puff Q12HR PRN INH 12/08/17 16:30 (Albuterol Neb) 2.5 mg Q4HR NEB PRN NEB 12/08/17 16:30 UNV (Keppra) 1,000 mg Q12HR PO 12/08/17 21:00 (Levaquin) 750 mg DAILY PO 12/08/17 16:30 (Zyvox) 600 mg Q12HR PO 12/08/17 21:00 (Pravachol) 80 mg HS PO 12/08/17 21:00 (PHENobarbital) 60 mg TID PO 12/08/17 18:00 (Ultram) 50 mg BID PRN PO 12/08/17 16:30 (Coumadin) 5 mg DAILY@1600 PO 12/08/17 16:30 UNV Family Psych History He denies family psychiatric history Social History Patient was born and raised in [place], he lives in [place] with his mother, single, unemployed, supported by duuin, his highest level of education is ninth grade Patient's Strengths (min. 2) No previous psychiatric history Physical Exam No tremors, no EPS, no psychomotor agitation or retardation, Vital Signs Reviewed Lab Results Reviewed Mental Status Examination Appearance: Appropriate Consciousness: Alert Orientation: x4 Motor Activity: Normal gait Speech: Unremarkable Language: Adequate Fund of Knowledge: Adequate Attention and Concentration: Adequate Memory: Unremarkable Mood: Sad Affect: Sad Thought Process & Associations: Intact Thought Content: Appropriate Hallucination Type: None Delusion Type: None Suicidal Ideation: No Suicidal Plan: No Suicidal Intention: No Homicidal Ideation: No Homicidal Plan: No Homicidal Intention: No Insight: Adequate Judgment: Adequate Assessment & Plan Problem List: (1) Adjustment disorder with mixed disturbance of emotions and conduct ICD Codes: F43.25 - Adjustment disorder with mixed disturbance of emotions and conduct Assessment & Plan: On psychiatric evaluation today patient is profusely crying , seems to be desperate, requesting to see his mother. Patient has tried to commit suicide by ingesting several self-inflicted lacerations in both arms and he his forehead in the context of depression, but most probably also in the context of confusion/delirium related with brain anoxia encephalopathy and other underlying medical conditions. The patient definitely meets criteria for involuntary psychiatric admission due to the level of risk of danger to self. Patient will be transferred to psychiatric for admission. Will be placed under [place] act. Consult hospitalist to follow up with medical conditions. Consult psychiatry for second opinion. Brief supportive psychotherapy provided. We will start Remeron 50 mg for depression. Assessment & Plan Estimated LOS: Gary Barros MD Dec 08, 2017 16:39
[2017-12-08 16:44] VITALS: BP 107/66; PULSE 88; RESP 16; TEMP 97.8; O2SAT 96
--- NOTE | 2017-12-08 17:05 | PD.CONS ---
[facility] Card[facility] Reason for Consult Medical management Primary Care Physician Non-Staff Diagnoses: History of Present Illness 57-year-old male with a past medical history of Hodgkin's lymphoma, COPD and BPH who was brought to the emergency department via EMS after he was found by his mother on the ground of his apartment unresponsive. The patient was admitted for acute hypoxic respiratory failure requiring mechanical ventilation. His hospital stay was significant for encephalopathy, bilateral pulmonary embolisms and sepsis with MRSA and Acinetobacter pneumonia. The patient was cleared for discharge by neurology and infectious disease earlier today. He was transferred to the medical psychiatry floor. The patient was agitated earlier this morning and broke the frame that held his dogs picture. He then began slicing his left upper extremity with the shard from the frame. He is on Lovenox and Coumadin at this time for his bilateral PEs. He has continued to bleed from 2 of these wounds despite simple dressing. [facility] is consulted for medical management and concern for bleeding. Review of Systems Denies fever or chills Denies blurry vision, otorrhea, rhinorrhea Denies sore throat and cough No chest pain, palpitations, shortness of breath No abdominal pain Denies constipation/diarrhea/nausea/vomiting Denies muscle pain/weakness No rashes Past Family Social History Allergies: Coded Allergies: vancomycin (Unverified Allergy, Intermediate, RASH, 08/01/17) Past Medical History (Obtained from medical record) Hodgkin COPD Diabetes mellitus Degenerative joint disease BPH Past Surgical History Left eye surgery secondary to trauma Port placement for chemotherapy, now removed Reported Medications Reported Meds & Active Scripts Active Phenobarbital 64.8 Mg Tab 60 Mg PO TID Keppra (Levetiracetam) 500 Mg Tab 1,000 Mg PO Q12HR Coumadin (Warfarin) 5 Mg Tab 5 Mg PO DAILY@1600 Zyvox (Linezolid) 600 Mg Tab 600 Mg PO Q12HR Levaquin (Levofloxacin) 750 Mg Tablet 750 Mg PO DAILY Tramadol (Tramadol HCl) 50 Mg Tab 50 Mg PO BID PRN Lovastatin 40 Mg Tab 2 Tab PO HS Nebulizer Kit/Tubing/Mout (N/A) 1 Kit Kit 1 Kit .ROUTE DIRECTED Albuterol Neb (Albuterol Sulfate) 2.5 Mg/3 Ml Neb 2.5 Mg NEB Q4HR NEB PRN Reported Ventolin Hfa 18 GM Inh (Albuterol Sulfate) 90 Mcg/Act Aer 2 Puff INH Q4-6H PRN Family History No family history of DM/CAD Social History Patient quit smoking in July. No alcohol, illicit drugs. Physical Exam Vital Signs Vital Signs Date Time Temp Pulse Resp B/P (MAP) Pulse Ox O2 Delivery O2 Flow Rate FiO2 12/08/17 16:44 97.8 88 16 107/66 (80) 96 Physical Exam GENERAL: male sitting up in bed SKIN: Multiple linear lacerations approximately 3 cm in length along the LUE. The wounds are superficial and 2 of them continue to ooze. HEAD: Atraumatic. Normocephalic. No temporal or scalp tenderness. EYES: Pupils equal round and reactive. Extraocular motions intact. No scleral icterus. No injection or drainage. ENT: Nose without bleeding, purulent drainage or septal hematoma. Throat without erythema, tonsillar hypertrophy or exudate. Uvula midline. Airway patent. NECK: Trachea midline. No JVD or lymphadenopathy. Supple, nontender, no meningeal signs. CARDIOVASCULAR: Regular rate and rhythm without murmurs, gallops, or rubs. RESPIRATORY: Clear to auscultation. Breath sounds equal bilaterally. No wheezes , rales, or rhonchi. GASTROINTESTINAL: Abdomen soft, non-tender, nondistended. No hepato-splenomegaly , or palpable masses. No guarding. MUSCULOSKELETAL: Extremities without clubbing, cyanosis, or edema. No joint tenderness, effusion, or edema noted. No calf tenderness. NEUROLOGICAL: Awake and alert. Cranial nerves II through XII intact. Motor and sensory grossly within normal limits. Normal speech. Assessment and Plan Assessment and Plan Assessment/plan: 1. MRSA/Acinetobacter PNA Continue Levaquin and Zyvox by mouth until 12/10 per ID recommendations 2. Bilateral PE Continue Coumadin Goal INR 2-3 3. Multiple left upper extremity lacerations Wounds are superficial and do not require sutures Recommend pressure dressing to achieve hemostasis Do not recommend discontinuing anticoagulation at this time 4. Hyperlipidemia Continue statin 5. 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 Adjustment disorder Management per psychiatry 7. BPH with urinary retention Replace Alfred as patient with post void residual greater than 1 L on bladder scan Void trial tomorrow Start FloIzabella North MD Dec 08, 2017 17:05
[2017-12-08] MEDS: LEVOFLOXACIN 750 MG TAB PO SCH (18:29)
[2017-12-08] MEDS: NICOTINE 21 MG/24 HR PATCH T-DERMAL SCH (18:30)
[2017-12-08] MEDS: ACETAMINOPHEN 325 MG TAB PO PRN (18:30)
[2017-12-08] MEDS: LORazepam 2 MG/ML VIAL IM PRN (20:57)
[2017-12-08] MEDS: LINEZOLID 600 MG TAB PO SCH (20:59)
[2017-12-08] MEDS: levETIRAcetam 500 MG TAB PO SCH (20:59)
[2017-12-08] MEDS: MIRTAZAPINE 15 MG TAB PO SCH (20:59)
[2017-12-08] MEDS: PRAVASTATIN SOD 40 MG TAB PO SCH (21:00)
[2017-12-08] MEDS: traMADol HCL 50 MG TAB PO PRN (21:00)
[2017-12-08] MEDS: REMOVE OLD NICODERM (NICOTINE) PATCH T-DERMAL SCH (21:00)
[2017-12-09] MEDS: LORazepam 2 MG/ML VIAL IM PRN (03:02)
[2017-12-09 06:35] VITALS: BP 107/56; PULSE 101; RESP 16; TEMP 97.8; O2SAT 93
[2017-12-09] MEDS: NICOTINE 21 MG/24 HR PATCH T-DERMAL SCH (07:15)
[2017-12-09] MEDS: LEVOFLOXACIN 750 MG TAB PO SCH (08:27)
[2017-12-09] MEDS: levETIRAcetam 500 MG TAB PO SCH ×2 (08:27→21:45)
[2017-12-09] MEDS: TAMSULOSIN HCL 0.4 MG CAP PO SCH (08:27)
[2017-12-09] MEDS: LINEZOLID 600 MG TAB PO SCH ×2 (08:27→21:45)
[2017-12-09] MEDS: traMADol HCL 50 MG TAB PO PRN ×2 (08:28→21:46)
--- NOTE | 2017-12-09 08:46 | PD.PSY.CON ---
Provisional Diagnosis Admission Date Dec 08, 2017 at 15:53 [place]. Adjustment disorder with depressed mood History of Present Illness Service Psychiatry Consult Requested By Dr. Cardoso Reason for Consult Second opinion Primary Care Physician Non-Staff HPI The patient is a 57-year-old white man, domiciled with his mother in [place] , unemployed, single, without no previous psychiatric history, no previous suicidal attempts, no previous psychiatric hospitalizations, with past medical history of Hodgkin's lymphoma, benign prostate hypertrophy, COPD who presented to the [facility] Emergency Department via EMS after he was found by his mother on the ground at his apartment unresponsive. Patient was admitted due to Acute hypoxic respiratory failure on mechanical ventilation. He developed he developed Encephalopathy, Bilateral pulmonary embolism, sepsis and bilateral pneumonia. The patient was about to be medically cleared today when all of a sudden he allegedly start asking for his mother, he wanted to use the phone to call her, apparently she did not picking crew supervisor the phone, he felt rejected and depressed, broke the photograph frame that he has in front of him and to the prism glasses and cut himself multiple times in both arms, in his face and in his forehead. Patient was immediately placed in one-to-one for safety, consulted to psychiatry. On psychiatric evaluation patient is profusely crying, stating that he feels very depressed and very guilty. He says that he doesn't know how this could happen to him. He said that he was feeling very sad and depressed, but he did not want to kill himself. Patient reports that he has been very confused in the last days, with on an of level of consciousness, he feels that he has lost control of himself "something really wrong had happened to her mind". Patient denies suicidal and homicidal ideation at this moment, he denies visual and auditory hallucinations. He is logical, coherent and relevant, but repetitive, perseverative. I do not get any sense of paranoia internal preoccupation, but he seems to be concrete and with limited abstraction and insight overweight childish. He denies the use of alcohol and illicit drugs. 12/09/17 - second opinion Patient is a 57-year-old man, domicile with mother, unemployed, with a previous psychiatric history, no prior suicide attempts or hospitalizations, with past medical history of Hodgkin's lymphoma, BPH, COPD he was admitted to the medical floor for acute hypoxic registered failure mechanical ventilation with subsequent encephalopathy, pulmonary embolism and bilateral pneumonia. Patient was noted to inpatient psychiatry unit after patient had attempted to commit suicide via cutting himself in the face his forhead, and arms. Patient was found lying in hospital bed with sitter at bedside for safety noted to have left forearm with bandages and noted to have some official cuts on the face. Patient states that he had been feeling depressed and wanted to hurt himself previously and when asked why he wanted herself he states that he had been off for 25 days and felt tired of being here. Patient states that he had never in the past and referred to hurt himself and recently admitted to having wanted to end his life by cutting himself with the glass from a picture frame. Patient states that he does not want to hurt himself at this time, and wants to be old to go home with his mother and be with his daughter. Patient noted to be tearful during interview. Past Family Social History Coded Allergies: vancomycin (Unverified Allergy, Intermediate, RASH, 08/01/17) Active Scripts Phenobarbital (Phenobarbital) 64.8 Mg Tab, 60 MG PO TID for Seizure Control, # 93 TAB Prov:Clyde Grimes MD 12/08/17 Levetiracetam (Keppra) 500 Mg Tab, 1000 MG PO Q12HR for Seizure Control, #60 TAB Prov:Clyde Grimes MD 12/08/17 Warfarin (Coumadin) 5 Mg Tab, 5 MG PO DAILY@1600 for Blood Clot Prevention, #6 TAB Prov:Clyde Grimes MD 12/08/17 Linezolid (Zyvox) 600 Mg Tab, 600 MG PO Q12HR for Infection, #4 TAB Prov:Clyde Grimes MD 12/08/17 Levofloxacin (Levaquin) 750 Mg Tablet, 750 MG PO DAILY for Infection, #2 TAB Prov:Clyde Grimes MD 12/08/17 Tramadol (Tramadol) 50 Mg Tab, 50 MG PO BID Y for PAIN, #60 TAB 0 Refills Prov:Melvin Remy DO 08/15/17 Lovastatin (Lovastatin) 40 Mg Tab, 2 TAB PO HS for Cholesterol Management, #30 TAB 3 Refills Prov:Aidan Wells NURSING CLINICAL DIRECTOR 05/03/17 Nebulizer Kit/Tubing/Mout (Nebulizer Kit/Tubing/Mout) 1 Kit Kit, 1 KIT .ROUTE DIRECTED for Breathing Treatment, #1 KIT 0 Refills Prov:Aidan WellsP 01/31/17 Albuterol Neb (Albuterol Neb) 2.5 Mg/3 Ml Neb, 2.5 MG NEB Q4HR NEB Y for SHORTNESS OF BREATH, #60 NEBULE 2 Refills Prov:Aidan Wells NURSING CLINICAL DIRECTOR 01/31/17 Reported Medications Albuterol 18 GM Inh (Ventolin Hfa 18 GM Inh) 90 Mcg/Act Aer, 2 PUFF INH Q4-6H Y for SHORTNESS OF BREATH, #1 INHALER 0 Refills 07/31/17 Discontinued Reported Medications Temazepam (Temazepam) 15 Mg Cap, 15 MG PO HS Y for INSOMNIA, #30 CAP 0 Refills 05/03/17 Discontinued Scripts Azithromycin (Azithromycin) 250 Mg Tab, 250 MG PO DIRECTED for Infection, #6 TAB 0 Refills Take 2 tabs (500 mg) on day 1 then 1 tab daily x 4 days. Prov:Khai Martinez DO 08/01/17 Cetirizine (Cetirizine) 10 Mg Tab, 10 MG PO DAILY for Allergies, #30 TAB 3 Refills Prov:Aidan Wells NURSING CLINICAL DIRECTOR 05/03/17 Baclofen (Baclofen) 10 Mg Tab, 10 MG PO TID for Muscle Spasm, #90 TAB 2 Refills Prov:Aidan Wells NURSING CLINICAL DIRECTOR 01/31/17 Current Medications Medications (Trade) Dose Ordered Sig/Osbaldo Route Start Time Stop Time Status Last Admin (Proair Hfa Inh) 2 puff Q12HR PRN INH 12/08/17 16:30 (Albuterol Neb) 2.5 mg Q4HR NEB PRN NEB 12/08/17 16:30 (Keppra) 1,000 mg Q12HR PO 12/08/17 21:00 12/09/17 08:27 (Levaquin) 750 mg DAILY PO 12/08/17 16:30 12/09/17 08:27 (Zyvox) 600 mg Q12HR PO 1/12/18 21:00 12/09/17 08:27 (Pravachol) 80 mg HS PO 12/08/17 21:00 12/08/17 21:00 (PHENobarbital) 60 mg TID PO 12/08/17 18:00 12/09/17 08:27 (Ultram) 50 mg BID PRN PO 12/08/17 16:30 12/09/17 08:28 (Coumadin) 5 mg DAILY@1600 PO 12/08/17 16:30 UNV (Ativan) 1 mg Q6H PRN PO 12/08/17 16:30 (Ativan Inj) 1 mg Q6H PRN IM 12/08/17 16:30 12/09/17 03:02 (Ativan) 0.5 mg Q12H PRN PO 12/08/17 16:30 (Ativan Inj) 0.5 mg Q12H PRN IM 12/08/17 16:30 (Tylenol) 650 mg Q4H PRN PO 12/08/17 16:30 12/08/17 18:30 (Milk Of Magnesia Liq) 30 ml DAILY PRN PO 12/08/17 16:30 (Mag-Al Plus Susp Liq) 30 ml Q6H PRN PO 12/08/17 16:30 (Habitrol 21 Mg Patch.24 Hr) 1 patch DAILY T-DERMAL 12/08/17 16:30 (Remeron) 15 mg HS PO 12/08/17 21:00 12/08/17 20:59 Miscellaneous Information 1 HS T-DERMAL 12/08/17 21:00 12/08/17 21:00 (Flomax) 0.4 mg DAILY PO 12/09/17 09:00 12/09/17 08:27 Patient's Strengths (min. 2) No previous psychiatric history Physical Exam Vital Signs Vital Signs Date Time Temp Pulse Resp B/P (MAP) Pulse Ox O2 Delivery O2 Flow Rate FiO2 12/09/17 06:35 97.8 101 16 107/56 (73) 93 I/O 12/09/17 12/09/17 12/10/17 08:00 16:00 00:00 Intake Total 240 ml Balance 240 ml Mental Status Examination Appearance: Appropriate Consciousness: Alert Orientation: x4 Motor Activity: Normal gait Speech: Unremarkable Language: Adequate Fund of Knowledge: Adequate Attention and Concentration: Adequate Memory: Unremarkable Mood: Sad Affect: Sad, Other (tearful at times) Thought Process & Associations: Intact, Linear, Other (concrete) Thought Content: Appropriate Hallucination Type: None Delusion Type: None Suicidal Ideation: No Suicidal Plan: No Suicidal Intention: No Homicidal Ideation: No Homicidal Plan: No Homicidal Intention: No Insight: Adequate Judgment: Adequate Assessment & Plan Problem List: (1) Adjustment disorder with mixed disturbance of emotions and conduct ICD Codes: F43.25 - Adjustment disorder with mixed disturbance of emotions and conduct Assessment & Plan I have seen and examined this patient, reviewed the documentation and I agree and concur with Dr. Cardoso assessment and plan. Consult appreciated. Patient at this time continues to be noted to be depressed, to further in interview, report it was control due to recent suicide attempt via cutting. Patient continues to report feeling depressed but no longer wanted to end his life at this time. Continue current treatment for now. Continue one-to-one observation for safety. Discharge planning in progress Steve Willett MD Dec 09, 2017 08:46
[2017-12-09 10:42] LABS: AUTOMATED NEUTROPHIL # 6.9 TH/MM3 (1.8-7.7); BASOPHIL # 0.1 TH/MM3 (0-0.2); BASOPHIL % 0.7 % (0.0-2.0); EOSINOPHIL # 0.7 TH/MM3 (0-0.4); EOSINOPHIL % 6.5 % (0.0-4.0); HEMATOCRIT 34.9 % (39.0-51.0); HEMOGLOBIN 11.6 GM/DL (13.0-17.0); LYMPH % 16.7 % (9.0-44.0); LYMPHOCYTE # 1.7 TH/MM3 (1.0-4.8); MEAN CELL VOLUME 93.1 FL (80.0-100.0); MEAN CORPUSCULAR HEMOGLOBIN 30.9 PG (27.0-34.0); MEAN CORPUSCULAR HGB CONC 33.2 % (32.0-36.0); MEAN PLATELET VOLUME 8.1 FL (7.0-11.0); MONO % 8.4 % (0.0-8.0); MONOCYTE # 0.9 TH/MM3 (0-0.9); NEUT % 67.7 % (16.0-70.0); PLATELET COUNT 434 TH/MM3 (150-450); RED BLOOD COUNT 3.75 MIL/MM3 (4.50-5.90); RED CELL DISTRIBUTION WIDTH 14.8 % (11.6-17.2); WHITE BLOOD COUNT 10.3 TH/MM3 (4.0-11.0)
--- NOTE | 2017-12-09 10:44 | HHI.PR ---
Subjective Remarks No acute events overnight. Afebrile, vital signs stable. Patient is tearful this morning and reports that he "wants his mother." He states he has pain in his left upper extremity where his lacerations are located. Objective Vitals Vital Signs Date Time Temp Pulse Resp B/P (MAP) Pulse Ox O2 Delivery O2 Flow Rate FiO2 12/09/17 06:35 97.8 101 16 107/56 (73) 93 12/08/17 22:09 18 12/08/17 16:44 97.8 88 16 107/66 (80) 96 I/O 12/08/17 12/08/17 12/08/17 12/09/17 12/09/17 12/09/17 07:00 15:00 23:00 07:00 15:00 23:00 Intake Total 240 ml Balance 240 ml Intake Oral 240 ml Objective Remarks GENERAL: male sitting up in bed SKIN: Left upper extremity wrapped and pressure dressing. Dressing clean/dry/ intact without shadowing. HEAD: Atraumatic. Normocephalic. No temporal or scalp tenderness. EYES: Pupils equal round and reactive. Extraocular motions intact. No scleral icterus. No injection or drainage. ENT: Nose without bleeding, purulent drainage or septal hematoma. Throat without erythema, tonsillar hypertrophy or exudate. Uvula midline. Airway patent. NECK: Trachea midline. No JVD or lymphadenopathy. Supple, nontender, no meningeal signs. CARDIOVASCULAR: Regular rate and rhythm without murmurs, gallops, or rubs. RESPIRATORY: Clear to auscultation. Breath sounds equal bilaterally. No wheezes , rales, or rhonchi. GASTROINTESTINAL: Abdomen soft, non-tender, nondistended. No hepato-splenomegaly , or palpable masses. No guarding. MUSCULOSKELETAL: Extremities without clubbing, cyanosis, or edema. No joint tenderness, effusion, or edema noted. No calf tenderness. NEUROLOGICAL: Awake and alert. Cranial nerves II through XII intact. Motor and sensory grossly within normal limits. Normal speech. Abnormal insight and judgment. A/P Assessment and Plan Assessment/plan: 1. MRSA/Acinetobacter PNA Continue Levaquin and Zyvox by mouth until 12/10 per ID recommendations 2. Bilateral PE Continue Coumadin Goal INR 2-3 3. Multiple left upper extremity lacerations Wounds are superficial and do not require sutures Recommend pressure dressing to achieve hemostasis Do not recommend discontinuing anticoagulation at this time CBC pending 4. Hyperlipidemia Continue statin 5. 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 Adjustment disorder Management per psychiatry 7. BPH with urinary retention Replaced Alfred as patient with post void residual greater than 1 L on bladder scan Void trial today Continue FloIzabella North MD Dec 09, 2017 10:44
[2017-12-09 10:53] LABS: INTERNATIONAL NORMALIZED RATIO 3.6 RATIO; PROTHROMBIN TIME - PATIENT 35.8 SEC (9.8-11.6)
[2017-12-09 11:34] LABS: BICARBONATE 28.8 MEQ/L (21.0-32.0); BLOOD UREA NITROGEN 14 MG/DL (7-18); CALCIUM 8.9 MG/DL (8.5-10.1); CHLORIDE 100 MEQ/L (98-107); CREATININE 1.27 MG/DL (0.60-1.30); GLOMERULAR FILTRATION RATE 58 ML/MIN (>89); GLUCOSE,RANDOM 101 MG/DL (74-106); SODIUM (NA) 137 MEQ/L (136-145)
[2017-12-09 11:36] LABS: CHOLESTEROL 256 MG/DL (120-200); TRIGLYCERIDES 233 MG/DL (42-150)
[2017-12-09 11:39] LABS: CHOLESTEROL/ HDL RATIO 5.37 RATIO; HDL CHOLESTEROL 47.6 MG/DL (40.0-60.0); LDL CHOLESTEROL 162 MG/DL (0-99)
[2017-12-09] MEDS: LORazepam 1 MG TAB PO PRN ×2 (12:26→21:45)
[2017-12-09] MEDS: WARFARIN SOD 5 MG TAB PO SCH (17:31)
[2017-12-09] MEDS: REMOVE OLD NICODERM (NICOTINE) PATCH T-DERMAL SCH (21:00)
[2017-12-09] MEDS: PRAVASTATIN SOD 40 MG TAB PO SCH (21:45)
[2017-12-09] MEDS: MIRTAZAPINE 15 MG TAB PO SCH (21:45)
[2017-12-10 06:00] VITALS: BP 105/67; PULSE 95; RESP 16; TEMP 97.9; O2SAT 95
[2017-12-10 07:53] LABS: INTERNATIONAL NORMALIZED RATIO 2.2 RATIO; PROTHROMBIN TIME - PATIENT 22.1 SEC (9.8-11.6)
[2017-12-10] MEDS: TAMSULOSIN HCL 0.4 MG CAP PO SCH (09:00)
[2017-12-10] MEDS: LEVOFLOXACIN 750 MG TAB PO SCH (09:00)
[2017-12-10] MEDS: LINEZOLID 600 MG TAB PO SCH ×2 (09:00→21:00)
[2017-12-10] MEDS: NICOTINE 21 MG/24 HR PATCH T-DERMAL SCH (09:00)
[2017-12-10] MEDS: levETIRAcetam 500 MG TAB PO SCH ×2 (09:00→21:00)
[2017-12-10] MEDS: traMADol HCL 50 MG TAB PO PRN (09:36)
[2017-12-10] MEDS: LORazepam 1 MG TAB PO PRN ×2 (09:37→23:24)
[2017-12-10 09:45] LABS: HEMOGLOBIN A1C 5.7 % (4.3-6.0)
--- NOTE | 2017-12-10 09:59 | HHI.PYPN ---
Subjective Remarks Patient seen for follow-up, chart review. After discussion she staff reported patient is a note 3, noted to be sexually inappropriate with staff, crying at times and very childlike. Patient was found lying in hospital bed noted to be somewhat tearful stating that he misses his mother. Patient also reports having some abdominal discomfort as patient likely continue to attempt urine [place] voiding yesterday. Alfred is plan to be reinserted which will likely alleviate his discomfort. Patient states that he has been feeling "good and bad " stating having had difficulty sleeping last evening. He denies feeling depressed having any thoughts of wanting to hurt himself. Patient reports having been visited by his mother yesterday which she was happy about. Review of Systems Except as stated in HPI: all other systems reviewed are Neg Mental Status Examination Appearance: Appropriate Consciousness: Alert Orientation: x4 Motor Activity: Normal gait Speech: Unremarkable Language: Adequate Fund of Knowledge: Adequate Attention and Concentration: Adequate Memory: Unremarkable Mood: Sad Affect: Sad, Other (tearful at times) Thought Process & Associations: Intact, Linear, Other (concrete) Thought Content: Appropriate Hallucination Type: None Delusion Type: None Suicidal Ideation: No Suicidal Plan: No Suicidal Intention: No Homicidal Ideation: No Homicidal Plan: No Homicidal Intention: No Insight: Adequate Judgment: Adequate Results Labs Test 12/10/17 07:15 Prothrombin Time 22.1 SEC Prothromb Time International Ratio 2.2 RATIO Vitals/IOs Vital Signs Date Time Temp Pulse Resp B/P (MAP) Pulse Ox O2 Delivery O2 Flow Rate FiO2 12/10/17 06:00 97.9 95 16 105/67 (80) 95 Intake and Output 12/10/17 12/10/17 12/11/17 08:00 16:00 00:00 Intake Total 240 ml Output Total 2100 ml Balance -1860 ml Assessment & Plan Problem List: (1) Adjustment disorder with mixed disturbance of emotions and conduct ICD Codes: F43.25 - Adjustment disorder with mixed disturbance of emotions and conduct Assessment & Plan Patient at this time continues to be somewhat labile, reporting feeling depressed denies any thoughts of wanting herself or suicide ideations. Patient continues with urinary retention and for to be reinserted today. Increase mirtazapine to 30 mg by mouth at bedtime, continue rest of medications. Discharge planning in progress Justification for Cont. Inpt. At risk for further decompensation if at lower level of care Discharge Planning Will return back to mother's residence when psychiatrically stable Steve Willett MD Dec 10, 2017 09:59
[2017-12-10 10:53] LABS: AMORPHOUS SEDIMENT, URINE FEW; BACTERIA, URINE RARE /hpf; BILIRUBIN, URINE NEG (NEG); BLOOD, URINE NEG (NEG); GLUCOSE,URINE NEG (NEG); KETONE, URINE NEG (NEG); NITRITE,URINE NEG (NEG); PH, URINE 5.5 (5.0-8.5); RENAL EPITHELIAL CELLS <1 /hpf; SQUAMOUS EPITHELIAL CELL URINE <1 /hpf (0-5); URINE COLOR LIGHT-YELLOW (YELLW/STRAW); URINE LEUKOCYTE ESTERASE NEG (NEG)
--- NOTE | 2017-12-10 13:52 | HHI.PR ---
Subjective Remarks No acute events overnight. Afebrile: Vital signs stable. Patient complaining of lower abdominal/pelvic pain and crying. Has only had one void since yesterday when the Alfred was removed. Objective Vitals Vital Signs Date Time Temp Pulse Resp B/P (MAP) Pulse Ox O2 Delivery O2 Flow Rate FiO2 12/10/17 06:00 97.9 95 16 105/67 (80) 95 I/O 12/09/17 12/09/17 12/09/17 12/10/17 12/10/17 12/10/17 07:00 15:00 23:00 07:00 15:00 23:00 Intake Total 480 ml 360 ml 480 ml Output Total 2100 ml Balance 480 ml 360 ml -2100 ml 480 ml Intake Oral 480 ml 360 ml 480 ml Output Urine Total 2100 ml Bladder Scan Volume Amount 958 ml # Voids 1 Result Diagram: 12/09/1792612/09/17926 Objective Remarks GENERAL: male sitting up in bed, crying and distress/pain SKIN: Left upper extremity wrapped and pressure dressing. Dressing clean/dry/ intact without shadowing. HEAD: Atraumatic. Normocephalic. No temporal or scalp tenderness. EYES: Pupils equal round and reactive. Extraocular motions intact. No scleral icterus. No injection or drainage. ENT: Nose without bleeding, purulent drainage or septal hematoma. Throat without erythema, tonsillar hypertrophy or exudate. Uvula midline. Airway patent. NECK: Trachea midline. No JVD or lymphadenopathy. Supple, nontender, no meningeal signs. CARDIOVASCULAR: Regular rate and rhythm without murmurs, gallops, or rubs. RESPIRATORY: Clear to auscultation. Breath sounds equal bilaterally. No wheezes , rales, or rhonchi. GASTROINTESTINAL: Abdomen soft, nondistended. Exquisitely tender to palpation in the lower abdomen/pelvic region. No hepato-splenomegaly, or palpable masses. No guarding. MUSCULOSKELETAL: Extremities without clubbing, cyanosis, or edema. No joint tenderness, effusion, or edema noted. No calf tenderness. NEUROLOGICAL: Awake and alert. Cranial nerves II through XII intact. Motor and sensory grossly within normal limits. Normal speech. Abnormal insight and judgment. A/P Assessment and Plan Assessment/plan: 1. MRSA/Acinetobacter PNA Continue Levaquin and Zyvox by mouth until 12/10 per ID recommendations 2. Bilateral PE Continue Coumadin Goal INR 2-3 3. Multiple left upper extremity lacerations Wounds are superficial and do not require sutures Hemostasis achieved with pressure dressing 4. Hyperlipidemia Continue statin 5. 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 Adjustment disorder Management per psychiatry 7. BPH with urinary retention Alfred removed yesterday with voiding trial Patient with one void since yesterday Replace Alfred UA pending Continue FloIzabella North MD Dec 10, 2017 13:52
[2017-12-10] MEDS: WARFARIN SOD 5 MG TAB PO SCH (16:19)
[2017-12-10 18:50] VITALS: BP 120/70; PULSE 67; TEMP 97.9; O2SAT 99
[2017-12-10] MEDS: MIRTAZAPINE 15 MG TAB PO SCH (21:00)
[2017-12-10] MEDS: PRAVASTATIN SOD 40 MG TAB PO SCH (21:00)
[2017-12-10] MEDS: REMOVE OLD NICODERM (NICOTINE) PATCH T-DERMAL SCH (21:00)
[2017-12-11 06:00] VITALS: BP 107/62; PULSE 113; RESP 17; TEMP 97.9; O2SAT 95
--- NOTE | 2017-12-11 08:52 | HHI.PYPN ---
Subjective Remarks Patient seen for follow-up, chart review. Patient found lying in hospital bed with one-to-one sitter at bedside. Patient noted to be calm and cooperative but tearful at times stating that he wants to go home as he misses his mother and his pet. Patient states that he had a bad night referring to not having had a motel last evening to be able to have his dinner. Patient states he would like to go to rehabilitation Center post discharge, denies feeling depressed, denies any thoughts of self-injurious behavior or suicide ideation. Patient states that he would never hurt himself again and looks forward to coming home to his mother that and neighbors. She denies any perceptual disturbances or delusions. Review of Systems Except as stated in HPI: all other systems reviewed are Neg Mental Status Examination Appearance: Appropriate Consciousness: Alert Orientation: x4 Motor Activity: Normal gait Speech: Unremarkable Language: Adequate Fund of Knowledge: Adequate Attention and Concentration: Adequate Memory: Unremarkable Mood: Appropriate Affect: Other (tearful at times) Thought Process & Associations: Intact, Goal directed, Linear, Other (concrete) Thought Content: Appropriate Hallucination Type: None Delusion Type: None Suicidal Ideation: No Suicidal Plan: No Suicidal Intention: No Homicidal Ideation: No Homicidal Plan: No Homicidal Intention: No Insight: Adequate Judgment: Adequate Results Labs Test 12/10/17 09:23 Urine Color LIGHT-YELLOW Urine Turbidity CLEAR Urine pH 5.5 Urine Specific [place] 1.007 Urine Protein 30 mg/dL Urine Glucose (UA) NEG mg/dL Urine Ketones NEG mg/dL Urine Occult Blood NEG Urine Nitrite NEG Urine Bilirubin NEG Urine Urobilinogen LESS THAN 2.0 MG/DL Urine Leukocyte Esterase NEG Urine RBC 1 /hpf Urine WBC 3 /hpf Urine Squamous Epithelial Cells <1 /hpf Urine Renal Epithelial Cells <1 /hpf Urine Amorphous Sediment FEW Urine Bacteria RARE /hpf Microscopic Urinalysis Comment CATH-CULTURE IND Date/Time Source Procedure Growth Status 12/10/17 09:23 Urine Clean Catch Urine Culture Pending Received Vitals/IOs Vital Signs Date Time Temp Pulse Resp B/P (MAP) Pulse Ox O2 Delivery O2 Flow Rate FiO2 12/10/17 18:50 97.9 67 120/70 (87) 99 12/10/17 06:00 16 Intake and Output 12/11/17 12/11/17 12/12/17 08:00 16:00 00:00 Intake Total 0 ml 120 ml Output Total 1015 ml Balance -1015 ml 120 ml Assessment & Plan Problem List: (1) Adjustment disorder with mixed disturbance of emotions and conduct ICD Codes: F43.25 - Adjustment disorder with mixed disturbance of emotions and conduct Assessment & Plan Patient at this time continues to be noted to somewhat tearful when requested to go home, denies feeling depressed or having suicidal ideations. Patient mentions that he is always "sensitive" and that being tearful at times is usual for him. We'll continue current treatment. Will contact mother to assess if patient is a back to baseline. Patient since admission has not had any recurrence of agitation nor any self-injurious behavior. Possible discharge soon. Discharge planning in progress Justification for Cont. Inpt. At risk for further decompensation if at lower level of care Discharge Planning Back to his residence when psychiatrically and medically cleared Steve Willett MD Dec 11, 2017 08:52
[2017-12-11] MEDS: NICOTINE 21 MG/24 HR PATCH T-DERMAL SCH (09:00)
--- NOTE | 2017-12-11 10:22 | HHI.PR ---
Subjective Remarks Follow-up aspiration pneumonia Patient seen and examined, currently afebrile and no acute event overnight. Completed antibiotics 12/10/17 Objective Vitals Vital Signs Date Time Temp Pulse Resp B/P (MAP) Pulse Ox O2 Delivery O2 Flow Rate FiO2 12/10/17 18:50 97.9 67 120/70 (87) 99 I/O 12/10/17 12/10/17 12/10/17 12/11/17 12/11/17 12/11/17 07:00 15:00 23:00 07:00 15:00 23:00 Intake Total 480 ml 1200 ml 0 ml 120 ml Output Total 2100 ml 1700 ml 1015 ml Balance -2100 ml 480 ml -500 ml -1015 ml 120 ml Intake Oral 480 ml 1200 ml 0 ml 120 ml Output Urine Total 2100 ml 1700 ml 1015 ml Bladder Scan Volume Amount 958 ml # Bowel Movements 1 Result Diagram: 12/09/1727 12/09/17926 Objective Remarks GENERAL: NAD SKIN: Warm and dry. HEAD: Normocephalic. EYES: No scleral icterus. No injection or drainage. NECK: Supple, trachea midline. No JVD or lymphadenopathy. CARDIOVASCULAR: Regular rate and rhythm without murmurs, gallops, or rubs. RESPIRATORY: Breath sounds equal bilaterally. No accessory muscle use. GASTROINTESTINAL: Abdomen soft, non-tender, nondistended. MUSCULOSKELETAL: No cyanosis, or edema. BACK: Nontender without obvious deformity. No CVA tenderness. A/P Assessment and Plan 57 year-old man with 1. MRSA/Acinetobacter PNA s/p Levaquin and Zyvox by mouth until 12/10 per ID recommendations.Therefore Will d/c today Patient is now medically clear for discharge 2. Bilateral PE Continue Coumadin Goal INR 2-3 3. Multiple left upper extremity lacerations Wounds are superficial and do not require sutures Hemostasis achieved with pressure dressing 4. Hyperlipidemia Continue statin 5. 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 Adjustment disorder Management per psychiatry 7. BPH with urinary retention Discharge patient with Alfred in place Continue Flomax Discharge Planning Patient is medically clear for discharge Steve Siu MD Dec 11, 2017 10:22
[2017-12-11] MEDS: TAMSULOSIN HCL 0.4 MG CAP PO SCH (10:27)
[2017-12-11] MEDS: LORazepam 1 MG TAB PO PRN (10:27)
[2017-12-11] MEDS: traMADol HCL 50 MG TAB PO PRN ×2 (10:27→22:01)
[2017-12-11] MEDS: levETIRAcetam 500 MG TAB PO SCH ×2 (10:28→21:00)
[2017-12-11] MEDS: WARFARIN SOD 5 MG TAB PO SCH (16:00)
[2017-12-11 17:56] VITALS: BP 101/65; PULSE 102; RESP 16; TEMP 97.5; O2SAT 95
[2017-12-11] MEDS: MIRTAZAPINE 15 MG TAB PO SCH (21:00)
[2017-12-11] MEDS: REMOVE OLD NICODERM (NICOTINE) PATCH T-DERMAL SCH (21:00)
[2017-12-11] MEDS: PRAVASTATIN SOD 40 MG TAB PO SCH (21:00)
[2017-12-12] MEDS: LORazepam 1 MG TAB PO PRN ×3 (01:51→21:40)
[2017-12-12 05:38] VITALS: BP 101/58; PULSE 101; RESP 18; TEMP 97.8; O2SAT 96
[2017-12-12] MEDS: NICOTINE 21 MG/24 HR PATCH T-DERMAL SCH (09:00)
--- NOTE | 2017-12-12 09:32 | HHI.PR ---
Subjective Remarks Patient seen and examined, stable, per nurse report, patient has been denied possible admission to Dr. Weaver Objective Vitals Vital Signs Date Time Temp Pulse Resp B/P (MAP) Pulse Ox O2 Delivery O2 Flow Rate FiO2 12/12/17 05:38 97.8 101 18 101/58 (72) 96 12/11/17 17:56 97.5 102 16 101/65 (77) 95 I/O 12/11/17 12/11/17 12/11/17 12/12/17 12/12/17 12/12/17 07:00 15:00 23:00 07:00 15:00 23:00 Intake Total 0 ml 480 ml 720 ml 120 ml Output Total 1015 ml 950 ml 1000 ml 600 ml Balance -1015 ml -470 ml -280 ml -480 ml Intake Oral 0 ml 480 ml 720 ml 120 ml Output Urine Total 1015 ml 950 ml 1000 ml 600 ml # Bowel Movements 1 Result Diagram: 12/09/1792612/09/17926 Objective Remarks GENERAL: NAD SKIN: Warm and dry. HEAD: Normocephalic. EYES: No scleral icterus. No injection or drainage. NECK: Supple, trachea midline. No JVD or lymphadenopathy. CARDIOVASCULAR: Regular rate and rhythm without murmurs, gallops, or rubs. RESPIRATORY: Breath sounds equal bilaterally. No accessory muscle use. GASTROINTESTINAL: Abdomen soft, non-tender, nondistended. MUSCULOSKELETAL: No cyanosis, or edema. BACK: Nontender without obvious deformity. No CVA tenderness. A/P Assessment and Plan 57 year-old man with 1. MRSA/Acinetobacter PNA s/p Levaquin and Zyvox by mouth until 12/10 per ID recommendations.Therefore Will d/c today Patient is now medically clear for discharge 2. Bilateral PE Continue Coumadin Goal INR 2-3 3. Multiple left upper extremity lacerations Wounds are superficial and do not require sutures Hemostasis achieved with pressure dressing 4. Hyperlipidemia Continue statin 5. 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 Adjustment disorder Management per psychiatry 7. BPH with urinary retention Discharge patient with Alfred in place to SNF; however may trial voiding trial this AM Continue Flomax Discharge Planning Patient is medically clear for discharge Steve Siu MD Dec 12, 2017 09:32
[2017-12-12] MEDS: TAMSULOSIN HCL 0.4 MG CAP PO SCH (09:58)
[2017-12-12] MEDS: levETIRAcetam 500 MG TAB PO SCH ×2 (09:58→21:40)
[2017-12-12] MEDS: traMADol HCL 50 MG TAB PO PRN (09:58)
--- NOTE | 2017-12-12 11:25 | HHI.PYPN ---
Subjective Remarks Patient was seen today for psychiatric reevaluation along with nurse in charge Bonita. Patient is irritable, requesting to be discharged, unable to elaborate about his recent suicidal attempt in the hospital. Patient at times in disorganized, stating that he wants to see his dog and his mother, very labile, crying. He has been compliant with medications, no significant side effects reported. He is oriented 3, no attention deficit, no fluctuation of consciousness present. No agitation or aggressive behavior reported Review of Systems Genitourinary: COMPLAINS OF: Urinary frequency Psychiatric: COMPLAINS OF: Mood changes, Depression Mental Status Examination Appearance: Appropriate Consciousness: Alert Orientation: x4 Motor Activity: Normal gait Speech: Unremarkable Language: Adequate Fund of Knowledge: Adequate Attention and Concentration: Adequate Memory: Unremarkable Mood: Appropriate Affect: Other (tearful at times) Thought Process & Associations: Intact, Goal directed, Linear, Other (concrete) Thought Content: Appropriate Hallucination Type: None Delusion Type: None Suicidal Ideation: No Suicidal Plan: No Suicidal Intention: No Homicidal Ideation: No Homicidal Plan: No Homicidal Intention: No Insight: Adequate Judgment: Adequate Results Labs Date/Time Source Procedure Growth Status 12/10/17 09:23 Urine Clean Catch Urine Culture - Final NO GROWTH Complete Vitals/IOs Vital Signs Date Time Temp Pulse Resp B/P (MAP) Pulse Ox O2 Delivery O2 Flow Rate FiO2 12/12/17 05:38 97.8 101 18 101/58 (72) 96 Intake and Output 12/12/17 12/12/17 12/13/17 08:00 16:00 00:00 Intake Total 120 ml 240 ml Output Total 600 ml Balance -480 ml 240 ml Assessment & Plan Problem List: (1) Adjustment disorder with mixed disturbance of emotions and conduct ICD Codes: F43.25 - Adjustment disorder with mixed disturbance of emotions and conduct Assessment & Plan: Patient seems to be kind of dysregulated, very labile and unreliable. Patient is very concrete and childish at times which may me wonder if the patient has a developmental delay/intellectual disability. We will increase mirtazapine to 30 mg at bedtime. Assessment & Plan Estimated LOS: days Justification for Cont. Inpt. Patient continues to show mood dysregulation, irritability, episodes of disorganization, he needs to continue psychiatric hospitalization for stabilization. Gary Cardoso MD Dec 12, 2017 11:25
[2017-12-12] MEDS: WARFARIN SOD 5 MG TAB PO SCH (17:28)
[2017-12-12] MEDS: ACETAMINOPHEN 325 MG TAB PO PRN (17:29)
[2017-12-12 18:39] VITALS: BP 100/70; PULSE 109; RESP 16; TEMP 97.9; O2SAT 95
[2017-12-12] MEDS: REMOVE OLD NICODERM (NICOTINE) PATCH T-DERMAL SCH (21:00)
[2017-12-12] MEDS ORDERED: MIRTAZAPINE 15 MG TAB PO SCH (21:00)
[2017-12-12] MEDS: PRAVASTATIN SOD 40 MG TAB PO SCH (21:40)
[2017-12-13] MEDS: traMADol HCL 50 MG TAB PO PRN ×3 (00:35→12:15)
[2017-12-13 05:08] VITALS: BP 115/76; PULSE 99; RESP 16; TEMP 97.4; O2SAT 94
[2017-12-13] MEDS: NICOTINE 21 MG/24 HR PATCH T-DERMAL SCH (09:00)
[2017-12-13] MEDS: levETIRAcetam 500 MG TAB PO SCH (09:16)
[2017-12-13] MEDS: TAMSULOSIN HCL 0.4 MG CAP PO SCH (09:16)
--- NOTE | 2017-12-13 09:34 | HHI.PR ---
Subjective Remarks Patient seen and examined Would like to be discharged home Alfred was discontinued yesterday and patient able to void. Objective Vitals Vital Signs Date Time Temp Pulse Resp B/P (MAP) Pulse Ox O2 Delivery O2 Flow Rate FiO2 12/13/17 05:08 97.4 99 16 115/76 (89) 94 12/12/17 19:26 18 12/12/17 18:39 97.9 109 16 100/70 (80) 95 I/O 12/12/17 12/12/17 12/12/17 12/13/17 12/13/17 12/13/17 07:00 15:00 23:00 07:00 15:00 23:00 Intake Total 120 ml 960 ml 0 ml Output Total 600 ml 450 ml Balance -480 ml 510 ml 0 ml Intake Oral 120 ml 960 ml 0 ml Output Urine Total 600 ml 450 ml Bladder Scan Volume Amount 450 ml # Voids 2 0 # Bowel Movements 2 Result Diagram: 12/09/1792612/09/17926 Objective Remarks GENERAL: NAD SKIN: Warm and dry. HEAD: Normocephalic. EYES: No scleral icterus. No injection or drainage. NECK: Supple, trachea midline. No JVD or lymphadenopathy. CARDIOVASCULAR: Regular rate and rhythm without murmurs, gallops, or rubs. RESPIRATORY: Breath sounds equal bilaterally. No accessory muscle use. GASTROINTESTINAL: Abdomen soft, non-tender, nondistended. MUSCULOSKELETAL: No cyanosis, or edema. BACK: Nontender without obvious deformity. No CVA tenderness. A/P Assessment and Plan 57 year-old man with 1. MRSA/Acinetobacter PNA s/p Levaquin and Zyvox by mouth until 12/10 per ID recommendations.Therefore Will d/c today Patient is now medically clear for discharge 2. Bilateral PE Continue Coumadin Goal INR 2-3 3. Multiple left upper extremity lacerations Wounds are superficial and do not require sutures Hemostasis achieved with pressure dressing 4. Hyperlipidemia Continue statin 5. 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 Adjustment disorder Management per psychiatry 7. BPH with urinary retention Alfred was discontinued and patient able to void Continue Flomax Discharge Planning Patient is medically clear for discharge Steve Siu MD Dec 13, 2017 09:34
[2017-12-13] MEDS ORDERED: TAMS5CAP PO ×2 (10:13→13:00)
[2017-12-13] MEDS ORDERED: BO60R RECTAL (10:13)
[2017-12-13] MEDS ORDERED: MIRTA15 PO (12:00)
--- NOTE | 2017-12-13 12:06 | HHI.DS ---
Psychiatry Discharge Summary Inpatient Psychiatric care?: Yes Advance Directive: No Reason Not Provided: Declined Mental Health AdvanceDirective: No Health Care Proxy: Yes Admission Admission Date Dec 08, 2017 at 15:53 Admission Diagnosis: (1) Adjustment disorder with mixed disturbance of emotions and conduct ICD Code: F43.25 - Adjustment disorder with mixed disturbance of emotions and conduct Brief History The patient is a 57-year-old white man, domiciled with his mother in [place] , unemployed, single, without no previous psychiatric history, no previous suicidal attempts, no previous psychiatric hospitalizations, with past medical history of Hodgkin's lymphoma, benign prostate hypertrophy, COPD who presented to the [facility] Emergency Department via EMS after he was found by his mother on the ground at his apartment unresponsive. Patient was admitted due to Acute hypoxic respiratory failure on mechanical ventilation. He developed he developed Encephalopathy, Bilateral pulmonary embolism, sepsis and bilateral pneumonia. The patient was about to be medically cleared today when all of a sudden he allegedly start asking for his mother, he wanted to use the phone to call her, apparently she did not waste picker the phone, he felt rejected and depressed, broke the photograph frame that he has in front of him and to the prism glasses and cut himself multiple times in both arms, in his face and in his forehead. Patient was immediately placed in one-to-one for safety, consulted to psychiatry. On psychiatric evaluation patient is profusely crying, stating that he feels very depressed and very guilty. He says that he doesn't know how this could happen to him. He said that he was feeling very sad and depressed, but he did not want to kill himself. Patient reports that he has been very confused in the last days, with on an of level of consciousness, he feels that he has lost control of himself "something really wrong had happened to her mind". Patient denies suicidal and homicidal ideation at this moment, he denies visual and auditory hallucinations. He is logical, coherent and relevant, but repetitive, perseverative. I do not get any sense of paranoia internal preoccupation, but he seems to be concrete and with limited abstraction and insight overweight childish. He denies the use of alcohol and illicit drugs. 12/09/17 - second opinion Patient is a 57-year-old man, domicile with mother, unemployed, with a previous psychiatric history, no prior suicide attempts or hospitalizations, with past medical history of Hodgkin's lymphoma, BPH, COPD he was admitted to the medical floor for acute hypoxic registered failure mechanical ventilation with subsequent encephalopathy, pulmonary embolism and bilateral pneumonia. Patient was noted to inpatient psychiatry unit after patient had attempted to commit suicide via cutting himself in the face his forhead, and arms. Patient was found lying in hospital bed with sitter at bedside for safety noted to have left forearm with bandages and noted to have some official cuts on the face. Patient states that he had been feeling depressed and wanted to hurt himself previously and when asked why he wanted herself he states that he had been off for 25 days and felt tired of being here. Patient states that he had never in the past and referred to hurt himself and recently admitted to having wanted to end his life by cutting himself with the glass from a picture frame. Patient states that he does not want to hurt himself at this time, and wants to be old to go home with his mother and be with his daughter. Patient noted to be tearful during interview. Tobacco Use In Past 30 Days: No Tobacco Past 30 Days Alcohol Use: Never Hospital Course The patient was admitted in the med psych unit transfer from the medical floor after a suicidal gesture in the context of a frustration and confusion by cutting his wrist and his face with the glasses of a broken picture frame. In the psychiatric unit a psychosocial a psychiatric assessment was performed. Safety measures were taken. At the beginning patient was not brain for safety, he was placed with a sitter. Initially patient was frustrated, demanding to be discharged because he wanted to see his mother and his dog and he did not want to be in the hospital anymore. With reassurance and redirection patient became calmer and understanding. Patient was very emotionally is regulated, tearful, concrete, demanding and child age. He was started in Remeron 15 mg at bedtime, titrated to 30 mg at bedtime to help with depressive symptoms and to help to sleep. Patient was also introduced in individual therapy. He showed good sponsor to this measures. We learned with the days that the patient has poor impulse control, concrete thinking and childish-like behavior than most probably is secondary to an undiagnosed intellectual disability. During the hospitalization the patient was mostly calm , cooperative and pleasant. He was compliant with medications, no significant side effects reported, no agitation, no aggressive behavior reported. Patient was follow-up by medicine for his underlying medical conditions, social service liaison also communicated with his mother to coordinating a safe discharge plan. At the moment of the discharge the patient does not present any depression, anxiety , jenna or psychosis. Results Blood Pressure 115 / 76 Vital Signs Date Time Temp Pulse Resp B/P (MAP) Pulse Ox O2 Delivery O2 Flow Rate FiO2 12/13/17 05:08 97.4 99 16 115/76 (89) 94 Laboratory Results Test 12/09/17 09:27 Cholesterol Level 256 MG/DL (120-200) HDL Cholesterol 47.6 MG/DL (40.0-60.0) Hemoglobin A1c 5.7 % (4.3-6.0) LDL Cholesterol 162 MG/DL (0-99) Triglycerides Level 233 MG/DL (42-150) Summary of Procedures None Pending results at discharge: No Medications # of Antipsychotic meds at D/C: 0 Approp Antipsych med options 1 - Minimum of three failed multiple trials of monotherapy. 2 - Documented plan to taper to monotherapy due to previous use of multiple meds OR cross-taper in progress at D/C. 3 - Documentation of augmentation of Clozapine. 4 - Justification other than those listed in allowable values 1-3, document here : Discharge Discharge Date: Dec 13, 2017 Discharge Diagnosis: (1) Adjustment disorder with mixed disturbance of emotions and conduct ICD Code: F43.25 - Adjustment disorder with mixed disturbance of emotions and conduct Pt Condition on Discharge: Stable Discharge Disposition: Disch w/ Home Health Serv Discharge Instructions Diet Instructions: Heart Healthy Diet Activities you can perform: Weight Bearing as Akira Scheduled Appointment: [facility] [place] Appointment Date: Dec 18, 2017 Appointment Time: 1:00pm Discharge Time > 30 minutes Mental Status Examination Appearance: Appropriate Consciousness: Alert Orientation: x4 Motor Activity: Normal gait Speech: Unremarkable Language: Adequate Fund of Knowledge: Adequate Attention and Concentration: Adequate Memory: Unremarkable Mood: Appropriate Affect: Other (tearful at times) Thought Process & Associations: Intact, Goal directed, Linear, Other (concrete) Thought Content: Appropriate Hallucination Type: None Delusion Type: None Suicidal Ideation: No Suicidal Plan: No Suicidal Intention: No Homicidal Ideation: No Homicidal Plan: No Homicidal Intention: No Insight: Adequate Judgment: Adequate Discharge/Advance Care Plan Health Problems: (1) Adjustment disorder with mixed disturbance of emotions and conduct Goals to promote your health * To prevent worsening of your condition and complications * To maintain your health at the optimal level Directions to meet your goals Take your medications as prescribed Follow your dietary instruction Follow activity as directed Keep your appointments as scheduled Take your immunizations and boosters as scheduled If your symptoms worsen call your PCP, if no PCP go to Urgent Care Center or Emergency Room For 19/06 questions related to your inpatient stay or results of tests pending at discharge, please contact Dr. Gary Cardoso at Smoking is Dangerous to Your Health. Avoid second hand smoking Gary Cardoso MD Dec 13, 2017 12:06
== END 2017-12-13 13:55 | disposition home or self-care (01) | DRG 882 ==
LOC: H4EA 15:53
PROVIDERS: ADMIT Psychiatry & Neurology Psychiatry; ATTEND Psychiatry & Neurology Psychiatry
PROC: 0T9B70Z Drainage of Bladder with Drainage Device, Via Natural or Artificial Opening (ICD-10-PCS; principal; 2017-12-10)
DX: F43.25 Adjustment disorder with mixed disturbance of emotions and conduct (principal); I26.99 Other pulmonary embolism without acute cor pulmonale; J15.6 Pneumonia due to other Gram-negative bacteria; J15.212 Pneumonia due to Methicillin resistant Staphylococcus aureus; S41.111A Laceration without foreign body of right upper arm, initial encounter; S01.81XA Laceration without foreign body of other part of head, initial encounter; J44.0 Chronic obstructive pulmonary disease with (acute) lower respiratory infection; N40.1 Benign prostatic hyperplasia with lower urinary tract symptoms; X78.9XXA Intentional self-harm by unspecified sharp object, initial encounter; S41.112A Laceration without foreign body of left upper arm, initial encounter; E11.9 Type 2 diabetes mellitus without complications; M19.90 Unspecified osteoarthritis, unspecified site; E78.5 Hyperlipidemia, unspecified; R33.8 Other retention of urine; E66.3 Overweight; Z79.01 Long term (current) use of anticoagulants; Z85.71 Personal history of Hodgkin lymphoma; Z87.891 Personal history of nicotine dependence; Z88.1 Allergy status to other antibiotic agents
CPT/HCPCS: 80048; 80061; 81001; 83036; 85025; 85610; 87086; J2060

== ENCOUNTER 2017-12-21 20:42 | Emergency (ER) | payer OTHER ==
[~2017-12-21] VITALS: Ht 180.3 cm; Wt 62.0 kg
[~2017-12-21 20:42] MED LIST changes: -AZIT250T3 PO; -BACL10TA PO; +BO60R RECTAL; -CETI10 PO; -LEVA750T9 PO; +MIRTA15 PO; +TAMS5CAP PO; -TEMA15CA PO; -ZYVO600T PO
[2017-12-21 20:44] VITALS: BP 122/73; PULSE 86; RESP 20; TEMP 98.2; O2SAT 96
--- NOTE | 2017-12-21 21:14 | PD ---
HPI Chief Complaint: Complaint Time Seen by Provider: 20:55 Travel History International Travel<30 days: No Contact w/Intl Traveler<30days: No Traveled to known affect area: No History of Present Illness HPI 57-year-old male complaining urinary retention. Patient has history of BPH. Patient started having problem with emptying the bladder for the past week. Patient was seen by urologist Dr. Remy in the past for BPH. Patient was found unresponsive recently and was admitted to hospital for acute hypoxic respiratory failure on mechanical ventilation. Patient developed encephalopathy , PE, sepsis and pneumonia. Patient was medically clear and was admitted to psychiatric facility for adjustment disorder with mixed disturbance of emotions and conduct. Patient was eventually discharged home about 8 days ago. Patient has been doing well until he started having urinary retention for the past week. Patient's on Flomax now. PFSH Past Medical History Hx Anticoagulant Therapy: No Blood Disorders: No Cancer: Yes (Lymphoma) Cardiovascular Problems: Yes (HBP ) High Cholesterol: Yes Chemotherapy: Yes COPD: Yes Diabetes: Yes Diminished Hearing: Yes ([place] BOTH EARS) Endocrine: No Gastrointestinal Disorders: Yes (COLITIS) Genitourinary: Yes (BPH) Headaches: No Immune Disorder: Yes (HODGEKINS LYMPHOMA 2005) Implanted Vascular Access Dvce: No Musculoskeletal: Yes (DJD) Neurologic: No Psychiatric: No Reproductive: No Respiratory: Yes Immunizations Current: No Pneumonia: Yes Radiation Therapy: No Seizures: No Past Surgical History Eye Surgery: Yes (LT EYE [id number] IN LT EYE.) Other Surgery: Yes (PORT PLACEMENT FOR CHEMO (REMOVED)) Social History Alcohol Use: No Tobacco Use: No (1 PPD UNTIL 07/29/17) Substance Use: Yes ("Back in 2005") Allergies-Medications (Allergen,Severity, Reaction): Coded Allergies: vancomycin (Unverified Allergy, Intermediate, RASH, 12/21/17) Reported Meds & Prescriptions Reported Meds & Active Scripts Active Flomax (Tamsulosin HCl) 0.4 Mg Cap 0.4 Mg PO DAILY Mirtazapine 15 Mg Tab 30 Mg PO HS 30 Days Belladonna-Opium Supp (Belladonna Alkaloids/Opium) 16.2-60 Mg Supp 1 Supp RECTAL DAILY PRN Phenobarbital 64.8 Mg Tab 60 Mg PO TID Keppra (Levetiracetam) 500 Mg Tab 1,000 Mg PO Q12HR Coumadin (Warfarin) 5 Mg Tab 5 Mg PO DAILY@1600 Tramadol (Tramadol HCl) 50 Mg Tab 50 Mg PO BID PRN Nebulizer Kit/Tubing/Mout (N/A) 1 Kit Kit 1 Kit .ROUTE DIRECTED Albuterol Neb (Albuterol Sulfate) 2.5 Mg/3 Ml Neb 2.5 Mg NEB Q4HR NEB PRN Reported Ventolin Hfa 18 GM Inh (Albuterol Sulfate) 90 Mcg/Act Aer 2 Puff INH Q4-6H PRN Review of Systems General / Constitutional: No: Fever Eyes: No: Visual changes HENT: No: Headaches Cardiovascular: No: Chest Pain or Discomfort Respiratory: No: Shortness of Breath Gastrointestinal: No: Abdominal Pain Genitourinary: Positive: Decreased Urinary Output, No: Dysuria Musculoskeletal: No: Pain Skin: No Rash Neurologic: No: Weakness Psychiatric: No: Depression Endocrine: No: Polydipsia Hematologic/Lymphatic: No: Easy Bruising Physical Exam Narrative GENERAL: Well-nourished, well-developed patient. SKIN: Focused skin assessment warm/dry. HEAD: Normocephalic. EYES: No scleral icterus. No injection or drainage. NECK: Supple, trachea midline. No JVD or lymphadenopathy. CARDIOVASCULAR: Regular rate and rhythm without murmurs, gallops, or rubs. RESPIRATORY: Breath sounds equal bilaterally. No accessory muscle use. GASTROINTESTINAL: Abdomen soft, nondistended. Patient has mild tenderness on palpation lower abdomen and suprapubic area. No rebound tenderness. No mass. MUSCULOSKELETAL: No cyanosis, or edema. BACK: Nontender without obvious deformity. No CVA tenderness. Neurologic exam: Patient is awake and alert oriented 3. No obvious focal neurological deficit. Data Data Last Documented VS Vital Signs Date Time Temp Pulse Resp B/P (MAP) Pulse Ox O2 Delivery O2 Flow Rate FiO2 12/21/17 20:44 98.2 86 20 122/73 (89) 96 Orders Orders Lidocaine 2% Jelly (Xylocaine 2% Jelly) (12/21/17 21:15) Urinalysis - C+S If Indicated (12/21/17 21:02) Urinary Catheter Insert/Apply (12/21/17 21:02) Labs Laboratory Tests Test 12/21/17 21:25 Urine Color STRAW Urine Turbidity CLEAR Urine pH 6.5 Urine Specific [place] 1.009 Urine Protein NEG mg/dL Urine Glucose (UA) NEG mg/dL Urine Ketones NEG mg/dL Urine Occult Blood NEG Urine Nitrite NEG Urine Bilirubin NEG Urine Leukocyte Esterase NEG Urine WBC 6-8 /hpf Urine Squamous Epithelial Cells 0-5 /hpf Microscopic Urinalysis Comment CATH-CULT NOT IND MDM Medical Decision Making Medical Screen Exam Complete: Yes Emergency Medical Condition: Yes Interpretation(s) 21:41 PM. UA is negative. Differential Diagnosis Differential diagnoses including urinary retention, bladder spasm, UTI, prostatitis. Narrative Course 57-year-old male with urinary retention symptoms. History of BPH. Bladder scan reveals a large bladder. Alfred catheter inserted. Patient produced 1000 cc of clear yellow urine. Diagnosis Primary Impression: Urinary retention Patient Instructions: General Instructions Additional Instructions: Follow up with urologist Dr. Remy. Return as needed. Med/Other Pt SpecificInfo: No Change to Meds Disposition: 01 DISCHARGE HOME Condition: Stable Jean Pierre Redmond MD Dec 21, 2017 21:14
[2017-12-21] MEDS ORDERED: LIDOCAINE 2% JELLY 30 ML TUBE TOPICAL ONE (21:15)
[2017-12-21 21:29] LABS: BILIRUBIN, URINE NEG (NEG); BLOOD, URINE NEG (NEG); GLUCOSE,URINE NEG (NEG); KETONE, URINE NEG (NEG); NITRITE,URINE NEG (NEG); PH, URINE 6.5 (5.0-8.5); URINE LEUKOCYTE ESTERASE NEG (NEG)
[2017-12-21 21:35] LABS: SQUAMOUS EPITHELIAL CELL URINE 0-5 /hpf (0-5); URINE COLOR STRAW (YELLW/STRAW)
[2017-12-21 22:13] VITALS: BP 132/76
[2017-12-22] MEDS ORDERED: BACT800T5 PO (14:06)
== END 2017-12-21 22:14 | disposition home or self-care (01) ==
LOC: PHED 20:42
DX: R33.9 Retention of urine, unspecified (principal); N40.1 Benign prostatic hyperplasia with lower urinary tract symptoms; I10 Essential (primary) hypertension; E11.9 Type 2 diabetes mellitus without complications; J44.9 Chronic obstructive pulmonary disease, unspecified; E78.00 Pure hypercholesterolemia, unspecified; Z87.19 Personal history of other diseases of the digestive system; Z87.39 Personal history of other diseases of the musculoskeletal system and connective tissue; Z87.891 Personal history of nicotine dependence
CPT/HCPCS: 51702; 81001

== ENCOUNTER 2017-12-22 11:08 | Inpatient (IN) | payer OTHER ==
[~2017-12-22] VITALS: Ht 180.3 cm; Wt 58.9 kg
[~2017-12-22 11:08] MED LIST changes: -LOVA40TA PO
[2017-12-22 11:21] VITALS: BP 130/82; PULSE 95; RESP 16; TEMP 97.6; O2SAT 97
[2017-12-22] MEDS ORDERED: traMADol HCL 50 MG TAB PO ONE (11:45)
--- NOTE | 2017-12-22 12:10 | PD ---
HPI Chief Complaint: Medical Clearance Time Seen by Provider: 11:28 Travel History International Travel<30 days: No Contact w/Intl Traveler<30days: No Traveled to known affect area: No History of Present Illness HPI 56-year-old male that presents to the ED for evaluation of Umana act. Patient was Umana acted by police after apparently he made suicidal statements to ambulance providers. Patient apparently has his mom called ambulance because he was complaining of pain to his penis secondary to a urinary catheter that was placed yesterday for urinary retention. Per patient he wants the catheter out because is causing him a lot of discomfort. Apparently when they were interrogating him he stated that he was so depressed and he wanted to hurt himself because of the pain. He was Umana acted because of this reason. Patient was recently released from the hospital secondary to respiratory distress as well as what appears to be severe depression and adjustment disorder. During patient's admission he was in the ICU and then released to the floor and then he was Umana acted because he was significantly depressed. On my evaluation patient is crying and asking that he wants his mother to be here with him. He does attest to having severe depression. The patient his been compliant with his medications. He denies any suicidal or homicidal ideation states that all he wants to do is get the catheter out and go home. He denies any drug abuse. No other medical issues. No chest pain or shortness of breath. PFSH Past Medical History Hx Anticoagulant Therapy: No Blood Disorders: No Cancer: Yes (Lymphoma) Cardiovascular Problems: Yes (HBP ) High Cholesterol: Yes Chemotherapy: Yes COPD: Yes Diabetes: Yes Patient Takes Glucophage: Yes Diminished Hearing: Yes ([place] BOTH EARS) Endocrine: No Gastrointestinal Disorders: Yes (COLITIS) Genitourinary: Yes (BPH) Headaches: No Immune Disorder: Yes (HODGEKINS LYMPHOMA 2005) Implanted Vascular Access Dvce: No Musculoskeletal: Yes (DJD) Neurologic: No Psychiatric: No Reproductive: No Respiratory: Yes Immunizations Current: No Pneumonia: Yes Radiation Therapy: No Seizures: No Past Surgical History Eye Surgery: Yes (LT EYE [id number] IN LT EYE.) Other Surgery: Yes (PORT PLACEMENT FOR CHEMO (REMOVED)) Social History Alcohol Use: No Tobacco Use: No (1 PPD UNTIL 07/29/17) Substance Use: Yes ("Back in 2005") Allergies-Medications (Allergen,Severity, Reaction): Coded Allergies: vancomycin (Unverified Allergy, Intermediate, RASH, 12/21/17) Reported Meds & Prescriptions Reported Meds & Active Scripts Active Flomax (Tamsulosin HCl) 0.4 Mg Cap 0.4 Mg PO DAILY Mirtazapine 15 Mg Tab 30 Mg PO HS 30 Days Belladonna-Opium Supp (Belladonna Alkaloids/Opium) 16.2-60 Mg Supp 1 Supp RECTAL DAILY PRN Phenobarbital 64.8 Mg Tab 60 Mg PO TID Keppra (Levetiracetam) 500 Mg Tab 1,000 Mg PO Q12HR Coumadin (Warfarin) 5 Mg Tab 5 Mg PO DAILY@1600 Tramadol (Tramadol HCl) 50 Mg Tab 50 Mg PO BID PRN Nebulizer Kit/Tubing/Mout (N/A) 1 Kit Kit 1 Kit .ROUTE DIRECTED Albuterol Neb (Albuterol Sulfate) 2.5 Mg/3 Ml Neb 2.5 Mg NEB Q4HR NEB PRN Reported Ventolin Hfa 18 GM Inh (Albuterol Sulfate) 90 Mcg/Act Aer 2 Puff INH Q4-6H PRN Review of Systems Except as stated in HPI: all other systems reviewed are Neg Physical Exam Narrative GENERAL: SKIN: Warm and dry. HEAD: Atraumatic. Normocephalic. EYES: Pupils equal and round. No scleral icterus. No injection or drainage. ENT: No nasal bleeding or discharge. Mucous membranes pink and moist. Tongue is midline. No uvula deviation. NECK: Trachea midline. No JVD. CARDIOVASCULAR: Regular rate and rhythm. RESPIRATORY: No accessory muscle use. Clear to auscultation. Breath sounds equal bilaterally. GASTROINTESTINAL: Abdomen soft, non-tender, nondistended. Hepatic and splenic margins not palpable. Urinary savage noted on the penis. Seen with nurse present at all times MUSCULOSKELETAL: Extremities without clubbing, cyanosis, or edema. No obvious deformities. Full range of motion of the upper and lower extremities bilaterally. 2+ pulses bilaterally. NEUROLOGICAL: Awake and alert. No obvious cranial nerve deficits. Motor grossly within normal limits. Five out of 5 muscle strength in the arms and legs. Normal speech. PSYCHIATRIC: Very depressed mood and affect; insight and judgment questionable. Data Data Last Documented VS Vital Signs Date Time Temp Pulse Resp B/P (MAP) Pulse Ox O2 Delivery O2 Flow Rate FiO2 12/22/17 11:25 17 12/22/17 11:21 97.6 95 130/82 (98) 97 Orders Orders Complete Blood Count With Diff (12/22/17 11:19) Comprehensive Metabolic Panel (12/22/17 11:19) Thyroid Stimulating Hormone (12/22/17 11:19) Urinalysis - C+S If Indicated (12/22/17 11:19) Psych Screen (12/22/17 11:19) Drug Screen, Random Urine (12/22/17 11:19) Alcohol (Ethanol) (12/22/17 11:19) Salicylates (Aspirin) (12/22/17 11:19) Tylenol (Acetaminophen) (12/22/17 11:19) Tramadol (Ultram) (12/22/17 11:45) Urinary Catheter - Remove (12/22/17 11:44) Urine Culture (12/22/17 11:40) Labs Laboratory Tests Test 12/22/17 11:40 White Blood Count 13.4 TH/MM3 Red Blood Count 3.66 MIL/MM3 Hemoglobin 11.3 GM/DL Hematocrit 34.1 % Mean Corpuscular Volume 93.0 FL Mean Corpuscular Hemoglobin 31.0 PG Mean Corpuscular Hemoglobin Concent 33.3 % Red Cell Distribution Width 15.2 % Platelet Count 260 TH/MM3 Mean Platelet Volume 8.6 FL Neutrophils (%) (Auto) 68.7 % Lymphocytes (%) (Auto) 17.2 % Monocytes (%) (Auto) 6.4 % Eosinophils (%) (Auto) 6.7 % Basophils (%) (Auto) 1.0 % Neutrophils # (Auto) 9.2 TH/MM3 Lymphocytes # (Auto) 2.3 TH/MM3 Monocytes # (Auto) 0.9 TH/MM3 Eosinophils # (Auto) 0.9 TH/MM3 Basophils # (Auto) 0.1 TH/MM3 CBC Comment DIFF FINAL Differential Comment Urine Color YELLOW Urine Turbidity CLEAR Urine pH 8.0 Urine Specific [place] 1.010 Urine Protein 30 mg/dL Urine Glucose (UA) NEG mg/dL Urine Ketones NEG mg/dL Urine Occult Blood MOD Urine Nitrite NEG Urine Bilirubin NEG Urine Urobilinogen LESS THAN 2.0 MG/DL Urine Leukocyte Esterase MOD Urine RBC /hpf Urine WBC 33 /hpf Urine Squamous Epithelial Cells <1 /hpf Microscopic Urinalysis Comment CULTURE INDICATED Blood Urea Nitrogen 7 MG/DL Creatinine 0.81 MG/DL Random Glucose 89 MG/DL Total Protein 6.4 GM/DL Albumin 2.4 GM/DL Calcium Level 8.0 MG/DL Alkaline Phosphatase 113 U/L Aspartate Amino Transf (AST/SGOT) 22 U/L Alanine Aminotransferase (ALT/SGPT) 27 U/L Total Bilirubin 0.1 MG/DL Sodium Level 142 MEQ/L Potassium Level 4.1 MEQ/L Chloride Level 103 MEQ/L Carbon Dioxide Level 34.0 MEQ/L Anion Gap 5 MEQ/L Estimat Glomerular Filtration Rate 98 ML/MIN Thyroid Stimulating Hormone 3rd Gen 1.230 uIU/ML Salicylates Level LESS THAN 1.7 MG/DL Urine Opiates Screen NEG Acetaminophen Level LESS THAN 2.0 MCG/ML Urine Barbiturates Screen POS Urine Amphetamines Screen NEG Urine Benzodiazepines Screen NEG Urine Cocaine Screen NEG Urine Cannabinoids Screen NEG Ethyl Alcohol Level LESS THAN 3 MG/DL MDM Medical Decision Making Medical Screen Exam Complete: Yes Emergency Medical Condition: Yes Medical Record Reviewed: Yes Interpretation(s) CBC & BMP Diagram 12/22/17 11:40 Total Protein 6.4, Albumin 2.4 L, Calcium Level 8.0 L, Alkaline Phosphatase 113 , Aspartate Amino Transf (AST/SGOT) 22, Alanine Aminotransferase (ALT/SGPT) 27, Total Bilirubin 0.1 L tox positive for barbituates Differential Diagnosis Depression versus suicidal ideation versus anxiety versus adjustment disorder versus mood disorder versus bipolar disorder versus schizophrenia versus paranoid disorder versus psychosis versus substance abuse versus alcohol abuse versus alcohol induced psychosis versus homicidality addition versus cutting versus personality disorder versus urinary retention versus Savage removal Narrative Course 57-year-old male that presents to the ED for evaluation of psych. Patient was properly examined and was found to have signs and symptoms consistent with psychiatric illness likely depression. Patient also has a history of urinary retention and wants his Savage catheter out. Patient was told that without the Savage catheter he might not be able to urinate. He understands the risk of having an hour and wants it out. I had the nurse DC'd the Savage for now. Patient will have blood work forefingers Umana act. Patient will be monitored to see how much urinary output he makes and he cannot make enough urine on his own he might have the Savage catheter again. Nurse is aware of this. Patient is aware of this. Patient was medically cleared. Okay to be seen by psych. At my psych plan. Diagnosis Primary Impression: Depression Qualified Codes: F33.1 - Major depressive disorder, recurrent, moderate Additional Impression: Encounter for Savage catheter removal Parker Newsome Dec 22, 2017 12:10
[2017-12-22 12:11] LABS: AUTOMATED NEUTROPHIL # 9.2 TH/MM3 (1.8-7.7); BASOPHIL # 0.1 TH/MM3 (0-0.2); EOSINOPHIL # 0.9 TH/MM3 (0-0.4); EOSINOPHIL % 6.7 % (0.0-4.0); HEMATOCRIT 34.1 % (39.0-51.0); HEMOGLOBIN 11.3 GM/DL (13.0-17.0); LYMPH % 17.2 % (9.0-44.0); LYMPHOCYTE # 2.3 TH/MM3 (1.0-4.8); MEAN CORPUSCULAR HGB CONC 33.3 % (32.0-36.0); MEAN PLATELET VOLUME 8.6 FL (7.0-11.0); MONO % 6.4 % (0.0-8.0); MONOCYTE # 0.9 TH/MM3 (0-0.9); NEUT % 68.7 % (16.0-70.0); PLATELET COUNT 260 TH/MM3 (150-450); RED BLOOD COUNT 3.66 MIL/MM3 (4.50-5.90); RED CELL DISTRIBUTION WIDTH 15.2 % (11.6-17.2); WHITE BLOOD COUNT 13.4 TH/MM3 (4.0-11.0)
[2017-12-22 12:18] LABS: BILIRUBIN, URINE NEG (NEG); BLOOD, URINE MOD (NEG); GLUCOSE,URINE NEG (NEG); KETONE, URINE NEG (NEG); NITRITE,URINE NEG (NEG); SQUAMOUS EPITHELIAL CELL URINE <1 /hpf (0-5); URINE COLOR YELLOW (YELLW/STRAW); URINE LEUKOCYTE ESTERASE MOD (NEG)
[2017-12-22 12:33] LABS: ALKALINE PHOSPHATASE 113 U/L (45-117); TOTAL BILIRUBIN ADULT 0.1 MG/DL (0.2-1.0); TOTAL PROTEIN 6.4 GM/DL (6.4-8.2)
[2017-12-22 12:39] LABS: ACETAMINOPHEN LESS THAN 2.0 MCG/ML (10.0-30.0); ALBUMIN 2.4 GM/DL (3.4-5.0); ALT (GPT) 27 U/L (12-78); AST (GOT) 22 U/L (15-37); BLOOD UREA NITROGEN 7 MG/DL (7-18); CHLORIDE 103 MEQ/L (98-107); CREATININE 0.81 MG/DL (0.60-1.30); GLOMERULAR FILTRATION RATE 98 ML/MIN (>89); GLUCOSE,RANDOM 89 MG/DL (74-106); SODIUM (NA) 142 MEQ/L (136-145)
[2017-12-22] MEDS ORDERED: BACT800T5 PO (14:06)
[2017-12-22] MEDS ORDERED: SULFAMETHOXAZOLE-TRIMETHOPRIM DS 800-160 MG TAB PO ONE (14:15)
[2017-12-22 16:00] VITALS: BP 134/74; PULSE 84; RESP 16; O2SAT 96
[2017-12-22 19:08] VITALS: BP 132/82; PULSE 75; RESP 16; O2SAT 95
[2017-12-22] MEDS ORDERED: MAGNESIUM HYDROXIDE SUSP 30 ML CUP PO PRN (22:45)
[2017-12-22] MEDS ORDERED: ALBUTEROL SULFATE 90 MCG/ACT HFA 18 GM INHALER INH PRN (22:45)
[2017-12-22] MEDS ORDERED: RESP: ALBUTEROL 2.5 MG/3 ML NEB (PRN) INH (22:45)
[2017-12-22] MEDS ORDERED: LORazepam 2 MG/ML VIAL IM PRN (22:45)
[2017-12-22] MEDS ORDERED: ALUMINUM/MAGNESIUM/SIMETH 30 ML CUP PO PRN (22:45)
[2017-12-22] MEDS: LORazepam 1 MG TAB PO PRN (22:49)
[2017-12-23] MEDS ORDERED: ALBUTEROL SULFATE 90 MCG/ACT HFA 8 GM INHALER INH PRN (00:30)
[2017-12-23 01:13] VITALS: BP 130/75; PULSE 106; RESP 18; TEMP 98.7; O2SAT 95
[2017-12-23] MEDS: traMADol HCL 50 MG TAB PO PRN ×2 (05:33→06:50)
[2017-12-23 06:03] VITALS: BP 135/78; PULSE 85; RESP 16; TEMP 97.8; O2SAT 99
[2017-12-23] MEDS: levETIRAcetam 500 MG TAB PO SCH ×2 (08:20→20:12)
[2017-12-23] MEDS: SULFAMETHOXAZOLE-TRIMETHOPRIM DS 800-160 MG TAB PO SCH ×2 (08:20→20:11)
[2017-12-23] MEDS: TAMSULOSIN HCL 0.4 MG CAP PO SCH (08:20)
--- NOTE | 2017-12-23 08:34 | PD.CONS ---
[facility] By Dr Ratliff psychiatry Reason for Consult medical management Primary Care Physician Non-Staff Diagnoses: History of Present Illness 56-year-old male with PMH of BPH, Hodgkin Lymphoma in 2005, HLD, HTN, DM2, that presents to the ED for evaluation of Dong act. Patient was Dong acted by police after apparently he made suicidal statements to ambulance providers. Patient apparently has his mom called ambulance because he was complaining of pain to his penis secondary to a urinary catheter that was placed yesterday for urinary retention. Per patient he wants the catheter out because is causing him a lot of discomfort. Apparently when they were interrogating him he stated that he was so depressed and he wanted to hurt himself because of the pain. He was Dong acted because of this reason. Patient was recently released from the hospital secondary to respiratory distress as well as what appears to be severe depression and adjustment disorder. During patient's admission he was in the ICU and then released to the floor and then he was Dong acted because he was significantly depressed. On my evaluation patient is crying and asking that he wants his mother to be here with him. He does attest to having severe depression. The patient his been compliant with his medications. He denies any suicidal or homicidal ideation states that all he wants to do is get the catheter out and go home. He denies any drug abuse. No other medical issues. No chest pain or shortness of breath. 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 Port placement for chemo, now removed Reported Medications Reported Meds & Active Scripts Active Bactrim DS (Sulfamethoxazole-Trimethoprim) 800-160 Mg Tab 1 Tab PO BID 7 Days Flomax (Tamsulosin HCl) 0.4 Mg Cap 0.4 Mg PO DAILY Mirtazapine 15 Mg Tab 30 Mg PO HS 30 Days Belladonna-Opium Supp (Belladonna Alkaloids/Opium) 16.2-60 Mg Supp 1 Supp RECTAL DAILY PRN Phenobarbital 64.8 Mg Tab 60 Mg PO TID Keppra (Levetiracetam) 500 Mg Tab 1,000 Mg PO Q12HR Coumadin (Warfarin) 5 Mg Tab 5 Mg PO DAILY@1600 Tramadol (Tramadol HCl) 50 Mg Tab 50 Mg PO BID PRN Nebulizer Kit/Tubing/Mout (N/A) 1 Kit Kit 1 Kit .ROUTE DIRECTED Albuterol Neb (Albuterol Sulfate) 2.5 Mg/3 Ml Neb 2.5 Mg NEB Q4HR NEB PRN Reported Ventolin Hfa 18 GM Inh (Albuterol Sulfate) 90 Mcg/Act Aer 2 Puff INH Q4-6H PRN Family History Patient says his mother is healthy and doesn't know an diseases that run in his family Social History Tobacco use: 1 PPD UNTIL 07/29/17) H/o substance use "Back in 2005" Denies EtOH use. Physical Exam Vital Signs Vital Signs Date Time Temp Pulse Resp B/P (MAP) Pulse Ox O2 Delivery O2 Flow Rate FiO2 12/23/17 06:03 97.8 85 16 135/78 (97) 99 12/23/17 01:13 98.7 106 18 130/75 (93) 95 12/22/17 21:52 12/22/17 19:08 75 16 132/82 (99) 95 Room Air 12/22/17 19:08 78 15 12/22/17 16:00 84 16 134/74 (94) 96 Room Air 12/22/17 11:25 17 12/22/17 11:21 97.6 95 16 130/82 (98) 97 Physical Exam GENERAL: This is a well-nourished, well-developed patient, in no apparent distress. SKIN: No rashes, ecchymoses or lesions. Cool and dry. HEAD: Atraumatic. Normocephalic. No temporal or scalp tenderness. EYES: Pupils equal round and reactive. Extraocular motions intact. No scleral icterus. No injection or drainage. ENT: Nose without bleeding, purulent drainage or septal hematoma. Throat without erythema, tonsillar hypertrophy or exudate. Uvula midline. Airway patent. NECK: Trachea midline. No JVD or lymphadenopathy. Supple, nontender, no meningeal signs. CARDIOVASCULAR: Regular rate and rhythm without murmurs, gallops, or rubs. RESPIRATORY: Clear to auscultation. Breath sounds equal bilaterally. No wheezes , rales, or rhonchi. GASTROINTESTINAL: Abdomen soft, non-tender, nondistended. No hepato-splenomegaly , or palpable masses. No guarding. MUSCULOSKELETAL: Extremities without clubbing, cyanosis, or edema. No joint tenderness, effusion, or edema noted. No calf tenderness. Negative Homans sign bilaterally. NEUROLOGICAL: Awake and alert. Cranial nerves II through XII intact. Motor and sensory grossly within normal limits. Five out of 5 muscle strength in all muscle groups. Normal speech. Laboratory Laboratory Tests Test 12/22/17 11:40 White Blood Count 13.4 Red Blood Count 3.66 Hemoglobin 11.3 Hematocrit 34.1 Mean Corpuscular Volume 93.0 Mean Corpuscular Hemoglobin 31.0 Mean Corpuscular Hemoglobin Concent 33.3 Red Cell Distribution Width 15.2 Platelet Count 260 Mean Platelet Volume 8.6 Neutrophils (%) (Auto) 68.7 Lymphocytes (%) (Auto) 17.2 Monocytes (%) (Auto) 6.4 Eosinophils (%) (Auto) 6.7 Basophils (%) (Auto) 1.0 Neutrophils # (Auto) 9.2 Lymphocytes # (Auto) 2.3 Monocytes # (Auto) 0.9 Eosinophils # (Auto) 0.9 Basophils # (Auto) 0.1 CBC Comment DIFF FINAL Differential Comment Urine Color YELLOW Urine Turbidity CLEAR Urine pH 8.0 Urine Specific [place] 1.010 Urine Protein 30 Urine Glucose (UA) NEG Urine Ketones NEG Urine Occult Blood MOD Urine Nitrite NEG Urine Bilirubin NEG Urine Urobilinogen LESS THAN 2.0 Urine Leukocyte Esterase MOD Urine RBC Urine WBC 33 Urine Squamous Epithelial Cells <1 Microscopic Urinalysis Comment CULTURE INDICATED Blood Urea Nitrogen 7 Creatinine 0.81 Random Glucose 89 Total Protein 6.4 Albumin 2.4 Calcium Level 8.0 Alkaline Phosphatase 113 Aspartate Amino Transf (AST/SGOT) 22 Alanine Aminotransferase (ALT/SGPT) 27 Total Bilirubin 0.1 Sodium Level 142 Potassium Level 4.1 Chloride Level 103 Carbon Dioxide Level 34.0 Anion Gap 5 Estimat Glomerular Filtration Rate 98 Thyroid Stimulating Hormone 3rd Gen 1.230 Salicylates Level LESS THAN 1.7 Urine Opiates Screen NEG Acetaminophen Level LESS THAN 2.0 Urine Barbiturates Screen POS Urine Amphetamines Screen NEG Urine Benzodiazepines Screen NEG Urine Cocaine Screen NEG Urine Cannabinoids Screen NEG Ethyl Alcohol Level LESS THAN 3 Date/Time Source Procedure Growth Status 12/22/17 11:40 Urine Clean Catch Urine Culture Pending Worksheet Result Diagram: 12/22/17 1140 12/22/17 1140 Assessment and Plan Assessment and Plan 57-year-old male that presents to the ED for evaluation of depression. Depression management per psych Tox positive for barbiturates H/o Bilateral PE Continue Coumadin Goal INR 2-3 Hyperlipidemia - Continue statin Seizures- Continue Keppra BPH with urinary retention Savage was removed yesterday, voiding trial if unable to urinate might need savage Continue Flomax DVT ppx on coumadin Discussed Condition With patient, nurse Taryn Martinez MD Dec 23, 2017 08:34
[2017-12-23 09:36] LABS: INTERNATIONAL NORMALIZED RATIO 1.4 RATIO; PROTHROMBIN TIME - PATIENT 13.9 SEC (9.8-11.6)
[2017-12-23] MEDS ORDERED: BACT800T5 PO (10:48)
[2017-12-23] MEDS ORDERED: ACETAMINOPHEN 325 MG TAB PO PRN (11:00)
[2017-12-23] MEDS ORDERED: SULFAMETHOXAZOLE-TRIMETHOPRIM DS 800-160 MG TAB PO SCH (11:00)
[2017-12-23] MEDS ORDERED: levETIRAcetam 500 MG TAB PO SCH (11:00)
[2017-12-23] MEDS ORDERED: TAMSULOSIN HCL 0.4 MG CAP PO SCH (11:00)
[2017-12-23] MEDS ORDERED: RESP: ALBUTEROL 2.5 MG/3 ML NEB (PRN) NEB (11:00)
--- NOTE | 2017-12-23 11:27 | HHI.HP ---
Provisional Diagnosis Admission Date Dec 22, 2017 at 21:44 [place]. Adjustment disorder with mixed disturbances of emotion and conduct f 43.25 Certification of Person's Competence To Provide Express and Informed Consent I have personally examined Ashley Garcia , a person being served at [facility] on, Dec 23, 2017 11:14. Express and informed consent means consent voluntarily given in writing, by a competent person, after sufficient explanation and disclosure of the subject matter involved to enable the person to make a knowing and willful decision without any element of force, fraud, deceit, duress, or other form of constraint or coercion. This person is 18 years of age or older, is not now known to be incompetent to consent to treatment with a guardian advocate, and does not have a health care surrogate or proxy currently making medical treatment decisions. I have found this person to be one of the following: [] Competent to provide express and informed consent, as defined above, for voluntary admission to this facility and is competent to provide express and informed consent for treatment. He/she has the consistent capacity to make well reasoned, willful, and knowing decisions concerning his or her medical or mental health treatment. The person fully and consistently understands the purpose of the admission for examination/placement and is fully capable of personally exercising all rights assured under [place]xxx] Incompetent to provide express and informed consent to voluntary admission , and this is incompetent to provide express and informed consent to treatment. The person must be transferred to involuntary status and a petition for a guardian advocate filed with the Circuit Court. [] Refusing to provide express and informed consent to voluntary admission but is competent to provide express and informed consent for treatment. The person must be discharged or transferred to involuntary status. Form shall be completed within 24 hours of a person's arrival at the receiving facility and filed in the clinical record of each person: 1. Admitted on a voluntary basis 2. Permitted to provide express and informed consent to his/her own treatment 3. Allowed to transfer from involuntary to voluntary status 4. Prior to permitting a person to consent to his or her own treatment after having been previously found incompetent to consent to treatment. History of Present Illness Capacity: Lacks Capacity Psych Chief Complaint: cognitive changes, increase aggressive behavior and mood lability HPI Patient is a 57-year-old white male who comes here under [place] act [facility] [employer] dated 12/22/17 at 10:45 AM document reviewed was essentially stating dizziness suffers from several medical ailments Ashley recently suffered a seizure and has been making suicidal statements since then upon our arrival on scene did advise that if he had a gun he would shoot himself. Patient seen screened in the ED, urine toxicology positive for barbiturates. Of interest patient has had multiple visits here in the past 2 months. With encephalopathy behavioral changes and brief psychiatric hospitalization related to that. That hospitalization was 12/08 through 12/13. Patient seen by Dr. Mccoy. On 12/21 patient is return to the ED urinary retention a Alfred was inserted and left there. Patient went home became increasingly agitated threatening and labile related to that was brought back here under the [place] act. The Alfred was removed. Patient though was already admitted to the unit. At the present time patient laying in his bed is quite labile childlike in his responses saying that he wants to be with his mom he and his doggie. He is tearful showing no insight with obvious cognitive deficits noted. I did talk with patient's mother the name is Jaimee at she is 88 years old and has a pacemaker it appears she has been her son's caregiver all his life he has been in special education classes he has had difficulty with basic education. Has never really held a job never been has no children she has been the caregiver. I also talked with patient' s brother Akira who lives in [place] at [phone] while patient's mother appears willing to go to an extreme care for her son, the son stay feels that this is a dangerous situation he was just down here he notes his brothers mood lability and at times threatening behavior. That he feels pulses mother at risk. When I talked to mother she does acknowledge that she feels somewhat harm's way and threatened them angry and irritated by her son's behavior. Family is also had difficulty with getting care in the community. Including home health care. At this time I feel patient does meet criteria for inpatient psychiatric hospitalization under the [place] act. I will do first opinion request second opinion I feel he does not have capacity we'll ask for healthcare surrogate and guardian advocate. Will have hospitalist consult with us related to seizure disorder his urinary tract infections and other medical issues. We will also have neurology consult with us related to this. Placement may become problematic it is a questionable whether this man can even return home with a frail 88-year-old mother without having some guaranteed help in the house Review of Systems Except as stated in HPI: all other systems reviewed are Neg Past Psych History Psychological trauma history Denies Violence risk - others (6 mos) Patient has some follow-up behaviors and lability towards family Violence risk - self (6 mos) Patient made vague statements about Lyme to herself Substance Abuse History Drugs/Alcohol past 12 months Denies Past Family Social History Coded Allergies: vancomycin (Unverified Allergy, Intermediate, RASH, 12/21/17) Active Scripts Sulfamethoxazole-Trimethoprim (Bactrim DS) 800-160 Mg Tab, 1 TAB PO BID for Infection for 7 Days, #14 TAB 0 Refills Prov:Phill Hurst MD 12/23/17 Tamsulosin (Flomax) 0.4 Mg Cap, 0.4 MG PO DAILY for health, #30 CAP 0 Refills Prov:Gary Cardoso MD 12/13/17 Mirtazapine (Mirtazapine) 15 Mg Tab, 30 MG PO HS for Health for 30 Days, #30 TAB 0 Refills Prov:Gary Cardoso MD 12/13/17 Belladonna-Opium Supp (Belladonna-Opium Supp) 16.2-60 Mg Supp, 1 SUPP RECTAL DAILY Y for PAIN, #30 SUPP 0 Refills Prov:Steve Siu MD 12/13/17 Phenobarbital (Phenobarbital) 64.8 Mg Tab, 60 MG PO TID for Seizure Control, # 93 TAB Prov:Clyde Grimes MD 12/08/17 Levetiracetam (Keppra) 500 Mg Tab, 1000 MG PO Q12HR for Seizure Control, #60 TAB Prov:Clyde Grimes MD 12/08/17 Warfarin (Coumadin) 5 Mg Tab, 5 MG PO DAILY@1600 for Blood Clot Prevention, #6 TAB Prov:Clyde Grimes MD 12/08/17 Tramadol (Tramadol) 50 Mg Tab, 50 MG PO BID Y for PAIN, #60 TAB 0 Refills Prov:Melvin Remy DO 08/15/17 Nebulizer Kit/Tubing/Mout (Nebulizer Kit/Tubing/Mout) 1 Kit Kit, 1 KIT .ROUTE DIRECTED for Breathing Treatment, #1 KIT 0 Refills Prov:Aidan Wells BRITNEY 01/31/17 Albuterol Neb (Albuterol Neb) 2.5 Mg/3 Ml Neb, 2.5 MG NEB Q4HR NEB Y for SHORTNESS OF BREATH, #60 NEBULE 2 Refills Prov:Naseem Wellssa TAN 01/31/17 Reported Medications Albuterol 18 GM Inh (Ventolin Hfa 18 GM Inh) 90 Mcg/Act Aer, 2 PUFF INH Q4-6H Y for SHORTNESS OF BREATH, #1 INHALER 0 Refills 07/31/17 Discontinued Scripts Tamsulosin (Flomax) 0.4 Mg Cap, 0.4 MG PO BID for Manage Prostate Problems, #60 CAP 0 Refills Prov:Steve Siu MD 12/13/17 Lovastatin (Lovastatin) 40 Mg Tab, 2 TAB PO HS for Cholesterol Management, #30 TAB 3 Refills Prov:Naseem Wellssa TAN 05/03/17 Current Medications Medications (Trade) Dose Ordered Sig/Osbaldo Route Start Time Stop Time Status Last Admin (Ativan) 1 mg Q6H PRN PO 12/22/17 22:45 12/22/17 22:49 (Ativan Inj) 1 mg Q6H PRN IM 12/22/17 22:45 (Tylenol) 650 mg Q4H PRN PO 12/22/17 22:45 (Milk Of Magnesia Liq) 30 ml DAILY PRN PO 12/22/17 22:45 (Mag-Al Plus Susp Liq) 30 ml Q6H PRN PO 12/22/17 22:45 (Albuterol Neb) 2.5 mg Q4HR NEB PRN INH 12/22/17 22:45 (Ultram) 50 mg BID PRN PO 12/22/17 22:45 12/23/17 05:33 (Coumadin) 5 mg DAILY@1600 PO 12/23/17 16:00 (Keppra) 1,000 mg Q12HR PO 12/23/17 09:00 12/23/17 08:20 (PHENobarbital) 60 mg TID PO 12/23/17 09:00 12/23/17 08:20 (Remeron) 30 mg HS PO 12/23/17 21:00 (Flomax) 0.4 mg DAILY PO 12/23/17 09:00 12/23/17 08:20 (Bactrim Ds 800-160 Mg) 1 tab BID PO 12/23/17 09:00 12/23/17 08:20 (Proair Hfa Inh) 2 puff Q4H PRN INH 12/23/17 00:30 Family Psych History Patient hospitalized here first part of November Social History Patient is living with his mother all his life there is no significant work history, is never been and has no children Patient's Strengths (min. 2) Patient verbal has strong support system Physical Exam Patient medically cleared ED patient laying in bed with no obvious physical distress though he is emotionally quite labile and tearful these in no respiratory distress. Patient does move all 4 extremities while lying in bed Vital Signs Vital Signs Date Time Temp Pulse Resp B/P (MAP) Pulse Ox O2 Delivery O2 Flow Rate FiO2 12/23/17 06:03 97.8 85 16 135/78 (97) 99 12/22/17 19:08 Room Air Lab Results Test 12/22/17 11:40 12/23/17 08:40 White Blood Count 13.4 TH/MM3 Red Blood Count 3.66 MIL/MM3 Hemoglobin 11.3 GM/DL Hematocrit 34.1 % Mean Corpuscular Volume 93.0 FL Mean Corpuscular Hemoglobin 31.0 PG Mean Corpuscular Hemoglobin Concent 33.3 % Red Cell Distribution Width 15.2 % Platelet Count 260 TH/MM3 Mean Platelet Volume 8.6 FL Neutrophils (%) (Auto) 68.7 % Lymphocytes (%) (Auto) 17.2 % Monocytes (%) (Auto) 6.4 % Eosinophils (%) (Auto) 6.7 % Basophils (%) (Auto) 1.0 % Neutrophils # (Auto) 9.2 TH/MM3 Lymphocytes # (Auto) 2.3 TH/MM3 Monocytes # (Auto) 0.9 TH/MM3 Eosinophils # (Auto) 0.9 TH/MM3 Basophils # (Auto) 0.1 TH/MM3 CBC Comment DIFF FINAL Differential Comment Urine Color YELLOW Urine Turbidity CLEAR Urine pH 8.0 Urine Specific Panacea 1.010 Urine Protein 30 mg/dL Urine Glucose (UA) NEG mg/dL Urine Ketones NEG mg/dL Urine Occult Blood MOD Urine Nitrite NEG Urine Bilirubin NEG Urine Urobilinogen LESS THAN 2.0 MG/DL Urine Leukocyte Esterase MOD Urine RBC /hpf Urine WBC 33 /hpf Urine Squamous Epithelial Cells <1 /hpf Microscopic Urinalysis Comment CULTURE INDICATED Blood Urea Nitrogen 7 MG/DL Creatinine 0.81 MG/DL Random Glucose 89 MG/DL Total Protein 6.4 GM/DL Albumin 2.4 GM/DL Calcium Level 8.0 MG/DL Alkaline Phosphatase 113 U/L Aspartate Amino Transf (AST/SGOT) 22 U/L Alanine Aminotransferase (ALT/SGPT) 27 U/L Total Bilirubin 0.1 MG/DL Sodium Level 142 MEQ/L Potassium Level 4.1 MEQ/L Chloride Level 103 MEQ/L Carbon Dioxide Level 34.0 MEQ/L Anion Gap 5 MEQ/L Estimat Glomerular Filtration Rate 98 ML/MIN Thyroid Stimulating Hormone 3rd Gen 1.230 uIU/ML Salicylates Level LESS THAN 1.7 MG/DL Urine Opiates Screen NEG Acetaminophen Level LESS THAN 2.0 MCG/ML Urine Barbiturates Screen POS Urine Amphetamines Screen NEG Urine Benzodiazepines Screen NEG Urine Cocaine Screen NEG Urine Cannabinoids Screen NEG Ethyl Alcohol Level LESS THAN 3 MG/DL Prothrombin Time 13.9 SEC Prothromb Time International Ratio 1.4 RATIO Date/Time Source Procedure Growth Status 12/22/17 11:40 Urine Clean Catch Urine Culture Pending Worksheet Mental Status Examination Appearance: Appropriate Consciousness: Alert Orientation: Person Motor Activity: Other (patient laying in bed) Speech: Pressured, Rapid, Other (quite childlike and concrete) Language: Adequate Fund of Knowledge: Poor Attention and Concentration: Easily Distracted Memory: Impaired Mood: Sad, Anxious, Irritable Affect: Other (increase range and intensity) Thought Process & Associations: Loose associations, Disorganized Thought Content: Ideas of reference, Obsessions Hallucination Type: None Delusion Type: None Suicidal Ideation: Yes (made vague statements) Suicidal Plan: No Suicidal Intention: No Homicidal Ideation: No (made vague statements) Homicidal Plan: No Homicidal Intention: No Insight: Poor Judgment: Poor Assessment & Plan Problem List: (1) Acute hypoxemic respiratory failure ICD Codes: J96.01 - Acute respiratory failure with hypoxia Status: Resolved (2) Seizure disorder ICD Codes: G40.909 - Epilepsy, unspecified, not intractable, without status epilepticus (3) Adjustment disorder with mixed disturbance of emotions and conduct ICD Codes: F43.25 - Adjustment disorder with mixed disturbance of emotions and conduct Assessment & Plan Estimated LOS: days at this time patient meets criteria for involuntary psychiatric hospital visual the [place] act I'll do first opinion request second opinion. I feel he does not have capacity we'll ask for healthcare surrogate and guardian advocate will have a neurology consult with us in the hospital is consult with us. Attempted to meet with patient's mother the next few days placement may become problematic Discharge Planning Placement may become problematic Request HC Surrog/Guard Advoc?: Yes Phill Hurst MD Dec 23, 2017 11:27
[2017-12-23] MEDS ORDERED: WARFARIN SOD 5 MG TAB PO SCH (16:00)
[2017-12-23] MEDS: WARFARIN SOD 5 MG TAB PO SCH (16:31)
[2017-12-23] MEDS: LORazepam 1 MG TAB PO PRN (20:11)
[2017-12-23] MEDS: MIRTAZAPINE 15 MG TAB PO SCH (20:12)
[2017-12-23] MEDS ORDERED: MIRTAZAPINE 15 MG TAB PO SCH (21:00)
--- NOTE | 2017-12-23 22:22 | MB ---
cc: ALBA RIVERA MD DATE OF CONSULTATION 12/23/17 He is a 57-year-old seen in neurological consultation in regards to seizure and dizziness. The patient was admitted through a [place] Act as he has tried to commit suicide by injuring his wrists. Apparently, he has been in the hospital on multiple occasions for psychiatric issues. He reportedly has a history of seizure disorder, but I am unable to get more details on these. I spoke to the nursing staff. The patient lives with his elderly mother who is the caregiver. MEDICATIONS 1. Keppra 1000 mg twice a day 2. Phenobarbital 64.8 mg three times a day. 3. Warfarin 4. Tramadol 5. Mirtazapine 6. Flomax 7. Bactrim PAST MEDICAL HISTORY 1. Hodgkin's lymphoma, 2. Hypertension, 3. Diabetes 4. Mental handicap. NEUROLOGIC EXAM The patient is very emotional. The first thing he mentioned to me is that he wanted to go home and be with his mama. He was intermittently loud and he has no vision out of the left eye from an injury which he describes being related to a baseball injury many years ago. He was fully oriented, provided history and insisted that he will never try to injury himself again. He is worried about his mother who is an elder person being alone, etc. He cant see well of the right eye on the visual field testing. No facial weakness. No evidence of tongue injury. No trembling noted. He is somewhat frail and the reflexes were absent throughout. Plantar responses were flexor. I looked at some hospital data on him. In October 2017, he had an MRI brain with and without contrast which was unremarkable. At that time, he had CT angio showing bilateral pulmonary embolism. Current labs including white count 13.4, hemoglobin 11.3, platelets 260. Chemistry essentially unremarkable. Urine toxicology positive barbiturates. ASSESSMENT 1. Depression, anxiety disorder and history of suicide attempt. 2. Neurologic history of seizures. The recent MRI brain was unremarkable. 3. History of Hodgkin's lymphoma. I would continue his current anticonvulsant medications. I will request a phenobarbital level. Otherwise, medical and psychiatric care. Thank you for asking us to assist in his care. MD SHANE Matos/ /6:51 PM /10:07 PM
[2017-12-24] MEDS: LORazepam 1 MG TAB PO PRN ×2 (05:33→20:46)
[2017-12-24] MEDS: ACETAMINOPHEN 325 MG TAB PO PRN ×2 (05:34→20:46)
[2017-12-24 06:24] VITALS: BP 104/59; PULSE 86; RESP 17; TEMP 98.3; O2SAT 95
[2017-12-24] MEDS: SULFAMETHOXAZOLE-TRIMETHOPRIM DS 800-160 MG TAB PO SCH (10:13)
[2017-12-24] MEDS: TAMSULOSIN HCL 0.4 MG CAP PO SCH (10:14)
[2017-12-24] MEDS: levETIRAcetam 500 MG TAB PO SCH ×2 (10:14→20:28)
--- NOTE | 2017-12-24 11:14 | HHI.PR ---
Subjective Remarks Follow-up for depression, PE, hyperlipidemia, seizure disorders, and BPH. Patient seen and examined in his room with nurse at bedside, he is visibly upset and is tearful as he states he would like to leave. He states that he is not "retarded or insane". He is tearful because his mother will be leaving and he is afraid that he will not be able to see her again. He denies any fevers, chills, nausea, vomiting, diarrhea, chest pain, shortness of breath, cough, dysuria or hematuria. Objective Vitals Vital Signs Date Time Temp Pulse Resp B/P (MAP) Pulse Ox O2 Delivery O2 Flow Rate FiO2 12/24/17 06:24 98.3 86 17 104/59 (74) 95 I/O 12/23/17 12/23/17 12/23/17 12/24/17 12/24/17 12/24/17 07:00 15:00 23:00 07:00 15:00 23:00 Intake Total 240 ml 240 ml 240 ml Balance 240 ml 240 ml 240 ml Intake Oral 240 ml 240 ml 240 ml Result Diagram: 12/22/17 1140 12/22/17 1140 Objective Remarks GENERAL: This is a well-nourished, well-developed patient, tearful. SKIN: No rashes, ecchymoses or lesions. Cool and dry. HEAD: Atraumatic. Normocephalic. EYES: Left pupil white with history of reported vision loss. Extraocular motions intact. No scleral icterus. No injection or drainage. ENT: Nose without bleeding, purulent drainage or septal hematoma. Uvula midline. Airway patent. NECK: Trachea midline. No JVD CARDIOVASCULAR: Regular rate and rhythm without murmurs, gallops, or rubs. RESPIRATORY: Clear to auscultation. Breath sounds equal bilaterally. No wheezes , rales, or rhonchi. GASTROINTESTINAL: Abdomen soft, non-tender, nondistended. No guarding. MUSCULOSKELETAL: Extremities without clubbing, cyanosis, or edema. No joint tenderness, effusion, or edema noted. NEUROLOGICAL: Awake and alert. Cranial nerves grossly intact. Motor and sensory grossly within normal limits. Moving all extremities spontaneously. Normal speech. A/P Assessment and Plan 57-year-old with PMH of BPH, Hodgkin Lymphoma, HLD, HTN, DM, and COPD. Patient was [place] acted after making statements of hurting himself. Depression management per psych - Tox positive for barbiturates - Continues to be emotional H/o Bilateral PE - Continue Coumadin - INR today 1.4, recheck INR NOW, consult pharmacy for dosing. - Goal INR 2-3 Hyperlipidemia - Continue statin Seizures - Continue Keppra - Neurology consulted, appreciate recommendations. Continue Keppra, and Phenobarbital. - Phenobarbital level checked 29.0, stable BPH with urinary retention UTI - Alfred was removed 12/22 - Continue Flomax - Denies urinary complaints - UA positive, started on Bactrim, urine culture with no growth. - Will discontinue Bactrim, continue monitoring. DVT prophylaxis -Coumadin Aidan Wells Dec 24, 2017 11:14
--- NOTE | 2017-12-24 11:48 | PD.PSY.CON ---
Provisional Diagnosis Admission Date Dec 22, 2017 at 21:44 [place] I. Adjustment disorder with mixed disturbances of emotion and conduct f 43.25 History of Present Illness Service Psychiatry Consult Requested By Psychiatry Reason for Consult 2nd Opinion Primary Care Physician Non-Staff HPI Pt is a 57 YOWM who was [place] [facility] behavior at home and suicidal statements. Pt has a hx of low intellectual functioning and mulitiple medical problems including seizure disorder, bilateral PE, hodkins lymphoma, HLD and BPH and DM2. He has had several recent visits to [facility] over past 2 months for medical admissions. After last hospitalization pt was agitated and threatening to elderly mother with whom he lives. He has been labile on unit and states that he is not crazy. Collateral from family (mother and brother) states that pt has been impulsive and aggressive putting elderly mother at risk. He is labile during interview and states that he must return home to take care of his 88 year old mother before she dies. Review of Systems Psychiatric: COMPLAINS OF: Mood changes, Agitation Past Family Social History Coded Allergies: vancomycin (Unverified Allergy, Intermediate, RASH, 12/21/17) Past Medical History seizures d/o, MRSA positive sputum, BPH, Hodgkin Lymphoma in 2005, HLD, HTN, DM2 Active Scripts Sulfamethoxazole-Trimethoprim (Bactrim DS) 800-160 Mg Tab, 1 TAB PO BID for Infection for 7 Days, #14 TAB 0 Refills Prov:Phill Hurst MD 12/23/17 Tamsulosin (Flomax) 0.4 Mg Cap, 0.4 MG PO DAILY for health, #30 CAP 0 Refills Prov:Gary Cardoso MD 12/13/17 Mirtazapine (Mirtazapine) 15 Mg Tab, 30 MG PO HS for Health for 30 Days, #30 TAB 0 Refills Prov:Gary Cardoso MD 12/13/17 Belladonna-Opium Supp (Belladonna-Opium Supp) 16.2-60 Mg Supp, 1 SUPP RECTAL DAILY Y for PAIN, #30 SUPP 0 Refills Prov:Steve Siu MD 12/13/17 Phenobarbital (Phenobarbital) 64.8 Mg Tab, 60 MG PO TID for Seizure Control, # 93 TAB Prov:Clyde Grimes MD 12/08/17 Levetiracetam (Keppra) 500 Mg Tab, 1000 MG PO Q12HR for Seizure Control, #60 TAB Prov:Clyde Grimes MD 12/08/17 Warfarin (Coumadin) 5 Mg Tab, 5 MG PO DAILY@1600 for Blood Clot Prevention, #6 TAB Prov:Clyde Grimes MD 12/08/17 Tramadol (Tramadol) 50 Mg Tab, 50 MG PO BID Y for PAIN, #60 TAB 0 Refills Prov:Melvin Remy DO 08/15/17 Nebulizer Kit/Tubing/Mout (Nebulizer Kit/Tubing/Mout) 1 Kit Kit, 1 KIT .ROUTE DIRECTED for Breathing Treatment, #1 KIT 0 Refills Prov:Aidan Wells 01/31/17 Albuterol Neb (Albuterol Neb) 2.5 Mg/3 Ml Neb, 2.5 MG NEB Q4HR NEB Y for SHORTNESS OF BREATH, #60 NEBULE 2 Refills Prov:Aidan Wells 01/31/17 Reported Medications Albuterol 18 GM Inh (Ventolin Hfa 18 GM Inh) 90 Mcg/Act Aer, 2 PUFF INH Q4-6H Y for SHORTNESS OF BREATH, #1 INHALER 0 Refills 07/31/17 Discontinued Scripts Tamsulosin (Flomax) 0.4 Mg Cap, 0.4 MG PO BID for Manage Prostate Problems, #60 CAP 0 Refills Prov:Steve Siu MD 12/13/17 Lovastatin (Lovastatin) 40 Mg Tab, 2 TAB PO HS for Cholesterol Management, #30 TAB 3 Refills Prov:Aidan Wells 05/03/17 Current Medications Medications (Trade) Dose Ordered Sig/Osbaldo Route Start Time Stop Time Status Last Admin (Ativan) 1 mg Q6H PRN PO 12/22/17 22:45 12/24/17 05:33 (Ativan Inj) 1 mg Q6H PRN IM 12/22/17 22:45 (Tylenol) 650 mg Q4H PRN PO 12/22/17 22:45 12/24/17 05:34 (Milk Of Magnesia Liq) 30 ml DAILY PRN PO 12/22/17 22:45 (Mag-Al Plus Susp Liq) 30 ml Q6H PRN PO 12/22/17 22:45 (Albuterol Neb) 2.5 mg Q4HR NEB PRN INH 12/22/17 22:45 (Ultram) 50 mg BID PRN PO 12/22/17 22:45 12/23/17 05:33 (Coumadin) 5 mg DAILY@1600 PO 12/23/17 16:00 12/23/17 16:31 (Keppra) 1,000 mg Q12HR PO 12/23/17 09:00 12/24/17 10:14 (PHENobarbital) 60 mg TID PO 12/23/17 09:00 12/24/17 10:14 (Remeron) 30 mg HS PO 12/23/17 21:00 12/23/17 20:12 (Flomax) 0.4 mg DAILY PO 12/23/17 09:00 12/24/17 10:14 (Bactrim Ds 800-160 Mg) 1 tab BID PO 12/23/17 09:00 12/24/17 10:13 (Proair Hfa Inh) 2 puff Q4H PRN INH 12/23/17 00:30 Family Psych History unknown Social History lives with mother, special education, never able to work, limited psychosocial support Patient's Strengths (min. 2) Patient verbal has strong support system Physical Exam Vital Signs Vital Signs Date Time Temp Pulse Resp B/P (MAP) Pulse Ox O2 Delivery O2 Flow Rate FiO2 12/24/17 06:24 98.3 86 17 104/59 (74) 95 12/22/17 19:08 Room Air I/O 12/24/17 12/24/17 12/25/17 08:00 16:00 00:00 Intake Total 240 ml Balance 240 ml Lab Results Test 12/23/17 21:05 Phenobarbital Level 29.0 MCG/ML Date/Time Source Procedure Growth Status 12/22/17 11:40 Urine Clean Catch Urine Culture - Final NO GROWTH IN 48 HOURS. Complete Mental Status Examination Appearance: Appropriate Consciousness: Alert Orientation: Person Motor Activity: Other (patient laying in bed) Speech: Pressured, Rapid, Other (quite childlike and concrete) Language: Adequate Fund of Knowledge: Poor Attention and Concentration: Easily Distracted Memory: Impaired Mood: Sad, Anxious, Irritable Affect: Other (increase range and intensity) Thought Process & Associations: Loose associations, Disorganized Thought Content: Ideas of reference, Obsessions Hallucination Type: None Delusion Type: None Suicidal Ideation: Yes (made vague statements) Suicidal Plan: No Suicidal Intention: No Homicidal Ideation: No (made vague statements) Homicidal Plan: No Homicidal Intention: No Insight: Poor Judgment: Poor Assessment & Plan Problem List: (1) Adjustment disorder with mixed disturbance of emotions and conduct ICD Codes: F43.25 - Adjustment disorder with mixed disturbance of emotions and conduct (2) Seizure disorder ICD Codes: G40.909 - Epilepsy, unspecified, not intractable, without status epilepticus (3) Acute hypoxemic respiratory failure ICD Codes: J96.01 - Acute respiratory failure with hypoxia Status: Resolved Assessment & Plan I agree that pt meets criteria for involuntary hospitalization due to aggression towards others and threats to harm self. 2nd opinion paperwork completed. Estimated LOS: days Request HC Surrog/Guard Advoc?: Yes Robyn Yepez MD Dec 24, 2017 11:48
[2017-12-24] MEDS: WARFARIN SOD 5 MG TAB PO SCH (16:00)
[2017-12-24] MEDS ORDERED: SODIUM CHLORIDE 0.65% NASAL SPRAY 45 ML BTL NASAL PRN (17:00)
[2017-12-24 17:09] LABS: INTERNATIONAL NORMALIZED RATIO 1.3 RATIO; PROTHROMBIN TIME - PATIENT 13.4 SEC (9.8-11.6)
[2017-12-24 18:00] VITALS: BP 115/71; PULSE 111; RESP 20; TEMP 98.3; O2SAT 94
[2017-12-24] MEDS: MIRTAZAPINE 15 MG TAB PO SCH (20:28)
[2017-12-24 22:40] VITALS: BP 95/57; PULSE 85; RESP 16; TEMP 98; O2SAT 94
[2017-12-24 23:40] VITALS: BP 106/63; PULSE 84; RESP 16; TEMP 97.6; O2SAT 94
--- NOTE | 2017-12-25 00:05 | RADRPT ---
EXAM DATE/TIME: 12/24/2017 23:45 [place] COMPARISON: CT BRAIN W/O CONTRAST, November 19, 2017, 11:53. INDICATIONS : Trauma. Fell hitting back of head. RADIATION DOSE: 69.15 CTDIvol (mGy) MEDICAL HISTORY : Cerebrovascular disease. Chronic obstructive pulmonary disease. Lymphoma.Diabetes GERD SURGICAL HISTORY : None. ENCOUNTER: Initial ACUITY: 1 day PAIN SCALE: 0/10 LOCATION: cranial TECHNIQUE: Multiple contiguous axial images were obtained of the head. Using automated exposure control and adj ustment of the mA and/or kV according to patient size, radiation dose was kept as low as reasonably a chievable to obtain optimal diagnostic quality images. DICOM format image data is available electro nically for review and comparison. FINDINGS: CEREBRUM: The ventricles are normal for age. No evidence of midline shift, mass lesion, hemorrhage or acute in farction. No extra-axial fluid collections are seen. POSTERIOR FOSSA: The cerebellum and brainstem are intact. The 4th ventricle is midline. The cerebellopontine angle i s unremarkable. EXTRACRANIAL: The visualized portion of the orbits is intact. SKULL: The calvaria is intact. No evidence of skull fracture. CONCLUSION: 1. No acute intracranial abnormalities. Rasheed Stack MD on December 25, 2017 at 0:01 Board Certified Radiologist. This report was verified electronically.
[2017-12-25 05:49] VITALS: BP 108/66; PULSE 94; RESP 18; TEMP 97.8; O2SAT 96
[2017-12-25] MEDS: levETIRAcetam 500 MG TAB PO SCH ×2 (08:34→21:44)
[2017-12-25] MEDS: TAMSULOSIN HCL 0.4 MG CAP PO SCH (08:34)
[2017-12-25 12:18] LABS: INTERNATIONAL NORMALIZED RATIO 1.4 RATIO; PROTHROMBIN TIME - PATIENT 13.7 SEC (9.8-11.6)
[2017-12-25] MEDS: LORazepam 1 MG TAB PO PRN (12:30)
--- NOTE | 2017-12-25 12:45 | HHI.PR ---
Subjective Remarks Follow-up for HTN, PE, HLD, seizure disorder, BPH, and depression. Patient seen and examined in his room with mother at bedside and nurse present. Patient is agitated and adamant that he needs to go home and reports that his mother will be taking care of him. He continues to report that he is not crazy and that he is healthy enough to go home now. Asked if he is having a headache and patient turns over to mother and asks her if she is aware or has received any medical records regarding this. I rephrase a question and again ask if he has any kind of headaches he then goes on to tell me "I am not crazy, I just want to go home". He denies any fevers, chills, nausea, vomiting, diarrhea, shortness of breath, cough, dysuria, or hematuria. Objective Vitals Vital Signs Date Time Temp Pulse Resp B/P (MAP) Pulse Ox O2 Delivery O2 Flow Rate FiO2 12/25/17 05:49 97.8 94 18 108/66 (80) 96 12/24/17 23:40 97.6 84 16 106/63 (77) 94 12/24/17 22:40 98.0 85 16 95/57 (70) 94 12/24/17 18:00 98.3 111 20 115/71 (86) 94 I/O 12/24/17 12/24/17 12/24/17 12/25/17 12/25/17 12/25/17 07:00 15:00 23:00 07:00 15:00 23:00 Intake Total 600 ml 480 ml 120 ml Balance 600 ml 480 ml 120 ml Intake Oral 600 ml 480 ml 120 ml Result Diagram: 12/22/17 1140 12/22/17 1140 Imaging Last Impressions Head CT 12/24/17 0000 Signed Impressions: Service Date/Time: Sunday, December 24, 2017 23:45 - CONCLUSION: 1. No acute intracranial abnormalities. Rasheed Stack MD Objective Remarks GENERAL: This is a well-nourished, well-developed patient, tearful. SKIN: No rashes, ecchymoses or lesions. Cool and dry. HEAD: Atraumatic. Normocephalic. EYES: Left pupil white with history of reported vision loss. Extraocular motions intact. No scleral icterus. No injection or drainage. ENT: Nose without bleeding, purulent drainage or septal hematoma. Uvula midline. Airway patent. NECK: Trachea midline. No JVD CARDIOVASCULAR: Regular rate and rhythm without murmurs, gallops, or rubs. RESPIRATORY: Clear to auscultation. Breath sounds equal bilaterally. No wheezes , rales, or rhonchi. GASTROINTESTINAL: Abdomen soft, non-tender, nondistended. No guarding. MUSCULOSKELETAL: Extremities without clubbing, cyanosis, or edema. No joint tenderness, effusion, or edema noted. NEUROLOGICAL: Awake and alert. Cranial nerves grossly intact. Motor and sensory grossly within normal limits. Moving all extremities spontaneously. Normal speech. A/P Assessment and Plan 57-year-old with PMH of BPH, Hodgkin Lymphoma, HLD, HTN, DM, and COPD. Patient was [place] acted after making statements of hurting himself. Depression management per psych - Tox positive for barbiturates -Tearful, and agitated, explained to patient and mother that his final discharge will based on psychiatric evaluation and determination. H/o Bilateral PE - Continue Coumadin - INR today 1.4, pharmacy dosing Hyperlipidemia - Continue statin Seizures - Continue Keppra - Neurology consulted, appreciate recommendations. Continue Keppra, and Phenobarbital. - Phenobarbital level checked 29.0, stable - No reports of seizure activity by patient or nurse. BPH with urinary retention UTI - Alfred was removed 12/22 - Continue Flomax - Denies urinary complaints - UA positive, started on Bactrim, urine culture with no growth. -Bactrim was discontinued, patient without urinary symptoms, afebrile DVT prophylaxis -Coumadin Aidan Wells Dec 25, 2017 12:45
--- NOTE | 2017-12-25 16:30 | HHI.PYPN ---
Subjective Chief Complaint: cognitive changes, increase aggressive behavior and mood lability Remarks Patient seen in his room with nurse Herber, hospital laboratory technician review, patient compliant medication. Patient continues quite childlike concrete labile whiny tearful and irritable about being in here saying he wants to go home to his mom me. And these are referral all that is done. I did talk to patient's mother after I saw the patient. It appears she visited him at lunchtime and he became somewhat irate yelling screaming at her" to the point she became upset and had to leave. However with my conversation this evening with with her she was quite ready to have the patient come home. Saying HE needed was a nurse to come in once or twice a week, and physical therapy. I disagreed with her and shared with her my belief that his explosiveness and irritability are related to his brain injury and they are going to only get worse and that he does need medication management and further treatment. I did recommend initiation of Tegretol. She was somewhat hesitant with this I then called patient's son Akira the older boy at [phone] and discuss it with him. He agrees to the trial of the medication he also agrees that his mother does not have the ability to properly care for Ashley anymore. And that for to even be a possibility dating needs to be in better self-control. He agrees to a trial of Tegretol. Will start patient on 100 mg chewable twice a day check a Tegretol blood level in about 3 days Review of Systems Except as stated in HPI: all other systems reviewed are Neg Mental Status Examination Appearance: Appropriate Consciousness: Alert Orientation: Person Motor Activity: Other (patient laying in bed) Speech: Pressured, Rapid, Other (quite childlike and concrete) Language: Adequate Fund of Knowledge: Poor Attention and Concentration: Easily Distracted Memory: Impaired Mood: Sad, Anxious, Irritable Affect: Other (increase range and intensity) Thought Process & Associations: Loose associations, Disorganized Thought Content: Ideas of reference, Obsessions Hallucination Type: None Delusion Type: None Suicidal Ideation: Yes (made vague statements) Suicidal Plan: No Suicidal Intention: No Homicidal Ideation: No (made vague statements) Homicidal Plan: No Homicidal Intention: No Insight: Poor Judgment: Poor Results Labs Test 12/25/17 10:32 Prothrombin Time 13.7 SEC Prothromb Time International Ratio 1.4 RATIO Date/Time Source Procedure Growth Status 12/22/17 11:40 Urine Clean Catch Urine Culture - Final NO GROWTH IN 48 HOURS. Complete Vitals/IOs Vital Signs Date Time Temp Pulse Resp B/P (MAP) Pulse Ox O2 Delivery O2 Flow Rate FiO2 12/25/17 05:49 97.8 94 18 108/66 (80) 96 12/22/17 19:08 Room Air Intake and Output 12/25/17 12/25/17 12/26/17 08:00 16:00 00:00 Intake Total 120 ml 120 ml Balance 120 ml 120 ml Assessment & Plan Problem List: (1) Adjustment disorder with mixed disturbance of emotions and conduct ICD Codes: F43.25 - Adjustment disorder with mixed disturbance of emotions and conduct (2) Seizure disorder ICD Codes: G40.909 - Epilepsy, unspecified, not intractable, without status epilepticus (3) Acute hypoxemic respiratory failure ICD Codes: J96.01 - Acute respiratory failure with hypoxia Status: Resolved Assessment & Plan Estimated LOS: days patient continues volatile explosive irritable with limited cognitive function. She medication adjustments above that been agreed to by both his mother and his older brother Justification for Cont. Inpt. At this time patient would decompensate and placed in a lower level of care Discharge Planning Possible return to home situation if patient stabilizes and his behavior improves Request HC Surrog/Guard Advoc?: Yes Phill Hurst MD Dec 25, 2017 16:30
[2017-12-25] MEDS: WARFARIN SOD 5 MG TAB PO SCH (16:34)
[2017-12-25 18:00] VITALS: BP 106/70; PULSE 96; RESP 17; TEMP 99; O2SAT 98
[2017-12-25] MEDS: MIRTAZAPINE 15 MG TAB PO SCH (21:43)
[2017-12-25] MEDS: traMADol HCL 50 MG TAB PO PRN (23:23)
[2017-12-26 06:32] VITALS: BP 129/66; PULSE 100; RESP 18; TEMP 98.1; O2SAT 100
[2017-12-26 07:40] LABS: INTERNATIONAL NORMALIZED RATIO 1.3 RATIO
[2017-12-26] MEDS ORDERED: TAMS5CAP PO (08:25)
[2017-12-26] MEDS: TAMSULOSIN HCL 0.4 MG CAP PO SCH (09:00)
[2017-12-26] MEDS: levETIRAcetam 500 MG TAB PO SCH ×2 (09:00→21:12)
--- NOTE | 2017-12-26 09:31 | PD.TTN ---
Patient Problems 1. Discharge planning 2. Medication compliance 3. Knowledge deficit 4. Lack of coping skills Progress Toward Goals Provider Present: Dr. Kunal Hurst Provider Input: 12/25 patient appears to be dependent on elderly mother and is very labile and impulsive and also volatile, starting on mood stabilizer, need to meet with mother if she wants him home vs a placement Psychiatric Counselors Present: Jannette Ham LCSW Psych Therapist Input: 12/25 patient insurance did not cover rehab for PT last visit and he was discharged home, he has limited insurance, he could possibly [facility] with insurance assistance Group Spec/RT/OT/SPANGLER Present: Rosalie Duval, ROMA Group Spec/RT/OT/SPANGLER Input: 12/25 new today, last visit did not participate due to to isolation, only on contact precautions this visit Jannette Ham LCSW Dec 26, 2017 09:31
[2017-12-26] MEDS: traMADol HCL 50 MG TAB PO PRN ×2 (09:37→21:13)
[2017-12-26] MEDS: LORazepam 1 MG TAB PO PRN (10:20)
--- NOTE | 2017-12-26 13:43 | HHI.PYPN ---
Subjective Chief Complaint: cognitive changes, increase aggressive behavior and mood lability Remarks Patient seen in day room sitting in Kaia chair, he is alert somewhat diffusely confused, focusing on his desire to be discharged to take care of his mother. Becoming more and more labile is a discussed his need to allow us to adjust his medications. Before he goes home. Patient showing very little insight into this, though he is compliant with his medications. For now continue treatment Review of Systems Except as stated in HPI: all other systems reviewed are Neg Mental Status Examination Appearance: Appropriate Consciousness: Alert Orientation: Person Motor Activity: Other (patient laying in bed) Speech: Pressured, Rapid, Other (quite childlike and concrete) Language: Adequate Fund of Knowledge: Poor Attention and Concentration: Easily Distracted Memory: Impaired Mood: Sad, Anxious, Irritable Affect: Other (increase range and intensity) Thought Process & Associations: Loose associations, Disorganized Thought Content: Ideas of reference, Obsessions Hallucination Type: None Delusion Type: None Suicidal Ideation: Yes (made vague statements) Suicidal Plan: No Suicidal Intention: No Homicidal Ideation: No (made vague statements) Homicidal Plan: No Homicidal Intention: No Insight: Poor Judgment: Poor Results Labs Test 12/26/17 06:48 Prothrombin Time 13.0 SEC Prothromb Time International Ratio 1.3 RATIO Date/Time Source Procedure Growth Status 12/22/17 11:40 Urine Clean Catch Urine Culture - Final NO GROWTH IN 48 HOURS. Complete Vitals/IOs Vital Signs Date Time Temp Pulse Resp B/P (MAP) Pulse Ox O2 Delivery O2 Flow Rate FiO2 12/26/17 06:32 98.1 100 18 129/66 (87) 100 12/22/17 19:08 Room Air Intake and Output 12/26/17 12/26/17 12/27/17 08:00 16:00 00:00 Intake Total 120 ml 240 ml Balance 120 ml 240 ml Assessment & Plan Problem List: (1) Adjustment disorder with mixed disturbance of emotions and conduct ICD Codes: F43.25 - Adjustment disorder with mixed disturbance of emotions and conduct (2) Seizure disorder ICD Codes: G40.909 - Epilepsy, unspecified, not intractable, without status epilepticus (3) Acute hypoxemic respiratory failure ICD Codes: J96.01 - Acute respiratory failure with hypoxia Status: Resolved Assessment & Plan Estimated LOS: days patient remains labile somewhat impulsive with little insight. Compliant medications Justification for Cont. Inpt. At this time patient will decompensate the placed a lower level of care Discharge Planning Consider possible return home to mother if his behaviors improve versus finding long-term placement Request HC Surrog/Guard Advoc?: Yes Phill Hurst MD Dec 26, 2017 13:43
[2017-12-26] MEDS ORDERED: WARFARIN SOD 1 MG TAB PO ONE (16:00)
[2017-12-26] MEDS: WARFARIN SOD 5 MG TAB PO SCH (16:00)
--- NOTE | 2017-12-26 16:43 | HHI.PR ---
Subjective Remarks Follow-up for seizures, INR INR being dosed by pharmacy. Neurology signed off. No overnight events. Discussed with RN. Objective Vitals Vital Signs Date Time Temp Pulse Resp B/P (MAP) Pulse Ox O2 Delivery O2 Flow Rate FiO2 12/26/17 06:32 98.1 100 18 129/66 (87) 100 12/25/17 18:00 99.0 96 17 106/70 (82) 98 I/O 12/25/17 12/25/17 12/25/17 12/26/17 12/26/17 12/26/17 07:00 15:00 23:00 07:00 15:00 23:00 Intake Total 240 ml 600 ml 120 ml 240 ml 120 ml Balance 240 ml 600 ml 120 ml 240 ml 120 ml Intake Oral 240 ml 600 ml 120 ml 240 ml 120 ml # Voids 1 3 Result Diagram: 12/22/17 1140 12/22/17 1140 Objective Remarks Not in distress CARDIOVASCULAR: Regular rate and rhythm without murmurs, gallops, or rubs. RESPIRATORY: Clear to auscultation. NEUROLOGICAL: Awake and alert. Ambulating A/P Assessment and Plan 57-year-old with PMH of BPH, Hodgkin Lymphoma, HLD, HTN, DM, and COPD. Patient was [place] acted after making statements of hurting himself. Depression management per psych - Tox positive for barbiturates H/o Bilateral PE - Continue Coumadin - INR being dosed by pharmacy. Hyperlipidemia - Continue statin Seizures - Continue Keppra - Neurology consulted, appreciate recommendations. Continue Keppra, and Phenobarbital. Phenobarbital levels stable. - No reports of seizure activity by patient or nurse. BPH with urinary retention UTI - Alfred was removed 12/22 - Continue Flomax - Denies urinary complaints - UA positive, started on Bactrim, urine culture with no growth. -Bactrim was discontinued, patient without urinary symptoms, afebrile DVT prophylaxis -Coumadin We will signoff, pharmacy dosing Coumadin. Please call with questions. Lou Rodriguez MD Dec 26, 2017 16:43
[2017-12-26 18:33] VITALS: BP 110/69; PULSE 88; RESP 18; TEMP 97.8; O2SAT 97
[2017-12-26] MEDS: MIRTAZAPINE 15 MG TAB PO SCH (21:13)
[2017-12-27] MEDS: LORazepam 1 MG TAB PO PRN ×2 (02:49→21:12)
[2017-12-27] MEDS: TAMSULOSIN HCL 0.4 MG CAP PO SCH (09:00)
[2017-12-27] MEDS: levETIRAcetam 500 MG TAB PO SCH ×2 (09:00→20:44)
[2017-12-27 12:32] LABS: INTERNATIONAL NORMALIZED RATIO 1.2 RATIO
--- NOTE | 2017-12-27 13:33 | HHI.PYPN ---
Subjective Chief Complaint: cognitive changes, increase aggressive behavior and mood lability Remarks Met with patient's mother and counselor Corie. Discussed patient's behavior progress medications and discharge issues. Mother feels patient is doing somewhat better. Seems to be somewhat less reactive. She continues cooperative with me related to his medications. She would still like to have her return home though with services in the house. This seems to be some of an issue related to his insurability. Will have counselor contact patient's family service caseworker to arrange if possible for psychiatric nurse and some type of manager nursing home in the home. Patient scheduled for [place] tomorrow and also schedule for Tegretol level tomorrow Review of Systems Except as stated in HPI: all other systems reviewed are Neg Mental Status Examination Appearance: Appropriate Consciousness: Alert Orientation: Person Motor Activity: Other (patient laying in bed) Speech: Pressured, Rapid, Other (quite childlike and concrete) Language: Adequate Fund of Knowledge: Poor Attention and Concentration: Easily Distracted Memory: Impaired Mood: Sad, Anxious, Irritable Affect: Other (increase range and intensity) Thought Process & Associations: Loose associations, Disorganized Thought Content: Ideas of reference, Obsessions Hallucination Type: None Delusion Type: None Suicidal Ideation: Yes (made vague statements) Suicidal Plan: No Suicidal Intention: No Homicidal Ideation: No (made vague statements) Homicidal Plan: No Homicidal Intention: No Insight: Poor Judgment: Poor Results Labs Test 12/27/17 10:51 Prothrombin Time 12.0 SEC Prothromb Time International Ratio 1.2 RATIO Date/Time Source Procedure Growth Status 12/22/17 11:40 Urine Clean Catch Urine Culture - Final NO GROWTH IN 48 HOURS. Complete Vitals/IOs Vital Signs Date Time Temp Pulse Resp B/P (MAP) Pulse Ox O2 Delivery O2 Flow Rate FiO2 12/26/17 18:33 97.8 88 18 110/69 (83) 97 Intake and Output 12/27/17 12/27/17 12/27/17 07:59 15:59 23:59 Intake Total 480 ml Balance 480 ml Assessment & Plan Problem List: (1) Adjustment disorder with mixed disturbance of emotions and conduct ICD Codes: F43.25 - Adjustment disorder with mixed disturbance of emotions and conduct (2) Seizure disorder ICD Codes: G40.909 - Epilepsy, unspecified, not intractable, without status epilepticus (3) Acute hypoxemic respiratory failure ICD Codes: J96.01 - Acute respiratory failure with hypoxia Status: Resolved Assessment & Plan Estimated LOS: days patient remains somewhat labile with behavioral issues. Some focusing on mother. Though softer. Compliant medications. Scheduled for [place] tomorrow Justification for Cont. Inpt. At this time patient will decompensate of placed in a lower level of care Discharge Planning Probable return home with mother Request HC Surrog/Guard Advoc?: Yes Phill Hurst MD Dec 27, 2017 13:33
[2017-12-27] MEDS ORDERED: WARFARIN SOD 1 MG TAB PO ONE (16:00)
[2017-12-27] MEDS: WARFARIN SOD 5 MG TAB PO SCH (16:26)
[2017-12-27 18:00] VITALS: BP 116/68; PULSE 75; RESP 16; TEMP 97.4; O2SAT 97
[2017-12-27] MEDS: MIRTAZAPINE 15 MG TAB PO SCH (20:44)
[2017-12-27] MEDS: traMADol HCL 50 MG TAB PO PRN (21:29)
[2017-12-28 05:36] VITALS: BP 117/73; PULSE 81; RESP 18; TEMP 97.9; O2SAT 96
[2017-12-28 08:14] LABS: INTERNATIONAL NORMALIZED RATIO 1.2 RATIO; PROTHROMBIN TIME - PATIENT 12.6 SEC (9.8-11.6)
[2017-12-28] MEDS: TAMSULOSIN HCL 0.4 MG CAP PO SCH (09:00)
[2017-12-28] MEDS: levETIRAcetam 500 MG TAB PO SCH (09:00)
[2017-12-28] MEDS ORDERED: CARB100C PO (11:52)
--- NOTE | 2017-12-28 12:01 | HHI.DS ---
Psychiatry Discharge Summary Inpatient Psychiatric care?: Yes Advance Directive: No Reason Not Provided: Due to Patient Condition Mental Health AdvanceDirective: No Health Care Proxy: No Admission Admission Date Dec 22, 2017 at 21:44 Admission Diagnosis: (1) Cognitive disorder ICD Code: F09 - Unspecified mental disorder due to known physiological condition (2) Seizure disorder ICD Code: G40.909 - Epilepsy, unspecified, not intractable, without status epilepticus (3) Adjustment disorder with mixed disturbance of emotions and conduct ICD Code: F43.25 - Adjustment disorder with mixed disturbance of emotions and conduct Brief History Pt is a 57 YOWM who was admitted under a BA to [facility] alleging aggressive behavior at home and suicidal statements. Pt has a hx of low intellectual functioning and mulitiple medical problems including seizure disorder, bilateral PE, hodkins lymphoma, HLD and BPH and DM2. He has had several recent visits to [facility] over past 2 months for medical admissions. After last hospitalization pt was agitated and threatening to elderly mother with whom he lives. He has been labile on unit and states that he is not crazy. Collateral from family (mother and brother) states that pt has been impulsive and aggressive putting elderly mother at risk. He is labile during interview and states that he must return home to take care of his 88 year old mother before she dies. Tobacco Use In Past 30 Days: No Tobacco Past 30 Days Alcohol Use: Monthly or Less Hospital Course Patient's cognitive disabilities were consistent throughout his stay, these became more evident leading to behavioral issues when visited by his mother. Demanding attention and markedly controlling and somewhat intimidating attitude. Patient's mother though was willing to accept these behaviors. Patient was seen in [employer] court today with patient's mother. Patient was ordered to be discharged today to his mother by Combine Inspector Pedro in [place]. Patient is been intolerant of his medication. We have plan to get a Tegretol blood level tomorrow and adjust the dose accordingly. Patient to be discharged today with Rx 1 month we'll continue the Tegretol is 100 mg twice a day recommend that they get a Tegretol blood level when they visit with their psychiatrist on Monday 01/01 Results Blood Pressure 117 / 73 Vital Signs Date Time Temp Pulse Resp B/P (MAP) Pulse Ox O2 Delivery O2 Flow Rate FiO2 12/28/17 05:36 97.9 81 18 117/73 (88) 96 Laboratory Tests Test 1/30/18 06:48 12/27/17 10:51 12/28/17 06:35 Prothrombin Time 13.0 SEC (9.8-11.6) 12.0 SEC (9.8-11.6) 12.6 SEC (9.8-11.6) Carbamazepine (Tegretol) Level 2.4 MCG/ML (4.0-12.0) Summary of Procedures None done Imaging Last Impressions Head CT 12/24/17 0000 Signed Impressions: Service Date/Time: Sunday, December 24, 2017 23:45 - CONCLUSION: 1. No acute intracranial abnormalities. Rasheed Stack MD Pending results at discharge: No Medications # of Antipsychotic meds at D/C: 0 Approp Antipsych med options 1 - Minimum of three failed multiple trials of monotherapy. 2 - Documented plan to taper to monotherapy due to previous use of multiple meds OR cross-taper in progress at D/C. 3 - Documentation of augmentation of Clozapine. 4 - Justification other than those listed in allowable values 1-3, document here : Discharge Discharge Date: Dec 28, 2017 Discharge Diagnosis: (1) Adjustment disorder with mixed disturbance of emotions and conduct Diagnosis: Principal ICD Code: F43.25 - Adjustment disorder with mixed disturbance of emotions and conduct (2) Seizure disorder Diagnosis: Secondary ICD Code: G40.909 - Epilepsy, unspecified, not intractable, without status epilepticus (3) Cognitive disorder Diagnosis: Secondary ICD Code: F09 - Unspecified mental disorder due to known physiological condition Pt Condition on Discharge: Stable Discharge Disposition: Discharge Home Discharge Instructions Diet Instructions: As Tolerated, No Restrictions Activities you can perform: Regular-No Restrictions Scheduled Appointment: [facility] Appointment Date: Jan 01, 2018 Discharge Time > 30 minutes Mental Status Examination Appearance: Appropriate Consciousness: Alert Orientation: Person Motor Activity: Other (patient laying in bed) Speech: Pressured, Rapid, Other (quite childlike and concrete) Language: Adequate Fund of Knowledge: Poor Attention and Concentration: Easily Distracted Memory: Impaired Mood: Sad, Anxious, Irritable Affect: Other (increase range and intensity) Thought Process & Associations: Loose associations, Disorganized Thought Content: Ideas of reference, Obsessions Hallucination Type: None Delusion Type: None Suicidal Ideation: Yes (made vague statements) Suicidal Plan: No Suicidal Intention: No Homicidal Ideation: No (made vague statements) Homicidal Plan: No Homicidal Intention: No Insight: Poor Judgment: Poor Discharge/Advance Care Plan Health Problems: (1) Adjustment disorder with mixed disturbance of emotions and conduct (2) Seizure disorder (3) Acute hypoxemic respiratory failure Goals to promote your health * To prevent worsening of your condition and complications * To maintain your health at the optimal level Directions to meet your goals Take your medications as prescribed Follow your dietary instruction Follow activity as directed Keep your appointments as scheduled Take your immunizations and boosters as scheduled If your symptoms worsen call your PCP, if no PCP go to Urgent Care Center or Emergency Room For 24/ questions related to your inpatient stay or results of tests pending at discharge, please contact Dr. Phill Hurst at Smoking is Dangerous to Your Health. Avoid second hand smoking Phill Hurst MD Dec 28, 2017 12:01
[2017-12-28] MEDS ORDERED: WARFARIN SOD 1 MG TAB PO ONE (16:00)
== END 2017-12-28 13:00 | disposition home or self-care (01) | DRG 882 ==
LOC: NEPE 11:08 → NEDA 21:44 → H260 22:23 → H250 12-23 09:20
PROVIDERS: ADMIT Psychiatry & Neurology Psychiatry; ATTEND Psychiatry & Neurology Psychiatry
DX: F43.25 Adjustment disorder with mixed disturbance of emotions and conduct (principal); F79 Unspecified intellectual disabilities; I10 Essential (primary) hypertension; G40.909 Epilepsy, unspecified, not intractable, without status epilepticus; F09 Unspecified mental disorder due to known physiological condition; N40.1 Benign prostatic hyperplasia with lower urinary tract symptoms; R33.8 Other retention of urine; E78.5 Hyperlipidemia, unspecified; E11.9 Type 2 diabetes mellitus without complications; H54.62 Unqualified visual loss, left eye, normal vision right eye; Z86.711 Personal history of pulmonary embolism; Z79.01 Long term (current) use of anticoagulants; J44.9 Chronic obstructive pulmonary disease, unspecified; H91.90 Unspecified hearing loss, unspecified ear; Z85.72 Personal history of non-Hodgkin lymphomas; Z87.891 Personal history of nicotine dependence
CPT/HCPCS: 51702; 70450; 80053; 80156; 80184; 80307; 81001; 84443; 85025; 85610; 87086; 99285

== ENCOUNTER 2017-12-29 15:12 | Emergency (ER) | payer MEDICAID, OTHER ==
[~2017-12-29] VITALS: Ht 180.3 cm; Wt 61.4 kg
[~2017-12-29 15:12] MED LIST changes: +BACT800T5 PO; +CARB100C PO
[2017-12-29 15:40] VITALS: BP 117/70; PULSE 91; RESP 16; TEMP 98; O2SAT 95
[2017-12-29] MEDS ORDERED: LIDOCAINE 2% JELLY 30 ML TUBE TOPICAL ONE (16:30)
--- NOTE | 2017-12-29 16:46 | PD ---
HPI Chief Complaint: Complaint Time Seen by Provider: 16:10 Travel History International Travel<30 days: No Contact w/Intl Traveler<30days: No Traveled to known affect area: No History of Present Illness HPI 57-year-old male complains of urinary retention. Patient has history of BPH with recurrent urinary retention. Patient was seen in emergency room on December 21 and had Alfred catheter inserted. Patient had Alfred catheter removal subsequently. Patient started having urinary retention again since yesterday. Patient denies other medical problem. Patient has past medical history including Hodgkin's lymphoma, hypertension, diabetes, COPD and hyperlipidemia. Patient also has history of encephalopathy. PFSH Past Medical History Hx Anticoagulant Therapy: Yes (WARFARIN) Blood Disorders: No Cancer: Yes (Lymphoma) Cardiovascular Problems: Yes (HBP ) High Cholesterol: Yes Chemotherapy: Yes COPD: Yes Diabetes: Yes Patient Takes Glucophage: No Diminished Hearing: Yes ([place] BOTH EARS) Endocrine: No Gastrointestinal Disorders: Yes (COLITIS) Genitourinary: Yes (BPH) Headaches: No Immune Disorder: Yes (HODGEKINS LYMPHOMA 2005) Implanted Vascular Access Dvce: No Musculoskeletal: Yes (DJD) Neurologic: No Psychiatric: No Reproductive: No Respiratory: Yes Immunizations Current: No Pneumonia: Yes Radiation Therapy: No Seizures: No Influenza Vaccination: Yes Past Surgical History Eye Surgery: Yes (LT EYE [id number] IN LT EYE.) Other Surgery: Yes (PORT PLACEMENT FOR CHEMO (REMOVED)) Social History Alcohol Use: No Tobacco Use: No (1 PPD UNTIL 07/29/17) Substance Use: Yes (THC NEEDED TO SLEEP) Allergies-Medications (Allergen,Severity, Reaction): Coded Allergies: vancomycin (Unverified Allergy, Intermediate, RASH, 12/29/17) Reported Meds & Prescriptions Reported Meds & Active Scripts Active Carbamazepine 100 Mg Chew 100 Mg PO BID Flomax (Tamsulosin HCl) 0.4 Mg Cap 0.4 Mg PO DAILY Bactrim DS (Sulfamethoxazole-Trimethoprim) 800-160 Mg Tab 1 Tab PO BID 7 Days Mirtazapine 15 Mg Tab 30 Mg PO HS 30 Days Belladonna-Opium Supp (Belladonna Alkaloids/Opium) 16.2-60 Mg Supp 1 Supp RECTAL DAILY PRN Phenobarbital 64.8 Mg Tab 60 Mg PO TID Keppra (Levetiracetam) 500 Mg Tab 1,000 Mg PO Q12HR Coumadin (Warfarin) 5 Mg Tab 5 Mg PO DAILY@1600 Tramadol (Tramadol HCl) 50 Mg Tab 50 Mg PO BID PRN Nebulizer Kit/Tubing/Mout (N/A) 1 Kit Kit 1 Kit .ROUTE DIRECTED Albuterol Neb (Albuterol Sulfate) 2.5 Mg/3 Ml Neb 2.5 Mg NEB Q4HR NEB PRN Reported Ventolin Hfa 18 GM Inh (Albuterol Sulfate) 90 Mcg/Act Aer 2 Puff INH Q4-6H PRN Review of Systems General / Constitutional: No: Fever Eyes: No: Visual changes HENT: No: Headaches Cardiovascular: No: Chest Pain or Discomfort Respiratory: No: Shortness of Breath Gastrointestinal: No: Abdominal Pain Genitourinary: Positive: Decreased Urinary Output, No: Dysuria Musculoskeletal: No: Pain Skin: No Rash Neurologic: No: Weakness Psychiatric: No: Depression Endocrine: No: Polydipsia Hematologic/Lymphatic: No: Easy Bruising Physical Exam Narrative GENERAL: Well-nourished, well-developed patient. SKIN: Focused skin assessment warm/dry. HEAD: Normocephalic. EYES: No scleral icterus. No injection or drainage. NECK: Supple, trachea midline. No JVD or lymphadenopathy. CARDIOVASCULAR: Regular rate and rhythm without murmurs, gallops, or rubs. RESPIRATORY: Breath sounds equal bilaterally. No accessory muscle use. GASTROINTESTINAL: Abdomen soft, non-tender, nondistended. MUSCULOSKELETAL: No cyanosis, or edema. BACK: Nontender without obvious deformity. No CVA tenderness. exam: Patient had distended bladder. No penile lesion or discharge noted. Data Data Last Documented VS Vital Signs Date Time Temp Pulse Resp B/P (MAP) Pulse Ox O2 Delivery O2 Flow Rate FiO2 12/29/17 17:42 97 18 123/79 (94) 98 Room Air 12/29/17 15:40 98.0 Orders Orders Urinary Catheter Insert/Apply (12/29/17 16:17) Lidocaine 2% Jelly (Xylocaine 2% Jelly) (12/29/17 16:30) [place] Medical Decision Making Medical Screen Exam Complete: Yes Emergency Medical Condition: Yes Differential Diagnosis Differential diagnosis including urinary retention, urethral obstruction. Narrative Course 57-year-old male with history of BPH and urinary retention. Diagnosis Primary Impression: Urinary retention Patient Instructions: General Instructions Additional Instructions: Follow-up with urologist. Med/Other Pt SpecificInfo: No Change to Meds Disposition: 01 DISCHARGE HOME Condition: Stable Jean Pierre Redmond MD Dec 29, 2017 16:46
[2017-12-29 17:42] VITALS: BP 123/79; PULSE 97; RESP 18; O2SAT 98
== END 2017-12-29 18:24 | disposition home or self-care (01) ==
LOC: PHED 15:12
DX: N40.1 Benign prostatic hyperplasia with lower urinary tract symptoms (principal); R33.8 Other retention of urine; J44.9 Chronic obstructive pulmonary disease, unspecified; Z85.72 Personal history of non-Hodgkin lymphomas; Z87.891 Personal history of nicotine dependence
CPT/HCPCS: 51702

== ENCOUNTER 2018-01-15 17:41 | Inpatient (IN) | payer MEDICAID, OTHER ==
[2018-01-15 17:46] VITALS: BP 116/73; PULSE 112; RESP 18; TEMP 97.8; O2SAT 95
[2018-01-15 19:47] LABS: AUTOMATED NEUTROPHIL # 4.8 TH/MM3 (1.8-7.7); BASOPHIL % 0.6 % (0.0-2.0); EOSINOPHIL # 0.1 TH/MM3 (0-0.4); EOSINOPHIL % 1.8 % (0.0-4.0); HEMATOCRIT 34.3 % (39.0-51.0); HEMOGLOBIN 11.6 GM/DL (13.0-17.0); LYMPH % 20.3 % (9.0-44.0); LYMPHOCYTE # 1.5 TH/MM3 (1.0-4.8); MEAN CELL VOLUME 91.3 FL (80.0-100.0); MEAN CORPUSCULAR HEMOGLOBIN 30.8 PG (27.0-34.0); MEAN CORPUSCULAR HGB CONC 33.7 % (32.0-36.0); MEAN PLATELET VOLUME 8.1 FL (7.0-11.0); MONO % 12.1 % (0.0-8.0); MONOCYTE # 0.9 TH/MM3 (0-0.9); NEUT % 65.2 % (16.0-70.0); PLATELET COUNT 401 TH/MM3 (150-450); RED BLOOD COUNT 3.76 MIL/MM3 (4.50-5.90); RED CELL DISTRIBUTION WIDTH 15.5 % (11.6-17.2); WHITE BLOOD COUNT 7.3 TH/MM3 (4.0-11.0)
[2018-01-15 20:06] LABS: BACTERIA, URINE OCC /hpf; BILIRUBIN, URINE NEG (NEG); BLOOD, URINE MOD (NEG); GLUCOSE,URINE NEG (NEG); HYALINE CAST, URINE 1 /lpf (RARE); KETONE, URINE 40 mg/dL (NEG); MUCUS URINE MANY /lpf (OCC); NITRITE,URINE NEG (NEG); SQUAMOUS EPITHELIAL CELL URINE 1 /hpf (0-5); URINE COLOR YELLOW (YELLW/STRAW); URINE LEUKOCYTE ESTERASE NEG (NEG)
[2018-01-15 20:15] LABS: ALBUMIN 2.7 GM/DL (3.4-5.0); AST (GOT) 19 U/L (15-37); BLOOD UREA NITROGEN 7 MG/DL (7-18); CALCIUM 8.6 MG/DL (8.5-10.1); CHLORIDE 96 MEQ/L (98-107); CREATININE 0.59 MG/DL (0.60-1.30); GLOMERULAR FILTRATION RATE 141 ML/MIN (>89); GLUCOSE,RANDOM 86 MG/DL (74-106); SODIUM (NA) 134 MEQ/L (136-145)
[2018-01-15 20:27] LABS: ALKALINE PHOSPHATASE 92 U/L (45-117); ALT (GPT) 11 U/L (12-78); TOTAL BILIRUBIN ADULT 0.2 MG/DL (0.2-1.0); TOTAL PROTEIN 7.4 GM/DL (6.4-8.2)
--- NOTE | 2018-01-15 21:22 | PD ---
HPI Chief Complaint: Psychiatric Symptoms Time Seen by Provider: 21:00 Travel History International Travel<30 days: No Contact w/Intl Traveler<30days: No Traveled to known affect area: No History of Present Illness HPI 57 YO M presents to the ED under Umana Act for psychiatric evaluation. According to the [place] paperwork the patient states that he wants to and be put down like a dog to end his suffering. On my evaluation the patient states denies SI or HI. He states that he is here "to have my medications leveled out so I an take care of my mother." He states that he has been experiencing loose stools for the last few days. He denies fever, chills, abdominal pain,, hematochezia, dysuria. He states that he has been compliant with his medications. He endorses smoking marijuana frequently. He denies alcohol or other illicit drug use. PFSH Past Medical History Hx Anticoagulant Therapy: Yes (WARFARIN) Blood Disorders: No Cancer: Yes (Lymphoma) Cardiovascular Problems: Yes (HBP ) High Cholesterol: Yes Chemotherapy: Yes COPD: Yes Cerebrovascular Accident: Yes Diabetes: Yes Diminished Hearing: Yes ([place] BOTH EARS) Endocrine: No Gastrointestinal Disorders: Yes (COLITIS) Genitourinary: Yes (BPH) Headaches: No Immune Disorder: Yes (HODGEKINS LYMPHOMA 2006) Implanted Vascular Access Dvce: No Musculoskeletal: Yes (DJD) Neurologic: No Psychiatric: No Reproductive: No Respiratory: Yes Immunizations Current: No Pneumonia: Yes Radiation Therapy: No Seizures: No ?: Not Past Surgical History Surgical History: Unable to Obtain Eye Surgery: Yes (LT EYE [id number] IN LT EYE.) Other Surgery: Yes (PORT PLACEMENT FOR CHEMO (REMOVED)) Social History Alcohol Use: No Tobacco Use: Yes (PACK A DAY ) Substance Use: No Allergies-Medications (Allergen,Severity, Reaction): Coded Allergies: vancomycin (Unverified Allergy, Intermediate, RASH, 12/29/17) Reported Meds & Prescriptions Reported Meds & Active Scripts Active Carbamazepine 100 Mg Chew 100 Mg PO BID Flomax (Tamsulosin HCl) 0.4 Mg Cap 0.4 Mg PO DAILY Bactrim DS (Sulfamethoxazole-Trimethoprim) 800-160 Mg Tab 1 Tab PO BID 7 Days Mirtazapine 15 Mg Tab 30 Mg PO HS 30 Days Belladonna-Opium Supp (Belladonna Alkaloids/Opium) 16.2-60 Mg Supp 1 Supp RECTAL DAILY PRN Phenobarbital 64.8 Mg Tab 60 Mg PO TID Keppra (Levetiracetam) 500 Mg Tab 1,000 Mg PO Q12HR Coumadin (Warfarin) 5 Mg Tab 5 Mg PO DAILY@1600 Tramadol (Tramadol HCl) 50 Mg Tab 50 Mg PO BID PRN Nebulizer Kit/Tubing/Mout (N/A) 1 Kit Kit 1 Kit .ROUTE DIRECTED Albuterol Neb (Albuterol Sulfate) 2.5 Mg/3 Ml Neb 2.5 Mg NEB Q4HR NEB PRN Reported Ventolin Hfa 18 GM Inh (Albuterol Sulfate) 90 Mcg/Act Aer 2 Puff INH Q4-6H PRN Review of Systems Except as stated in HPI: all other systems reviewed are Neg Physical Exam Narrative GENERAL: Well-nourished, well-developed white male in no acute distress. SKIN: Focused skin assessment warm/dry. HEAD: Normocephalic. EYES: No scleral icterus. No injection or drainage. NECK: Supple, trachea midline. No JVD or lymphadenopathy. CARDIOVASCULAR: Regular rate and rhythm without murmurs, gallops, or rubs. RESPIRATORY: Breath sounds equal bilaterally. No accessory muscle use. GASTROINTESTINAL: Abdomen soft, non-tender, nondistended. MUSCULOSKELETAL: No cyanosis, or edema. BACK: Nontender without obvious deformity. No CVA tenderness. Data Data Last Documented VS Vital Signs Date Time Temp Pulse Resp B/P (MAP) Pulse Ox O2 Delivery O2 Flow Rate FiO2 01/16/18 07:32 110 24 124/84 (97) 97 Nasal Cannula 2.00 01/15/18 17:46 97.8 Orders Orders Complete Blood Count With Diff (01/15/18 18:35) Comprehensive Metabolic Panel (01/15/18 18:35) Thyroid Stimulating Hormone (01/15/18 18:35) Urinalysis - C+S If Indicated (01/15/18 18:35) Psych Screen (01/15/18 18:35) Drug Screen, Random Urine (01/15/18 18:35) Alcohol (Ethanol) (01/15/18 18:35) Enteric Path (Stool) (01/15/18 22:42) Stool Ova And Parasite Screen (01/15/18 22:42) Chest, Single Ap (01/16/18 05:24) Prothrombin Time / Inr (Pt) (01/16/18 05:24) Act Partial Throm Time (Ptt) (01/16/18 05:24) Sodium Chloride 0.9% Flush (Ns Flush) (01/16/18 05:30) Albuterol-Ipratropium Neb (Duoneb Neb) (01/16/18 05:30) Ct Pulmonary Angiogram (01/16/18 05:24) Iohexol 350 Inj (Omnipaque 350 Inj) (01/16/18 06:36) Potassium Chloride (Kcl) (01/16/18 06:45) Methylprednisolone So Succ Inj (Solumedr (01/16/18 06:45) Azithromycin (Zithromax) (01/16/18 06:45) Cefuroxime (Ceftin) (01/16/18 07:00) Albuterol-Ipratropium Neb (Duoneb Neb) (01/16/18 07:00) Sodium Chloride 0.9% Flush (Ns Flush) (01/16/18 07:00) Admit Order (Ed Use Only) (01/16/18 08:21) Labs Laboratory Tests Test 01/15/18 18:58 01/15/18 19:14 01/16/18 05:50 White Blood Count 7.3 TH/MM3 Red Blood Count 3.76 MIL/MM3 Hemoglobin 11.6 GM/DL Hematocrit 34.3 % Mean Corpuscular Volume 91.3 FL Mean Corpuscular Hemoglobin 30.8 PG Mean Corpuscular Hemoglobin Concent 33.7 % Red Cell Distribution Width 15.5 % Platelet Count 401 TH/MM3 Mean Platelet Volume 8.1 FL Neutrophils (%) (Auto) 65.2 % Lymphocytes (%) (Auto) 20.3 % Monocytes (%) (Auto) 12.1 % Eosinophils (%) (Auto) 1.8 % Basophils (%) (Auto) 0.6 % Neutrophils # (Auto) 4.8 TH/MM3 Lymphocytes # (Auto) 1.5 TH/MM3 Monocytes # (Auto) 0.9 TH/MM3 Eosinophils # (Auto) 0.1 TH/MM3 Basophils # (Auto) 0.0 TH/MM3 CBC Comment DIFF FINAL Differential Comment Blood Urea Nitrogen 7 MG/DL Creatinine 0.59 MG/DL Random Glucose 86 MG/DL Total Protein 7.4 GM/DL Albumin 2.7 GM/DL Calcium Level 8.6 MG/DL Alkaline Phosphatase 92 U/L Aspartate Amino Transf (AST/SGOT) 19 U/L Alanine Aminotransferase (ALT/SGPT) 11 U/L Total Bilirubin 0.2 MG/DL Sodium Level 134 MEQ/L Potassium Level 3.3 MEQ/L Chloride Level 96 MEQ/L Carbon Dioxide Level 27.0 MEQ/L Anion Gap 11 MEQ/L Estimat Glomerular Filtration Rate 141 ML/MIN Thyroid Stimulating Hormone 3rd Gen 0.862 uIU/ML Ethyl Alcohol Level LESS THAN 3 MG/DL Urine Color YELLOW Urine Turbidity CLEAR Urine pH 6.0 Urine Specific [place] 1.019 Urine Protein 100 mg/dL Urine Glucose (UA) NEG mg/dL Urine Ketones 40 mg/dL Urine Occult Blood MOD Urine Nitrite NEG Urine Bilirubin NEG Urine Urobilinogen 2.0 MG/DL Urine Leukocyte Esterase NEG Urine RBC 16 /hpf Urine WBC 3 /hpf Urine Squamous Epithelial Cells 1 /hpf Urine Bacteria OCC /hpf Urine Hyaline Casts 1 /lpf Urine Mucus MANY /lpf Microscopic Urinalysis Comment CULT NOT INDICATED Urine Opiates Screen NEG Urine Barbiturates Screen POS Urine Amphetamines Screen NEG Urine Benzodiazepines Screen NEG Urine Cocaine Screen NEG Urine Cannabinoids Screen POS Prothrombin Time 18.6 SEC Prothromb Time International Ratio 1.8 RATIO Activated Partial Thromboplast Time 53.1 SEC MDM Medical Decision Making Medical Screen Exam Complete: Yes Emergency Medical Condition: Yes Differential Diagnosis Adjustment disorder versus anxiety versus bipolar versus depression versus dementia versus electrolyte disorder versus malingering versus mood disorder versus ODD versus psychosis versus PTSD versus schizophrenia versus schizoaffective disorder versus substance-induced mood disorder versus other Narrative Course old male brought it under Umana act for psychiatric evaluation. Patient denies SI or HI. He states that he is here to have his medications "leveled out." He complains of loose stools but is otherwise asymptomatic. Physical exam is unremarkable. Lab work without concerning abnormalities. Stool samples were collected, will order studies for infectious diarrhea. Patient's medically cleared for psychiatric evaluation. Cheryl Esparza Jan 15, 2018 21:22
[2018-01-16] VITALS (11 sets, daily range): BP systolic 100–124; BP diastolic 58–84; PULSE 87–115; RESP 16–24; TEMP 97–97.7; O2SAT 84–98
[2018-01-16] MEDS ORDERED: SODIUM CHLORIDE 0.9% FLUSH 10 ML FLUSH IVF PRN ×2 (05:30→07:00)
--- NOTE | 2018-01-16 05:37 | PD ---
Physical Exam Narrative General: The patient is a well-developed, thin appearing male, no acute distress with an occasional wet sounding cough on examination. Head and Neck exam: Head is normocephalic atraumatic. Eyes: Pupil on the right is reactive to light. Pupil on the left is not reactive and has a cataract noted related to prior trauma. Nose: Midline septum with pink mucous membranes Mouth: Dentition unremarkable. Moist mucus membranes. Posterior oropharynx is not erythematous. No tonsillar hypertrophy. Uvula midline. Airway patent. Neck: No palpable lymphadenopathy. No nuchal rigidity. No thyromegaly. Cardiovascular: Sinus tachycardia in the low 100 without murmurs, gallops, or rubs. No pulse deficit to the extremities on simultaneous auscultation and palpation of his radial artery. Lungs: With scattered rhonchi and frequent wet sounding cough, rhonchi clear with coughing with upper airway transmission sounds. Soft expiratory wheezes audible. No crackles audible. Abdomen: Soft, without tenderness to palpation in all 4 quadrants of the abdomen. No guarding, rebound, or rigidity. Normal bowel sounds are audible. No tenderness on palpation of McBurney's point. Extremities: No clubbing, cyanosis, or edema. 2+ pulses in all 4 extremities. No calf tenderness on palpation. Back: No spinous process tenderness to palpation. No costovertebral angle tenderness to palpation. Neurologic Exam: Grossly nonfocal. Skin Exam: No rash noted. Intact skin that is warm and dry. Data Data Last Documented VS Vital Signs Date Time Temp Pulse Resp B/P (MAP) Pulse Ox O2 Delivery O2 Flow Rate FiO2 01/16/18 05:40 97 Nasal Cannula 3.00 01/16/18 05:04 106 16 112/63 (79) 01/15/18 17:46 97.8 Orders Orders Complete Blood Count With Diff (01/15/18 18:35) Comprehensive Metabolic Panel (01/15/18 18:35) Thyroid Stimulating Hormone (01/15/18 18:35) Urinalysis - C+S If Indicated (01/15/18 18:35) Psych Screen (01/15/18 18:35) Drug Screen, Random Urine (01/15/18 18:35) Alcohol (Ethanol) (01/15/18 18:35) Enteric Path (Stool) (01/15/18 22:42) Stool Ova And Parasite Screen (01/15/18 22:42) Chest, Single Ap (01/16/18 05:24) Prothrombin Time / Inr (Pt) (01/16/18 05:24) Act Partial Throm Time (Ptt) (01/16/18 05:24) Sodium Chloride 0.9% Flush (Ns Flush) (01/16/18 05:30) Albuterol-Ipratropium Neb (Duoneb Neb) (01/16/18 05:30) Ct Pulmonary Angiogram (01/16/18 05:24) Iohexol 350 Inj (Omnipaque 350 Inj) (01/16/18 06:36) Potassium Chloride (Kcl) (01/16/18 06:45) Methylprednisolone So Succ Inj (Solumedr (01/16/18 06:45) Azithromycin (Zithromax) (01/16/18 06:45) Cefuroxime (Ceftin) (01/16/18 07:00) Albuterol-Ipratropium Neb (Duoneb Neb) (01/16/18 07:00) Sodium Chloride 0.9% Flush (Ns Flush) (01/16/18 07:00) Labs Laboratory Tests Test 01/15/18 18:58 01/15/18 19:14 01/16/18 05:50 White Blood Count 7.3 TH/MM3 Red Blood Count 3.76 MIL/MM3 Hemoglobin 11.6 GM/DL Hematocrit 34.3 % Mean Corpuscular Volume 91.3 FL Mean Corpuscular Hemoglobin 30.8 PG Mean Corpuscular Hemoglobin Concent 33.7 % Red Cell Distribution Width 15.5 % Platelet Count 401 TH/MM3 Mean Platelet Volume 8.1 FL Neutrophils (%) (Auto) 65.2 % Lymphocytes (%) (Auto) 20.3 % Monocytes (%) (Auto) 12.1 % Eosinophils (%) (Auto) 1.8 % Basophils (%) (Auto) 0.6 % Neutrophils # (Auto) 4.8 TH/MM3 Lymphocytes # (Auto) 1.5 TH/MM3 Monocytes # (Auto) 0.9 TH/MM3 Eosinophils # (Auto) 0.1 TH/MM3 Basophils # (Auto) 0.0 TH/MM3 CBC Comment DIFF FINAL Differential Comment Blood Urea Nitrogen 7 MG/DL Creatinine 0.59 MG/DL Random Glucose 86 MG/DL Total Protein 7.4 GM/DL Albumin 2.7 GM/DL Calcium Level 8.6 MG/DL Alkaline Phosphatase 92 U/L Aspartate Amino Transf (AST/SGOT) 19 U/L Alanine Aminotransferase (ALT/SGPT) 11 U/L Total Bilirubin 0.2 MG/DL Sodium Level 134 MEQ/L Potassium Level 3.3 MEQ/L Chloride Level 96 MEQ/L Carbon Dioxide Level 27.0 MEQ/L Anion Gap 11 MEQ/L Estimat Glomerular Filtration Rate 141 ML/MIN Thyroid Stimulating Hormone 3rd Gen 0.862 uIU/ML Ethyl Alcohol Level LESS THAN 3 MG/DL Urine Color YELLOW Urine Turbidity CLEAR Urine pH 6.0 Urine Specific [place] 1.019 Urine Protein 100 mg/dL Urine Glucose (UA) NEG mg/dL Urine Ketones 40 mg/dL Urine Occult Blood MOD Urine Nitrite NEG Urine Bilirubin NEG Urine Urobilinogen 2.0 MG/DL Urine Leukocyte Esterase NEG Urine RBC 16 /hpf Urine WBC 3 /hpf Urine Squamous Epithelial Cells 1 /hpf Urine Bacteria OCC /hpf Urine Hyaline Casts 1 /lpf Urine Mucus MANY /lpf Microscopic Urinalysis Comment CULT NOT INDICATED Urine Opiates Screen NEG Urine Barbiturates Screen POS Urine Amphetamines Screen NEG Urine Benzodiazepines Screen NEG Urine Cocaine Screen NEG Urine Cannabinoids Screen POS Prothrombin Time 18.6 SEC Prothromb Time International Ratio 1.8 RATIO Activated Partial Thromboplast Time 53.1 SEC [facility] Medical Record Reviewed: Yes Supervised Visit with JARRELL: Yes Interpretation(s) Last Impressions Chest X-Ray 01/16/18523 Signed Impressions: Service Date/Time: Tuesday, January 16, 2018 06:01 - CONCLUSION: Hyperinflation and underlying emphysema Jose Bae MD CT Angiography 01/16/18523 Signed Impressions: Service Date/Time: Tuesday, January 16, 2018 06:22 - CONCLUSION: 1. No evidence of pulmonary embolism there 2. New patchy areas of airspace disease likely representing early pneumonia. 3. Underlying pulmonary emphysema. Jose Bae MD Narrative Course I, Dr. Rutherford, have reviewed the advance practice practitioner's documentation and am in agreement, met with the patient face to face, made the diagnosis, and the medical decision making was done by me. The patient was initially evaluated by Cheryl, the physician rehab assistant. Please see their complete history and physical. *My assessment and Findings: The patient presents with a history of being placed under a Umana act due to thoughts of harming himself. The patient currently denies any thoughts of self-harm. He reports that he wants to get home to take care of his mother whom he resides with who recently broke her back. The patient is tearful on examination. The patient reports that he has had a productive cough recently. He reports that he has dyspnea on exertion. According to the Umana act the patient had previously stated that he wants to and started change smoking because of it. According to the Umana act he has been unable to perform his activities of daily living. He also stated according to the Umana act that he wishes he could be "put down like a dog to end his suffering". The patient was seen by Gina and medically cleared after laboratory studies were done. The patient was taken over to the psychiatric area for continuation of care. The patient developed shortness of breath over there and pulse oximetry revealed that his oxygen saturations were in the upper 80s. The patient was transferred back to the [facility] for evaluation by me. According to the record the patient has been on Coumadin for a pulmonary embolism. He reports that he was recently taken off of it, however he is unsure why. From reviewing the record the patient was diagnosed with pulmonary embolism after admission and intubation for respiratory failure in October 2017. During the course of the patient's emergency department visit, the patient's history, examination, and differential diagnosis were reviewed with the patient. The patient was placed on a electronic device monitor with oximetry and frequent blood pressure monitoring. The patient had IV access obtained and blood work sent for analysis. Patient's O2 saturation on room air back in the [facility] is 86-88%. The patient was placed on 2 L nasal cannula O2 and is saturating 96 % at this time. The patient was doing nebs 2. A chest x-ray was ordered. CTA to rule out PE was ordered. The patient's blood work done earlier today was reviewed by me and reveals a white count of 7.3, hemoglobin 11.6, platelets 401 with monocytosis at 12.1. CMP is remarkable for a sodium of 134, potassium 3.3, creatinine 0.59, ALT 11, albumin 2.7, TSH within normal limits, urine drug screen positive for barbiturates, however the patient is on phenobarbital for seizures, and cannabinoids, urinalysis shows 40 ketones moderate occult blood 16 RBCs occasional bacteria. A review of the record reveals that the patient has had multiple episodes of urinary retention requiring Alfred catheterization. The patient was last seen on December 29 and had a Alfred catheter placed for urinary retention. The patient has no catheter in at this time. He cannot recall when it was removed. Radiology studies were reviewed and remarkable for chest x-ray that shows evidence of emphysema, no other acute abnormality. The patient's INR is 1.8. CTA to rule out PE shows no evidence of PE, however a small infiltrate is noted. The patient was given Ceftin 500 mg p.o. 1, Zithromax 500 p.o. The patient was given an additional DuoNeb. The patient was given Solu-Medrol 125 mg IV. The patient will be reassessed for improvement of his oxygen level off of supplemental nasal cannula. If the patient is maintaining his oxygenation the patient will again be medically cleared for his Umana act. The patient will be given a prescription for antibiotic and a Medrol Dosepak taper. The patient's case was checked out to the oncoming ED physician to reassess the patient's oxygenation for final deposition. Med/Other Pt SpecificInfo: Prescription(s) given Scripts Azithromycin (Azithromycin) 250 Mg Tab 250 MG PO DAILY for Infection for 4 Days, #4 TAB 0 Refills Prov: Rekha Rutherford MD 01/16/18 Cefuroxime (Cefuroxime) 500 Mg Tab 500 MG PO BID for Infection for 10 Days, #19 TAB 0 Refills Prov: Rekha Rutherford MD 01/16/18 Methylprednisolone Dosepak (Medrol Dosepak) 4 Mg Dspk 4 MG PO DIRECTED, #1 DSPK 0 Refills Per Pharmacist direction Prov: Rekha Rutherford MD 01/16/18 Rekha Rutherford MD Jan 16, 2018 05:37
[2018-01-16] MEDS: RESP: ALBUTEROL 2.5 MG/IPRATROPIUM 0.5 MG NEB (SCH) INH ×5 (05:38→21:39)
--- NOTE | 2018-01-16 06:28 | RADRPT ---
EXAM DATE/TIME: 01/16/2018 06:01 [place] COMPARISON: CHEST SINGLE AP, December 04, 2017, 3:21. INDICATIONS : Short of breath. Recent pulmonary embolism. MEDICAL HISTORY : Deep venous thrombosis. Lymphoma. SURGICAL HISTORY : None. ENCOUNTER: Initial ACUITY: 1 day PAIN SCORE: 0/10 LOCATION: Bilateral chest FINDINGS: 2 AP portable erect views the chest were obtained and again demonstrate hyperinflation of both lungs with no confluent infiltrates or effusions. The heart size remains within normal limits. Overlying ox ygen tubing is present. The bony thorax is intact. CONCLUSION: Hyperinflation and underlying emphysema Jose Bae MD on January 16, 2018 at 6:26 Board Certified Radiologist. This report was verified electronically.
[2018-01-16] MEDS ORDERED: IOHEXOL 350 MG/ML 10 ML VIAL (for RAD DIAG) IVCONTRAST ONE (06:36)
[2018-01-16 06:44] LABS: INTERNATIONAL NORMALIZED RATIO 1.8 RATIO; PROTHROMBIN TIME - PATIENT 18.6 SEC (9.8-11.6)
[2018-01-16] MEDS ORDERED: methylPREDNISolone SOD SUCC 125 MG/2 ML VIAL IV PUSH ONE (06:45)
[2018-01-16] MEDS ORDERED: AZITHROMYCIN 250 MG TAB PO ONE (06:45)
[2018-01-16] MEDS ORDERED: POTASSIUM CHLORIDE 20 MEQ CONTROLLED RELEASE TAB PO ONE (06:45)
--- NOTE | 2018-01-16 06:47 | RADRPT ---
EXAM DATE/TIME: 01/16/2018 06:22 [place] COMPARISON: CT PULMONARY ANGIOGRAM, November 19, 2017, 22:45. INDICATIONS : Shortness of breath. IV CONTRAST: 75 cc Omnipaque 350 (iohexol) IV RADIATION DOSE: 14.09 CTDIvol (mGy) MEDICAL HISTORY : Cardiovascular disease. Hypertension. Hepatitis C.Lymphoma. SURGICAL HISTORY : None. ENCOUNTER: Initial ACUITY: 1 day PAIN SCALE: 5/10 LOCATION: Bilateral chest TECHNIQUE: Volumetric scanning of the chest was performed using a pulmonary embolism protocol MIP images were re constructed. Using automated exposure control and adjustment of the mA and/or kV according to patien t size, radiation dose was kept as low as reasonably achievable to obtain optimal diagnostic quality images. DICOM format image data is available electronically for review and comparison. Follow-up recommendations for detected pulmonary nodules are based at a minimum on nodule size and pa tient risk factors according to Fleischner Society Guidelines. FINDINGS: PULMONARY ARTERIES: No filling defects are seen in the pulmonary arteries through the segmental level. LUNGS: There is no pneumothorax . There is underlying emphysema. There are new patchy areas of airspace opac ity in the anterior lingula and right middle lobe. There is milder patchy new opacity in the right la teral lower lobe. No concerning pulmonary nodule is visualized. PLEURAE: There is no pleural thickening or pleural effusion. MEDIASTINUM: There is good visualization of the great vessels of the middle mediastinum. No evidence of mediastin al or hilar adenopathy/mass. MUSCULOSKELETAL: Within normal limits for patient age. MISCELLANEOUS: The visualized upper abdominal organs demonstrate no acute abnormality. CONCLUSION: 1. No evidence of pulmonary embolism there 2. New patchy areas of airspace disease likely representing early pneumonia. 3. Underlying pulmonary emphysema. Jose Bae MD on January 16, 2018 at 6:42 Board Certified Radiologist. This report was verified electronically.
[2018-01-16] MEDS ORDERED: RESP: ALBUTEROL 2.5 MG/IPRATROPIUM 0.5 MG NEB (SCH) INH ONE (07:00)
[2018-01-16] MEDS ORDERED: CEFUROXIME AXETIL 500 MG TAB PO ONE (07:00)
[2018-01-16] MEDS ORDERED: AZIT250T3 PO (07:09)
[2018-01-16] MEDS ORDERED: MEDR4PAK PO (07:09)
[2018-01-16] MEDS ORDERED: CEFU1TAB20 PO (07:09)
--- NOTE | 2018-01-16 08:17 | PD ---
Physical Exam Narrative GENERAL: 57 y/o male with nasal cannula in place SKIN: Focused skin assessment warm/dry. HEAD: Atraumatic. Normocephalic. EYES: No scleral icterus. No injection or drainage. ENT: No nasal bleeding or discharge. Mucous membranes pink and moist. NECK: Trachea midline. No JVD. CARDIOVASCULAR: Regular rate and rhythm. RESPIRATORY: No accessory muscle use. Coarse bilaterally. NEUROLOGICAL: Awake. moves all extremities, Normal speech. Data Data Last Documented VS Vital Signs Date Time Temp Pulse Resp B/P (MAP) Pulse Ox O2 Delivery O2 Flow Rate FiO2 01/16/18 07:32 110 24 124/84 (97) 97 Nasal Cannula 2.00 01/15/18 17:46 97.8 Orders Orders Complete Blood Count With Diff (01/15/18 18:35) Comprehensive Metabolic Panel (01/15/18 18:35) Thyroid Stimulating Hormone (01/15/18 18:35) Urinalysis - C+S If Indicated (01/15/18 18:35) Psych Screen (01/15/18 18:35) Drug Screen, Random Urine (01/15/18 18:35) Alcohol (Ethanol) (01/15/18 18:35) Enteric Path (Stool) (01/15/18 22:42) Stool Ova And Parasite Screen (01/15/18 22:42) Chest, Single Ap (01/16/18 05:24) Prothrombin Time / Inr (Pt) (01/16/18 05:24) Act Partial Throm Time (Ptt) (01/16/18 05:24) Sodium Chloride 0.9% Flush (Ns Flush) (01/16/18 05:30) Albuterol-Ipratropium Neb (Duoneb Neb) (01/16/18 05:30) Ct Pulmonary Angiogram (01/16/18 05:24) Iohexol 350 Inj (Omnipaque 350 Inj) (01/16/18 06:36) Potassium Chloride (Kcl) (01/16/18 06:45) Methylprednisolone So Succ Inj (Solumedr (01/16/18 06:45) Azithromycin (Zithromax) (01/16/18 06:45) Cefuroxime (Ceftin) (01/16/18 07:00) Albuterol-Ipratropium Neb (Duoneb Neb) (01/16/18 07:00) Sodium Chloride 0.9% Flush (Ns Flush) (01/16/18 07:00) Admit Order (Ed Use Only) (01/16/18 08:21) Labs Laboratory Tests Test 01/15/18 18:58 01/15/18 19:14 01/16/18 05:50 White Blood Count 7.3 TH/MM3 Red Blood Count 3.76 MIL/MM3 Hemoglobin 11.6 GM/DL Hematocrit 34.3 % Mean Corpuscular Volume 91.3 FL Mean Corpuscular Hemoglobin 30.8 PG Mean Corpuscular Hemoglobin Concent 33.7 % Red Cell Distribution Width 15.5 % Platelet Count 401 TH/MM3 Mean Platelet Volume 8.1 FL Neutrophils (%) (Auto) 65.2 % Lymphocytes (%) (Auto) 20.3 % Monocytes (%) (Auto) 12.1 % Eosinophils (%) (Auto) 1.8 % Basophils (%) (Auto) 0.6 % Neutrophils # (Auto) 4.8 TH/MM3 Lymphocytes # (Auto) 1.5 TH/MM3 Monocytes # (Auto) 0.9 TH/MM3 Eosinophils # (Auto) 0.1 TH/MM3 Basophils # (Auto) 0.0 TH/MM3 CBC Comment DIFF FINAL Differential Comment Blood Urea Nitrogen 7 MG/DL Creatinine 0.59 MG/DL Random Glucose 86 MG/DL Total Protein 7.4 GM/DL Albumin 2.7 GM/DL Calcium Level 8.6 MG/DL Alkaline Phosphatase 92 U/L Aspartate Amino Transf (AST/SGOT) 19 U/L Alanine Aminotransferase (ALT/SGPT) 11 U/L Total Bilirubin 0.2 MG/DL Sodium Level 134 MEQ/L Potassium Level 3.3 MEQ/L Chloride Level 96 MEQ/L Carbon Dioxide Level 27.0 MEQ/L Anion Gap 11 MEQ/L Estimat Glomerular Filtration Rate 141 ML/MIN Thyroid Stimulating Hormone 3rd Gen 0.862 uIU/ML Ethyl Alcohol Level LESS THAN 3 MG/DL Urine Color YELLOW Urine Turbidity CLEAR Urine pH 6.0 Urine Specific [place] 1.019 Urine Protein 100 mg/dL Urine Glucose (UA) NEG mg/dL Urine Ketones 40 mg/dL Urine Occult Blood MOD Urine Nitrite NEG Urine Bilirubin NEG Urine Urobilinogen 2.0 MG/DL Urine Leukocyte Esterase NEG Urine RBC 16 /hpf Urine WBC 3 /hpf Urine Squamous Epithelial Cells 1 /hpf Urine Bacteria OCC /hpf Urine Hyaline Casts 1 /lpf Urine Mucus MANY /lpf Microscopic Urinalysis Comment CULT NOT INDICATED Urine Opiates Screen NEG Urine Barbiturates Screen POS Urine Amphetamines Screen NEG Urine Benzodiazepines Screen NEG Urine Cocaine Screen NEG Urine Cannabinoids Screen POS Prothrombin Time 18.6 SEC Prothromb Time International Ratio 1.8 RATIO Activated Partial Thromboplast Time 53.1 SEC [facility] Supervised Visit with JARRELL: No Interpretation(s) Last 24 hours Impressions Chest X-Ray 01/16/18523 Signed Impressions: Service Date/Time: Tuesday, January 16, 2018 06:01 - CONCLUSION: Hyperinflation and underlying emphysema Jose Bae MD CT Angiography 01/16/18523 Signed Impressions: Service Date/Time: Tuesday, January 16, 2018 06:22 - CONCLUSION: 1. No evidence of pulmonary embolism there 2. New patchy areas of airspace disease likely representing early pneumonia. 3. Underlying pulmonary emphysema. Jose Bae MD Narrative Course Patient is 79% on room air per staff. Patient was placed back on 2 L of nasal cannula and is 96%. He will be admitted to medicine with a psychiatry consult for further care of COPD exacerbation with concurrent pneumonia. Patient was updated Physician Communication Physician Communication dr johnson states to reassess after meds and if still requiring oxygen to admit. resident team states to admit to dr adhikari Diagnosis Primary Impression: Acute hypoxemic respiratory failure Additional Impressions: COPD (chronic obstructive pulmonary disease) Qualified Codes: J44.1 - Chronic obstructive pulmonary disease with (acute) exacerbation Pneumonia Qualified Codes: J18.9 - Pneumonia, unspecified organism Suicidal behavior Qualified Codes: R46.89 - Other symptoms and signs involving appearance and behavior Admitting Information Admitting Physician Requests: Admit Rupinder Peterson MD Jan 16, 2018 08:17
--- NOTE | 2018-01-16 08:41 | HHI.HP ---
HPI Service Family Medicine Primary Care Physician Non-Staff Admission Diagnosis pneumonia, copd exacerbation Diagnoses: Chief Complaint: shortness of breath International Travel<30 Days: No Contact w/Intl Traveler<30days: No Known Affected Area: No History of Present Illness 57-year-old male with history of Hodgkin lymphoma, BPH, HD, hypertension, diabetes, multiple psychiatric admissions presented to the ED under [employer] act. He was brought in due to thoughts of hurting himself. Was initially cleared medically and sent to psychiatric pod, however now is being admitted for hypoxia. He says he denies any suicidal lesions currently, just was to go home and take care of his mother. He states he has COPD and started having worsening cough last couple weeks. Also having some shortness of breath. Endorses some chills. He reportedly went to [facility] in which she department last Monday and stated he had a fever there. Denies getting any antibiotics there. Was placed on oxygen. He is not on any oxygen at home. States he walks 10-15 feet and is out of breath. Dr. Maryan Shin is his PCP. Per chart review, patient was hospitalized in October and admitted to the ICU for MRSA pneumonia. He also developed pulmonary embolisms, and was placed on warfarin. Pt is unable to provide much past medical history due to being tearful during the interview, unable to confirm his medications as well. Review of Systems ROS Limitations: Hearing Impaired, Poor Historian Constitutional: COMPLAINS OF: Weight loss, Chills, DENIES: Fever, Weight gain Endocrine: COMPLAINS OF: Heat/cold intolerance Eyes: COMPLAINS OF: Vision loss Ears, nose, mouth, throat: DENIES: Throat pain, Sinus Pain, Toothache Respiratory: COMPLAINS OF: Cough, Sputum production, Shortness of breath Cardiovascular: DENIES: Chest pain, Palpitations, Syncope, Lower Extremity Edema Gastrointestinal: DENIES: Abdominal pain, Bloody stools, Constipation, Diarrhea , Nausea, Vomiting Genitourinary: DENIES: Urgency Musculoskeletal: COMPLAINS OF: Back pain, DENIES: Joint pain, Neck pain Integumentary: DENIES: Abnormal pigmentation, Rash Neurologic: DENIES: Headache, Seizures Psychiatric: COMPLAINS OF: Mood changes, Depression, DENIES: Suicidal Ideation , Homicidal Ideation Past Family Social History Past Medical History BPH Hodgkin Lymphoma in 2005 HLD HTN DM2 COPD Past Surgical History Left eye surgery after trauma, blindness. Port placement for chemo, now removed Reported Medications Reported Meds & Active Scripts Active Carbamazepine 100 Mg Chew 100 Mg PO BID Flomax (Tamsulosin HCl) 0.4 Mg Cap 0.4 Mg PO DAILY Bactrim DS (Sulfamethoxazole-Trimethoprim) 800-160 Mg Tab 1 Tab PO BID 7 Days Mirtazapine 15 Mg Tab 30 Mg PO HS 30 Days Belladonna-Opium Supp (Belladonna Alkaloids/Opium) 16.2-60 Mg Supp 1 Supp RECTAL DAILY PRN Phenobarbital 64.8 Mg Tab 60 Mg PO TID Keppra (Levetiracetam) 500 Mg Tab 1,000 Mg PO Q12HR Coumadin (Warfarin) 5 Mg Tab 5 Mg PO DAILY@1600 Tramadol (Tramadol HCl) 50 Mg Tab 50 Mg PO BID PRN Nebulizer Kit/Tubing/Mout (N/A) 1 Kit Kit 1 Kit .ROUTE DIRECTED Albuterol Neb (Albuterol Sulfate) 2.5 Mg/3 Ml Neb 2.5 Mg NEB Q4HR NEB PRN Reported Ventolin Hfa 18 GM Inh (Albuterol Sulfate) 90 Mcg/Act Aer 2 Puff INH Q4-6H PRN Allergies: Coded Allergies: vancomycin (Unverified Allergy, Intermediate, RASH, 12/29/17) Active Ordered Medications Active Medications Albuterol/ Ipratropium (Duoneb Neb) 1 ampule ONCE ONCE INH Last administered on 01/16/18at 07:23; Admin Dose 1 AMPULE; Start 01/16/18 at 07:00; Stop 01/16/18 at 07:01; Status DC Albuterol/ Ipratropium (Duoneb Neb) 1 ampule Q15M INH Last administered on at 05:39; Admin Dose 1 AMPULE; Start 01/16/18 at 05:30; Stop 01/16/18 at 05:46 ; Status DC Azithromycin (Zithromax) 500 mg ONCE ONCE PO Last administered on 01/16/18at 07: 27; Admin Dose 500 MG; Start 01/16/18 at 06:45; Stop 01/16/18 at 06:46; Status DC Cefuroxime Axetil (Ceftin) 500 mg ONCE ONCE PO Last administered on 01/16/18at 07:27; Admin Dose 500 MG; Start 01/16/18 at 07:00; Stop 01/16/18 at 07:01; Status DC Iohexol (Omnipaque 350 Inj) 75 ml STK-MED ONCE IVCONTRAST Last administered on at 06:36; Admin Dose 75 ML; Start 01/16/18 at 06:36; Stop 01/16/18 at 06: 37; Status DC Methylprednisolone Sodium Succinate (SoluMEDROL INJ) 125 mg ONCE ONCE IV PUSH Last administered on 01/16/18at 07:26; Admin Dose 125 MG; Start 01/16/18 at 06:45 ; Stop 01/16/18 at 06:46; Status DC Potassium Chloride (KCl) 20 meq ONCE ONCE PO Last administered on 01/16/18at 07: 26; Admin Dose 20 MEQ; Start 01/16/18 at 06:45; Stop 01/16/18 at 06:46; Status DC Sodium Chloride (NS Flush) 2 ml UNSCH PRN IVF; Start 01/16/18 at 05:30 Sodium Chloride (NS Flush) 2 ml UNSCH PRN IVF; Start 01/16/18 at 07:00 Family History Patient says his mother is healthy and doesn't know an diseases that run in his family Social History Disability from neck/back issues Smokes 1/2 PPD Alcohol: denies Illicit drug use: Marijuana daily Physical Exam Vital Signs Vital Signs Date Time Temp Pulse Resp B/P (MAP) Pulse Ox O2 Delivery O2 Flow Rate FiO2 01/16/18 07:32 110 24 124/84 (97) 97 Nasal Cannula 2.00 01/16/18 07:23 98 Nasal Cannula 3.00 01/16/18 05:40 97 Nasal Cannula 3.00 01/16/18 05:04 106 16 112/63 (79) 94 Nasal Cannula 2.00 01/16/18 04:34 106 20 111/79 (90) 84 01/16/18 00:36 115 20 100/58 (72) 86 Room Air 01/15/18 17:46 97.8 112 18 116/73 (87) 95 Physical Exam GENERAL: This is a well-nourished, well-developed patient, tearful during interview. SKIN: No rashes, ecchymoses or lesions. Cool and dry. HEAD: Atraumatic. Normocephalic. No temporal or scalp tenderness. EYES: Pupils on right reactive to light. Left pupil non-reactive, cataract from trauma in the past ENT: Throat without erythema, tonsillar hypertrophy or exudate. Uvula midline. Airway patent. NECK: Trachea midline. No JVD or lymphadenopathy. Supple, nontender. CARDIOVASCULAR: Regular rate and rhythm without murmurs, gallops, or rubs. RESPIRATORY: Scattered chronic throughout. Scattered wheezes throughout. No crackles appreciated. Diminished breath sounds in bases. GASTROINTESTINAL: Abdomen soft, non-tender, nondistended. No hepato-splenomegaly , or palpable masses. No guarding. MUSCULOSKELETAL: Extremities without clubbing, cyanosis, or edema. No joint tenderness, effusion, or edema noted. No calf tenderness. NEUROLOGICAL: Awake and alert. Motor and sensory grossly within normal limits. Normal speech. Laboratory Laboratory Tests Test 01/15/18 18:58 01/15/18 19:14 01/16/18 05:50 White Blood Count 7.3 Red Blood Count 3.76 Hemoglobin 11.6 Hematocrit 34.3 Mean Corpuscular Volume 91.3 Mean Corpuscular Hemoglobin 30.8 Mean Corpuscular Hemoglobin Concent 33.7 Red Cell Distribution Width 15.5 Platelet Count 401 Mean Platelet Volume 8.1 Neutrophils (%) (Auto) 65.2 Lymphocytes (%) (Auto) 20.3 Monocytes (%) (Auto) 12.1 Eosinophils (%) (Auto) 1.8 Basophils (%) (Auto) 0.6 Neutrophils # (Auto) 4.8 Lymphocytes # (Auto) 1.5 Monocytes # (Auto) 0.9 Eosinophils # (Auto) 0.1 Basophils # (Auto) 0.0 CBC Comment DIFF FINAL Differential Comment Blood Urea Nitrogen 7 Creatinine 0.59 Random Glucose 86 Total Protein 7.4 Albumin 2.7 Calcium Level 8.6 Alkaline Phosphatase 92 Aspartate Amino Transf (AST/SGOT) 19 Alanine Aminotransferase (ALT/SGPT) 11 Total Bilirubin 0.2 Sodium Level 134 Potassium Level 3.3 Chloride Level 96 Carbon Dioxide Level 27.0 Anion Gap 11 Estimat Glomerular Filtration Rate 141 Thyroid Stimulating Hormone 3rd Gen 0.862 Ethyl Alcohol Level LESS THAN 3 Urine Color YELLOW Urine Turbidity CLEAR Urine pH 6.0 Urine Specific [place] 1.019 Urine Protein 100 Urine Glucose (UA) NEG Urine Ketones 40 Urine Occult Blood MOD Urine Nitrite NEG Urine Bilirubin NEG Urine Urobilinogen 2.0 Urine Leukocyte Esterase NEG Urine RBC 16 Urine WBC 3 Urine Squamous Epithelial Cells 1 Urine Bacteria OCC Urine Hyaline Casts 1 Urine Mucus MANY Microscopic Urinalysis Comment CULT NOT INDICATED Urine Opiates Screen NEG Urine Barbiturates Screen POS Urine Amphetamines Screen NEG Urine Benzodiazepines Screen NEG Urine Cocaine Screen NEG Urine Cannabinoids Screen POS Prothrombin Time 18.6 Prothromb Time International Ratio 1.8 Activated Partial Thromboplast Time 53.1 Date/Time Source Procedure Growth Status 01/15/18 22:00 Stool Stool Cryptosporidium Exam Pending Received 01/15/18 22:00 Stool Stool Giardia Antigen (TANESHA) Pending Received Result Diagram: 01/15/[id number]/15/181857 Imaging Last Impressions Chest X-Ray 01/16/18523 Signed Impressions: Service Date/Time: Tuesday, January 16, 2018 06:01 - CONCLUSION: Hyperinflation and underlying emphysema Jose Bae MD CT Angiography 01/16/18523 Signed Impressions: Service Date/Time: Tuesday, January 16, 2018 06:22 - CONCLUSION: 1. No evidence of pulmonary embolism there 2. New patchy areas of airspace disease likely representing early pneumonia. 3. Underlying pulmonary emphysema. Jose Bae MD Caprini VTE Risk Assessment Caprini VTE Risk Assessment: Mod/High Risk (score >= 2) Caprini Risk Assessment Model Point Value = 1 Point Value = 2 Point Value = 3 Point Value = 5 Age 41-60 Minor surgery BMI > 25 kg/m2 Swollen legs Varicose veins or History of unexplained or recurrent spontaneous Oral contraceptives or hormone replacement Sepsis (< 1 month) Serious lung disease, including pneumonia (< 1 month) Abnormal pulmonary function Acute myocardial infarction Congestive heart failure (< 1 month) History of inflammatory bowel disease Medical patient at bed rest Age 61-74 Arthroscopic surgery Major open surgery (> 45 min) Laparoscopic surgery (> 45 min) Malignancy Confined to bed (> 72 hours) Immobilizing plaster cast Central venous access Age >= 75 History of VTE Family history of VTE Factor V Leiden Prothrombin [id number] Lupus anticoagulant Anticardiolipin antibodies Elevated serum homocysteine Heparin-induced thrombocytopenia Other congenital or acquired thrombophilia Stroke (< 1 month) Elective arthroplasty Hip, pelvis, or leg fracture Acute spinal cord injury (< 1 month) Prophylaxis Regimen Total Risk Factor Score Risk Level Prophylaxis Regimen 0-1 Low Early ambulation 2 Moderate Order ONE of the following: *Sequential Compression Device (SCD) *Heparin 5000 units SQ BID 3-4 Higher Order ONE of the following medications: *Heparin 5000 units SQ TID *Enoxaparin/Lovenox 40 mg SQ daily (WT < 150 kg, CrCl > 30 mL/min) *Enoxaparin/Lovenox 30 mg SQ daily (WT < 150 kg, CrCl > 10-29 mL/min) *Enoxaparin/Lovenox 30 mg SQ BID (WT < 150 kg, CrCl > 30 mL/min) AND/OR *Sequential Compression Device (SCD) 5 or more Highest Order ONE of the following medications: *Heparin 5000 units SQ TID (Preferred with Epidurals) *Enoxaparin/Lovenox 40 mg SQ daily (WT < 150 kg, CrCl > 30 mL/min) *Enoxaparin/Lovenox 30 mg SQ daily (WT < 150 kg, CrCl > 10-29 mL/min) *Enoxaparin/Lovenox 30 mg SQ BID (WT < 150 kg, CrCl > 30 mL/min) AND *Sequential Compression Device (SCD) Assessment and Plan Assessment and Plan 57 y/o with history of COPD, HTN, hx of Hodkin's lymphoma presents under [employer] act for suicidal ideations, found to have COPD exacerbation with early pneumonia. Will admit for medical management and psychiatry evaluation. Code Status Full Discussed Condition With Dr. Hameed Problem List: (1) Pneumonia ICD Codes: J18.9 - Pneumonia, unspecified organism Status: Acute Plan: CXR shows hyperinflation and underlying emphysema. CTA shows new patchy areas of airspace disease likely represent early pneumonia. HCAP as patient recently admitted in October in ICU for MRSA pneumonia, has been to the ED several times since as well WBC 7.3, neutrophil % 25 Desaturations in the ED Will start broad coverage for HCAP -Zyvox 600mg BID -Zosyn 4.5 g IV every 6 hours for coverage of gram negatives and Pseudomonas. -Azithromycin 500mg daily -Duonebs 6 hours scheduled. -Albuterol Q2 hr PRN SOB. -Supplemental O2 and pulse ox monitoring. -Incentive spirometer. -Tylenol, Zofran PRN (2) COPD (chronic obstructive pulmonary disease) ICD Codes: J44.9 - Chronic obstructive pulmonary disease, unspecified Plan: History of COPD-likely contributing to SOB, as well as pneumonia -See plan above (3) Suicidal behavior ICD Codes: R46.89 - Other symptoms and signs involving appearance and behavior Status: Acute Plan: Pt presented under [employer] Act for suicidal ideations. -Consulted psychiatry-appreciate recs -Continue home meds (4) History of pulmonary embolism ICD Codes: Z86.711 - Personal history of pulmonary embolism Plan: History of PE in October, on Coumadin at home, INR 1.8 on admission -Therapeutic lovenox to cover for subtherapeutic INR -Continue Coumadin -Follow INR (5) Seizure disorder ICD Codes: G40.909 - Epilepsy, unspecified, not intractable, without status epilepticus Plan: Continue home meds: Carbamazepime, Keppra, Phenobarbital Ativan PRN seizures (6) BPH without obstruction/lower urinary tract symptoms ICD Codes: N40.0 - Benign prostatic hyperplasia without lower urinary tract symptoms Status: Acute Plan: Continue home Flomax Monitor for obstruction symptoms. (7) FEN Status: Acute Plan: Fluids: NS at 110mls/hr Electrolyte: wnl, replace PRN Nutrition: regular diet DVT ppx: lovenox, warfarin Physician Certification 2 Midnight Certification Type: Admission for Inpatient Services Order for Inpatient Services The services are ordered in accordance with Medicare regulations or non- Medicare payer requirements, as applicable. In the case of services not specified as inpatient-only, they are appropriately provided as inpatient services in accordance with the 2-midnight benchmark. Estimated LOS (days): 3 days is the estimated time the patient will need to remain in the hospital, assuming treatment plan goals are met and no additional complications. Post-Hospital Plan: Home Problem Qualifiers (1) Pneumonia: Qualified Codes: J18.9 - Pneumonia, unspecified organism (2) COPD (chronic obstructive pulmonary disease): Qualified Codes: J44.1 - Chronic obstructive pulmonary disease with (acute) exacerbation (3) Suicidal behavior: Qualified Codes: R46.89 - Other symptoms and signs involving appearance and behavior Marco Antonio San MD Jan 16, 2018 08:41
[2018-01-16] MEDS ORDERED: SODIUM CHLORIDE 0.9% FLUSH 10 ML FLUSH IV FLUSH PRN (09:00)
[2018-01-16] MEDS ORDERED: ONDANSETRON HCL 4 MG/2 ML VIAL IVP PRN (09:15)
[2018-01-16] MEDS ORDERED: ACETAMINOPHEN 325 MG TAB PO PRN (09:15)
[2018-01-16] MEDS ORDERED: RESP: ALBUTEROL 2.5 MG/3 ML NEB (PRN) INH (09:15)
[2018-01-16] MEDS ORDERED: ENOXAPARIN SODIUM 40 MG/0.4 ML SYRINGE SQ SCH (11:00)
[2018-01-16] MEDS: PIPERACIL-TAZO 4.5 GM PREMIX 100 ML IV SCH ×3 (11:00→21:35)
[2018-01-16] MEDS: LINEZOLID 600 MG TAB PO SCH ×2 (11:32→21:32)
[2018-01-16] MEDS: SODIUM CHLORIDE 0.9% FLUSH 10 ML FLUSH IV FLUSH SCH ×2 (11:32→21:32)
[2018-01-16] MEDS: SODIUM CHLOR 0.9% 1000 ML INJ 1,000 ML IV SCH ×2 (11:38→16:12)
--- NOTE | 2018-01-16 14:48 | PD.PSY.CON ---
Provisional Diagnosis Admission Date Jan 16, 2018 at 08:23 [place]. Poor impulse control, mild to moderate intellectual disability [place]. 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 According to the [employer] paperwork the patient states that he wants to and be put down like a dog to end his suffering. On my evaluation the patient states denies SI or HI. He states that he is here "to have my medications leveled out so I an take care of my mother." He states that he has been experiencing loose stools for the last few days. He denies fever, chills, abdominal pain,, hematochezia, dysuria. He states that he has been compliant with his medications. He endorses smoking marijuana frequently. He denies alcohol or other illicit drug use. On psychiatric evaluation today the patient is found in a good spirit, he says that he feels much better, that he is in a good mood, however during the evaluation he becomes very labile and starts saying that he misses his mother and he needs to take care of her. He denies suicidal and homicidal ideation, he denies visual and auditory hallucinations at this moment. He is oriented 3. Past Family Social History Coded Allergies: vancomycin (Unverified Allergy, Intermediate, RASH, 12/29/17) Active Scripts Carbamazepine (Carbamazepine) 100 Mg Chew, 100 MG PO BID for health, #60 EA 0 Refills Prov:Phill Hurst MD 12/28/17 Tamsulosin (Flomax) 0.4 Mg Cap, 0.4 MG PO DAILY for health, #30 CAP 0 Refills Prov:Melvin Remy DO 12/26/17 Sulfamethoxazole-Trimethoprim (Bactrim DS) 800-160 Mg Tab, 1 TAB PO BID for Infection for 7 Days, #14 TAB 0 Refills Prov:Phill Hurst MD 12/23/17 Mirtazapine (Mirtazapine) 15 Mg Tab, 30 MG PO HS for Health for 30 Days, #30 TAB 0 Refills Prov:Gary Cardoso MD 12/13/17 Belladonna-Opium Supp (Belladonna-Opium Supp) 16.2-60 Mg Supp, 1 SUPP RECTAL DAILY Y for PAIN, #30 SUPP 0 Refills Prov:Steve Siu MD 12/13/17 Phenobarbital (Phenobarbital) 64.8 Mg Tab, 60 MG PO TID for Seizure Control, # 93 TAB Prov:Clyde Grimes MD 12/08/17 Levetiracetam (Keppra) 500 Mg Tab, 1000 MG PO Q12HR for Seizure Control, #60 TAB Prov:Clyde Grimes MD 12/08/17 Warfarin (Coumadin) 5 Mg Tab, 5 MG PO DAILY@1600 for Blood Clot Prevention, #6 TAB Prov:Clyde Grimes MD 12/08/17 Tramadol (Tramadol) 50 Mg Tab, 50 MG PO BID Y for PAIN, #60 TAB 0 Refills Prov:Melvin Remy DO 08/15/17 Nebulizer Kit/Tubing/Mout (Nebulizer Kit/Tubing/Mout) 1 Kit Kit, 1 KIT .ROUTE DIRECTED for Breathing Treatment, #1 KIT 0 Refills Prov:Aidan Wells 01/31/17 Albuterol Neb (Albuterol Neb) 2.5 Mg/3 Ml Neb, 2.5 MG NEB Q4HR NEB Y for SHORTNESS OF BREATH, #60 NEBULE 2 Refills Prov:Aidan Wells 01/31/17 Reported Medications Albuterol 18 GM Inh (Ventolin Hfa 18 GM Inh) 90 Mcg/Act Aer, 2 PUFF INH Q4-6H Y for SHORTNESS OF BREATH, #1 INHALER 0 Refills 07/31/17 Discontinued Scripts Azithromycin (Azithromycin) 250 Mg Tab, 250 MG PO DAILY for Infection for 4 Days , #4 TAB 0 Refills Prov:Rekha Rutherford MD 01/16/18 Cefuroxime (Cefuroxime) 500 Mg Tab, 500 MG PO BID for Infection for 10 Days, # 19 TAB 0 Refills Prov:Rekha Rutherford MD 01/16/18 Current Medications Medications (Trade) Dose Ordered Sig/Osbaldo Route Start Time Stop Time Status Last Admin (NS Flush) 2 ml UNSCH PRN IVF 01/16/18 05:30 (NS Flush) 2 ml UNSCH PRN IVF 01/16/18 07:00 Sodium Chloride 1,000 ml @ 110 mls/hr Q9H6M IV 01/16/18 08:54 01/16/18 11:38 (NS Flush) 2 ml UNSCH PRN IV FLUSH 01/16/18 09:00 (NS Flush) 2 ml BID IV FLUSH 01/16/18 09:00 01/16/18 11:32 Piperacillin Sod/ Tazobactam Sod 100 ml @ 200 mls/hr Q6H IV 01/16/18 11:00 (Zithromax) 500 mg Q24H PO 01/17/18 07:00 (Zyvox) 600 mg Q12HR PO 01/16/18 09:15 01/16/18 11:32 (Duoneb Neb) 1 ampule Q6HR NEB INH 01/16/18 11:00 01/16/18 13:24 (Albuterol Neb) 2.5 mg Q2HR NEB PRN INH 01/16/18 09:15 (TEGretol CHEW) 100 mg BID PO 01/16/18 21:00 (Keppra) 1,000 mg Q12HR PO 01/16/18 21:00 (Remeron) 30 mg HS PO 01/16/18 21:00 (PHENobarbital) 60 mg TID PO 01/16/18 13:00 (Flomax) 0.4 mg DAILY PO 01/17/18 09:00 (Coumadin) 5 mg DAILY@1600 PO 01/16/18 16:00 (Zofran Inj) 4 mg Q6H PRN IVP 01/16/18 09:15 (Lovenox Inj) 40 mg Q24H SQ 01/16/18 11:00 01/16/18 11:32 (Tylenol) 650 mg Q6H PRN PO 01/16/18 09:15 Family Psych History No family psychiatric history Social History Patient lives with his mother in [place], single, unemployed Physical Exam Vital Signs Vital Signs Date Time Temp Pulse Resp B/P (MAP) Pulse Ox O2 Delivery O2 Flow Rate FiO2 01/16/18 12:00 97.2 102 16 103/67 (79) 97 01/16/18 07:32 Nasal Cannula 2.00 Lab Results Test 01/15/18 18:58 01/15/18 19:14 01/16/18 05:50 White Blood Count 7.3 TH/MM3 Red Blood Count 3.76 MIL/MM3 Hemoglobin 11.6 GM/DL Hematocrit 34.3 % Mean Corpuscular Volume 91.3 FL Mean Corpuscular Hemoglobin 30.8 PG Mean Corpuscular Hemoglobin Concent 33.7 % Red Cell Distribution Width 15.5 % Platelet Count 401 TH/MM3 Mean Platelet Volume 8.1 FL Neutrophils (%) (Auto) 65.2 % Lymphocytes (%) (Auto) 20.3 % Monocytes (%) (Auto) 12.1 % Eosinophils (%) (Auto) 1.8 % Basophils (%) (Auto) 0.6 % Neutrophils # (Auto) 4.8 TH/MM3 Lymphocytes # (Auto) 1.5 TH/MM3 Monocytes # (Auto) 0.9 TH/MM3 Eosinophils # (Auto) 0.1 TH/MM3 Basophils # (Auto) 0.0 TH/MM3 CBC Comment DIFF FINAL Differential Comment Blood Urea Nitrogen 7 MG/DL Creatinine 0.59 MG/DL Random Glucose 86 MG/DL Total Protein 7.4 GM/DL Albumin 2.7 GM/DL Calcium Level 8.6 MG/DL Alkaline Phosphatase 92 U/L Aspartate Amino Transf (AST/SGOT) 19 U/L Alanine Aminotransferase (ALT/SGPT) 11 U/L Total Bilirubin 0.2 MG/DL Sodium Level 134 MEQ/L Potassium Level 3.3 MEQ/L Chloride Level 96 MEQ/L Carbon Dioxide Level 27.0 MEQ/L Anion Gap 11 MEQ/L Estimat Glomerular Filtration Rate 141 ML/MIN Thyroid Stimulating Hormone 3rd Gen 0.862 uIU/ML Ethyl Alcohol Level LESS THAN 3 MG/DL Urine Color YELLOW Urine Turbidity CLEAR Urine pH 6.0 Urine Specific [place] 1.019 Urine Protein 100 mg/dL Urine Glucose (UA) NEG mg/dL Urine Ketones 40 mg/dL Urine Occult Blood MOD Urine Nitrite NEG Urine Bilirubin NEG Urine Urobilinogen 2.0 MG/DL Urine Leukocyte Esterase NEG Urine RBC 16 /hpf Urine WBC 3 /hpf Urine Squamous Epithelial Cells 1 /hpf Urine Bacteria OCC /hpf Urine Hyaline Casts 1 /lpf Urine Mucus MANY /lpf Microscopic Urinalysis Comment CULT NOT INDICATED Urine Opiates Screen NEG Urine Barbiturates Screen POS Urine Amphetamines Screen NEG Urine Benzodiazepines Screen NEG Urine Cocaine Screen NEG Urine Cannabinoids Screen POS Prothrombin Time 18.6 SEC Prothromb Time International Ratio 1.8 RATIO Activated Partial Thromboplast Time 53.1 SEC Date/Time Source Procedure Growth Status 01/15/18 22:00 Stool Stool Cryptosporidium Exam Pending Received 01/15/18 22:00 Stool Stool Giardia Antigen (TANESHA) Pending Received Mental Status Examination Appearance: Appropriate Consciousness: Alert Orientation: x4 Motor Activity: Normal gait Speech: Unremarkable Language: Adequate Fund of Knowledge: Adequate Attention and Concentration: Adequate Memory: Unremarkable Mood: Appropriate Affect: Labile Thought Process & Associations: Intact, Other (concrete) Thought Content: Appropriate Hallucination Type: None Delusion Type: None Suicidal Ideation: No Suicidal Plan: No Suicidal Intention: No Homicidal Ideation: No Homicidal Plan: No Homicidal Intention: No Insight: Fair Judgment: Impulsive Assessment & Plan Problem List: (1) Adjustment disorder with mixed disturbance of emotions and conduct ICD Codes: F43.25 - Adjustment disorder with mixed disturbance of emotions and conduct Assessment & Plan: On psychiatric evaluation today the patient presents labile , with concrete thought process, tearful at times, stating that he misses his mother. Suicidal and homicidal ideation, he denies visual and auditory hallucinations. 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 At this moment the patient does not meet criteria for involuntary psychiatric admission. He will continue the mirtazapine 30 mg at bedtime. I will follow-up. Assessment & Plan Estimated LOS: Gary Barros MD Jan 16, 2018 14:48
[2018-01-16] MEDS: WARFARIN SOD 5 MG TAB PO SCH (16:04)
[2018-01-16] MEDS ORDERED: LORazepam 2 MG/ML VIAL IV PUSH PRN (16:15)
[2018-01-16] MEDS: ENOXAPARIN SODIUM 80 MG/0.8 ML SYRINGE SQ SCH (18:10)
[2018-01-16] MEDS: MIRTAZAPINE 15 MG TAB PO SCH (21:32)
[2018-01-16] MEDS: levETIRAcetam 500 MG TAB PO SCH (21:32)
[2018-01-17] VITALS (8 sets, daily range): BP systolic 106–123; BP diastolic 65–73; PULSE 90–104; RESP 17–20; TEMP 96–96.8; O2SAT 90–97
[2018-01-17] MEDS: SODIUM CHLOR 0.9% 1000 ML INJ 1,000 ML IV SCH ×3 (01:45→21:18)
[2018-01-17] MEDS: RESP: ALBUTEROL 2.5 MG/IPRATROPIUM 0.5 MG NEB (SCH) INH ×3 (02:52→21:15)
[2018-01-17] MEDS: PIPERACIL-TAZO 4.5 GM PREMIX 100 ML IV SCH ×4 (05:36→23:37)
[2018-01-17] MEDS: AZITHROMYCIN 250 MG TAB PO SCH (05:37)
[2018-01-17] MEDS: ENOXAPARIN SODIUM 80 MG/0.8 ML SYRINGE SQ SCH ×2 (05:39→18:22)
[2018-01-17 08:53] LABS: AUTOMATED NEUTROPHIL # 3.8 TH/MM3 (1.8-7.7); BASOPHIL # 0.1 TH/MM3 (0-0.2); BASOPHIL % 0.9 % (0.0-2.0); EOSINOPHIL # 0.3 TH/MM3 (0-0.4); EOSINOPHIL % 4.8 % (0.0-4.0); HEMATOCRIT 32.8 % (39.0-51.0); HEMOGLOBIN 11.2 GM/DL (13.0-17.0); LYMPH % 27.6 % (9.0-44.0); LYMPHOCYTE # 1.8 TH/MM3 (1.0-4.8); MEAN CELL VOLUME 91.2 FL (80.0-100.0); MEAN CORPUSCULAR HEMOGLOBIN 31.2 PG (27.0-34.0); MEAN CORPUSCULAR HGB CONC 34.2 % (32.0-36.0); MONOCYTE # 0.6 TH/MM3 (0-0.9); NEUT % 57.7 % (16.0-70.0); PLATELET COUNT 341 TH/MM3 (150-450); RED CELL DISTRIBUTION WIDTH 15.6 % (11.6-17.2); WHITE BLOOD COUNT 6.5 TH/MM3 (4.0-11.0)
[2018-01-17] MEDS: LINEZOLID 600 MG TAB PO SCH ×2 (08:58→21:40)
[2018-01-17] MEDS: levETIRAcetam 500 MG TAB PO SCH ×2 (08:59→21:39)
[2018-01-17] MEDS: TAMSULOSIN HCL 0.4 MG CAP PO SCH (08:59)
[2018-01-17 09:00] LABS: INTERNATIONAL NORMALIZED RATIO 1.7 RATIO; PROTHROMBIN TIME - PATIENT 17.1 SEC (9.8-11.6)
[2018-01-17] MEDS: SODIUM CHLORIDE 0.9% FLUSH 10 ML FLUSH IV FLUSH SCH ×2 (09:00→21:00)
[2018-01-17 09:26] LABS: BICARBONATE 28.7 MEQ/L (21.0-32.0); CALCIUM 8.1 MG/DL (8.5-10.1); CREATININE 0.74 MG/DL (0.60-1.30)
--- NOTE | 2018-01-17 10:59 | HHI.FPPN ---
Subjective Remarks Patient seen and examined this morning. Temperature 96.1, pulse 90, respiratory rate 112/72, pulse ox 95 on 2 L nasal cannula. Patient reports that he is feeling much better today and is hoping to get out of the hospital soon. His goal is to be out by Monday. He reports only getting short of breath when he is active and moving around. If he is lying in the bed he feels fine. Denies any chest pain. Denies any abdominal pain, nausea or vomiting. He does report having some diarrhea and this has been persistent for several days now. Will monitor for C. difficile if negative will provide Imodium. (Félix Gallo MD, R3) Objective Vitals Vital Signs Date Time Temp Pulse Resp B/P (MAP) Pulse Ox O2 Delivery O2 Flow Rate FiO2 01/17/18 09:21 92 Nasal Cannula 21 01/17/18 08:00 96.1 90 17 112/72 (85) 95 01/17/18 04:00 96.8 98 18 106/65 (79) 90 01/17/18 00:00 96.0 101 20 106/68 (81) 90 01/16/18 21:41 92 Nasal Cannula 2.00 01/16/18 20:00 97.0 98 18 115/67 (83) 98 01/16/18 16:00 97.7 87 16 110/65 (80) 98 01/16/18 12:00 97.2 102 16 103/67 (79) 97 I/O 01/16/18 01/16/18 01/16/18 01/17/18 01/17/18 01/17/18 07:00 15:00 23:00 07:00 15:00 23:00 Intake Total 820 ml 1505 ml Balance 820 ml 1505 ml Intake Oral 720 ml IV Total 100 ml 1505 ml # Voids 2 # Bowel Movements 0 (Félix Gallo MD, R3) Result Diagram: 01/17/1883501/17/18835 Imaging Last Impressions Chest X-Ray 01/16/18523 Signed Impressions: Service Date/Time: Tuesday, January 16, 2018 06:01 - CONCLUSION: Hyperinflation and underlying emphysema Jose Bae MD CT Angiography 01/16/18523 Signed Impressions: Service Date/Time: Tuesday, January 16, 2018 06:22 - CONCLUSION: 1. No evidence of pulmonary embolism there 2. New patchy areas of airspace disease likely representing early pneumonia. 3. Underlying pulmonary emphysema. Jose Bae MD Objective Remarks GEN: Well-developed, well-nourished patient. No acute distress. CV: Regular rate and rhythm without obvious murmurs LUNGS: Clear to auscultation bilaterally. Normal respiratory effort. Very mild wheezing throughout. GI: Soft, nontender, nondistended. No palpable masses. Bowel sounds WNL. EXT: No edema. NEURO/PSYCH: Afocal. Awake, alert, and oriented x3. Appropriate insight and judgment. Medications and IVs Current Medications Medications (Trade) Dose Ordered Sig/Osbaldo Route Start Time Stop Time Status Last Admin Sodium Chloride 1,000 ml @ 110 mls/hr Q9H6M IV 01/16/18 08:54 01/17/18 01:45 (NS Flush) 2 ml UNSCH PRN IV FLUSH 01/16/18 09:00 (NS Flush) 2 ml BID IV FLUSH 01/16/18 09:00 01/16/18 21:32 Piperacillin Sod/ Tazobactam Sod 100 ml @ 200 mls/hr Q6H IV 01/16/18 11:00 01/17/18 09:10 (Zithromax) 500 mg Q24H PO 01/17/18 07:00 01/17/18 05:37 (Zyvox) 600 mg Q12HR PO 01/16/18 09:15 01/17/18 08:58 (Duoneb Neb) 1 ampule Q6HR NEB INH 01/16/18 11:00 01/16/18 21:39 (Albuterol Neb) 2.5 mg Q2HR NEB PRN INH 01/16/18 09:15 (TEGretol CHEW) 100 mg BID PO 01/16/18 21:00 01/17/18 08:59 (Keppra) 1,000 mg Q12HR PO 01/16/18 21:00 01/17/18 08:59 (Remeron) 30 mg HS PO 01/16/18 21:00 01/16/18 21:32 (PHENobarbital) 60 mg TID PO 01/16/18 13:00 01/17/18 08:59 (Flomax) 0.4 mg DAILY PO 01/17/18 09:00 01/17/18 08:59 (Coumadin) 5 mg DAILY@1600 PO 01/16/18 16:00 01/16/18 16:04 (Zofran Inj) 4 mg Q6H PRN IVP 01/16/18 09:15 (Tylenol) 650 mg Q6H PRN PO 01/16/18 09:15 (Lovenox Inj) 70 mg Q12H SQ 01/16/18 19:00 01/17/18 05:39 (Ativan Inj) 2 mg Q10M PRN IV PUSH 01/16/18 16:15 (Félix Gallo MD, R3) A/P Assessment and Plan 57 y/o with history of COPD, HTN, hx of Hodkin's lymphoma presents post [place] act for suicidal ideations, found to have COPD exacerbation with early pneumonia. Will admit for medical management and psychiatry evaluation. Discharge Planning Pending further medical improvement (Félix Gallo MD, R3) Attending Attestation Round table discussion about patients admission were held with Dr Gallo, Dr San, Dr Laguna and Dr Chawla Patient was examined with team Agree with above documentation See Orders (Juan Diego Hameed MD) Problem List: (1) Pneumonia ICD Codes: J18.9 - Pneumonia, unspecified organism Status: Acute Plan: Due to recent hospitalization covering for HCAP. Patient reports improvement in his breathing. Denies any fevers or chills. White blood cell count 6.5. -Zyvox 600mg BID -Zosyn 4.5 g IV every 6 hours for coverage of gram negatives and Pseudomonas. -Azithromycin 500mg daily -Duonebs 6 hours scheduled. -Albuterol Q2 hr PRN SOB. -Supplemental O2 and pulse ox monitoring. -Incentive spirometer. -Tylenol, Zofran PRN (2) COPD (chronic obstructive pulmonary disease) ICD Codes: J44.9 - Chronic obstructive pulmonary disease, unspecified Plan: History of COPD-likely contributing to SOB, as well as pneumonia -Prednisone 20mg BID -See plan above (3) Suicidal behavior ICD Codes: R46.89 - Other symptoms and signs involving appearance and behavior Status: Acute Plan: Pt presented under [place] Act for suicidal ideations. Currently not meeting involuntary psychiatric admission. Denies suicidal and homicidal ideation. -Consulted psychiatry-appreciate recs -Continue mirtazapine 30 mg at bedtime (4) Diarrhea ICD Codes: R19.7 - Diarrhea, unspecified Status: Acute Plan: Patient reporting several day history of diarrhea. * Monitoring for C. difficile. * If C. difficile negative will start Imodium. (5) History of pulmonary embolism ICD Codes: Z86.711 - Personal history of pulmonary embolism Plan: History of PE in October, on Coumadin at home, INR currently 1.7, will continue to monitor, will need to be followed as an outpatient -Therapeutic lovenox to cover for subtherapeutic INR -Continue Coumadin -Follow INR (6) Seizure disorder ICD Codes: G40.909 - Epilepsy, unspecified, not intractable, without status epilepticus Plan: Continue home meds: Carbamazepime, Keppra, Phenobarbital Ativan PRN seizures (7) BPH without obstruction/lower urinary tract symptoms ICD Codes: N40.0 - Benign prostatic hyperplasia without lower urinary tract symptoms Status: Acute Plan: Continue home Flomax Monitor for obstruction symptoms. (8) FEN Status: Acute Plan: Fluids: NS at 110mls/hr Electrolyte: wnl, replace PRN Nutrition: regular diet DVT ppx: lovenox, warfarin (Félix Gallo MD, R3) Problem Qualifiers (1) Pneumonia: Qualified Codes: J18.9 - Pneumonia, unspecified organism (2) COPD (chronic obstructive pulmonary disease): Qualified Codes: J44.1 - Chronic obstructive pulmonary disease with (acute) exacerbation (3) Suicidal behavior: Qualified Codes: R46.89 - Other symptoms and signs involving appearance and behavior Félix Gallo MD, R3 Jan 17, 2018 10:59 Juan Diego Hameed MD Jan 17, 2018 18:15
[2018-01-17] MEDS: predniSONE 20 MG TAB PO SCH ×2 (11:00→21:40)
[2018-01-17] MEDS: WARFARIN SOD 5 MG TAB PO SCH (18:21)
[2018-01-17] MEDS: MIRTAZAPINE 15 MG TAB PO SCH (21:39)
[2018-01-18] VITALS (9 sets, daily range): BP systolic 108–140; BP diastolic 68–83; PULSE 90–105; RESP 16–19; TEMP 95.5–97.1; O2SAT 95–98
[2018-01-18] MEDS: RESP: ALBUTEROL 2.5 MG/IPRATROPIUM 0.5 MG NEB (SCH) INH ×4 (03:37→21:31)
[2018-01-18] MEDS: PIPERACIL-TAZO 4.5 GM PREMIX 100 ML IV SCH ×4 (05:15→23:26)
[2018-01-18] MEDS: AZITHROMYCIN 250 MG TAB PO SCH (05:16)
[2018-01-18] MEDS: ENOXAPARIN SODIUM 80 MG/0.8 ML SYRINGE SQ SCH (05:16)
[2018-01-18] MEDS: SODIUM CHLOR 0.9% 1000 ML INJ 1,000 ML IV SCH ×3 (06:24→23:26)
[2018-01-18 07:26] LABS: INTERNATIONAL NORMALIZED RATIO 2.6 RATIO; PROTHROMBIN TIME - PATIENT 26.1 SEC (9.8-11.6)
[2018-01-18 07:31] LABS: HEMATOCRIT 29.9 % (39.0-51.0); HEMOGLOBIN 10.2 GM/DL (13.0-17.0); MEAN CELL VOLUME 90.2 FL (80.0-100.0); MEAN CORPUSCULAR HEMOGLOBIN 30.8 PG (27.0-34.0); MEAN CORPUSCULAR HGB CONC 34.2 % (32.0-36.0); MEAN PLATELET VOLUME 7.9 FL (7.0-11.0); PLATELET COUNT 335 TH/MM3 (150-450); RED BLOOD COUNT 3.32 MIL/MM3 (4.50-5.90); RED CELL DISTRIBUTION WIDTH 15.7 % (11.6-17.2); WHITE BLOOD COUNT 7.5 TH/MM3 (4.0-11.0)
[2018-01-18 07:41] LABS: BICARBONATE 31.1 MEQ/L (21.0-32.0); CALCIUM 7.7 MG/DL (8.5-10.1); CREATININE 0.65 MG/DL (0.60-1.30)
[2018-01-18] MEDS: SODIUM CHLORIDE 0.9% FLUSH 10 ML FLUSH IV FLUSH SCH ×2 (09:00→20:19)
[2018-01-18] MEDS: TAMSULOSIN HCL 0.4 MG CAP PO SCH (09:39)
[2018-01-18] MEDS: predniSONE 20 MG TAB PO SCH ×2 (09:39→20:18)
[2018-01-18] MEDS: levETIRAcetam 500 MG TAB PO SCH ×2 (09:39→20:18)
[2018-01-18] MEDS: LINEZOLID 600 MG TAB PO SCH ×2 (09:39→20:19)
--- NOTE | 2018-01-18 09:44 | HHI.FPPN ---
Subjective Remarks Pt seen and examined this morning. No acute events overnight. Reports feeling back to normal. States breathing has improved and is able to walk around without shortness of breath. Cough has improved. States he wants to go home to take care of his mother. Denies any suicidal or homicidal ideations. Denies any fever/chills, chest pain, abdominal pain, leg pain. Objective Vitals Vital Signs Date Time Temp Pulse Resp B/P (MAP) Pulse Ox O2 Delivery O2 Flow Rate FiO2 01/18/18 09:15 96 21 01/18/18 08:00 95.5 94 19 111/77 (88) 97 01/18/18 04:00 97.1 105 17 121/71 (88) 96 01/18/18 03:39 96 Nasal Cannula 2.00 01/18/18 00:00 96.7 102 17 120/70 (87) 95 01/17/18 20:00 96.1 104 17 121/71 (88) 96 01/17/18 16:29 97 Nasal Cannula 2.00 01/17/18 16:00 96.3 98 17 120/71 (87) 92 01/17/18 12:00 96.3 90 17 123/73 (90) 95 I/O 01/17/18 01/17/18 01/17/18 01/18/18 01/18/18 01/18/18 07:00 15:00 23:00 07:00 15:00 23:00 Intake Total 1505 ml 960 ml 150 ml Output Total 300 ml Balance 1505 ml 660 ml 150 ml Intake Oral 960 ml 150 ml IV Total 1505 ml Output Urine Total 300 ml # Voids 4 2 # Bowel Movements 1 0 Result Diagram: 01/18/1865401/18/18654 Imaging Last Impressions Chest X-Ray 01/16/18523 Signed Impressions: Service Date/Time: Tuesday, January 16, 2018 06:01 - CONCLUSION: Hyperinflation and underlying emphysema Jose Bae MD CT Angiography 01/16/18523 Signed Impressions: Service Date/Time: Tuesday, January 16, 2018 06:22 - CONCLUSION: 1. No evidence of pulmonary embolism there 2. New patchy areas of airspace disease likely representing early pneumonia. 3. Underlying pulmonary emphysema. Jose Bae MD Objective Remarks GEN: Well-developed, well-nourished patient. No acute distress. CV: Regular rate and rhythm without obvious murmurs LUNGS: Clear to auscultation bilaterally. Normal respiratory effort. Improved mild wheezing throughout. GI: Soft, nontender, nondistended. No palpable masses. Bowel sounds WNL. EXT: No edema. NEURO/PSYCH: Afocal. Awake, alert, and oriented x3. Appropriate insight and judgment. A/P Assessment and Plan 57 y/o with history of COPD, HTN, hx of Hodkin's lymphoma presents post [place] act for suicidal ideations, found to have COPD exacerbation with early pneumonia. Will admit for medical management and psychiatry evaluation. Discharge Planning Pending improvement and treatment of COPD/pneumonia Problem List: (1) Pneumonia ICD Codes: J18.9 - Pneumonia, unspecified organism Status: Acute Plan: Due to recent hospitalization covering for HCAP. Patient reports improvement in his breathing. Denies any fevers or chills. White blood cell count 6.5. -Zyvox 600mg BID -Zosyn 4.5 g IV every 6 hours for coverage of gram negatives and Pseudomonas. -Azithromycin 500mg daily -Duonebs 6 hours scheduled. -Albuterol Q2 hr PRN SOB. -Supplemental O2 and pulse ox monitoring. -Incentive spirometer. -Tylenol, Zofran PRN (2) COPD (chronic obstructive pulmonary disease) ICD Codes: J44.9 - Chronic obstructive pulmonary disease, unspecified Plan: History of COPD-likely contributing to SOB, as well as pneumonia -Prednisone 20mg BID -See plan above (3) Suicidal behavior ICD Codes: R46.89 - Other symptoms and signs involving appearance and behavior Status: Acute Plan: Pt presented under [place] Act for suicidal ideations. Currently not meeting involuntary psychiatric admission. Denies suicidal and homicidal ideation. -Consulted psychiatry-appreciate recs -Continue mirtazapine 30 mg at bedtime (4) Diarrhea ICD Codes: R19.7 - Diarrhea, unspecified Status: Acute Plan: Patient reporting several day history of diarrhea. * Monitoring for C. difficile. * If C. difficile negative will start Imodium. (5) History of pulmonary embolism ICD Codes: Z86.711 - Personal history of pulmonary embolism Plan: History of PE in October, on Coumadin at home, INR currently 1.8 on admission. 2.6 today -Stop lovenox due to therapeutic INR -Continue Coumadin -Follow INR (6) Seizure disorder ICD Codes: G40.909 - Epilepsy, unspecified, not intractable, without status epilepticus Plan: Continue home meds: Carbamazepime, Keppra, Phenobarbital Ativan PRN seizures (7) BPH without obstruction/lower urinary tract symptoms ICD Codes: N40.0 - Benign prostatic hyperplasia without lower urinary tract symptoms Status: Acute Plan: Continue home Flomax Monitor for obstruction symptoms. (8) FEN Status: Acute Plan: Fluids: NS at 110mls/hr Electrolyte: wnl, replace PRN Nutrition: regular diet DVT ppx: warfarin Problem Qualifiers (1) Pneumonia: Qualified Codes: J18.9 - Pneumonia, unspecified organism (2) COPD (chronic obstructive pulmonary disease): Qualified Codes: J44.1 - Chronic obstructive pulmonary disease with (acute) exacerbation (3) Suicidal behavior: Qualified Codes: R46.89 - Other symptoms and signs involving appearance and behavior Marco Antonio San MD Jan 18, 2018 09:44
[2018-01-18] MEDS ORDERED: POTASSIUM CHLORIDE 10 MEQ CONTROLLED RELEASE TAB PO ONE (09:45)
[2018-01-18] MEDS ORDERED: CALCIUM CARBONATE 1.25 GM (CA 500 MG) TAB PO ONE (11:00)
[2018-01-18] MEDS ORDERED: LOPERAMIDE HCL 2 MG CAP PO PRN (13:45)
[2018-01-18] MEDS: WARFARIN SOD 5 MG TAB PO SCH (16:55)
[2018-01-18] MEDS: MIRTAZAPINE 15 MG TAB PO SCH (20:18)
[2018-01-19] VITALS: BP 140/72; PULSE 81; RESP 18; TEMP 96.2; O2SAT 94
[2018-01-19] MEDS: RESP: ALBUTEROL 2.5 MG/IPRATROPIUM 0.5 MG NEB (SCH) INH (03:23)
[2018-01-19 04:00] VITALS: BP 140/71; PULSE 82; RESP 18; TEMP 95.9; O2SAT 92
[2018-01-19 04:37] LABS: BASOPHIL % 0.4 % (0.0-2.0); EOSINOPHIL # 0.1 TH/MM3 (0-0.4); EOSINOPHIL % 0.8 % (0.0-4.0); HEMATOCRIT 34.1 % (39.0-51.0); HEMOGLOBIN 11.3 GM/DL (13.0-17.0); LYMPH % 20.5 % (9.0-44.0); LYMPHOCYTE # 1.7 TH/MM3 (1.0-4.8); MEAN CELL VOLUME 91.7 FL (80.0-100.0); MEAN CORPUSCULAR HEMOGLOBIN 30.5 PG (27.0-34.0); MEAN CORPUSCULAR HGB CONC 33.3 % (32.0-36.0); MEAN PLATELET VOLUME 7.8 FL (7.0-11.0); MONO % 4.9 % (0.0-8.0); MONOCYTE # 0.4 TH/MM3 (0-0.9); NEUT % 73.4 % (16.0-70.0); PLATELET COUNT 356 TH/MM3 (150-450); RED BLOOD COUNT 3.71 MIL/MM3 (4.50-5.90); RED CELL DISTRIBUTION WIDTH 15.7 % (11.6-17.2); WHITE BLOOD COUNT 8.2 TH/MM3 (4.0-11.0)
[2018-01-19 04:51] LABS: INTERNATIONAL NORMALIZED RATIO 3.5 RATIO; PROTHROMBIN TIME - PATIENT 34.8 SEC (9.8-11.6)
[2018-01-19 05:06] LABS: BICARBONATE 28.7 MEQ/L (21.0-32.0); CALCIUM 8.2 MG/DL (8.5-10.1); CREATININE 0.62 MG/DL (0.60-1.30)
[2018-01-19] MEDS: PIPERACIL-TAZO 4.5 GM PREMIX 100 ML IV SCH ×2 (05:20→11:00)
[2018-01-19] MEDS: AZITHROMYCIN 250 MG TAB PO SCH (05:21)
[2018-01-19] MEDS ORDERED: CALCIUM CARBONATE 1.25 GM (CA 500 MG) TAB PO ONE (07:30)
[2018-01-19 08:00] VITALS: BP 127/82; PULSE 81; RESP 17; TEMP 96; O2SAT 95
[2018-01-19] MEDS: levETIRAcetam 500 MG TAB PO SCH (08:51)
[2018-01-19] MEDS: predniSONE 20 MG TAB PO SCH (08:51)
[2018-01-19] MEDS: LINEZOLID 600 MG TAB PO SCH (08:51)
[2018-01-19] MEDS: TAMSULOSIN HCL 0.4 MG CAP PO SCH (08:51)
[2018-01-19] MEDS: SODIUM CHLORIDE 0.9% FLUSH 10 ML FLUSH IV FLUSH SCH (08:52)
[2018-01-19] MEDS: SODIUM CHLOR 0.9% 1000 ML INJ 1,000 ML IV SCH (09:42)
[2018-01-19] MEDS ORDERED: MIRTA15 PO (09:45)
[2018-01-19] MEDS ORDERED: AZIT500T2 PO ×3 (09:45→11:22)
--- NOTE | 2018-01-19 09:52 | HHI.FPPN ---
Subjective Remarks Pt seen and examined this morning. No acute events overnight. Reports feeling back to normal. States breathing has improved and is able to walk around without shortness of breath. Cough has improved.Patient states that he want to go home. Denies any suicidal or homicidal ideations. Denies any fever/chills, chest pain, abdominal pain, leg pain. No complains. Objective Vitals Vital Signs Date Time Temp Pulse Resp B/P (MAP) Pulse Ox O2 Delivery O2 Flow Rate FiO2 01/19/18 08:00 96.0 81 17 127/82 (97) 95 01/19/18 04:00 95.9 82 18 140/71 (94) 92 01/19/18 00:00 96.2 81 18 140/72 (94) 94 01/18/18 20:00 95.9 90 18 140/83 (102) 97 01/18/18 16:00 96.5 98 17 114/68 (83) 97 01/18/18 15:30 98 Nasal Cannula 2.00 01/18/18 12:00 95.9 90 16 108/69 (82) 98 I/O 01/18/18 01/18/18 01/18/18 01/19/18 01/19/18 01/19/18 07:00 15:00 23:00 07:00 15:00 23:00 Intake Total 150 ml 620 ml 150 ml Output Total 7 ml Balance 150 ml 613 ml 150 ml Intake Oral 150 ml 620 ml 150 ml Output Urine Total 7 ml # Voids 2 4 # Bowel Movements 0 4 1 Result Diagram: 01/19/18 0414 01/19/18 0330 Objective Remarks GEN: Well-developed, well-nourished patient. No acute distress. CV: Regular rate and rhythm without obvious murmurs LUNGS: Clear to auscultation bilaterally. Normal respiratory effort. mild wheezing noted on Right lung field. GI: Soft, nontender, nondistended. No palpable masses. Bowel sounds WNL. EXT: No edema. NEURO/PSYCH: Afocal. Awake, alert, and oriented x3. Appropriate insight and judgment. A/P Assessment and Plan 57 y/o with history of COPD, HTN, hx of Hodkin's lymphoma presents post Umana act for suicidal ideations, found to have COPD exacerbation with early pneumonia. Will admit for medical management and psychiatry evaluation. Discharge Planning Patient clinically improved. Pending psych clearance. Problem List: (1) Pneumonia ICD Codes: J18.9 - Pneumonia, unspecified organism Status: Acute Plan: Due to recent hospitalization covering for HCAP. Patient reports improvement in his breathing. Denies any fevers or chills. White blood cell count has remain WNL. -Zyvox 600mg BID -Zosyn 4.5 g IV every 6 hours for coverage of gram negatives and Pseudomonas. -Azithromycin 500mg daily -Duonebs 6 hours scheduled. -Albuterol Q2 hr PRN SOB. -Supplemental O2 and pulse ox monitoring. -Incentive spirometer. -Tylenol, Zofran PRN (2) COPD (chronic obstructive pulmonary disease) ICD Codes: J44.9 - Chronic obstructive pulmonary disease, unspecified Plan: History of COPD-likely contributing to SOB, as well as pneumonia -Prednisone 20mg BID -f/u oxygen walk test -See plan above (3) Suicidal behavior ICD Codes: R46.89 - Other symptoms and signs involving appearance and behavior Status: Resolved Plan: Pt presented under Umana Act for suicidal ideations. Currently not meeting involuntary psychiatric admission. Denies suicidal and homicidal ideation. -Consulted psychiatry-appreciate recs -Continue mirtazapine 30 mg at bedtime -Patient will be seen be Dr. Cardoso today (4) Diarrhea ICD Codes: R19.7 - Diarrhea, unspecified Status: Resolved Plan: Patient reporting several day history of diarrhea. * C. difficile. neg * started Imodium yesterday (5) History of pulmonary embolism ICD Codes: Z86.711 - Personal history of pulmonary embolism Plan: History of PE in October, on Coumadin at home, INR currently 1.8 on admission. 3.5 today, supra-therapeutic, goal 2-3 -Stop lovenox due to therapeutic INR -Per week: Patient to take half pill (2.5mg) one day a wk and take 5mg tab for the next 6 days. -Follow INR as outpatient in 2-3days (6) Seizure disorder ICD Codes: G40.909 - Epilepsy, unspecified, not intractable, without status epilepticus Plan: Continue home meds: Carbamazepime, Keppra, Phenobarbital Ativan PRN seizures (7) BPH without obstruction/lower urinary tract symptoms ICD Codes: N40.0 - Benign prostatic hyperplasia without lower urinary tract symptoms Status: Acute Plan: Continue home Flomax Monitor for obstruction symptoms. (8) FEN Status: Acute Plan: Fluids: NS at 110mls/hr Electrolyte: wnl, replace PRN Nutrition: regular diet DVT ppx: warfarin Problem Qualifiers (1) Pneumonia: Qualified Codes: J18.9 - Pneumonia, unspecified organism (2) COPD (chronic obstructive pulmonary disease): Qualified Codes: J44.1 - Chronic obstructive pulmonary disease with (acute) exacerbation (3) Suicidal behavior: Qualified Codes: R46.89 - Other symptoms and signs involving appearance and behavior Ronaldo Chawla MD, R1 Jan 19, 2018 09:52
[2018-01-19] MEDS ORDERED: COUM5TAB PO (10:00)
[2018-01-19] MEDS ORDERED: MEDR4PAK PO (10:05)
--- NOTE | 2018-01-19 10:06 | HHI.DCPOC ---
Discharge Care Plan Diagnosis: (1) COPD (chronic obstructive pulmonary disease) (2) Pneumonia Goals to Promote Your Health * To prevent worsening of your condition and complications * To maintain your health at the optimal level Directions to Meet Your Goals Take your medications as prescribed Follow your dietary instruction Follow activity as directed Keep your appointments as scheduled Take your immunizations and boosters as scheduled If your symptoms worsen call your PCP, if no PCP go to Urgent Care Center or Emergency Room Smoking is Dangerous to Your Health. Avoid second hand smoke Call the 24-hour hour crisis hotline for domestic abuse at Ronaldo Chawla MD, R1 Jan 19, 2018 10:06
--- NOTE | 2018-01-19 10:28 | HHI.PYPN ---
Subjective Remarks Patient was seen today for psychiatric reevaluation. The patient is calm, cooperative, he says that he is ready to go home. He reports good mood, denies depressive symptoms, denies hopelessness, helplessness, he denies suicidal and homicidal ideation, he denies visual and auditory hallucinations. Mental Status Examination Appearance: Appropriate Consciousness: Alert Orientation: x4 Motor Activity: Normal gait Speech: Unremarkable Language: Adequate Fund of Knowledge: Adequate Attention and Concentration: Adequate Memory: Unremarkable Mood: Appropriate Affect: Labile Thought Process & Associations: Intact, Other (concrete) Thought Content: Appropriate Hallucination Type: None Delusion Type: None Suicidal Ideation: No Suicidal Plan: No Suicidal Intention: No Homicidal Ideation: No Homicidal Plan: No Homicidal Intention: No Insight: Fair Judgment: Impulsive Results Labs Test 01/19/18 03:30 01/19/18 04:14 Blood Urea Nitrogen 2 MG/DL Creatinine 0.62 MG/DL Random Glucose 112 MG/DL Calcium Level 8.2 MG/DL Sodium Level 140 MEQ/L Potassium Level 3.9 MEQ/L Chloride Level 104 MEQ/L Carbon Dioxide Level 28.7 MEQ/L Anion Gap 7 MEQ/L Estimat Glomerular Filtration Rate 133 ML/MIN White Blood Count 8.2 TH/MM3 Red Blood Count 3.71 MIL/MM3 Hemoglobin 11.3 GM/DL Hematocrit 34.1 % Mean Corpuscular Volume 91.7 FL Mean Corpuscular Hemoglobin 30.5 PG Mean Corpuscular Hemoglobin Concent 33.3 % Red Cell Distribution Width 15.7 % Platelet Count 356 TH/MM3 Mean Platelet Volume 7.8 FL Neutrophils (%) (Auto) 73.4 % Lymphocytes (%) (Auto) 20.5 % Monocytes (%) (Auto) 4.9 % Eosinophils (%) (Auto) 0.8 % Basophils (%) (Auto) 0.4 % Neutrophils # (Auto) 6.0 TH/MM3 Lymphocytes # (Auto) 1.7 TH/MM3 Monocytes # (Auto) 0.4 TH/MM3 Eosinophils # (Auto) 0.1 TH/MM3 Basophils # (Auto) 0.0 TH/MM3 CBC Comment DIFF FINAL Differential Comment Prothrombin Time 34.8 SEC Prothromb Time International Ratio 3.5 RATIO Date/Time Source Procedure Growth Status 01/16/18 19:40 Blood Peripheral Aerobic Blood Culture - Preliminary NO GROWTH IN 2 DAYS Resulted 01/16/18 19:40 Blood Peripheral Anaerobic Blood Culture - Preliminary NO GROWTH IN 2 DAYS Resulted 01/15/18 22:00 Stool Stool Cryptosporidium Exam - Final NEGATIVE - NO CRYPTOSPORIDIUM ANTIGEN... Complete 01/15/18 22:00 Stool Stool Giardia Antigen (TANESHA) - Final NEGATIVE - NO GIARDIA ANTIGEN DETECTE... Complete 01/17/18 09:00 Sputum Expectorated Sputum Gram Stain - Final Complete 01/17/18 09:00 Sputum Expectorated Sputum Sputum Culture - Final HEAVY GROWTH NORMAL RESPIRATORY [facility] Complete Vitals/IOs Vital Signs Date Time Temp Pulse Resp B/P (MAP) Pulse Ox O2 Delivery O2 Flow Rate FiO2 01/19/18 08:00 96.0 81 17 127/82 (97) 95 01/18/18 15:30 Nasal Cannula 2.00 01/18/18 09:15 21 Intake and Output 01/19/18 01/19/18 01/20/18 08:00 16:00 00:00 Intake Total 150 ml Balance 150 ml Assessment & Plan Problem List: (1) Adjustment disorder with mixed disturbance of emotions and conduct ICD Codes: F43.25 - Adjustment disorder with mixed disturbance of emotions and conduct Assessment & Plan: Patient does not meet criteria for involuntary psychiatric admission. Brief supportive psychotherapy provided. Umana act will be lifted. Assessment & Plan Estimated LOS: days Justification for Cont. Inpt. Patient does not meet criteria for involuntary psychiatric admission. Gary Cardoso MD Jan 19, 2018 10:28
--- NOTE | 2018-01-19 11:32 | HHI.DS ---
Discharge Summary Admission Date Jan 16, 2018 at 08:23 Discharge Date: Jan 19, 2018 Admitting Diagnosis pneumonia, copd exacerbation (1) Pneumonia Diagnosis: Principal Plan: Due to recent hospitalization covering for HCAP. Patient reports improvement in his breathing. Denies any fevers or chills. White blood cell count has remain WNL. -Zyvox 600mg BID -Zosyn 4.5 g IV every 6 hours for coverage of gram negatives and Pseudomonas. -Azithromycin 500mg daily -Duonebs 6 hours scheduled. -Albuterol Q2 hr PRN SOB. -Supplemental O2 and pulse ox monitoring. -Incentive spirometer. -Tylenol, Zofran PRN ICD Codes: J18.9 - Pneumonia, unspecified organism Status: Acute (2) COPD (chronic obstructive pulmonary disease) Diagnosis: Principal Plan: History of COPD-likely contributing to SOB, as well as pneumonia -Prednisone 20mg BID -f/u oxygen walk test -See plan above ICD Codes: J44.9 - Chronic obstructive pulmonary disease, unspecified (3) Suicidal behavior Diagnosis: Secondary Plan: Pt presented under Umana Act for suicidal ideations. Currently not meeting involuntary psychiatric admission. Denies suicidal and homicidal ideation. -Consulted psychiatry-appreciate recs -Continue mirtazapine 30 mg at bedtime -Patient will be seen be Dr. Cardoso today ICD Codes: R46.89 - Other symptoms and signs involving appearance and behavior Status: Resolved (4) Diarrhea Diagnosis: Secondary Plan: Patient reporting several day history of diarrhea. * C. difficile. neg * started Imodium yesterday ICD Codes: R19.7 - Diarrhea, unspecified Status: Resolved (5) History of pulmonary embolism Diagnosis: Secondary Plan: History of PE in October, on Coumadin at home, INR currently 1.8 on admission. 3.5 today, supra-therapeutic, goal 2-3 -Stop lovenox due to therapeutic INR -Per week: Patient to take half pill (2.5mg) one day a wk and take 5mg tab for the next 6 days. -Follow INR as outpatient in 2-3days ICD Codes: Z86.711 - Personal history of pulmonary embolism (6) Seizure disorder Diagnosis: Secondary Plan: Continue home meds: Carbamazepime, Keppra, Phenobarbital Ativan PRN seizures ICD Codes: G40.909 - Epilepsy, unspecified, not intractable, without status epilepticus (7) BPH without obstruction/lower urinary tract symptoms Diagnosis: Secondary Plan: Continue home Flomax Monitor for obstruction symptoms. ICD Codes: N40.0 - Benign prostatic hyperplasia without lower urinary tract symptoms Status: Acute Consultants Psych- Dr. Cardoso Procedures none Brief History 57-year-old male with history of Hodgkin lymphoma, BPH, HD, hypertension, diabetes, multiple psychiatric admissions presented to the ED under Umana act. He was brought in due to thoughts of hurting himself. Was initially cleared medically and sent to psychiatric pod, however now is being admitted for hypoxia. He says he denies any suicidal lesions currently, just was to go home and take care of his mother. He states he has COPD and started having worsening cough last couple weeks. Also having some shortness of breath. Endorses some chills. He reportedly went to [facility] in which she department last Monday and stated he had a fever there. Denies getting any antibiotics there. Was placed on oxygen. He is not on any oxygen at home. States he walks 10-15 feet and is out of breath. Dr. Maryan Shin is his PCP. Per chart review, patient was hospitalized in October and admitted to the ICU for MRSA pneumonia. He also developed pulmonary embolisms, and was placed on warfarin. Pt is unable to provide much past medical history due to being tearful during the interview, unable to confirm his medications as well. CBC/BMP: 01/19/18 0414 01/19/18 0330 Significant Findings Laboratory Tests Test 01/17/18 08:36 01/18/18 06:55 01/18/18 09:45 01/19/18 03:30 Red Blood Count 3.60 MIL/MM3 (4.50-5.90) 3.32 MIL/MM3 (4.50-5.90) Hemoglobin 11.2 GM/DL (13.0-17.0) 10.2 GM/DL (13.0-17.0) Hematocrit 32.8 % (39.0-51.0) 29.9 % (39.0-51.0) Monocytes (%) (Auto) 9.0 % (0.0-8.0) Eosinophils (%) (Auto) 4.8 % (0.0-4.0) Prothrombin Time 17.1 SEC (9.8-11.6) 26.1 SEC (9.8-11.6) Blood Urea Nitrogen 4 MG/DL (7-18) 2 MG/DL (7-18) 2 MG/DL (7-18) Random Glucose 119 MG/DL (74-106) 135 MG/DL (74-106) 112 MG/DL (74-106) Calcium Level 8.1 MG/DL (8.5-10.1) 7.7 MG/DL (8.5-10.1) 8.2 MG/DL (8.5-10.1) Potassium Level 3.2 MEQ/L (3.5-5.1) 3.0 MEQ/L (3.5-5.1) Test 01/19/18 04:14 Red Blood Count 3.71 MIL/MM3 (4.50-5.90) Hemoglobin 11.3 GM/DL (13.0-17.0) Hematocrit 34.1 % (39.0-51.0) Neutrophils (%) (Auto) 73.4 % (16.0-70.0) Prothrombin Time 34.8 SEC (9.8-11.6) PE at Discharge GEN: Well-developed, well-nourished patient. No acute distress. CV: Regular rate and rhythm without obvious murmurs LUNGS: Clear to auscultation bilaterally. Normal respiratory effort. mild wheezing noted on Right lung field. GI: Soft, nontender, nondistended. No palpable masses. Bowel sounds WNL. EXT: No edema. NEURO/PSYCH: Afocal. Awake, alert, and oriented x3. Appropriate insight and judgment. Hospital Course Mr. Garcia is 57-year- Pt Condition on Discharge: Stable Discharge Disposition: Discharge Home Discharge Instructions DIET: Follow Instructions for: As Tolerated, No Restrictions Activities you can perform: Regular-No Restrictions Ronaldo Chawla MD, R1 Jan 19, 2018 11:32
== END 2018-01-19 13:28 | disposition home or self-care (01) | DRG 190 ==
LOC: NEPJ 17:41 → NEDA 01-16 08:23 → N07A 01-16 09:40
PROVIDERS: ADMIT Family Medicine; ATTEND Family Medicine
DX: J44.1 Chronic obstructive pulmonary disease with (acute) exacerbation (principal); J18.9 Pneumonia, unspecified organism; I26.99 Other pulmonary embolism without acute cor pulmonale; R45.851 Suicidal ideations; J44.0 Chronic obstructive pulmonary disease with (acute) lower respiratory infection; Z85.72 Personal history of non-Hodgkin lymphomas; E78.00 Pure hypercholesterolemia, unspecified; E11.9 Type 2 diabetes mellitus without complications; H91.93 Unspecified hearing loss, bilateral; R45.850 Homicidal ideations; K52.9 Noninfective gastroenteritis and colitis, unspecified; N40.1 Benign prostatic hyperplasia with lower urinary tract symptoms; R33.8 Other retention of urine; H54.62 Unqualified visual loss, left eye, normal vision right eye; F17.210 Nicotine dependence, cigarettes, uncomplicated; F12.90 Cannabis use, unspecified, uncomplicated; G40.909 Epilepsy, unspecified, not intractable, without status epilepticus; F71 Moderate intellectual disabilities; M19.90 Unspecified osteoarthritis, unspecified site; I10 Essential (primary) hypertension; Z85.71 Personal history of Hodgkin lymphoma; Z86.73 Personal history of transient ischemic attack (TIA), and cerebral infarction without residual deficits; Z92.21 Personal history of antineoplastic chemotherapy; Z79.01 Long term (current) use of anticoagulants; Z86.711 Personal history of pulmonary embolism
CPT/HCPCS: 71045; 71275; 80048; 80053; 80307; 81001; 84443; 85025; 85027; 85610; 85730; 87040; 87070; 87205; 87328; 87329; 87493; 87506; 94150; 94618; 94640; 94664; 96374; J1650; J2543; J2930; J7030; J7512; Q9967